=== PATIENT | female | born 1935 | race Caucasian/White ===

== ENCOUNTER → 2017-08-18 10:49 | Outpatient (CLI) | payer MEDICARE, SELFPAY ==
[2017-08-18 14:17] LABS: AST(SGOT) 12 U/L (15-37); Alanine Aminotransfer ALT/SGPT 11 U/L (13-56); Alkaline Phosphatase 64 U/L (45-117); Bilirubin, Direct 0.12 mg/dL (0.00-0.30); Cholesterol 181 mg/dL (200); High Density Lipoprotein 62 mg/dL; Triglycerides 106 mg/dL; Very Low Density Lipoprotein 21 mg/dL (5-40)
== END ==
PROVIDERS: Family Provider Family Medicine; PCP Family Medicine; Visit Provider Internal Medicine Cardiovascular Disease
DX: E78.5 Hyperlipidemia, unspecified (principal); Z79.899 Other long term (current) drug therapy
CPT/HCPCS: 36415; 80061; 80076

== ENCOUNTER → 2017-08-20 12:15 | Outpatient (CLI) | payer MEDICARE, SELFPAY ==
[2017-08-20 11:40] VITALS: BP 80/60; BMI 18.8
[2017-08-20 13:36] LABS: Absolute Lymphocyte Count 1.33 X10^3/ul (0.83-4.51); Absolute Neutrophil Count 3.3 X10^3/uL (2.0-7.7); Basophil# 0.07 X10^3/uL; Basophil% 1.2 % (0-1); Eosinophil# 0.68 X10^3/uL; Eosinophils% 11.4 % (0-5); Hematocrit 39.4 % (37-47); Hemoglobin 12.5 g/dl (12.0-15.0); Lymphocyte # 1.33 X10^3/ul (4.0); Lymphocyte % 22.4 % (19-41); Mean Corp Hgb Conc 31.7 g/gl (32-36); Mean Corpuscular Hgb 32.6 pg (27.0-32.0); Mean Corpuscular Volume 102.6 fL (81-99); Mean Platelet Vol. 10.4 fl (6.2-12.0); Monocyte# 0.54 X10^3/uL; Monocyte% 9.1 % (0-10); Neutrophil # 3.31 X10^3/uL (2.7-7.7); Neutrophil % 55.7 % (47-70); POSITIVE COUNT NO; POSITIVE DIFFERENTIAL NO; POSITIVE MORPHOLOGY NO; Platelet Count 199 K/mm3 (150-450); RBC Distribution Width CV 13.1 % (11.6-14.6); RBC Distribution Width SD 48.8 fl (35.1-43.9); Red Blood Count 3.84 M/mm3 (4.2-5.4); White Blood Count 5.9 K/mm3 (4.4-11.0)
[2017-08-20 14:13] LABS: Anion Gap 6 (5-15); BUN 25 mg/dL (7-18); BUN/Creat Ratio 16.7 RATIO (10-20); Calcium,Total 8.9 mg/dL (8.5-10.1); Chloride 104 mmol/L (98-107); EST Glomerular Filtration Rate 35 mL/min (>60); Est Glom Filt Rate - Afr Amer 43 mL/min (>60); Glucose 100 mg/dL (70-110); Magnesium 2.1 mg/dL (1.6-2.6); Potassium 4.5 mmol/L (3.5-5.1); Sodium Level 143 mmol/L (136-145); T4 Total, Thyroxin 9.9 ug/dL (4.8-13.9); Thyroid Stim Hormone (TSH) 0.05 uIU/mL (0.358-3.74)
== END ==
PROVIDERS: Family Provider Family Medicine; PCP Family Medicine; Visit Provider Physician Assistant Medical
DX: I25.10 Atherosclerotic heart disease of native coronary artery without angina pectoris (principal); I10 Essential (primary) hypertension; R00.2 Palpitations
CPT/HCPCS: 36415; 80048; 83735; 84436; 84443; 85025

== ENCOUNTER → 2018-01-08 14:18 | Outpatient (CLI) | payer MEDICARE, SELFPAY ==
--- NOTE | 2018-01-08 14:22 | RAD_ITS ---
STUDY: X-RAY - ABDOMEN/PELVIS REASON FOR EXAM: Female, 82 years old. 2 day history of lower abdominal pain. Constipation. TECHNIQUE: AP supine and upright views of the abdomen and pelvis. COMPARISON: None. FINDINGS: Normal visualized lung bases. There is an abundance of fecal material throughout the colon. There is no demonstrated free abdominal air. There is a 2.4 cm rounded calcification in the right upper quadrant. This may represent either gallstone or calcified granuloma in the right lower lobe. Normal soft tissue structures. There are diffuse degenerative changes of the visualized lumbar spine. Mild extradural scoliosis. 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 RAD/Abd Inc Decub and/or Erect IMPRESSION: Large amount of fecal material is seen in the colon. Electronically Signed: Clinton Alejandro MD at 15:16 EDT Tel [phone], Service support ,
== END ==
PROVIDERS: Family Provider Family Medicine; PCP Family Medicine; Visit Provider Family Medicine
DX: R10.30 Lower abdominal pain, unspecified (principal)
CPT/HCPCS: 74019

== ENCOUNTER → 2018-01-13 16:52 | Outpatient (CLI) | payer MEDICARE, SELFPAY ==
[2018-01-13 18:16] LABS: Thyroid Stim Hormone (TSH) 1.35 uIU/mL (0.358-3.74)
[2018-01-13 18:32] LABS: T4 Total, Thyroxin 9.8 ug/dL (4.8-13.9)
== END ==
PROVIDERS: Physician Assistant Medical; Family Provider Family Medicine; PCP Family Medicine; Visit Provider Family Medicine
DX: E03.9 Hypothyroidism, unspecified (principal); I25.10 Atherosclerotic heart disease of native coronary artery without angina pectoris; I10 Essential (primary) hypertension; R00.2 Palpitations
CPT/HCPCS: 36415; 84436; 84443

== ENCOUNTER → 2018-04-12 12:48 | Outpatient (CLI) | payer MEDICARE, SELFPAY ==
--- NOTE | 2018-04-12 12:52 | ECHOD_ITS ---
Reason For Study: Afib/Flutter Procedure This was a 2D Doppler, Color Flow transthoracic echocardiogram. Exam performed in department. Left Ventricle Normal LV size. Left ventricular systolic function is normal. The estimated ejection fraction is 55 %. No regional wall motion abnormalities noted. Right Ventricle Normal RV size. ICD or pacer leads identified within the right ventricle. Normal systolic function. Atria Normal left atrium. Normal right atrium. ICD or pacer leads identified within the right atrium. Mitral Valve Normal mitral valve. Mild (1+) eccentric mitral valve insufficiency. Tricuspid Valve Normal tricuspid valve. Mild (1+) tricuspid valve insufficiency. Pulmonary artery systolic pressure is 43 mmHg. Mild pulmonary hypertension. Aortic Valve Normal aortic valve. Trisinus/trileaflet aortic valve. Pulmonic Valve Normal pulmonic valve. Great Vessels Normal aortic root. The pulmonary artery is normal size. Normal inferior vena cava. Pericardium/Pleural No pericardial effusion. MMode/2D Measurements & Calculations LVIDd: 3.8 cm IVSd: 0.79 cm LVOT diam: 2.0 cm LVIDs: 1.8 cm LVPWd: 0.76 cm LVOT area: 3.2 cm2 FS: 51.1 % Ao root diam: 2.9 cm LAV(MOD-bp): 38.1 ml LA A4 area: 17.1 cm2 LAV(MOD-bp) Indexed: 27.8 ml/m2 LAV(MOD-sp2): 30.4 ml LAV(MOD-sp4): 46.9 ml RA A4 area: 11.6 cm2 Time Measurements MV dec time: 0.20 sec Doppler Measurements & Calculations MV E max grant: 81.4 cm/sec Med Peak E' Grant: 6.5 cm/sec MV V2 max: 88.4 cm/sec MV A max grant: 44.2 cm/sec E/E' med: 12.5 MV max P.1 mmHg MV E/A: 1.8 MV V2 mean: 43.5 cm/sec MV mean P.92 mmHg MV V2 VTI: 24.1 cm MVA(VTI): 3.2 cm2 MV P1/2t max grant: 87.6 cm/sec Ao V2 max: 110.4 cm/sec AI max grant: 366.6 cm/sec MV P1/2t: 93.6 msec Ao max P.9 mmHg AI max P.7 mmHg MV dec slope: 274.3 cm/sec2 Ao V2 mean: 68.5 cm/sec AI dec slope: 232.2 cm/sec2 MVA(P1/2t): 2.4 cm2 Ao mean P.2 mmHg AI P1/2t: 462.4 msec Ao V2 VTI: 21.6 cm ROYAL(I,D): 3.5 cm2 ROYAL(V,D): 3.0 cm2 LV V1 max: 103.0 cm/sec SV(LVOT): 76.3 ml PA V2 max: 68.7 cm/sec LV V1 max P.2 mmHg LV V1 mean P.0 mmHg LV V1 mean: 64.6 cm/sec LV V1 VTI: 24.0 cm TR max grant: 313.6 cm/sec TR max P.3 mmHg Interpretation Summary Normal LV size. Left ventricular systolic function is normal. The estimated ejection fraction is 55 %. Mild (1+) eccentric mitral valve insufficiency. Mild (1+) tricuspid valve insufficiency. Pulmonary artery systolic pressure is 43 mmHg. Mild pulmonary hypertension. Ordering Physician: Dung Cerda Referring Physician: Suresh Juarez Performed By: Jesus Sánchez RCS
== END ==
PROVIDERS: Family Provider Family Medicine; PCP Family Medicine; Visit Provider Internal Medicine Cardiovascular Disease
DX: I27.29 Other secondary pulmonary hypertension (principal)
CPT/HCPCS: 93306

== ENCOUNTER 2018-05-14 11:22 | Emergency (ER) | payer MEDICARE, SELFPAY ==
[2018-05-14 11:24] VITALS: BP 106/57; PULSE 60; RESP 18; TEMP 36.6; O2SAT 100; BMI 18.1
--- NOTE | 2018-05-14 11:56 | RAD_ITS ---
STUDY: X-RAY - LUMBAR SPINE REASON FOR EXAM: Female, 82 years old. Fall. Pain TECHNIQUE: 3 view(s) of the lumbar spine were obtained. COMPARISON: None FINDINGS: Normal lumbar lordosis. There is a dextroscoliosis of the lumbar spine. There is diffuse demineralization with multi-level endplate spondylosis. There is multi-level degenerative disc disease with multi-level disc space narrowing. There is no demonstrated fracture. There are vascular calcifications. RAD/Lumbar Spine 2 or 3 Views IMPRESSION: Degenerative changes scoliosis. No fracture seen. Electronically Signed: Saul Funes MD at 13:33 EDT , Service support ,
--- NOTE | 2018-05-14 11:56 | RAD_ITS ---
STUDY: X-RAY - PELVIS AND LEFT HIP REASON FOR EXAM: Female, 82 years old. Fall. Pain. TECHNIQUE: Radiological exam, hip, unilateral, with pelvis when performed; 2 or 3 views. COMPARISON: None. FINDINGS: There is a normal bowel gas pattern. There is postoperative change in the pelvis. There are vascular calcifications. There is diffuse demineralization of the osseous structures. Normal bilateral iliac wings, sacroiliac joints and visualized sacrum. Normal bilateral superior and inferior pubic rami. Normal pubic symphysis. Normal bilateral ischial tuberosities. There are osteoarthritic changes of the femoral head with marginal osteophyte formation. There is osteoarthritic spur formation of the acetabular rim. There is moderate articular joint space narrowing of the hip. No fracture seen. RAD/HIP, UNI W/ Pelvis 2-3 Views IMPRESSION: Degenerative change. No fracture. Electronically Signed: Saul Funes MD at 13:31 EDT , Service support ,
--- NOTE | 2018-05-14 11:56 | CT_ITS ---
STUDY: CT BRAIN WITHOUT CONTRAST REASON FOR EXAM: Female, 82 years old. Recent fall. Head injury. RADIATION DOSAGE (If Supplied By Facility): CTDIvol = ( 44.99 ) mGy, DLP = ( 711.75 ) mGycm TECHNIQUE: Transaxial CT imaging of the brain was performed without administration of intravenous contrast material. Individualized dose optimization techniques were used for this CT. COMPARISON: March 29, 2015. FINDINGS: Normal soft tissue structures. Normal calvarium. There is arthritic change of the temporomandibular joints. There is mild cerebral atrophy with widening of the extra-axial spaces and ventricular dilatation. There are areas of decreased attenuation within the white matter tracts of the supratentorial brain, consistent with microvascular disease changes. 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 Normal brainstem. There is mild cerebellar atrophy. There is no intracranial hemorrhage. There are no findings of an acute ischemic infarction. There are atherosclerotic calcifications. Normal visualized paranasal sinuses. CT/Brain/Head without Contrast IMPRESSION: Chronic involutional changes of the brain. No hemorrhage. Electronically Signed: Saul Funes MD at 12:49 EDT , Service support ,
[2018-05-14 13:26] VITALS: BP 104/62; PULSE 80; RESP 16; O2SAT 97
--- NOTE | 2018-05-14 14:42 | ED.DCSUM_ITS ---
- ER Visit Summary Date of Service: 05/14/18 Chief Complaint: Fall History of Present Illness: The patient is a 82 F who presents with a fall that occurred yesterday. Patient states she slipped and fell backwards. Patient denies any loss of consciousness. Patient did hit her head. Patient complains of pain in her neck and low back as well as her left hip. Patient also hit her left elbow but denies any pain there. Patient denies any paresthesias or weakness. Patient has been able to ambulate since the fall. Patient denies any other injuries. Physical Examination: Vital signs are stable. Patient is afebrile. Patient is in no acute distress. Oral mucosa is pink and moist. Neck is supple. Trachea is midline. There is some mild left cervical paraspinal muscles. There is no midline tenderness. Heart was regular rate and rhythm. Lungs are clear and equal bilateral. There is good respiratory effort noted. Abdomen is soft and nontender. Musculoskeletal exam reveals some mild tenderness over the left hip. There is also some mild decreased range of motion of the left hip. There is no deformity noted. There is also tenderness over the lumbar spine. There is no edema or ecchymosis. Range of motion was slightly limited secondary to pain. The remaining physical exam is within normal limits. Test Results: CT scan of the brain was obtained. There is no acute intracranial abnormality noted. X-rays of the left hip and lumbar spine were obtained. There are degenerative changes. There is no acute fracture noted. Emergency Department Course and Treatment: Patient was advised of the x-ray findings. Patient felt better on reevaluation. Patient was instructed to follow-up with her primary care physician in 5-7 days. Patient understood and was agreeable with the plan. All questions were answered. Disposition: Discharge home Impression: 1. Lumbar contusion 2. Left hip contusion 3. Closed head injury This note was generated with [employer] dictation software. It may contain incorrect words, spelling, and punctuation that were not noted in review of the chart prior to signing ED Disposition - Plan for ED Patient: Disposition: Home or Assisted Living Chief Complaint: Fall Diagnosis: Head contusion, Lumbar strain, Contusion of left hip region Instructions: ED Head Injury Closed, ED Prevention Fall Referrals: Suresh Juarez MD [Primary Care Provider] -
[2018-05-14 14:56] VITALS: BP 105/67; PULSE 79; RESP 16; O2SAT 97
[2018-05-14] MEDS: Acetaminophen 500 MG Tablet 1000 MG PO (14:56)
== END 2018-05-14 14:57 | disposition home or self-care (01) ==
PROVIDERS: Emergency Provider Emergency Medicine; Family Provider Family Medicine; PCP Family Medicine
DX: S30.0XXA Contusion of lower back and pelvis, initial encounter (principal); S70.02XA Contusion of left hip, initial encounter; S09.90XA Unspecified injury of head, initial encounter; I10 Essential (primary) hypertension; Z79.82 Long term (current) use of aspirin; Z79.899 Other long term (current) drug therapy; W01.10XA Fall on same level from slipping, tripping and stumbling with subsequent striking against unspecified object, initial encounter; Y93.89 Activity, other specified; Y92.89 Other specified places as the place of occurrence of the external cause; Y99.8 Other external cause status
CPT/HCPCS: 70450; 72100; 73502; 99283

== ENCOUNTER → 2018-06-25 12:07 | Outpatient (CLI) | payer MEDICARE, SELFPAY ==
--- NOTE | 2018-06-25 12:11 | BI_ITS ---
MAMMOGRAPHY - BILATERAL SCREENING REASON FOR EXAM: Female, 83 years old. Routine annual screening examination. PERTINENT HISTORY: Non-contributory. TECHNIQUE: Digital bilateral breast tyler (3D mammographic acquisition) in the CC and MLO projections. 2-D mediolateral oblique (MLO) and craniocaudad (CC) views of both breasts were obtained. CAD: Full Field Digital Mammography with Computer Added Detection was performed. COMPARISON: Comparison is made with prior study dated May 21, 2017 and November 06, 2015 FINDINGS: Breast Composition: The breasts are heterogeneously dense, which may obscure small masses. There are no dominant masses or suspicious calcifications. A battery pack from a pacemaker is seen in the right axillary region. Stable vascular calcifications. No other significant abnormalities are identified. There has been no significant change since the prior study. BI/SCREENING MAMM (CAD), BILAT IMPRESSION: Stable bilateral screening mammogram. Yearly follow-up mammogram recommended. (A) ASSESSMENT CATEGORY: BIRADS Category 2: Benign. A letter regarding these results will be sent to the patient by the facility within 30 days. Approximately 10% of breast cancers are not detected by mammography. A normal mammogram should not delay biopsy of a clinically suspicious abnormality. [id number] Electronically Signed: Clinton Alejandro MD at 13:13 EST Tel [phone], Service support ,
== END ==
PROVIDERS: Family Provider Family Medicine; PCP Family Medicine; Referring Provider Family Medicine; Visit Provider Family Medicine
DX: Z12.31 Encounter for screening mammogram for malignant neoplasm of breast (principal)
CPT/HCPCS: 77063; 77067

== ENCOUNTER → 2018-09-16 09:21 | Outpatient (CLI) | payer MEDICARE, SELFPAY ==
[2018-07-05 13:09] VITALS: BMI 18.8
[2018-09-16 12:55] LABS: Hematocrit 36.9 % (37-47); Hemoglobin 12.1 g/dl (12.0-15.0); Mean Corp Hgb Conc 32.8 g/gl (32-36); Mean Corpuscular Hgb 32.3 pg (27.0-32.0); Mean Corpuscular Volume 98.4 fL (81-99); Mean Platelet Vol. 10.4 fl (6.2-12.0); Platelet Count 166 K/mm3 (150-450); RBC Distribution Width CV 12.5 % (11.6-14.6); RBC Distribution Width SD 45.1 fl (35.1-43.9); Red Blood Count 3.75 M/mm3 (4.2-5.4); White Blood Count 4.3 K/mm3 (4.4-11.0)
[2018-09-16 12:58] LABS: Scan Indicated on CBC? Y/N NO
[2018-09-16 13:24] LABS: AST(SGOT) 16 U/L (15-37); Alanine Aminotransfer ALT/SGPT 11 U/L (13-56); Albumin, Serum 3.9 g/dL (3.2-5.0); Alkaline Phosphatase 49 U/L (45-117); Cholesterol 183 mg/dL (200); Globulin 2.6 g/dL (2.2-4.2); High Density Lipoprotein 43 mg/dL; Protein, Total 6.5 g/dL (6.4-8.2); Triglycerides 153 mg/dL; Very Low Density Lipoprotein 31 mg/dL (5-40)
[2018-09-16 13:32] LABS: ALB/GLOB Ratio 1.6 RATIO (0.9-2.4); AST(SGOT) 17 U/L (15-37); Alanine Aminotransfer ALT/SGPT 10 U/L (13-56); Alkaline Phosphatase 49 U/L (45-117); Anion Gap 11 (5-15); BUN 21 mg/dL (7-18); BUN/Creat Ratio 12.4 RATIO (10-20); Calcium,Total 8.3 mg/dL (8.5-10.1); Chloride 100 mmol/L (98-107); Creatinine, Serum 1.69 mg/dL (0.55-1.02); EST Glomerular Filtration Rate 31 mL/min (>60); Est Glom Filt Rate - Afr Amer 37 mL/min (>60); Globulin 2.5 g/dL (2.2-4.2); Glucose 107 mg/dL (74-106); Potassium 2.6 mmol/L (3.5-5.1); Protein, Total 6.5 g/dL (6.4-8.2); Sodium Level 138 mmol/L (136-145); Thyroid Stim Hormone (TSH) 0.11 uIU/mL (0.358-3.74)
== END ==
PROVIDERS: Internal Medicine Cardiovascular Disease; Family Provider Family Medicine; PCP Family Medicine; Referring Provider Family Medicine; Visit Provider Family Medicine
DX: R53.1 Weakness (principal); E78.5 Hyperlipidemia, unspecified; Z79.899 Other long term (current) drug therapy
CPT/HCPCS: 36415; 80053; 80061; 80076; 84443; 85027

== ENCOUNTER → 2018-09-20 16:57 | Outpatient (CLI) | payer MEDICARE, SELFPAY ==
[2018-07-05 13:09] VITALS: BMI 18.8
[2018-09-20 18:08] LABS: Anion Gap 8 (5-15); BUN 20 mg/dL (7-18); BUN/Creat Ratio 16.7 RATIO (10-20); Chloride 103 mmol/L (98-107); EST Glomerular Filtration Rate 46 mL/min (>60); Est Glom Filt Rate - Afr Amer 55 mL/min (>60); Glucose 101 mg/dL (74-106); Potassium 4.1 mmol/L (3.5-5.1); Sodium Level 138 mmol/L (136-145)
== END ==
PROVIDERS: Family Provider Family Medicine; PCP Family Medicine; Referring Provider Family Medicine; Visit Provider Family Medicine
DX: E87.6 Hypokalemia (principal)
CPT/HCPCS: 36415; 80048

== ENCOUNTER → 2018-10-13 14:26 | Outpatient (CLI) | payer MEDICARE, SELFPAY ==
[2018-09-29 13:10] VITALS: BMI 16.9
[2018-10-13 15:54] LABS: Absolute Lymphocyte Count 1.14 X10^3/ul (0.83-4.51); Absolute Neutrophil Count 2.8 X10^3/uL (2.0-7.7); Basophil# 0.06 X10^3/uL; Basophil% 1.3 % (0-1); Eosinophil# 0.47 X10^3/uL; Eosinophils% 9.8 % (0-5); Hemoglobin 11.9 g/dl (12.0-15.0); Lymphocyte # 1.14 X10^3/ul (4.0); Lymphocyte % 23.8 % (19-41); Mean Corp Hgb Conc 32.2 g/gl (32-36); Mean Corpuscular Volume 102.5 fL (81-99); Mean Platelet Vol. 10.4 fl (6.2-12.0); Monocyte# 0.31 X10^3/uL; Monocyte% 6.5 % (0-10); Neutrophil # 2.78 X10^3/uL (2.7-7.7); Neutrophil % 58.2 % (47-70); Platelet Count 184 K/mm3 (150-450); RBC Distribution Width SD 47.7 fl (35.1-43.9); Red Blood Count 3.61 M/mm3 (4.2-5.4); White Blood Count 4.8 K/mm3 (4.4-11.0)
[2018-10-13 15:55] LABS: POSITIVE COUNT NO; POSITIVE DIFFERENTIAL NO; POSITIVE MORPHOLOGY NO
[2018-10-13 16:42] LABS: Anion Gap 6 (5-15); BUN 21 mg/dL (7-18); BUN/Creat Ratio 14.2 RATIO (10-20); Calcium,Total 8.8 mg/dL (8.5-10.1); Chloride 104 mmol/L (98-107); Creatinine, Serum 1.48 mg/dL (0.55-1.02); EST Glomerular Filtration Rate 36 mL/min (>60); Est Glom Filt Rate - Afr Amer 43 mL/min (>60); Glucose 89 mg/dL (74-106); Magnesium 1.8 mg/dL (1.6-2.6); Potassium 4.3 mmol/L (3.5-5.1); Sodium Level 140 mmol/L (136-145)
== END ==
PROVIDERS: Family Provider Family Medicine; PCP Family Medicine; Referring Provider Family Medicine; Visit Provider Family Medicine
DX: R53.83 Other fatigue (principal)
CPT/HCPCS: 36415; 80048; 83735; 84443; 85025

== ENCOUNTER → 2018-11-10 | Outpatient (CLI) | payer MEDICARE, SELFPAY ==
[2018-09-29 13:10] VITALS: BMI 16.9
[2018-11-10 14:23] LABS: Absolute Lymphocyte Count 1.24 X10^3/ul (0.83-4.51); Absolute Neutrophil Count 3.5 X10^3/uL (2.0-7.7); Basophil# 0.11 X10^3/uL; Basophil% 1.9 % (0-1); Eosinophils% 10.3 % (0-5); Hematocrit 36.5 % (37-47); Hemoglobin 11.9 g/dl (12.0-15.0); Lymphocyte # 1.24 X10^3/ul (4.0); Lymphocyte % 21.3 % (19-41); Mean Corp Hgb Conc 32.6 g/gl (32-36); Mean Corpuscular Hgb 32.6 pg (27.0-32.0); Mean Platelet Vol. 9.7 fl (6.2-12.0); Monocyte# 0.37 X10^3/uL; Monocyte% 6.4 % (0-10); Neutrophil # 3.47 X10^3/uL (2.7-7.7); Neutrophil % 59.8 % (47-70); POSITIVE COUNT NO; POSITIVE DIFFERENTIAL NO; POSITIVE MORPHOLOGY NO; Platelet Count 192 K/mm3 (150-450); RBC Distribution Width CV 13.6 % (11.6-14.6); RBC Distribution Width SD 49.5 fl (35.1-43.9); Red Blood Count 3.65 M/mm3 (4.2-5.4); White Blood Count 5.8 K/mm3 (4.4-11.0)
[2018-11-10 14:36] LABS: Anion Gap 6 (5-15); BUN 22 mg/dL (7-18); BUN/Creat Ratio 16.4 RATIO (10-20); Calcium,Total 8.9 mg/dL (8.5-10.1); Chloride 102 mmol/L (98-107); Cholesterol 191 mg/dL (200); Creatinine, Serum 1.34 mg/dL (0.55-1.02); EST Glomerular Filtration Rate 40 mL/min (>60); Est Glom Filt Rate - Afr Amer 48 mL/min (>60); Glucose 104 mg/dL (74-106); High Density Lipoprotein 66 mg/dL; Potassium 4.3 mmol/L (3.5-5.1); Sodium Level 138 mmol/L (136-145); Thyroid Stim Hormone (TSH) 5.32 uIU/mL (0.358-3.74); Triglycerides 102 mg/dL; Very Low Density Lipoprotein 20 mg/dL (5-40)
== END | disposition home or self-care (01) ==
PROVIDERS: Family Provider Family Medicine; PCP Family Medicine; Referring Provider Family Medicine; Visit Provider Family Medicine
DX: E78.00 Pure hypercholesterolemia, unspecified (principal); E03.9 Hypothyroidism, unspecified; M19.90 Unspecified osteoarthritis, unspecified site; I10 Essential (primary) hypertension
CPT/HCPCS: 36415; 80048; 80061; 84443; 85025

== ENCOUNTER → 2019-02-28 17:45 | Outpatient (CLI) | payer MEDICARE, SELFPAY ==
[2018-09-29 13:10] VITALS: BMI 16.9
== END ==
PROVIDERS: Family Provider Family Medicine; PCP Family Medicine; Referring Provider Nurse Practitioner Family; Visit Provider Nurse Practitioner Family
DX: R35.0 Frequency of micturition (principal)
CPT/HCPCS: 87077; 87086; 87088; 87186

== ENCOUNTER → 2019-05-25 | Outpatient (CLI) | payer MEDICARE, SELFPAY ==
[2018-09-29 13:10] VITALS: BMI 16.9
[2019-05-25 12:26] LABS: Absolute Lymphocyte Count 1.22 X10^3/uL (0.83-4.51); Absolute Neutrophil Count 2.7 X10^3/uL (2.0-7.7); Basophil# 0.09 X10^3/uL; Basophil% 1.8 % (0-1); Eosinophil# 0.59 X10^3/uL; Eosinophils% 11.7 % (0-5); Hematocrit 35.8 % (37-47); Hemoglobin 11.6 g/dL (12.0-15.0); Lymphocyte # 1.22 X10^3/ul (4.0); Lymphocyte % 24.1 % (19-41); Mean Corp Hgb Conc 32.4 g/dL (32-36); Mean Corpuscular Hgb 33.6 pg (27.0-32.0); Mean Corpuscular Volume 103.8 fL (81-99); Mean Platelet Vol. 10.4 fl (6.2-12.0); Monocyte# 0.42 X10^3/uL; Monocyte% 8.3 % (0-10); NRBC Flagged by Analyzer 0 % (0-5); Neutrophil # 2.72 X10^3/uL (2.7-7.7); Neutrophil % 53.7 % (47-70); Platelet Count 170 K/mm3 (150-450); RBC Distribution Width CV 12.9 % (11.6-14.6); RBC Distribution Width SD 49.1 fl (35.1-43.9); Red Blood Count 3.45 M/mm3 (4.2-5.4); White Blood Count 5.1 K/mm3 (4.4-11.0)
[2019-05-25 13:00] LABS: Anion Gap 5 (5-15); BUN 23 mg/dL (7-18); BUN/Creat Ratio 16.2 RATIO (10-20); Calcium,Total 8.9 mg/dL (8.5-10.1); Chloride 104 mmol/L (98-107); Creatinine, Serum 1.42 mg/dL (0.55-1.02); EST Glomerular Filtration Rate 37 mL/min (>60); Est Glom Filt Rate - Afr Amer 45 mL/min (>60); Glucose 98 mg/dL (74-106); Sodium Level 139 mmol/L (136-145); Thyroid Stim Hormone (TSH) 1.22 uIU/mL (0.358-3.74)
== END | disposition home or self-care (01) ==
LOC: MTLAB 10:10
PROVIDERS: Family Provider Family Medicine; PCP Family Medicine; Referring Provider Family Medicine; Visit Provider Family Medicine
DX: K58.9 Irritable bowel syndrome, unspecified (principal); E03.9 Hypothyroidism, unspecified; I10 Essential (primary) hypertension
CPT/HCPCS: 36415; 80048; 84443; 85025

== ENCOUNTER → 2019-05-26 | Outpatient (CLI) | payer MEDICARE, SELFPAY ==
[2018-09-29 13:10] VITALS: BMI 16.9
[2019-05-26 15:11] LABS: Bacteria 0 SEEN /hpf (None Seen); Mucous, Urine 0 SEEN /hpf (<or=2+); Red Blood Cells-Urine 0 SEEN /hpf (0-5)
[2019-05-26 18:18] LABS: Vitamin B12 231 pg/mL (211-911); Vitamin D,25 Hydroxy 15.9 ng/mL (29.95-100.01)
[2019-05-26 18:20] LABS: AST(SGOT) 13 U/L (15-37); Alanine Aminotransfer ALT/SGPT 10 U/L (13-56); Albumin, Serum 3.9 g/dL (3.2-5.0); Alkaline Phosphatase 64 U/L (45-117); Bilirubin, Direct 0.13 mg/dL (0.00-0.30); Cholesterol 193 mg/dL (200); Ferritin 34 ng/mL (8-252); High Density Lipoprotein 58 mg/dL; Iron 120 ug/dL (50-170); Iron Binding Capacity,Total 386 ug/dL (250-450); Protein, Total 6.9 g/dL (6.4-8.2); Triglycerides 194 mg/dL; Very Low Density Lipoprotein 39 mg/dL (5-40)
[2019-05-26 18:26] LABS: Color, Urine Yellow (Yellow); Glucose, Dipstick Normal (Normal); Ketone-Dipstick Negative (Negative); Leukocyte Esterase-Dipstick 100 /ul (Negative); Nitrite-Dipstick Negative (Negative); Occult Blood-Urine Negative /ul (Negative); Protein-Dipstick Negative (Negative); Urine Bilirubin Dipstick Negative (Negative); Urine Clarity Clear (Clear); Urine Urobilinogen Normal (Normal)
[2019-05-26 18:34] LABS: Hemoglobin A1c 5.7 % (4.2-6.3)
[2019-05-26 18:46] LABS: Protein, Urine (Random) 18.3 mg/dL (<11.9); Protein:Creat Ratio 261 mg/g CRE (0-200)
[2019-05-26 18:49] LABS: Squamous Epithelial Cells - UA 0-5 SEEN /hpf (5-10); White Blood Cells 0-5 SEEN /hpf (0-5)
[2019-05-26 18:51] LABS: PTHIN 75.3 pg/mL (18.4-80.1)
== END | disposition home or self-care (01) ==
LOC: MFPLAB 15:07
PROVIDERS: Family Provider Family Medicine; PCP Family Medicine; Referring Provider Family Medicine; Visit Provider Family Medicine
DX: N18.3 Chronic kidney disease, stage 3 (moderate) (principal); E78.00 Pure hypercholesterolemia, unspecified; D64.9 Anemia, unspecified; R73.09 Other abnormal glucose
CPT/HCPCS: 36415; 80061; 80076; 81001; 82306; 82570; 82607; 82728; 82746; 83036; 83540; 83550; 83970; 84156

== ENCOUNTER → 2019-05-31 | Outpatient (CLI) | payer MEDICARE, SELFPAY ==
[2018-09-29 13:10] VITALS: BMI 16.9
--- NOTE | 2019-05-31 12:21 | US_ITS ---
STUDY: THYROID ULTRASOUND REASON FOR EXAM: Female, 84 years old. Nodule TECHNIQUE: Ultrasound evaluation of the thyroid was performed with real-time and static matthew-scale imaging. COMPARISON: None. FINDINGS: RIGHT LOBE: The right lobe of the thyroid gland measures 3.1 x 1.3 x 1.1 cm. There is a heterogeneous echotexture. There are no demonstrated solid, cystic or complex lesions. LEFT LOBE: The left lobe of the thyroid gland measures 4.4 x 0.8 x 0.8 cm. There is a heterogeneous echotexture. There is a 0.4 x 0.4 x 0.5 cm hypoechoic solid nodule. ISTHMUS: The isthmus measures 2 mm. The regional lymph nodes are normal. US/Thyroid IMPRESSION: Normal size heterogeneous thyroid gland with a solid 5 mm nodule in the right lobe. Sonography cannot distinguish between benign and aggressive nodules. If there is strong clinical suspicion of an aggressive process, further evaluation with thyroid uptake study could be performed. If suspicion is low, six-month follow-up could be performed to ensure stability Electronically Signed: Tim Causey MD at 17:29 EST , Service support ,
== END | disposition home or self-care (01) ==
LOC: US 12:20
PROVIDERS: Family Provider Family Medicine; PCP Family Medicine; Referring Provider Family Medicine; Visit Provider Family Medicine
DX: E04.1 Nontoxic single thyroid nodule (principal)
CPT/HCPCS: 76536

== ENCOUNTER → 2019-07-04 11:15 | Outpatient (CLI) | payer MEDICARE, SELFPAY ==
[2018-09-29 13:10] VITALS: BMI 16.9
--- NOTE | 2019-07-04 11:27 | BI_ITS ---
MAMMOGRAPHY - BILATERAL SCREENING REASON FOR EXAM: Female, 84 years old. Routine annual screening examination. PERTINENT HISTORY: Daughter with breast cancer. TECHNIQUE: Digital bilateral breast erasmo (3D mammographic acquisition) in the CC and MLO projections. 2-D mediolateral oblique (MLO) and craniocaudad (CC) views of both breasts were obtained. CAD: Full Field Digital Mammography with Computer Added Detection was performed. COMPARISON: Comparison is made with prior study dated June 25, 2018 and May 21, 2017. FINDINGS: Breast Composition: The breasts are heterogeneously dense, which may obscure small masses. There are no dominant masses or suspicious calcifications. A pacemaker battery pack is seen in the right axillary region. No other significant abnormalities are identified. There has been no significant change since the prior study. BI/SCREEN MAMM (CAD) W/ERASMO BILAT IMPRESSION: Stable bilateral screening mammogram. Yearly follow-up mammogram recommended. (A) ASSESSMENT CATEGORY: BIRADS Category 2: Benign. A letter regarding these results will be sent to the patient by the facility within 30 days. Approximately 10% of breast cancers are not detected by mammography. A normal mammogram should not delay biopsy of a clinically suspicious abnormality. [id number] Electronically Signed: Clinton Alejandro, at 12:45 EST , Service support ,
== END ==
PROVIDERS: Family Provider Family Medicine; PCP Family Medicine; Referring Provider Family Medicine; Visit Provider Family Medicine
DX: Z12.31 Encounter for screening mammogram for malignant neoplasm of breast (principal)
CPT/HCPCS: 77063; 77067

== ENCOUNTER → 2019-07-22 14:19 | Outpatient (CLI) | payer MEDICARE, SELFPAY ==
[2019-07-05 14:15] VITALS: BMI 19.0
[2019-07-22 15:54] LABS: Erythrocyte Sedimentation Rate 4 mm/hr (0-30)
== END ==
PROVIDERS: Family Provider Family Medicine; PCP Family Medicine; Referring Provider Family Medicine; Visit Provider Family Medicine
DX: M79.7 Fibromyalgia (principal)
CPT/HCPCS: 36415; 85652

== ENCOUNTER → 2019-09-01 | Outpatient (CLI) | payer MEDICARE, SELFPAY ==
[2019-07-05 14:15] VITALS: BMI 19.0
== END | disposition home or self-care (01) ==
LOC: LABSPEC 14:28
PROVIDERS: PCP Family Medicine; Referring Provider Family Medicine; Visit Provider Family Medicine
DX: N39.0 Urinary tract infection, site not specified (principal)
CPT/HCPCS: 87086; 87088

== ENCOUNTER → 2019-09-22 | Outpatient (CLI) | payer MEDICARE, SELFPAY ==
[2019-07-05 14:15] VITALS: BMI 19.0
== END | disposition home or self-care (01) ==
PROVIDERS: PCP Family Medicine; Referring Provider Nurse Practitioner Family; Visit Provider Nurse Practitioner Family
DX: N39.0 Urinary tract infection, site not specified (principal)
CPT/HCPCS: 87077; 87086; 87088; 87186

== ENCOUNTER → 2019-12-14 15:22 | Outpatient (CLI) | payer MEDICARE, SELFPAY ==
[2019-07-05 14:15] VITALS: BMI 19.0
[2019-12-14 17:42] LABS: Absolute Lymphocyte Count 1.53 X10^3/uL (0.83-4.51); Absolute Neutrophil Count 3.2 X10^3/uL (2.0-7.7); Basophil# 0.09 X10^3/uL; Basophil% 1.5 % (0-1); Eosinophil# 0.59 X10^3/uL; Eosinophils% 10.1 % (0-5); Hematocrit 35.3 % (37-47); Hemoglobin 11.2 g/dL (12.0-15.0); Lymphocyte # 1.53 X10^3/ul (4.0); Lymphocyte % 26.1 % (19-41); Mean Corp Hgb Conc 31.7 g/dL (32-36); Mean Corpuscular Hgb 33.2 pg (27.0-32.0); Mean Corpuscular Volume 104.7 fL (81-99); Mean Platelet Vol. 10.5 fl (6.2-12.0); Monocyte# 0.45 X10^3/uL; Monocyte% 7.7 % (0-10); NRBC Flagged by Analyzer 0 % (0-5); Neutrophil # 3.18 X10^3/uL (2.7-7.7); Neutrophil % 54.3 % (47-70); Platelet Count 163 K/mm3 (150-450); RBC Distribution Width CV 12.9 % (11.6-14.6); RBC Distribution Width SD 50.1 fl (35.1-43.9); Red Blood Count 3.37 M/mm3 (4.2-5.4); White Blood Count 5.9 K/mm3 (4.4-11.0)
[2019-12-14 17:58] LABS: Vitamin D,25 Hydroxy 68.3 ng/mL
[2019-12-14 18:00] LABS: Protein, Urine (Random) 23.8 mg/dL (<11.9); Protein:Creat Ratio 186 mg/g CRE (0-200)
[2019-12-14 18:01] LABS: Hemoglobin A1c 5.9 % (3.8-5.6)
[2019-12-14 18:10] LABS: ALB/GLOB Ratio 1.5 RATIO (0.9-2.4); AST(SGOT) 17 U/L (15-37); Alanine Aminotransfer ALT/SGPT 9 U/L (13-56); Albumin, Serum 3.8 g/dL (3.2-5.0); Alkaline Phosphatase 43 U/L (45-117); Anion Gap 4 (5-15); BUN 25 mg/dL (7-18); BUN/Creat Ratio 19.5 RATIO (10-20); Calcium,Total 8.9 mg/dL (8.5-10.1); Chloride 104 mmol/L (98-107); Cholesterol 118 mg/dL (200); Creatinine, Serum 1.28 mg/dL (0.55-1.02); EST Glomerular Filtration Rate 42 mL/min (>60); Est Glom Filt Rate - Afr Amer 51 mL/min (>60); Globulin 2.6 g/dL (2.2-4.2); Glucose 85 mg/dL (74-106); High Density Lipoprotein 58 mg/dL; Magnesium 2.2 mg/dL (1.6-2.6); Potassium 4.3 mmol/L (3.5-5.1); Protein, Total 6.4 g/dL (6.4-8.2); Sodium Level 139 mmol/L (136-145); Thyroid Stim Hormone (TSH) 1.25 uIU/mL (0.358-3.74); Triglycerides 108 mg/dL; Very Low Density Lipoprotein 22 mg/dL (5-40)
== END ==
PROVIDERS: PCP Family Medicine; Referring Provider Family Medicine; Visit Provider Family Medicine
DX: E03.9 Hypothyroidism, unspecified (principal); D63.8 Anemia in other chronic diseases classified elsewhere; I48.0 Paroxysmal atrial fibrillation; R73.02 Impaired glucose tolerance (oral); Z86.73 Personal history of transient ischemic attack (TIA), and cerebral infarction without residual deficits; E55.9 Vitamin D deficiency, unspecified
CPT/HCPCS: 36415; 80053; 80061; 82306; 82570; 83036; 83735; 84156; 84443; 85025

== ENCOUNTER → 2019-12-30 12:23 | Outpatient (CLI) | payer MEDICARE, SELFPAY ==
[2019-07-05 14:15] VITALS: BMI 19.0
[2019-12-30 13:29] LABS: Absolute Lymphocyte Count 1.33 X10^3/uL (0.83-4.51); Absolute Neutrophil Count 3.7 X10^3/uL (2.0-7.7); Basophil% 1.6 % (0-1); Eosinophils% 11.1 % (0-5); Hematocrit 33.8 % (37-47); Hemoglobin 10.6 g/dL (12.0-15.0); Lymphocyte # 1.33 X10^3/ul (4.0); Lymphocyte % 21.2 % (19-41); Mean Corp Hgb Conc 31.4 g/dL (32-36); Mean Corpuscular Volume 105.3 fL (81-99); Mean Platelet Vol. 10.1 fl (6.2-12.0); Monocyte# 0.45 X10^3/uL; Monocyte% 7.2 % (0-10); NRBC Flagged by Analyzer 0 % (0-5); Neutrophil # 3.69 X10^3/uL (2.7-7.7); Neutrophil % 58.7 % (47-70); Platelet Count 166 K/mm3 (150-450); RBC Distribution Width CV 12.5 % (11.6-14.6); RBC Distribution Width SD 48.4 fl (35.1-43.9); Red Blood Count 3.21 M/mm3 (4.2-5.4); White Blood Count 6.3 K/mm3 (4.4-11.0)
--- NOTE | 2019-12-30 13:39 | CT_ITS ---
STUDY: CT ABDOMEN AND PELVIS WITH CONTRAST REASON FOR EXAM: Female, 84 years old. Ischemic colitis, diffuse abdomen pain RADIATION DOSAGE (If Supplied By Facility): CTDIvol = ( ) mGy, DLP = ( ) mGycm TECHNIQUE: Transaxial images were obtained from the dome of the diaphragm to the symphysis pubis without oral contrast. Oral and amp; IV Gastrografin and amp; 75mL Isovue-300 was administered. Sagittal and coronal images were reconstructed. Individualized dose optimization techniques were used for this CT. COMPARISON: 2011 FINDINGS: There are chronic interstitial fibrotic changes of the lung bases. Pacer leads seen along the base of the heart Liver is unremarkable. There is a low-density area within the lateral right lobe which I suspect is a diaphragmatic fold. It is unchanged from the previous study Normal gallbladder and extrahepatic biliary system. Normal spleen. Normal pancreas. Normal bilateral adrenal glands. No obstructive uropathy, stable simple cysts. Normal visualized stomach. Normal small intestine. Retained stool noted throughout the colon, including sigmoid and rectum which may be impacted. There is non-visualization of the appendix. There is diffuse atherosclerotic calcification of the abdominal aorta, without a demonstrated aneurysm. Normal inferior vena cava. Normal retroperitoneum. Normal urinary bladder. There is absence of the uterus consistent with a prior hysterectomy. Normal abdominal wall. There are diffuse degenerative changes of the visualized lumbar spine, and pelvis. CT/Abdomen/Pelvis WITH Contrast IMPRESSION: No suspicious solid organ abnormality, stable simple renal cysts need no specific follow-up imaging. Retained stool throughout the colon which may be impacted Diffuse atherosclerosis Degenerative bony changes Electronically Signed: Tim Causey MD at 16:57 EDT , Service support ,
[2019-12-30 13:50] LABS: Lactic Acid 1.4 mmol/L (0.4-1.9)
[2019-12-30 13:53] LABS: ALB/GLOB Ratio 1.3 RATIO (0.9-2.4); AST(SGOT) 16 U/L (15-37); Alanine Aminotransfer ALT/SGPT 7 U/L (13-56); Albumin, Serum 3.9 g/dL (3.2-5.0); Alkaline Phosphatase 50 U/L (45-117); Anion Gap 6 (5-15); BUN 23 mg/dL (7-18); BUN/Creat Ratio 15.1 RATIO (10-20); Calcium,Total 9.1 mg/dL (8.5-10.1); Chloride 105 mmol/L (98-107); Creatinine, Serum 1.52 mg/dL (0.55-1.02); EST Glomerular Filtration Rate 35 mL/min (>60); Est Glom Filt Rate - Afr Amer 42 mL/min (>60); Globulin 2.9 g/dL (2.2-4.2); Glucose 79 mg/dL (74-106); Potassium 4.1 mmol/L (3.5-5.1); Protein, Total 6.8 g/dL (6.4-8.2); Sodium Level 140 mmol/L (136-145)
== END ==
LOC: MTLAB 12:59 → LAB 13:04 → CT 13:06
PROVIDERS: PCP Family Medicine; Referring Provider Family Medicine; Visit Provider Family Medicine
DX: K55.9 Vascular disorder of intestine, unspecified (principal)
CPT/HCPCS: 36415; 74177; 80053; 83605; 85025; Q9967

== ENCOUNTER → 2020-03-05 | Outpatient (CLI) | payer MEDICARE, SELFPAY ==
[2020-01-16 13:29] VITALS: BMI 18.3
--- NOTE | 2020-03-05 17:25 | RAD_ITS ---
STUDY: X-RAY - LEFT KNEE REASON FOR EXAM: Female, 84 years old. Left knee pain. Fall a few hours ago. TECHNIQUE: 4 view(s) of the knee. COMPARISON: None. FINDINGS: There is demineralization of the visualized distal femur. There is demineralization of the tibia and fibula. There is arthrosis of the proximal tibiofibular articulation. There is no acute fracture, dislocation or destructive osseous pathology. There is mild degenerative arthrosis of the medial femorotibial compartment. There is mild degenerative arthrosis of the lateral femorotibial compartment. There is moderate degenerative arthrosis of the patellofemoral articulation. There is no demonstrated joint effusion. The soft tissue structures are unremarkable. RAD/Knee 4 or More Views IMPRESSION: Osteopenia and degenerative changes of left knee. There is no visualized fracture or dislocation. Electronically Signed: Niraj Major DO at 23:50 EDT Tel [phone], Service support ,
== END | disposition home or self-care (01) ==
LOC: MTRAD 17:24
PROVIDERS: PCP Family Medicine; Referring Provider Family Medicine; Visit Provider Family Medicine
DX: S89.92XA Unspecified injury of left lower leg, initial encounter (principal)
CPT/HCPCS: 73564

== ENCOUNTER → 2020-03-09 | Outpatient (CLI) | payer MEDICARE, SELFPAY ==
[2020-01-16 13:29] VITALS: BMI 18.3
--- NOTE | 2020-03-09 14:53 | RAD_ITS ---
STUDY: X-RAY - PELVIS AND LEFT HIP REASON FOR EXAM: Female, 84 years old. left hip pain, fall TECHNIQUE: 3 views of the pelvis and hip. COMPARISON: 05/14/2018 FINDINGS: There is a non-specific bowel gas pattern. Normal visualized soft tissue structures. Normal bilateral iliac wings, sacroiliac joints and visualized sacrum. Normal bilateral superior and inferior pubic rami. Normal pubic symphysis. Normal bilateral ischial tuberosities. There are osteoarthritic changes of the femoral head with marginal osteophyte formation. There is cortical sclerosis with sub-cortical cyst formation of the acetabulum. is severe articular joint space narrowing of the hip. RAD/HIP, UNI W/ Pelvis 2-3 Views IMPRESSION: 1. No acute fracture or dislocation. 2. Severe arthrosis. Electronically Signed: Joe Palma MD at 15:12 EDT Tel , Service support ,
== END | disposition home or self-care (01) ==
LOC: MTRAD 14:51
PROVIDERS: PCP Family Medicine; Referring Provider Family Medicine; Visit Provider Family Medicine
DX: M25.552 Pain in left hip (principal)
CPT/HCPCS: 73502

== ENCOUNTER → 2020-03-16 | Outpatient (CLI) | payer MEDICARE, SELFPAY ==
[2020-01-16 13:29] VITALS: BMI 18.3
--- NOTE | 2020-03-16 12:40 | CT_ITS ---
STUDY: CT BRAIN WITHOUT CONTRAST REASON FOR EXAM: Female, 84 years old. FALLS RADIATION DOSAGE (If Supplied By Facility): CTDIvol = ( 60.81 ) mGy, DLP = ( 998.67 ) mGycm TECHNIQUE: Transaxial CT imaging of the brain was performed without administration of intravenous contrast material. Individualized dose optimization techniques were used for this CT. COMPARISON: Comparison is made with prior study dated 05/14/2018. FINDINGS: Normal soft tissue structures. Normal calvarium. There is mild cerebral atrophy with widening of the extra-axial spaces and ventricular dilatation. There are areas of decreased attenuation within the white matter tracts of the supratentorial brain, consistent with microvascular disease changes. There is evidence of old lacunar infarcts in both basal ganglia. Normal brainstem. There is mild cerebellar atrophy. There is no intracranial hemorrhage. There are no findings of an acute ischemic infarction. Atherosclerotic calcification of the vertebral arteries and cavernous portions of the internal carotid arteries bilaterally. Normal visualized paranasal sinuses. CT/Brain/Head without Contrast IMPRESSION: Chronic involutional changes of the brain. Electronically Signed: Clinton Alejandro, at 13:54 EDT , Service support ,
== END | disposition home or self-care (01) ==
PROVIDERS: PCP Family Medicine; Referring Provider Family Medicine; Visit Provider Family Medicine
DX: H53.9 Unspecified visual disturbance (principal)
CPT/HCPCS: 70450

== ENCOUNTER → 2020-04-12 | Outpatient (CLI) | payer MEDICARE, SELFPAY ==
[2020-01-16 13:29] VITALS: BMI 18.3
--- NOTE | 2020-04-12 10:16 | BD_ITS ---
STUDY: DUAL ENERGY X-RAY ABSORPTIOMETRY / DXA REASON FOR EXAM: Female, 84 years old. 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 COMPARISON: Comparison is made with prior study dated 11/06/2015. FINDINGS: Lumbar Spine (L1-L4): g/cm2 (1.184) / T-score (0.2) / Z-score (2.1) Findings are suggestive of normal bone density with a low fracture risk. Left Femur Total: g/cm2 (0.606) / T-score (-3.2) / Z-score (-0.9) Left Femoral Neck: g/cm2 (0.865) / T-score (-1.2) / Z-score (1.2) Right Femur Total: g/cm2 (0.641) / T-score (-2.9) / Z-score (-0.6) Right Femoral Neck: g/cm2 (0.74) / T-score (-2.1) / Z-score (0.3) The T-Scores on the most recent prior examination were: Lumbar Spine (L1-L4): There has been improvement of bone density since the previous examination. Left Femur Total: which represents a worsening of 12.6%. Right Femur Total: which represents a worsening of 7.5%. BD/Dexa Bone Density Study IMPRESSION: The patient is considered osteoporotic as outlined below according to World J[employer] Organization (WHO) criteria with a high fracture risk. There has been worsening of bone density since the previous examination. Reference Information: The T-score is the number of standard deviations above or below the standard which is normal for young adults at their peak bone mineral density. The World Health Organization (WHO) interprets the T-scores as follows: Above -1 Normal bone density Between -1 and -2.5 Osteopenia Equal to / or below -2.5 Osteoporosis As a practical clinical guideline, osteopenia may be graded as follows: Mild -1 through -1.5 Moderate -1.6 through -2.0 Severe -2.1 through -2.4 The Z-score is the number of standard deviations above or below age-matched controls. A Z-score of less than -1.5 would be considered abnormal. References: 1. NIH Osteoporosis and Related Bone Diseases http://www.osteo.org 2. International Society for Clinical Densitometry http://www.iscd.org 3. National Osteoporosis Foundation http://www.nof.org Electronically Signed: Clinton Alejandro, at 10:51 EDT , Service support ,
== END | disposition home or self-care (01) ==
LOC: OPBD 09:51
PROVIDERS: PCP Family Medicine; Referring Provider Family Medicine; Visit Provider Family Medicine
DX: Z78.0 Asymptomatic menopausal state (principal); Z13.820 Encounter for screening for osteoporosis
CPT/HCPCS: 77080

== ENCOUNTER → 2020-04-25 08:35 | Outpatient (CLI) | payer MEDICARE, SELFPAY ==
[2020-01-16 13:29] VITALS: BMI 18.3
[2020-04-25 10:00] LABS: Absolute Lymphocyte Count 1.43 X10^3/uL (0.83-4.51); Basophil# 0.09 X10^3/uL; Basophil% 1.7 % (0-1); Eosinophil# 0.46 X10^3/uL; Eosinophils% 8.6 % (0-5); Hematocrit 36.2 % (37-47); Hemoglobin 11.7 g/dL (12.0-15.0); Lymphocyte # 1.43 X10^3/ul (4.0); Lymphocyte % 26.6 % (19-41); Mean Corp Hgb Conc 32.3 g/dL (32-36); Mean Corpuscular Hgb 33.1 pg (27.0-32.0); Mean Corpuscular Volume 102.5 fL (81-99); Mean Platelet Vol. 10.3 fl (6.2-12.0); Monocyte# 0.41 X10^3/uL; Monocyte% 7.6 % (0-10); NRBC Flagged by Analyzer 0 % (0-5); Neutrophil # 2.97 X10^3/uL (2.7-7.7); Neutrophil % 55.3 % (47-70); Platelet Count 170 K/mm3 (150-450); RBC Distribution Width CV 12.8 % (11.6-14.6); RBC Distribution Width SD 47.9 fl (35.1-43.9); Red Blood Count 3.53 M/mm3 (4.2-5.4); White Blood Count 5.4 K/mm3 (4.4-11.0)
[2020-04-25 10:13] LABS: ALB/GLOB Ratio 1.4 RATIO (0.9-2.4); AST(SGOT) 13 U/L (15-37); Alanine Aminotransfer ALT/SGPT 10 U/L (13-56); Albumin, Serum 3.7 g/dL (3.2-5.0); Alkaline Phosphatase 52 U/L (45-117); Anion Gap 4 (5-15); BUN 16 mg/dL (7-18); Calcium,Total 8.9 mg/dL (8.5-10.1); Chloride 105 mmol/L (98-107); Creatinine, Serum 1.23 mg/dL (0.55-1.02); EST Glomerular Filtration Rate 44 mL/min (>60); Est Glom Filt Rate - Afr Amer 53 mL/min (>60); Globulin 2.7 g/dL (2.2-4.2); Glucose 91 mg/dL (74-106); Phosphorus 3.8 mg/dL (2.5-4.9); Potassium 3.7 mmol/L (3.5-5.1); Protein, Total 6.4 g/dL (6.4-8.2); Sodium Level 142 mmol/L (136-145)
[2020-04-25 10:13] LABS: Prothrombin Time (Protime)PT. 13.1 SECONDS (11.7-14.9)
[2020-04-25 10:14] LABS: Partial Thromboplast Time 30.3 Seconds (24.1-36.2)
[2020-04-25 10:15] LABS: Vitamin D,25 Hydroxy 79.2 ng/mL
[2020-04-25 10:19] LABS: Anion Gap 4 (5-15); BUN 17 mg/dL (7-18); BUN/Creat Ratio 14.2 RATIO (10-20); Calcium,Total 8.8 mg/dL (8.5-10.1); Chloride 103 mmol/L (98-107); EST Glomerular Filtration Rate 45 mL/min (>60); Est Glom Filt Rate - Afr Amer 55 mL/min (>60); Glucose 90 mg/dL (74-106); Potassium 3.7 mmol/L (3.5-5.1); Sodium Level 140 mmol/L (136-145)
[2020-04-25 11:00] LABS: AST(SGOT) 15 U/L (15-37); Alanine Aminotransfer ALT/SGPT 8 U/L (13-56); Albumin, Serum 3.8 g/dL (3.2-5.0); Alkaline Phosphatase 52 U/L (45-117); Bilirubin, Direct 0.23 mg/dL (0.00-0.30); Globulin 2.6 g/dL (2.2-4.2); Magnesium 2.1 mg/dL (1.6-2.6); Protein, Total 6.4 g/dL (6.4-8.2)
[2020-04-26 14:11] LABS: Albumin, Serum 3.7 g/dL (3.2-5.0)
== END ==
PROVIDERS: Anesthesiology; Specialist; PCP Family Medicine; Referring Provider Family Medicine; Visit Provider Family Medicine
DX: Z01.812 Encounter for preprocedural laboratory examination (principal)
CPT/HCPCS: 36415; 80048; 80053; 80076; 82040; 82306; 83735; 84100; 84443; 85025; 85610; 85730; 87081

== ENCOUNTER 2020-05-02 07:39 | Inpatient (IN) | payer MEDICARE, SELFPAY ==
[2020-01-16 13:29] VITALS: BMI 18.3
--- NOTE | 2020-04-17 15:54 | PCM.HP.BLA ---
History and Physical History and Physical Patient Name: Jeanne Gautam : 1935 From: MANDIE العراقي NP DATE OF SURGERY: 05/02/2020 SCHEDULED PROCEDURE: Left total hip arthroplasty HISTORY OF PRESENT ILLNESS: Preoperative history and physical exam was performed on April 17, 2020. This is an 84-year-old female who has been experiencing left hip pain for the last 4-5 years. She describes the pain as constant and sharp. The pain is made worse with stairs, driving, sitting for prolonged periods of time and walking. The patient reports inability to perform activities of daily living including bathing, dressing and housework. The patient has tripped and stumbled secondary to the pain in the left hip. The patient does ambulate with the use of a cane. She states at times she uses a walker. Previous conservative measures attempted consist of rest and elevation with no relief. She has attempted physical therapy and home exercises with no relief. Oral medications for pain relief include tramadol and acetaminophen. We will obtain surgical clearance from her primary care provider Dr. Coles and disciplinary hearing officer Dr. Cerda. The patient has an implanted pacemaker. The patient has a medical history pertinent for hypertension, gastroesophageal reflux disease, hypercholesterolemia, migraines, mitral valve prolapse, thyroid disease, M?ni?re's disease, restless leg syndrome and fibromyalgia. The patient has a history of phlebitis and ischemic colitis. After failing conservative measures and discussing treatment with the patient does wish to proceed with a left total hip left knee. REVIEW OF SYSTEMS: ROS: Const: Denies change in appetite, fever, hard of hearing, vision problems and weight change CV: Reports heart murmur, but denies chest pain, irregular heartbeat and peripheral vascular disease. Resp: Reports pneumonia, but denies asthma, cough, sleep apnea, SOB, tuberculosis and wheezing. GI: Reports constipation, diarrhea, difficulty swallowing, nausea, bloody stools and vomiting, but denies heartburn. : Urinary: denies incontinence. Musculo: Reports limp, trouble walking and weakness. Skin: Denies Raynaud's, history of shingles and tattoo. Neuro: Reports difficulty with balance and dizziness but denies ambulatory dysfunction, numbness/tingling and tremor. Psych: Reports stress, but denies anxiety, depression, insomnia and mental illness. Noel/Lymph: Reports bleeding/bruising tendency, but denies anemia and past transfusion. Reviewed, no changes. PAST MEDICAL HISTORY: Advance Care Plan: Other Directive, LIVING WILL Effective Date: 12/20/2018 Other Directive, POA Effective Date: 12/20/2018 PMH: Medical Problems: Arthritis, Fibromyalgia, History Of Phlebitis, Pacemaker, Thyroid Disease, MVP, Migranies, Restless Leg Syndrome, Heart Murmur, Hypertension, Hiatal Hernia, Ischemic Colitis, Meniere's Disease, Gastroesophageal reflux disease, Hypercholesterolemia Accidents: RT Foot FX - (11/2012) MISSED STEP Surgical Hx: Appendectomy - (1936) [facility] Colon Resection - (2003) [facility] Hysterectomy - (1970) [facility] Tonsillectomy - (1939) [facility] Tubal Ligation - (1070) [facility] Vein Stripping, Carmelo Cataracts, Carmelo Upper Eye Lid Pacemaker - (1993) Sympathectomy - (1974) Pacemaker Replacement - (1997) Pacemaker Replacement - (2003) Bowl Resection - (2002) Upper Eyelid Bilat - (2003) Anesthesia Complications: None Assistive Devices: Dentures, Glasses, Cane Reviewed and updated. SOCIAL HISTORY: SH: Marital: .Occupation: Disabled - (1985).Work Status: Disabled.Hand Dominance: Right-handed. Personal Habits: Cigarette Use: Never Smoked Cigarettes.Alcohol: Denies use.Drug Use: Denies Use.Enjoy Exercising: Never Exercises. Reviewed and updated. VITALS: Ht: 63.5 Wt: 97lb 2oz Wt k.056 BMI: 16.9 BP: 116/73 Pulse: 60 Resp: 22 T: 97.3 T: 36.3C ALLERGIES: Penicillin Morphine Cipro Sulfa Promethazine Prochlorperazine Quinidine - ineffective Simvastatin - myalgias Sotalol - GI upset Valsartan - nausea Flecainide - ineffective Nitrofurantoin, Macrocrystals - rash MEDICATIONS: Gabapentin 300 mg 1 by mouth three times a day, Propafenone HCL 300 mg 1 qday, Metoprolol Succinate ER 50 mg 1 by mouth every day for 90 days, Omeprazole 40 mg 1 by mouth every day, Aspirin 81 81 mg 1 tab by mouth daily, Ibuprofen 200 200 mg prn pain, Amlodipine Besylate/Benazepril Hydrochloride 5-20 mg 1 po qd, Levothyroxine Sodium 112 mcg 1 po qd, Crestor 10 mg half at bedtime, Vitamin D (Ergocalciferol) 1.25 MG (11472 Ut) 1 q day, Sinemet 25-100 mg AT night, Tylenol 8 Hour 650 mg as needed, Knzpzpcaus-Nffffix-Didhaddv 50-325-40 mg as needed, Hyoscyamine Sulfate 0.125 mg/5ml as needed, Meclizine HCL 25 mg as needed, Tramadol HCL 50 mg 1 three times daily as needed, Zofran 4 mg one by mouth every 8 as needed nausea PRE-OP EXAM: General appearance:NORMAL Other: Eyes: Conjunctivae and lids: NORMAL Pupils: ERR Ears, Nose, Mouth, and Throat: NORMAL Other: Inspection of lips, teeth and gums: NORMAL Other: Respiratory: Assessment of respiratory effort: NORMAL Other: Auscultation of lungs: clear to auscultation no wheezes, rhonchi or rales. Cardiovascular: Auscultation of heart: regular rate and rhythm, no murmurs, gallops or rubs. Gastrointestinal: Exam of abdomen: soft, nontender, nondistended bowel sounds present. Neurological: see below Psychiatric: Orientation to time, place and person: NORMAL Other: Mood and affect: NORMAL Other: PHYSICAL EXAMINATION: The patient ambulates with an antalgic gait. Skin is warm, dry and intact. Leg length: 5 mm shorter on the left. Left hip flexion to 80. Internal rotation of 5. External rotation to 20. Crepitus with motion. Hip flexion weakness on the left secondary to pain. Sensation intact to light touch to saphenous, sural, deep and superficial peroneal and tibial nerve distributions. IMAGING STUDIES: 3 views of left hip including weightbearing AP pelvis and AP hip and crossfire lateral obtained on December 19, 2019 reviewed reveals joint space narrowing, subchondral sclerosis and osteophyte formation consistent with severe stage IV osteoarthritis IMPRESSION: 1. Osteoarthritis, left hip 2. Hypertension 3. Hypercholesterolemia 4. Gastroesophageal reflux disease 5. Migraines 6. Restless leg syndrome 7. Thyroid disease 8. Hiatal hernia 9. M?ni?re's disease 10. Mitral valve prolapse with a heart murmur 11. History of ischemic colitis 12. Fibromyalgia 13. History of phlebitis PLAN: Dr. Rolan Cornejo did discuss and review with the patient all treatment options including surgical versus nonsurgical. The patient does wish to proceed with the above-stated procedure. Potential risk, benefits and complications of the procedure were discussed in detail including but not limited to , infection, nerve and blood vessel damage, persistent pain, numbness, tingling, paresthesia, blood clot, pulmonary embolism and requirement for possible further surgery. The patient expressed full understanding and has no further questions for the doctor. The patient does agree to proceed with the above-stated procedure and has signed the surgery consent form. Discussed with the patient the risks associated with the COVID-19 virus including the risk of exposure while at the hospital. The patient was reassured local hospitals have low infection rates and taken all necessary precautions to limit patient exposure to COVID-19. Limiting the patient's time in the hospital may decrease their exposure to COVID-19. The patient was notified that we will need to comply with any screening or testing the hospital wishes to perform and that surgery may be delayed for any positive test results. This dictation was created using voice recognition software. Phonetic and/or grammatical errors may exist. ___ I have re-examined the patient. There are no clinical changes since date of exam. ___ See progress notes for changes. ___ Dictated on admission Date: Time: Signature:
[2020-05-02] VITALS (10 sets, daily range): BP systolic 85–135; BP diastolic 39–61; PULSE 59–60; RESP 16; TEMP 35.9–37.2; O2SAT 96–100; BMI 16.9
[2020-05-02] MEDS: Lactated Ringers 1,000 ML 100 ML IV (07:30)
[2020-05-02 08:16] LABS: Bedside Glucose 157 mg/dL (70-110)
[2020-05-02] MEDS: Acetaminophen 500 MG Tablet 1000 MG PO ×3 (08:28→21:52)
[2020-05-02] MEDS: Gabapentin 600 MG Tablet PO (08:29)
--- NOTE | 2020-05-02 09:00 | RAD_ITS ---
STUDY: X-RAY - PELVIS AND LEFT HIP REASON FOR EXAM: Female, 84 years old. TOTAL ANTERIOR HIP TECHNIQUE: 1 views of the pelvis and hip. COMPARISON: None. FINDINGS: Intraoperative imaging provided for left total hip replacement. RAD/Hip 1 view with Pelvis IMPRESSION: Intraoperative imaging provided for left total hip replacement. Electronically Signed: Clinton Alejandro, at 15:33 EDT , Service support ,
[2020-05-02] MEDS: Lactated Ringers 1,000 ML 125 ML IV ×2 (09:57→18:51)
--- NOTE | 2020-05-02 10:29 | OP.PCM_ITS ---
Report of Operation Date of Procedure: 05/02/20 Pre-Operative Diagnosis: Left hip primary osteoarthritis Post-Operative Diagnosis: Left hip primary osteoarthritis Surgery/Procedure Performed:: Left hip direct anterior cemented total hip replacement Description of Surgical Findings:: Stable hip with equal leg lengths auto damage estimator: Rishi Underwood Type of Anesthesia:: Spinal Anesthesiologist: Jc Arshad Special Medications: Vancomycin and clindamycin, 2 g TXA and wound prior to closure, 10 mg Decadron, joint cocktail (5 mg Duramorph, 30 mL of 0.5% Ropivicaine, 1000 units of epinephrine, 30 mg of Toradol) Specimen's removed: Bony cuts Estimated Blood Loss (mL): 100 Fluids Replaced: 900 mL crystalloid Description of Procedure: Components used: 1. Mcdavid Chuy femoral stem size 35.5 mm 2. [place] trident 2 acetabular shell size 50 mm 3. [place] X3 polyethylene d 4. Chuy Biolox delta 36mm, -5mm femoral head Brief history operative indications: 84 yo F who failed conservative measures for their hip osteoarthritis. X-rays w ere consistent with osteoarthritis including joint space narrowing, osteophyte formation and subchondral cysts. Total hip replacement was discussed with the patient with risks and benefits including but not limited to blood loss, DVTs, PEs, neurovascular damage, dislocation, general risks of anesthesia including loss of life. Patient demonstrated an understanding medical clearance is obtained the patient was consented for surgery. Procedure: On the date of procedure the patient's L hip was marked in the preoperative area. Patient was then taken back to the operating room where anesthesia a ssumed control of the C-spine and airway and administered anesthetic. Patient was transferred to the operating table and placed in the supine position. The hips were placed at the break of the bed and a sacral bump was placed. The L lower extremity was then prepped out in a sterile fashion using chlorhexidine while the surgeon scrubbed. The PA was vital in the positioning of the patient. Upon reentering the room the L lower extremity was draped in the standard orthopedic fashion and the incision was marked. A timeout was called and everyone agreed upon the side, the site, the procedure be performed, antibody given, and patient's identity. At this time incision was made through skin, subcutaneous tissue, and fat down to fascia. The fascia was then incised and the TFL was retracted laterally. A retractor was placed on the lateral border of the femoral neck. Attention was directed to the inferior portion of the approach and all crossing vessels were identified and appropriately coagulated. A retractor was then placed on the medial portion of the femoral neck. The anterior capsule was then cleared of all soft tissue and then H shaped capsulotomy was made. The retractors were then placed inside the capsule. The femoral neck was identified and a cleanup cut was made. At this time a power corkscrew was used to remove the femoral head. Attention was then turned toward the acetabulum where the soft tissues were appropriately retracted and the acetabulum was sequentially reamed to 50 mm. A 50 mm cup was then selected and impacted into place. An MDM acetabular liner was impacted into place and locking mechanism was verified. The position of the acetabular cup was then verified under live fluoroscopy. Attention was then turned to the femur. Soft tissue releases on the medial and lateral femoral neck were appropriately done, the leg was externally rotated and lateralized. A Verma retractor was placed medially and proximally to the greater trochanter this allowed appropriate visualization and exposure of the femoral canal. Rongeour was then used to remove excess lateral bone. A canal finder and entry broach were used to open the proximal canal. Once we verified we were down the femoral canal we subsequently broached up to a size 35.5 mm Mcdavid cemented femur. The appropriate neck was placed in the previously selected head was trialed with a 0 mm neck. Traction was pulled and the hip was reduced with internal rotation. Once it was appropriately reduced and stability was checked. There was minimal shuck, equal leg lengths and appropriate stability with hyperextension and external rotation as well as with 90? flexion and internal rotation. Fluoroscopy was then also used to verify the position of the components and leg lengths using the contralateral side for comparison. At this point based on the femoral neck the leg was shortened. We elected to cement the stem proud as we were not able to broach up any further. Hip was dislocated. Cement was mixed. Canal was pressurized. Canal had previously been adequately prepped and cleaned for cement. Stem was cemented proud. After this we again reduced the hip. Based on how we had submitted the hip probably did need to go to a minus femoral head. We elected to switch out liners to a standard 36 mm liner. -5 head was trialed. This gave us an appropriate leg length and good stability of the hip. The trial components were then dislocated the proximal femur was again exposed and the components were removed from the wound. The final components were verified and opened. The wound was copiously irrigated out with normal saline. The acetabulum was checked for any residual debris. The final components were placed and impacted. Traction and internal rotation were again used to reduce the hip. After adequate reduction the hip remained stable with appropriate leg lengths. The final components were once again checked with live fluoroscopy and were found to be satisfactory. The wound was then copiously irrigated with normal saline once more, and hemostasis was obtained. Closure was then done using #1 Vicryl runner to close the fascia. A 2-0 vicryl interuppted sutures were used to close the subcutaneous skin. A 3-0 Monocryl and Steri-Strips were used for final skin closure. A Silverlon dressing was placed. Patient was awakened by anesthesia and transferred to the [facility]. Patient was then transferred to the PACU for recovery. Postoperative plan: Patient will get 24 hours postop antibiotics. Patient will get in-house physical therapy and will be weight-bear as tolerated. Patient will follow up in office in 2 weeks for a wound check and x-rays. Aspirin 81 mg twice daily. - Complications No intraoperative complications - Admit VTE Documentation VTE Present on Admission: No VTE Mechan Device Prophylaxis: SCD's, Thigh High EDDIE Hose VTE Pharm Prophylaxis ordered?: Yes
--- NOTE | 2020-05-02 11:25 | RAD_ITS ---
STUDY: X-RAY - PELVIS AND LEFT HIP REASON FOR EXAM: Female, 84 years old. POST OP PORTABLE LEFT HIP. TECHNIQUE: 2 views of the pelvis and hip. COMPARISON: None. FINDINGS: The patient is status post left hip replacement. There is good alignment. Postoperative soft tissue changes. RAD/Hip Min 2 Views (Portable) IMPRESSION: Status post left total hip replacement. There is good alignment. Postoperative soft tissue changes. Electronically Signed: Clinton Alejandro, at 12:41 EDT , Service support ,
--- NOTE | 2020-05-02 14:50 | PN_ITS ---
Subjective: Ms Gautam is an 84 yo female who presented today for a L MARSHA after 5-6 yrs of ongoing pain in her L hip. She has a PMH of CAD, HTN, HPL. GERD, Hypothyroidism, ischemic colitis, MVP, PAF with SSS s/p pacer placement, TIA, and Parkinson's. She is immediate post op of a L direct anterior cemented MARSHA and is feeling well other than post operative pain. She has not been OOB as of yet 2/2 some low BP after arriving from PACU, but her pressures are improving with time. Her biggest concern is being able to go home and have therapy there as she helps take care of her at home. We have been consulted for medical mgt. Vitals/I&O's: Vital Signs Temp Pulse Resp BP Pulse Ox 98.6 F 59 L 16 90/51 L 97 05/02/20 14:34 05/02/20 14:34 05/02/20 14:34 05/02/20 14:34 05/02/20 14:34 Oxygen Flow Rate (L/min) 6 Oxygen Delivery Method Room Air Weight: 44.055 kg Body Mass Index (BMI) 16.9 Finger Stick Blood Glucose 145 Intake and Output for Last 24 Hours 04/30/20 05/01/20 05/02/20 23:59 23:59 23:59 Intake Total 593.5 / 593.5 Balance 593.5 / 593.5 General: Alert, Oriented x3, Cooperative, No apparent distress, Well developed, Well nourished, - - elderly WF sitting up in bed who appears younger than stated age, daughter at bedside HEENT: Atraumatic, PERRLA, EOMI, Normocephalic, EAC Clear, - - R eye with red sclera Oral: Moist Mucosa, No Gingival or Mucosal Lesions/ Ulcerations Neck: Supple, No JVD, Negative Carotid Bruits, Negative Hepatojugular Reflux, No Nodes, No Nuchal Rigidity, Trachea Midline, Thyroid Normal Size and Texture Lungs: Clear to auscultation, Normal air movement, No rhonchi, No wheeze, No rales Cardiovascular: Regular rate, Regular Rhythm, Normal S1, Normal S2, No murmurs, No Ectopic Activity, No rub noted, No Gallop Abdomen: Bowel Sounds Present, Soft, Non Tender, Non-Distended, No Hepato- splenomegaly, No hernias noted Extremities: No clubbing, No cyanosis, No edema, Capillary Refill Less than 3 Seconds, No Calf Tenderness, Peripheral Pulses Normal Skin: No rashes, No breakdown, - - pale Musculoskeletal: No Tenderness to Palpation of Joints or Extremities, No Muscle Wasting Lymphatic: No Cervical, Supraclavicular, or Inguinal Adenopathy Neurological: Cranial nerves II-XII grossly intact, Neuro grossly intact, Muscle tone normal, Coordination normal Psych/Mental Status: Normal Affect, Appropriate Laboratory Results 05/02/20 08:07: POC Glucose 157 H Current Medications Acetaminophen (Acetaminophen 500 Mg Tablet) 1,000 mg PO Q8 [facility] Last Admin: 05/02/20 13:56 Dose: 1,000 mg Documented by: Amlodipine Besylate (Amlodipine 5 Mg Tablet) 5 mg PO 1300 [facility] Last Admin: 05/02/20 13:30 Dose: Not Given Documented by: Aspirin (Aspirin 81 Mg Tab.Chew) 81 mg PO BIDCM [facility] Carbidopa/Levodopa (Carbidopa/Levodopa 25/100 Tablet) 1 tablet PO ACHS [facility] Enteral Nutritional Formula (Ensure Surgery 237 Ml Liquid) 237 ml PO TIDCM [facility] Last Admin: 05/02/20 13:30 Dose: Not Given Documented by: Ergocalciferol (Ergocalciferol 50,000 Unit Capsule) 50,000 unit PO SA OLU Famotidine (Famotidine 20 Mg Tablet) 20 mg PO DAILY [facility] Gabapentin (Gabapentin 300 Mg Capsule) 300 mg PO QHS [facility] Lactated Ringer's () 1,000 mls @ 125 mls/hr IV .Q8H [facility] Last Admin: 05/02/20 09:57 Dose: 125 mls/hr Documented by: Clindamycin Phosphate 600 mg/ (Dextrose) 54 mls @ 100 mls/hr IV Q6H OLU Stop: 05/03/20 03:33 Vancomycin HCl 750 mg/ Sodium (Chloride) 265 mls @ 250 mls/hr IV X1 ONE Stop: 05/02/20 21:18 Insulin Human Lispro (Insulin Lispro 100 Unit/Ml Insuln.Pen) 1 - 6 unit SC Q4H PRN PRN; Protocol PRN Reason: BG>/= 180, SEE PROTOCOL Ketorolac Tromethamine (Ketorolac 15 Mg/Ml Vial) 15 mg IV Q6H PRN PRN PRN Reason: Pain Score 1-5 Stop: 05/04/20 07:40 Levothyroxine Sodium (Levothyroxine 175 Mcg Tablet) 175 mcg PO DAILY@0600 [facility] Lisinopril (Lisinopril 20 Mg Tablet) 20 mg PO 1300 [facility] Last Admin: 05/02/20 13:30 Dose: Not Given Documented by: Metoprolol Succinate (Metoprolol(Xl)Succ 50 Mg Tablet) 50 mg PO BID [facility] Morphine Sulfate (Morphine 2 Mg/Ml Syringe) 2 - 4 mg IV Q2H PRN PRN PRN Reason: Pain Score 4-10 Ondansetron HCl (Ondansetron 4 Mg/2 Ml Vial) 4 mg IV Q8H PRN PRN PRN Reason: NAUSEA Pantoprazole Sodium (Pantoprazole Sodium 40 Mg Tablet) 40 mg PO DAILY [facility] Promethazine HCl (Promethazine 25 Mg/Ml Syringe) 12.5 mg IM Q6H PRN PRN; Protocol PRN Reason: NAUSEA/VOMITING Propafenone HCl (Propafenone 150 Mg Tablet) 300 mg PO BID [facility] Rosuvastatin Calcium (Rosuvastatin Calcium 10 Mg Tablet) 10 mg PO QHS [facility] Senna/Docusate Sodium (Senna/Docusate Sodium 1 Tablet) 2 tablet PO BID [facility] Last Admin: 05/02/20 13:30 Dose: Not Given Documented by: Sodium Chloride (0.9% Saline Lock 10 Ml Syringe) 10 - 40 ml IV UD PRN PRN Reason: SALINE FLUSH Tramadol HCl (Tramadol 50 Mg Tablet) 50 - 100 mg PO Q6H PRN PRN PRN Reason: Pain Score 4-10 STROKE Vital Signs/Narrative: Vital Signs Temp Pulse Resp BP Pulse Ox 05/02/20 14:34 98.6 F 59 L 16 90/51 L 97 05/02/20 12:34 98.9 F 60 16 85/50 L 98 05/02/20 11:46 96.9 F L 60 16 110/61 100 05/02/20 11:34 60 16 107/50 L 100 05/02/20 11:15 60 16 120/58 L 99 05/02/20 11:09 60 16 119/61 100 05/02/20 11:01 96.7 F L 60 16 119/61 100 Medical Necessity - Tobacco Use Smoking Status: Never smoker Tobacco Use: Non-smoker Assessment/Plan All Active Problems (Last Reviewed 01/16/20 @ 13:54 by Eileen Jaquez PA, PA) Palpitations (Acute) Ischemic colitis (Resolved) Old myocardial infarction (Resolved) Status post partial colectomy (Resolved) TIA (transient ischemic attack) (Resolved) Transient cerebral ischemic attack, unspecified (Resolved) Nonrheumatic mitral (valve) prolapse (Ruled-out) L MARSHA POD 0 with Ant Approach -pain meds per ortho -bowel regimen -PT/OT Post-operative Hypotension -improving with time--> last BP was 90/51 -hold BP meds for now and delay dose until BP back to baseline CAD/HTN/HPL -cont Amlodipine/Zesteril/Metoprolol -continue ASA -continue Statin PAF/SSS -has pacer -takes propafenone--> continue -not on OAC Hypothyroidism -continue Synthroid GERD -continue PPI RLS -continue Sinement Migraines -monitor DVT Prophylaxis -per Ortho
[2020-05-02] MEDS: Ketorolac 15 MG/ML Vial IV (16:47)
[2020-05-02] MEDS: Aspirin 81 MG TAB.CHEW PO (16:48)
[2020-05-02] MEDS: Carbidopa/Levodopa 25/100 Tablet PO ×2 (16:48→21:51)
[2020-05-02] MEDS: Ensure Surgery 237 ML LIQUID PO (16:51)
[2020-05-02] MEDS: traMADol 50 MG Tablet PO ×2 (20:24→21:55)
[2020-05-02] MEDS: Senna/Docusate Sodium 1 Tablet 2 TABLET PO (21:51)
[2020-05-02] MEDS: Propafenone 150 MG Tablet 300 MG PO (21:51)
[2020-05-02] MEDS: Gabapentin 300 MG Capsule PO (21:51)
[2020-05-03] VITALS (12 sets, daily range): BP systolic 90–131; BP diastolic 38–66; PULSE 63–74; RESP 16–18; TEMP 36.2–37; O2SAT 89–100; BMI 16.9
[2020-05-03] MEDS: 0.9% Saline Lock 10 ML Syringe IV ×3 (01:22→12:13)
[2020-05-03] MEDS: Ketorolac 15 MG/ML Vial IV ×2 (01:22→12:11)
[2020-05-03] MEDS: traMADol 50 MG Tablet PO ×2 (04:40→16:36)
[2020-05-03] MEDS: Lactated Ringers 1,000 ML 125 ML IV (04:45)
[2020-05-03] MEDS: Acetaminophen 500 MG Tablet 1000 MG PO ×3 (06:13→21:28)
[2020-05-03] MEDS: Levothyroxine 175 MCG Tablet PO (06:14)
[2020-05-03] MEDS: Carbidopa/Levodopa 25/100 Tablet PO ×4 (06:14→21:28)
[2020-05-03 06:40] LABS: Mean Corp Hgb Conc 31.1 g/dL (32-36); Mean Corpuscular Hgb 32.6 pg (27.0-32.0); Mean Corpuscular Volume 104.7 fL (81-99); Mean Platelet Vol. 10.8 fl (6.2-12.0); POSITIVE COUNT YES; Platelet Count 102 K/mm3 (150-450); RBC Distribution Width CV 13.3 % (11.6-14.6); RBC Distribution Width SD 50.4 fl (35.1-43.9); Red Blood Count 1.72 M/mm3 (4.2-5.4); White Blood Count 10.3 K/mm3 (4.4-11.0)
[2020-05-03 06:59] LABS: Anion Gap 7 (5-15); BUN 28 mg/dL (7-18); BUN/Creat Ratio 23.9 RATIO (10-20); Calcium,Total 8.2 mg/dL (8.5-10.1); Chloride 105 mmol/L (98-107); Creatinine, Serum 1.17 mg/dL (0.55-1.02); EST Glomerular Filtration Rate 47 mL/min (>60); Est Glom Filt Rate - Afr Amer 56 mL/min (>60); Estimated Creatinine Clearance 24.45 ml/min; Glucose 129 mg/dL (74-106); Potassium 4.5 mmol/L (3.5-5.1); Sodium Level 140 mmol/L (136-145)
[2020-05-03 07:10] LABS: Hemoglobin 5.6 g/dL (12.0-15.0); Scan Indicated on CBC? Y/N YES- FLAGS NOTED
[2020-05-03 07:11] LABS: Differential Comment SCANNED
--- NOTE | 2020-05-03 07:19 | NURSING ---
HGB is 5.6, sent page to hospitalist. Report handed off to YULIET Watson.
[2020-05-03 08:36] LABS: Absolute Lymphocyte Count 0.62 X10^3/uL (0.83-4.51); Absolute Neutrophil Count 7.6 X10^3/uL (2.0-7.7); Basophil# 0.04 X10^3/uL; Basophil% 0.5 % (0-1); Hematocrit 16.9 % (37-47); Lymphocyte # 0.62 X10^3/ul (4.0); Lymphocyte % 7.2 % (19-41); Mean Corpuscular Hgb 32.7 pg (27.0-32.0); Mean Corpuscular Volume 102.4 fL (81-99); Mean Platelet Vol. 10.5 fl (6.2-12.0); Monocyte# 0.39 X10^3/uL; Monocyte% 4.5 % (0-10); NRBC Flagged by Analyzer 0 % (0-5); Neutrophil # 7.55 X10^3/uL (2.7-7.7); Neutrophil % 87.5 % (47-70); POSITIVE COUNT YES; Platelet Count 94 K/mm3 (150-450); RBC Distribution Width CV 13.4 % (11.6-14.6); RBC Distribution Width SD 50.1 fl (35.1-43.9); Red Blood Count 1.65 M/mm3 (4.2-5.4); White Blood Count 8.6 K/mm3 (4.4-11.0)
[2020-05-03 08:38] LABS: Differential Indicated SCAN CRITERIA MET; Hemoglobin 5.4 g/dL (12.0-15.0)
[2020-05-03 08:59] LABS: Hypochromasia 2+; Platelet Estimate SLT DEC (ADEQ)
--- NOTE | 2020-05-03 09:25 | CT_ITS ---
STUDY: CT ABDOMEN AND PELVIS WITHOUT CONTRAST REASON FOR EXAM: Female, 84 years old. ACUTE BLOOD LOSS ANEMIA, TROUBLE SWALLOWING, HIATAL HERNIA, ABDOMINAL PAIN, RECENT LEFT HIP/KNEE REPLACEMENT RADIATION DOSAGE (If Supplied By Facility): CTDIvol = ( 6.92 ) mGy, DLP = ( 404.39 ) mGycm TECHNIQUE: Transaxial images were obtained from the dome of the diaphragm to the symphysis pubis without oral contrast, and without intravenous contrast. Sagittal and coronal images were reconstructed. Individualized dose optimization techniques were used for this CT. COMPARISON: 12/30/2019 FINDINGS: Tiny right pleural effusion. The visualized portions of the heart are within normal limits. Normal liver. Normal gallbladder and extrahepatic biliary system. Normal spleen. Normal pancreas. Normal bilateral adrenal glands. Normal right kidney. Normal left kidney. Normal visualized stomach. Normal small intestine. Normal colon. There is non-visualization of the appendix. There is diffuse atherosclerotic calcification of the abdominal aorta, without a demonstrated aneurysm. Normal inferior vena cava. Normal retroperitoneum. Normal urinary bladder. Subcutaneous emphysema about the left hip consistent with recent arthroplasty. S-shaped scoliosis of the lumbar spine with degenerative disc disease. CT/Abdomen/Pelvis without Cont IMPRESSION: No acute abnormality. Subcutaneous emphysema consistent with recent left hip arthroplasty. Electronically Signed: Joe Palma MD at 10:33 EDT Tel , Service support ,
--- NOTE | 2020-05-03 09:27 | PCM.PN.ORT ---
Subjective: The patient was sitting in bedside chair upon examination. Patient denies any chest pain, shortness of breath, dizziness, nausea or vomiting, or calf pain. Patient is complaining of some abdominal discomfort and difficulty with keeping down fluids. Patient also reports having dizziness when she is initially standing. She does have history of hiatal hernia. She is followed by Dr. Arias. Patient did have a significant drop in her hemoglobin postoperatively. Preop hemoglobin was 11.7 on April 25, 2020. Patient had hemoglobin of 5.6 postoperatively with a repeat hemoglobin of 5.4. Hospitalist Dr. Newman ordered 2 units of packed red blood cells. Case was discussed with Dr. Newman and she would like to order a CT scan of the abdomen/pelvis. Order was placed. Pain is controlled on medications. Patient has some normal postoperative swelling in the left hip. This does not correlate with the amount of blood loss that has occurred. There was not significant intraoperative blood loss when case was discussed with Dr. David Cornejo. Objective: Patient has had low blood pressure with her last 2 readings 90 systolic and 38 diastolic. She has been afebrile. Heart rate within normal limits and respiratory rate within normal limits. Patient is able to plantarflex and dorsiflex actively. Sensation is intact to light touch to saphenous, sural, superficial and deep peroneal, and tibial distribution. Dressing is clean dry and intact. There is postoperative swelling in the left thigh with ecchymosis. Thigh is soft and supple. Negative Homans bilaterally, negative signs and symptoms of DVT. - Physical Exam Vitals/I&O's: Vital Signs Temp Pulse Resp BP Pulse Ox 97.8 F 66 16 90/38 L 92 05/03/20 08:30 05/03/20 08:30 05/03/20 08:30 05/03/20 08:30 05/03/20 08:30 Oxygen Flow Rate (L/min) 6 Oxygen Delivery Method Room Air Weight: 44.055 kg Body Mass Index (BMI) 16.9 Finger Stick Blood Glucose 145 Intake and Output for Last 24 Hours 05/01/20 05/02/20 05/03/20 23:59 23:59 23:59 Intake Total 3566.5 / 3566.5 1470.67 / 1470.67 Output Total 800 / 800 Balance 3566.5 / 3216.5 670.67 / 670.67 General: Alert, Oriented x3, Cooperative, No apparent distress Laboratory Results 05/03/20 06:15: WBC 10.3, RBC 1.72 L, Hgb 5.6 L*, Hct 18.0 L, MCV 104.7 H, MCH 32.6 H, MCHC 31.1 L, RDW Std Deviation 50.4 H, RDW Coeff of Raul 13.3, Plt Count 102 L, MPV 10.8, Differential Comment SCANNED, Diff Path Review [facility] 05/03/20 06:15: Sodium 140, Potassium 4.5, Chloride 105, Carbon Dioxide 28.0, Anion Gap 7, BUN 28 H, Creatinine 1.17 H, Estim Creat Clear Calc 24.45, Est GFR (MDRD) Af Amer 56 L, Est GFR (MDRD) Non-Af 47 L, BUN/Creatinine Ratio 23.9 H, Glucose 129 H, Calcium 8.2 L 05/03/20 08:12: Blood Type Pending, Antibody Screen Pending, Crossmatch See Detail 05/03/20 08:12: WBC 8.6, RBC 1.65 L, Hgb 5.4 L*, Hct 16.9 L, MCV 102.4 H, MCH 32.7 H, MCHC 32.0, RDW Std Deviation 50.1 H, RDW Coeff of Raul 13.4, Plt Count 94 L, MPV 10.5, Immature Gran % (Auto) 0.300, Neut % (Auto) 87.5 H, Lymph % (Auto) 7.2 L, [place] % (Auto) 4.5, Eos % (Auto) 0.0, Baso % (Auto) 0.5, Absolute Neuts (auto) 7.6, Absolute Lymphs (auto) 0.62 L, Nucleated RBC % 0, Diff Path Review [facility], Platelet Estimate SLT DEC, Hypochromasia 2+ Current Medications Acetaminophen (Acetaminophen 500 Mg Tablet) 1,000 mg PO Q8 [facility] Last Admin: 05/03/20 06:13 Dose: 1,000 mg Documented by: Amlodipine Besylate (Amlodipine 5 Mg Tablet) 5 mg PO 1300 [facility] Last Admin: 05/02/20 13:30 Dose: Not Given Documented by: Aspirin (Aspirin 81 Mg Tab.Chew) 81 mg PO BIDCM [facility] Last Admin: 05/02/20 16:48 Dose: 81 mg Documented by: Carbidopa/Levodopa (Carbidopa/Levodopa 25/100 Tablet) 1 tablet PO ACHS [facility] Last Admin: 05/03/20 06:14 Dose: 1 tablet Documented by: Enteral Nutritional Formula (Ensure Surgery 237 Ml Liquid) 237 ml PO TIDCM [facility] Last Admin: 05/02/20 16:51 Dose: 237 ml Documented by: Ergocalciferol (Ergocalciferol 50,000 Unit Capsule) 50,000 unit PO SA [facility] Famotidine (Famotidine 20 Mg Tablet) 20 mg PO DAILY [facility] Gabapentin (Gabapentin 300 Mg Capsule) 300 mg PO QHS [facility] Last Admin: 05/02/20 21:51 Dose: 300 mg Documented by: Lactated Ringer's () 1,000 mls @ 125 mls/hr IV .Q8H [facility] Last Admin: 05/03/20 04:45 Dose: 125 mls/hr Documented by: Insulin Human Lispro (Insulin Lispro 100 Unit/Ml Insuln.Pen) 1 - 6 unit SC Q4H PRN PRN; Protocol PRN Reason: BG>/= 180, SEE PROTOCOL Ketorolac Tromethamine (Ketorolac 15 Mg/Ml Vial) 15 mg IV Q6H PRN PRN PRN Reason: Pain Score 1-5 Stop: 05/04/20 07:40 Last Admin: 05/03/20 01:22 Dose: 15 mg Documented by: Levothyroxine Sodium (Levothyroxine 175 Mcg Tablet) 175 mcg PO DAILY@0600 [facility] Last Admin: 05/03/20 06:14 Dose: 175 mcg Documented by: Lisinopril (Lisinopril 20 Mg Tablet) 20 mg PO 1300 [facility] Last Admin: 05/02/20 13:30 Dose: Not Given Documented by: Metoprolol Succinate (Metoprolol(Xl)Succ 50 Mg Tablet) 50 mg PO BID [facility] Last Admin: 05/02/20 21:52 Dose: Not Given Documented by: Morphine Sulfate (Morphine 2 Mg/Ml Syringe) 2 - 4 mg IV Q2H PRN PRN PRN Reason: Pain Score 4-10 Ondansetron HCl (Ondansetron 4 Mg/2 Ml Vial) 4 mg IV Q8H PRN PRN PRN Reason: NAUSEA Pantoprazole Sodium (Pantoprazole Sodium 40 Mg Tablet) 40 mg PO DAILY [facility] Promethazine HCl (Promethazine 25 Mg/Ml Syringe) 12.5 mg IM Q6H PRN PRN; Protocol PRN Reason: NAUSEA/VOMITING Propafenone HCl (Propafenone 150 Mg Tablet) 300 mg PO BID [facility] Last Admin: 05/02/20 21:51 Dose: 300 mg Documented by: Rosuvastatin Calcium (Rosuvastatin Calcium 10 Mg Tablet) 10 mg PO QHS [facility] Last Admin: 05/02/20 21:52 Dose: 10 mg Documented by: Senna/Docusate Sodium (Senna/Docusate Sodium 1 Tablet) 2 tablet PO BID [facility] Last Admin: 05/02/20 21:51 Dose: 2 tablet Documented by: Sodium Chloride (0.9% Saline Lock 10 Ml Syringe) 10 - 40 ml IV UD PRN PRN Reason: SALINE FLUSH Last Admin: 05/03/20 01:22 Dose: 10 ml Documented by: Tramadol HCl (Tramadol 50 Mg Tablet) 50 - 100 mg PO Q6H PRN PRN PRN Reason: Pain Score 4-10 Last Admin: 05/03/20 04:40 Dose: 100 mg Documented by: Medical Necessity - Tobacco Use Smoking Status: Never smoker Tobacco Use: Non-smoker Assessment/Plan All Active Problems (Last Reviewed 01/16/20 @ 13:54 by Eileen NETTLES, PA) Palpitations (Acute) Ischemic colitis (Resolved) Old myocardial infarction (Resolved) Status post partial colectomy (Resolved) TIA (transient ischemic attack) (Resolved) Transient cerebral ischemic attack, unspecified (Resolved) Nonrheumatic mitral (valve) prolapse (Ruled-out) 1. S/P left direct anterior total hip arthroplasty POD #1 2. Continue Pain Medications: Tylenol and tramadol 3. DVT Prophylaxis: Take 81 mg aspirin twice daily for 4 weeks postoperatively for DVT prophylaxis 4. PT/OT: At this time I do not want physical therapy as patient has some dizziness when she is up and standing. She has low blood pressure and significant drop in hemoglobin. 5. Acute blood loss secondary to surgery and possible dilution: H & H: 5.4/16.9, patient has low blood pressure and signs of dizziness. Patient's preoperative hemoglobin was 11.7 on April 25, 2020. Repeat hemoglobin verified the drop postoperatively. 6. Encouraged Incentive Spirometry 7. Continue postoperative medical management per medicine: I did discuss case with Dr. Newman and at this time she would like to order a CT scan of the abdomen/pelvis without contrast. Patient does have history of hiatal hernia and she is currently having difficulty with swallowing fluids. She has some abdominal discomfort. We discussed her significant drop in hemoglobin and she is currently been ordered 2 units of packed red blood cells. 8. Disposition: Due to patient's current medical history and symptoms, patient will require additional stay in the hospital as she has had a drop in her hemoglobin and we are currently working her up with a CT scan of the abdomen/pelvis.
--- NOTE | 2020-05-03 10:40 | CASEMGMT ---
YULIET MCPHERSON Face to Face with patient for initial transition planning/care coordination assessment. RN VIDA introduced self and role at [facility]. Patient sitting in chair, alert and oriented. Patient willing to participate in assessment and is able to answer all questions appropriately. Care providers, pharmacy, and demographics verified. Patient wishes to discharge home and is setup with [facility] for outpatient therapy. Patient states she has no further needs or concerns at this time. CM to follow for discharge planning needs that may arise. PCP: Sanket Specialists: brijesh Cornejo; Prashant drafter tool design Preferred Pharmacy: [facility] Insurance: [employer] [facility] Prescription Benefit: yes Living Will/HPOA: yes, Joe Gautam HPOA LNOK: Living Arrangements: Patient lives with in a single story home with 2 steps and ramp to enter the home. Patient states she was independent prior to surgery. Transportation: son or daughter DME/HHC: Patient states she has walker cane, shower chair, raise toilet, grab bars, and stair lift. Patient is scheduled for outpatient therapy starting Thursday at [facility]. Disposition Plan: Patient to discharge home with outpatient therapy, family support, and follow-up plans in place. Sonia FENG, RN, CM
[2020-05-03] MEDS: Pantoprazole Sodium 40 MG Tablet PO ×2 (13:23)
[2020-05-03 13:57] LABS: Pathologist Review Reviewed
[2020-05-03 14:01] LABS: Pathologist Review Reviewed
--- NOTE | 2020-05-03 16:33 | PCM.PN.HOSP ---
Subjective: Pt states that she is feeling much better with all of the blood she has gotten. Denies sig pain. The nausea she had this am has resolved and she was able to eat potato soup for lunch. Vitals/I&O's: Vital Signs Temp Pulse Resp BP Pulse Ox 97.9 F 71 18 131/66 H 99 05/03/20 14:22 05/03/20 14:22 05/03/20 14:22 05/03/20 14:22 05/03/20 14:22 Oxygen Flow Rate (L/min) 2 Oxygen Delivery Method Nasal Cannula Weight: 44.055 kg Body Mass Index (BMI) 16.9 Finger Stick Blood Glucose 145 Intake and Output for Last 24 Hours 05/01/20 05/02/20 05/03/20 23:59 23:59 23:59 Intake Total 3566.5 / 3566.5 2589.42 / 2589.42 Output Total 1000 / 1000 Balance 3566.5 / 3216.5 1589.42 / 1589.42 General: Alert, Oriented x3, Cooperative, No apparent distress, Well developed, Well nourished, - - older WF who appears younger than stated age HEENT: Atraumatic, Normocephalic Oral: Moist Mucosa Neck: Supple, Trachea Midline Lungs: Clear to auscultation, Normal air movement, No rhonchi, No wheeze, No rales Cardiovascular: Regular rate, Regular Rhythm, Normal S1, Normal S2, No murmurs, No Ectopic Activity, No rub noted, No Gallop Abdomen: Bowel Sounds Present, Soft, Non Tender, Non-Distended, No hernias noted Extremities: No clubbing, No cyanosis, No edema, Edema Neurological: Cranial nerves II-XII grossly intact, Neuro grossly intact Psych/Mental Status: Normal Affect, Appropriate, Alert and oriented to time, place, person, mood and affect Laboratory Results 05/03/20 06:15: WBC 10.3, RBC 1.72 L, Hgb 5.6 L*, Hct 18.0 L, MCV 104.7 H, MCH 32.6 H, MCHC 31.1 L, RDW Std Deviation 50.4 H, RDW Coeff of Raul 13.3, Plt Count 102 L, MPV 10.8, Differential Comment SCANNED, Diff Path Review Reviewed 05/03/20 06:15: Sodium 140, Potassium 4.5, Chloride 105, Carbon Dioxide 28.0, Anion Gap 7, BUN 28 H, Creatinine 1.17 H, Estim Creat Clear Calc 24.45, Est GFR (MDRD) Af Amer 56 L, Est GFR (MDRD) Non-Af 47 L, BUN/Creatinine Ratio 23.9 H, Glucose 129 H, Calcium 8.2 L 05/03/20 08:12: Blood Type O POSITIVE, Antibody Screen NEGATIVE, Crossmatch See Detail 05/03/20 08:12: WBC 8.6, RBC 1.65 L, Hgb 5.4 L*, Hct 16.9 L, MCV 102.4 H, MCH 32.7 H, MCHC 32.0, RDW Std Deviation 50.1 H, RDW Coeff of Raul 13.4, Plt Count 94 L, MPV 10.5, Immature Gran % (Auto) 0.300, Neut % (Auto) 87.5 H, Lymph % (Auto) 7.2 L, [place] % (Auto) 4.5, Eos % (Auto) 0.0, Baso % (Auto) 0.5, Absolute Neuts (auto) 7.6, Absolute Lymphs (auto) 0.62 L, Nucleated RBC % 0, Diff Path Review Reviewed, Platelet Estimate SLT DEC, Hypochromasia 2+ Current Medications Acetaminophen (Acetaminophen 500 Mg Tablet) 1,000 mg PO Q8 [facility] Last Admin: 05/03/20 14:14 Dose: 1,000 mg Documented by: Amlodipine Besylate (Amlodipine 5 Mg Tablet) 5 mg PO 1300 [facility] Last Admin: 05/03/20 14:13 Dose: Not Given Documented by: Aspirin (Aspirin 81 Mg Tab.Chew) 81 mg PO BIDCM [facility] Last Admin: 05/03/20 10:19 Dose: Not Given Documented by: Carbidopa/Levodopa (Carbidopa/Levodopa 25/100 Tablet) 1 tablet PO ACHS [facility] Last Admin: 05/03/20 13:24 Dose: 1 tablet Documented by: Enteral Nutritional Formula (Ensure Surgery 237 Ml Liquid) 237 ml PO TIDCM [facility] Last Admin: 05/03/20 12:15 Dose: Not Given Documented by: Ergocalciferol (Ergocalciferol 50,000 Unit Capsule) 50,000 unit PO SA [facility] Famotidine (Famotidine 20 Mg Tablet) 20 mg PO DAILY [facility] Last Admin: 05/03/20 10:19 Dose: Not Given Documented by: Gabapentin (Gabapentin 300 Mg Capsule) 300 mg PO QHS [facility] Last Admin: 05/02/20 21:51 Dose: 300 mg Documented by: Lactated Ringer's () 1,000 mls @ 125 mls/hr IV .Q8H [facility] Last Infusion: 05/03/20 10:30 Dose: 0 mls/hr Documented by: Insulin Human Lispro (Insulin Lispro 100 Unit/Ml Insuln.Pen) 1 - 6 unit SC Q4H PRN PRN; Protocol PRN Reason: BG>/= 180, SEE PROTOCOL Levothyroxine Sodium (Levothyroxine 175 Mcg Tablet) 175 mcg PO DAILY@0600 [facility] Last Admin: 05/03/20 06:14 Dose: 175 mcg Documented by: Lisinopril (Lisinopril 20 Mg Tablet) 20 mg PO 1300 [facility] Last Admin: 05/03/20 14:13 Dose: Not Given Documented by: Metoprolol Succinate (Metoprolol(Xl)Succ 50 Mg Tablet) 50 mg PO BID [facility] Last Admin: 05/03/20 10:19 Dose: Not Given Documented by: Morphine Sulfate (Morphine 2 Mg/Ml Syringe) 2 - 4 mg IV Q2H PRN PRN PRN Reason: Pain Score 4-10 Ondansetron HCl (Ondansetron 4 Mg/2 Ml Vial) 4 mg IV Q8H PRN PRN PRN Reason: NAUSEA Pantoprazole Sodium (Pantoprazole Sodium 40 Mg Tablet) 40 mg PO DAILY [facility] Last Admin: 05/03/20 13:23 Dose: 40 mg Documented by: Promethazine HCl (Promethazine 25 Mg/Ml Syringe) 12.5 mg IM Q6H PRN PRN; Protocol PRN Reason: NAUSEA/VOMITING Propafenone HCl (Propafenone 150 Mg Tablet) 300 mg PO BID [facility] Last Admin: 05/03/20 10:19 Dose: Not Given Documented by: Rosuvastatin Calcium (Rosuvastatin Calcium 10 Mg Tablet) 10 mg PO QHS [facility] Last Admin: 05/02/20 21:52 Dose: 10 mg Documented by: Senna/Docusate Sodium (Senna/Docusate Sodium 1 Tablet) 2 tablet PO BID [facility] Last Admin: 05/03/20 10:19 Dose: Not Given Documented by: Sodium Chloride (0.9% Saline Lock 10 Ml Syringe) 10 - 40 ml IV UD PRN PRN Reason: SALINE FLUSH Last Admin: 05/03/20 12:13 Dose: 10 ml Documented by: Tramadol HCl (Tramadol 50 Mg Tablet) 50 - 100 mg PO Q6H PRN PRN PRN Reason: Pain Score 4-10 Last Admin: 05/03/20 04:40 Dose: 100 mg Documented by: STROKE Vital Signs/Narrative: Vital Signs Temp Pulse Resp BP Pulse Ox 05/03/20 14:22 97.9 F 71 18 131/66 H 99 05/03/20 14:07 98.6 F 71 18 117/58 L 99 05/03/20 13:45 97.5 F L 71 18 106/57 L 96 Medical Necessity - Tobacco Use Smoking Status: Never smoker Tobacco Use: Non-smoker Assessment/Plan All Active Problems (Last Reviewed 01/16/20 @ 13:54 by Eileen Jaquez PA, PA) Palpitations (Acute) Ischemic colitis (Resolved) Old myocardial infarction (Resolved) Status post partial colectomy (Resolved) TIA (transient ischemic attack) (Resolved) Transient cerebral ischemic attack, unspecified (Resolved) Nonrheumatic mitral (valve) prolapse (Ruled-out) L MARSHA POD 0 with Ant Approach -pain meds per ortho -bowel regimen -PT/OT Acute Anemia -hgb 5.6 this am and 5.4 on repeat -no major blood loss with surgery -CT done to r/u spontaneous RPH and this was neg -no other s/o acute blood loss -transfuse 2 u and repeat hgb following -pt has been relatively asymptomatic -CBC in am CAD/HTN/HPL -cont Amlodipine/Zesteril/Metoprolol -continue ASA -continue Statin PAF/SSS -has pacer -takes propafenone--> continue -not on OAC Hypothyroidism -continue Synthroid GERD/Hiatal Hernia -continue PPI -has seen Dr. Rivers for this and he is actively treating her -has intermittent nausea and inability to take pills -had episode this am but now resolved and pt ate soup for lunch Vit D Deficiency -dose tomorrow RLS -continue Sinement Migraines -monitor DVT Prophylaxis -per Ortho Dispo -once hgb stabilized will be clear for d/c from a medical standpoint Inpatient E&M: 26206 Subs Hosp L2
[2020-05-03] MEDS: Aspirin 81 MG TAB.CHEW PO (16:37)
[2020-05-03] MEDS: Ensure Surgery 237 ML LIQUID PO (16:37)
[2020-05-03 18:45] LABS: Absolute Lymphocyte Count 0.96 X10^3/uL (0.83-4.51); Absolute Neutrophil Count 8.9 X10^3/uL (2.0-7.7); Basophil# 0.06 X10^3/uL; Basophil% 0.6 % (0-1); Eosinophil# 0.08 X10^3/uL; Eosinophils% 0.8 % (0-5); Hematocrit 28.3 % (37-47); Hemoglobin 9.2 g/dL (12.0-15.0); Lymphocyte # 0.96 X10^3/ul (4.0); Lymphocyte % 9.2 % (19-41); Mean Corp Hgb Conc 32.5 g/dL (32-36); Mean Corpuscular Volume 95.3 fL (81-99); Mean Platelet Vol. 10.5 fl (6.2-12.0); Monocyte# 0.35 X10^3/uL; Monocyte% 3.4 % (0-10); NRBC Flagged by Analyzer 0 % (0-5); Neutrophil # 8.92 X10^3/uL (2.7-7.7); Neutrophil % 85.4 % (47-70); POSITIVE COUNT YES; Platelet Count 90 K/mm3 (150-450); RBC Distribution Width CV 16.7 % (11.6-14.6); RBC Distribution Width SD 57.4 fl (35.1-43.9); Red Blood Count 2.97 M/mm3 (4.2-5.4); White Blood Count 10.4 K/mm3 (4.4-11.0)
[2020-05-03 18:56] LABS: Differential Indicated SCAN CRITERIA MET
[2020-05-03 20:01] LABS: Differential Comment SCANNED
[2020-05-03] MEDS: Propafenone 150 MG Tablet 300 MG PO (21:27)
[2020-05-03] MEDS: Metoprolol(XL)Succ 50 MG Tablet PO (21:28)
[2020-05-03] MEDS: Gabapentin 300 MG Capsule PO (21:28)
[2020-05-03] MEDS: Senna/Docusate Sodium 1 Tablet 2 TABLET PO (21:29)
[2020-05-04 03:58] VITALS: BP 108/50; PULSE 64; RESP 18; TEMP 36.8; O2SAT 100
[2020-05-04] MEDS: traMADol 50 MG Tablet PO ×2 (04:03→10:47)
[2020-05-04] MEDS: Levothyroxine 175 MCG Tablet PO (06:01)
[2020-05-04] MEDS: Acetaminophen 500 MG Tablet 1000 MG PO ×2 (06:01→15:01)
[2020-05-04] MEDS: Carbidopa/Levodopa 25/100 Tablet PO ×2 (06:01→10:47)
[2020-05-04 06:19] LABS: Hematocrit 27.8 % (37-47); Hemoglobin 8.9 g/dL (12.0-15.0); Mean Corpuscular Hgb 30.7 pg (27.0-32.0); Mean Corpuscular Volume 95.9 fL (81-99); Mean Platelet Vol. 10.7 fl (6.2-12.0); POSITIVE COUNT YES; Platelet Count 79 K/mm3 (150-450); RBC Distribution Width CV 17.2 % (11.6-14.6); RBC Distribution Width SD 60.7 fl (35.1-43.9); White Blood Count 10.9 K/mm3 (4.4-11.0)
[2020-05-04 06:23] LABS: Scan Indicated on CBC? Y/N NO
--- NOTE | 2020-05-04 06:55 | PCM.PN.ORT ---
Subjective: The patient was sitting in bedside chair upon examination. Patient denies any chest pain, shortness of breath, dizziness, lightheadedness, nausea or vomiting, or calf pain. Pain is controlled on medications. No adverse overnight events. Due to patient's significant drop in hemoglobin yesterday patient did not work with physical therapy. She states she was up to the bathroom and states she has had no dizziness or lightheadedness. No episodes where she felt like she was going to pass out. She did get 2 units of packed red blood cells and her hemoglobin did increase to 9.2 and today hemoglobin is currently at 8.9. She is asymptomatic. Her vitals have been stabilized with blood pressure. She has not been tachypneic or tachycardic. Patient does wish to go home upon discharge and does have outpatient therapy scheduled and assistance at home. Objective: Vital signs stable and afebrile. Patient is able to plantarflex and dorsiflex actively. Sensation is intact to light touch to saphenous, sural, superficial and deep peroneal, and tibial distribution. Dressing is with minimal drainage over the middle one third but otherwise clean dry and intact. There is surrounding ecchymosis. The thigh is soft and supple with mild swelling. Negative Homans bilaterally, negative signs and symptoms of DVT. - Physical Exam Vitals/I&O's: Vital Signs Temp Pulse Resp BP Pulse Ox 98.3 F 64 18 108/50 L 100 05/04/20 03:58 05/04/20 03:58 05/04/20 03:58 05/04/20 03:58 05/04/20 03:58 Oxygen Flow Rate (L/min) 2 Oxygen Delivery Method Room Air Weight: 44.055 kg Body Mass Index (BMI) 16.9 Finger Stick Blood Glucose 145 Intake and Output for Last 24 Hours 05/02/20 05/03/20 05/04/20 23:59 23:59 23:59 Intake Total 3566.5 / 3566.5 3409.42 / 3509.42 250 / 250 Output Total 1600 / 1600 500 / 500 Balance 3566.5 / 3216.5 1809.42 / 1909.42 -250 / -250 General: Alert, Oriented x3, Cooperative, No apparent distress Laboratory Results 05/03/20 06:15: WBC 10.3, RBC 1.72 L, Hgb 5.6 L*, Hct 18.0 L, MCV 104.7 H, MCH 32.6 H, MCHC 31.1 L, RDW Std Deviation 50.4 H, RDW Coeff of Raul 13.3, Plt Count 102 L, MPV 10.8, Differential Comment SCANNED, Diff Path Review Reviewed 05/03/20 06:15: Sodium 140, Potassium 4.5, Chloride 105, Carbon Dioxide 28.0, Anion Gap 7, BUN 28 H, Creatinine 1.17 H, Estim Creat Clear Calc 24.45, Est GFR (MDRD) Af Amer 56 L, Est GFR (MDRD) Non-Af 47 L, BUN/Creatinine Ratio 23.9 H, Glucose 129 H, Calcium 8.2 L 05/03/20 08:12: Blood Type O POSITIVE, Antibody Screen NEGATIVE, Crossmatch See Detail 05/03/20 08:12: WBC 8.6, RBC 1.65 L, Hgb 5.4 L*, Hct 16.9 L, MCV 102.4 H, MCH 32.7 H, MCHC 32.0, RDW Std Deviation 50.1 H, RDW Coeff of Raul 13.4, Plt Count 94 L, MPV 10.5, Immature Gran % (Auto) 0.300, Neut % (Auto) 87.5 H, Lymph % (Auto) 7.2 L, Kern % (Auto) 4.5, Eos % (Auto) 0.0, Baso % (Auto) 0.5, Absolute Neuts (auto) 7.6, Absolute Lymphs (auto) 0.62 L, Nucleated RBC % 0, Diff Path Review Reviewed, Platelet Estimate SLT DEC, Hypochromasia 2+ 05/03/20 18:26: WBC 10.4, RBC 2.97 L, Hgb 9.2 L, Hct 28.3 L, MCV 95.3 D, MCH 31.0, MCHC 32.5, RDW Std Deviation 57.4 H, RDW Coeff of Raul 16.7 H, Plt Count 90 L, MPV 10.5, Immature Gran % (Auto) 0.600, Neut % (Auto) 85.4 H, Lymph % (Auto) 9.2 L, Kern % (Auto) 3.4, Eos % (Auto) 0.8, Baso % (Auto) 0.6, Absolute Neuts (auto) 8.9 H, Absolute Lymphs (auto) 0.96, Nucleated RBC % 0, Differential Comment SCANNED 05/04/20 06:05: WBC 10.9, RBC 2.90 L, Hgb 8.9 L, Hct 27.8 L, MCV 95.9, MCH 30.7, MCHC 32.0, RDW Std Deviation 60.7 H, RDW Coeff of Raul 17.2 H, Plt Count 79 L, MPV 10.7 Current Medications Acetaminophen (Acetaminophen 500 Mg Tablet) 1,000 mg PO Q8 [facility] Last Admin: 05/04/20 06:01 Dose: 1,000 mg Documented by: Amlodipine Besylate (Amlodipine 5 Mg Tablet) 5 mg PO 1300 [facility] Last Admin: 05/03/20 14:13 Dose: Not Given Documented by: Aspirin (Aspirin 81 Mg Tab.Chew) 81 mg PO BIDCM [facility] Last Admin: 05/03/20 16:37 Dose: 81 mg Documented by: Carbidopa/Levodopa (Carbidopa/Levodopa 25/100 Tablet) 1 tablet PO ACHS [facility] Last Admin: 05/04/20 06:01 Dose: 1 tablet Documented by: Enteral Nutritional Formula (Ensure Surgery 237 Ml Liquid) 237 ml PO TIDCM [facility] Last Admin: 05/03/20 16:37 Dose: 237 ml Documented by: Ergocalciferol (Ergocalciferol 50,000 Unit Capsule) 50,000 unit PO SA [facility] Famotidine (Famotidine 20 Mg Tablet) 20 mg PO DAILY [facility] Last Admin: 05/03/20 10:19 Dose: Not Given Documented by: Ferrous Sulfate (Ferrous Sulfate 325 Mg Tablet) 325 mg PO 1200,1700 [facility] Folic Acid (Folic Acid 1 Mg Tablet) 1 mg PO DAILY@0800 [facility] Gabapentin (Gabapentin 300 Mg Capsule) 300 mg PO QHS [facility] Last Admin: 05/03/20 21:28 Dose: 300 mg Documented by: Insulin Human Lispro (Insulin Lispro 100 Unit/Ml Insuln.Pen) 1 - 6 unit SC Q4H PRN PRN; Protocol PRN Reason: BG>/= 180, SEE PROTOCOL Levothyroxine Sodium (Levothyroxine 175 Mcg Tablet) 175 mcg PO DAILY@0600 [facility] Last Admin: 05/04/20 06:01 Dose: 175 mcg Documented by: Lisinopril (Lisinopril 20 Mg Tablet) 20 mg PO 1300 [facility] Last Admin: 05/03/20 14:13 Dose: Not Given Documented by: Metoprolol Succinate (Metoprolol(Xl)Succ 50 Mg Tablet) 50 mg PO BID [facility] Last Admin: 05/03/20 21:28 Dose: 50 mg Documented by: Morphine Sulfate (Morphine 2 Mg/Ml Syringe) 2 - 4 mg IV Q2H PRN PRN PRN Reason: Pain Score 4-10 Ondansetron HCl (Ondansetron 4 Mg/2 Ml Vial) 4 mg IV Q8H PRN PRN PRN Reason: NAUSEA Pantoprazole Sodium (Pantoprazole Sodium 40 Mg Tablet) 40 mg PO DAILY [facility] Last Admin: 05/03/20 13:23 Dose: 40 mg Documented by: Promethazine HCl (Promethazine 25 Mg/Ml Syringe) 12.5 mg IM Q6H PRN PRN; Protocol PRN Reason: NAUSEA/VOMITING Propafenone HCl (Propafenone 150 Mg Tablet) 300 mg PO BID [facility] Last Admin: 05/03/20 21:27 Dose: 300 mg Documented by: Rosuvastatin Calcium (Rosuvastatin Calcium 10 Mg Tablet) 10 mg PO QHS [facility] Last Admin: 05/03/20 21:27 Dose: 10 mg Documented by: Senna/Docusate Sodium (Senna/Docusate Sodium 1 Tablet) 2 tablet PO BID [facility] Last Admin: 05/03/20 21:29 Dose: 2 tablet Documented by: Sodium Chloride (0.9% Saline Lock 10 Ml Syringe) 10 - 40 ml IV UD PRN PRN Reason: SALINE FLUSH Last Admin: 05/03/20 12:13 Dose: 10 ml Documented by: Tramadol HCl (Tramadol 50 Mg Tablet) 50 - 100 mg PO Q6H PRN PRN PRN Reason: Pain Score 4-10 Last Admin: 05/04/20 04:03 Dose: 100 mg Documented by: Medical Necessity - Tobacco Use Smoking Status: Never smoker Tobacco Use: Non-smoker Assessment/Plan All Active Problems (Last Reviewed 01/16/20 @ 13:54 by Eileen Jaquez PA, PA) Palpitations (Acute) Ischemic colitis (Resolved) Old myocardial infarction (Resolved) Status post partial colectomy (Resolved) TIA (transient ischemic attack) (Resolved) Transient cerebral ischemic attack, unspecified (Resolved) Nonrheumatic mitral (valve) prolapse (Ruled-out) 1. S/P left direct anterior total hip arthroplasty POD #2 2. Continue Pain Medications: Tylenol and tramadol 3. DVT Prophylaxis: Take 81 mg aspirin twice daily for 4 weeks postoperatively for DVT prophylaxis 4. PT/OT: At this time I do not want physical therapy as patient has some dizziness when she is up and standing. She has low blood pressure and significant drop in hemoglobin. 5. Anemia secondary acute blood loss from surgery and possible dilution: H & H: 8.9/27.8, patient's vitals are stabilized and patient currently is asymptomatic. Patient's preoperative hemoglobin was 11.7 on April 25, 2020. She has been up walking without any symptoms. Patient did receive 2 units of packed red blood cells on May 03, 2020. CT scan of the abdomen pelvis did not show any bleed. 6. Encouraged Incentive Spirometry 7. Continue postoperative medical management per medicine: 8. Disposition: Patient has significantly improved from yesterday. At this time we will plan for possible discharge home today depending upon how patient tolerates physical therapy and if pain is controlled. I would also like to get clearance from the hospitalist for discharge as long as patient is medically stable. Patient will follow-up per postop instructions. I do want patient to follow-up with the primary care physician early next week with repeat lab work due to the anemia. Prescriptions will [facility] E [facility]. I have reviewed the [place] Automated Rx Reporting System (OARRS) report for this patient for refill pattern and other prescriber involvement as part of the appropriate surveillance for the provision of acute and chronic controlled medications. The report was requested and reviewed on the date of this entry and was considered in the prescribing process.
--- NOTE | 2020-05-04 07:08 | PCM.DC.THR ---
Discharge Diet: No Restrictions Discharge Activity: May Not Drive - while taking narcotic pain medications. May shower in (days): 0 - Okay to shower as long as dressing is intact to skin. Turn dressing away from water Ice area for (Minutes): 20 - Every 1-2 hours while awake Weight Bearing Status: Weight bearing as tolerated Elevate: Operative Extremity Additional Activity Instructions:: Wear elastic stockings for 2 weeks. DO NOT use alcohol with narcotic pain medication. DO NOT make important decisions while taking narcotic medication. If you have problems with taking your medication (rash, itching, nausea, etc.) call the office at once. Call your doctor if your incision/area has: Increased Pain/ Swelling, Increased Redness, Foul Smelling Discharge Call your doctor if you observe: Fever of 101 or Higher Remove Dressing in (days):: 3 - Okay to remove dressing on May 07, 2020 Additional Instructions: Follow orthopedic postop instructions Allergies/Adverse Reactions: Allergies amiodarone Allergy (Verified 05/02/20 07:37) Rash clarithromycin Allergy (Verified 05/02/20 07:37) sore throat dicyclomine [From Bentyl] Allergy (Verified 05/02/20 07:37) Unknown doxycycline Allergy (Verified 05/02/20 07:37) Unknown erythromycin base Allergy (Verified 05/02/20 07:37) Unknown nitrofurantoin Allergy (Verified 05/02/20 07:37) Rash Penicillins Allergy (Verified 05/02/20 07:37) Unknown prochlorperazine [From Compazine] Allergy (Verified 05/02/20 07:37) Unknown promethazine HCl [From Phenergan] Allergy (Verified 05/02/20 07:37) Unknown quinidine Allergy (Verified 05/02/20 07:37) ineffective simvastatin Allergy (Verified 05/02/20 07:37) myalgias sotalol Allergy (Verified 05/02/20 07:37) GI upset Sulfa (Sulfonamide Antibiotics) Allergy (Verified 05/02/20 07:37) Unknown valsartan [From Diovan] Allergy (Verified 05/02/20 07:37) Nausea ciprofloxacin HCl [From Cipro] Adverse Reaction (Verified 05/02/20 07:37) Nausea/Vom/Diarrhea flecainide Adverse Reaction (Verified 05/02/20 07:37) ineffective morphine Adverse Reaction (Verified 05/02/20 07:37) Nausea/Vom/Diarrhea macrocrystals Allergy (Uncoded 05/02/20 07:37) Rash Medications to take at Discharge Carbidopa/Levodopa 25/100 [Sinemet 25/100] 1 tab PO 4X/DAY 06/07/13 Gabapentin [Neurontin] 300 mg PO QHS 03/21/15 Levothyroxine Sodium [Synthroid] 175 mcg PO DAILY 05/14/18 cholecalciferol (vitamin D3) 1,250 mcg (50,000 unit) capsule 50,000 unit PO SA 07/05/19 omeprazole 40 mg capsule,delayed release 40 mg PO DAILY cap 07/05/19 rosuvastatin 10 mg tablet 10 mg PO DAILY tab 07/05/19 metoprolol succinate 50 mg tablet,extended release 24 hr 50 mg PO BID #180 tab 12/16/19 Amlodipine Besylate/Benazepril [Amlodipine-Benazepril 5-20 mg] 1 cap PO 1300 04/18/20 Propafenone HCl 300 mg PO BID 04/18/20 Acetaminophen [Tylenol] 1,000 mg PO Q8 #100 tab 05/04/20 Amlodipine [Norvasc] 5 mg PO 1300 tab 05/04/20 Aspirin [Aspirin, Baby] 81 mg PO BIDCM #0 tab 05/04/20 Ferrous Sulfate 325 mg PO 1200,1700 #28 tab 05/04/20 Folic Acid 1 mg PO DAILY@0800 #14 tab 05/04/20 Senna/Docusate Sodium [Senokot-S] 2 tab PO BID #20 tab 05/04/20 traMADol [Ultram] 50 - 100 mg PO Q6H PRN PRN 5 Days #40 tab 05/04/20 The following prescriptions were given: Ferrous Sulfate 325 mg PO 1200,1700 #28 tab Transmission Status: [id number] Folic Acid 1 mg PO DAILY@0800 #14 tab Transmission Status: Re[id number] Senna/Docusate Sodium [Senokot-S] 2 tab PO BID #20 tab Transmission Status: Received by [id number] Acetaminophen [Tylenol] 1,000 mg PO Q8 #100 tab Transmission Status: Re[id number] traMADol [Ultram] 50 - 100 mg PO Q6H PRN PRN 5 Days #40 tab PRN Reason: Pain Score 4-10 Transmission Status: [id number] Primary Care Physician: Suresh Coles MD [Primary Care Provider] - Please follow up with your Primary Care Physician in: within 1 week for repeat labwork due to anemia Test Results: Test results from this visit will be discussed in further detail at your follow-up appointment, if applicable. Please Follow Up With: Physical Therapy Behzad Crain When: will call to reschedule Please Follow Up With: María Samuel NP, [employer] When: 05/16/20 @ 1:45 pm
[2020-05-04 08:19] VITALS: BP 105/44; PULSE 63; RESP 18; TEMP 37.2; O2SAT 92
--- NOTE | 2020-05-04 08:23 | PN_ITS ---
Subjective: Pt states that she is feeling well today. Minimal pain and BP are better. Anxious to get moving and go home. Vitals/I&O's: Vital Signs Temp Pulse Resp BP Pulse Ox 99.0 F 63 18 105/44 L 92 05/04/20 08:19 05/04/20 08:19 05/04/20 08:19 05/04/20 08:19 05/04/20 08:19 Oxygen Flow Rate (L/min) 2 Oxygen Delivery Method Room Air Weight: 44.055 kg Body Mass Index (BMI) 16.9 Finger Stick Blood Glucose 145 Intake and Output for Last 24 Hours 05/02/20 05/03/20 05/04/20 23:59 23:59 23:59 Intake Total 3566.5 / 3566.5 3409.42 / 3509.42 250 / 250 Output Total 1600 / 1600 500 / 500 Balance 3566.5 / 3216.5 1809.42 / 1909.42 -250 / -250 General: Alert, Oriented x3, Cooperative, No apparent distress, Well developed, Well nourished, - - older WF sitting up in a chair-reclined, appears well, appears younger than stated age Oral: Moist Mucosa Neck: Supple, Trachea Midline Lungs: Clear to auscultation, Normal air movement, No rhonchi, No wheeze, No rales Cardiovascular: Regular rate, Regular Rhythm, Normal S1, Normal S2, No murmurs, No Ectopic Activity, No rub noted, No Gallop Abdomen: Bowel Sounds Present, Soft, Non Tender, Non-Distended, No Hepato- splenomegaly, No hernias noted Extremities: No clubbing, No cyanosis, No edema, Capillary Refill Less than 3 Seconds, Peripheral Pulses Normal Skin: No rashes, No breakdown, - - thin skin Neurological: Cranial nerves II-XII grossly intact, Neuro grossly intact Psych/Mental Status: Normal Affect, Appropriate, Alert and oriented to time, place, person, mood and affect Laboratory Results 05/03/20 06:15: Diff Path Review Reviewed 05/03/20 08:12: Blood Type O POSITIVE, Antibody Screen NEGATIVE, Crossmatch See Detail 05/03/20 08:12: WBC 8.6, RBC 1.65 L, Hgb 5.4 L*, Hct 16.9 L, MCV 102.4 H, MCH 32.7 H, MCHC 32.0, RDW Std Deviation 50.1 H, RDW Coeff of Raul 13.4, Plt Count 94 L, MPV 10.5, Immature Gran % (Auto) 0.300, Neut % (Auto) 87.5 H, Lymph % (Auto) 7.2 L, Peach % (Auto) 4.5, Eos % (Auto) 0.0, Baso % (Auto) 0.5, Absolute Neuts (auto) 7.6, Absolute Lymphs (auto) 0.62 L, Nucleated RBC % 0, Diff Path Review Reviewed, Platelet Estimate SLT DEC, Hypochromasia 2+ 05/03/20 18:26: WBC 10.4, RBC 2.97 L, Hgb 9.2 L, Hct 28.3 L, MCV 95.3 D, MCH 31.0, MCHC 32.5, RDW Std Deviation 57.4 H, RDW Coeff of Raul 16.7 H, Plt Count 90 L, MPV 10.5, Immature Gran % (Auto) 0.600, Neut % (Auto) 85.4 H, Lymph % (Auto) 9.2 L, Peach % (Auto) 3.4, Eos % (Auto) 0.8, Baso % (Auto) 0.6, Absolute Neuts (auto) 8.9 H, Absolute Lymphs (auto) 0.96, Nucleated RBC % 0, Differential Comment SCANNED 05/04/20 06:05: WBC 10.9, RBC 2.90 L, Hgb 8.9 L, Hct 27.8 L, MCV 95.9, MCH 30.7, MCHC 32.0, RDW Std Deviation 60.7 H, RDW Coeff of Raul 17.2 H, Plt Count 79 L, MPV 10.7 Current Medications Acetaminophen (Acetaminophen 500 Mg Tablet) 1,000 mg PO Q8 [facility] Last Admin: 05/04/20 06:01 Dose: 1,000 mg Documented by: Amlodipine Besylate (Amlodipine 5 Mg Tablet) 5 mg PO 1300 [facility] Last Admin: 05/03/20 14:13 Dose: Not Given Documented by: Aspirin (Aspirin 81 Mg Tab.Chew) 81 mg PO BIDCM [facility] Last Admin: 05/03/20 16:37 Dose: 81 mg Documented by: Carbidopa/Levodopa (Carbidopa/Levodopa 25/100 Tablet) 1 tablet PO ACHS [facility] Last Admin: 05/04/20 06:01 Dose: 1 tablet Documented by: Enteral Nutritional Formula (Ensure Surgery 237 Ml Liquid) 237 ml PO TIDCM [facility] Last Admin: 05/03/20 16:37 Dose: 237 ml Documented by: Ergocalciferol (Ergocalciferol 50,000 Unit Capsule) 50,000 unit PO SA [facility] Famotidine (Famotidine 20 Mg Tablet) 20 mg PO DAILY [facility] Last Admin: 05/03/20 10:19 Dose: Not Given Documented by: Ferrous Sulfate (Ferrous Sulfate 325 Mg Tablet) 325 mg PO 1200,1700 [facility] Folic Acid (Folic Acid 1 Mg Tablet) 1 mg PO DAILY@0800 [facility] Gabapentin (Gabapentin 300 Mg Capsule) 300 mg PO QHS [facility] Last Admin: 05/03/20 21:28 Dose: 300 mg Documented by: Insulin Human Lispro (Insulin Lispro 100 Unit/Ml Insuln.Pen) 1 - 6 unit SC Q4H PRN PRN; Protocol PRN Reason: BG>/= 180, SEE PROTOCOL Levothyroxine Sodium (Levothyroxine 175 Mcg Tablet) 175 mcg PO DAILY@0600 [facility] Last Admin: 05/04/20 06:01 Dose: 175 mcg Documented by: Lisinopril (Lisinopril 20 Mg Tablet) 20 mg PO 1300 [facility] Last Admin: 05/03/20 14:13 Dose: Not Given Documented by: Metoprolol Succinate (Metoprolol(Xl)Succ 50 Mg Tablet) 50 mg PO BID [facility] Last Admin: 05/03/20 21:28 Dose: 50 mg Documented by: Morphine Sulfate (Morphine 2 Mg/Ml Syringe) 2 - 4 mg IV Q2H PRN PRN PRN Reason: Pain Score 4-10 Ondansetron HCl (Ondansetron 4 Mg/2 Ml Vial) 4 mg IV Q8H PRN PRN PRN Reason: NAUSEA Pantoprazole Sodium (Pantoprazole Sodium 40 Mg Tablet) 40 mg PO DAILY [facility] Last Admin: 05/03/20 13:23 Dose: 40 mg Documented by: Promethazine HCl (Promethazine 25 Mg/Ml Syringe) 12.5 mg IM Q6H PRN PRN; Protocol PRN Reason: NAUSEA/VOMITING Propafenone HCl (Propafenone 150 Mg Tablet) 300 mg PO BID [facility] Last Admin: 05/03/20 21:27 Dose: 300 mg Documented by: Rosuvastatin Calcium (Rosuvastatin Calcium 10 Mg Tablet) 10 mg PO QHS [facility] Last Admin: 05/03/20 21:27 Dose: 10 mg Documented by: Senna/Docusate Sodium (Senna/Docusate Sodium 1 Tablet) 2 tablet PO BID [facility] Last Admin: 05/03/20 21:29 Dose: 2 tablet Documented by: Sodium Chloride (0.9% Saline Lock 10 Ml Syringe) 10 - 40 ml IV UD PRN PRN Reason: SALINE FLUSH Last Admin: 05/03/20 12:13 Dose: 10 ml Documented by: Tramadol HCl (Tramadol 50 Mg Tablet) 50 - 100 mg PO Q6H PRN PRN PRN Reason: Pain Score 4-10 Last Admin: 05/04/20 04:03 Dose: 100 mg Documented by: STROKE Vital Signs/Narrative: Vital Signs Temp Pulse Resp BP Pulse Ox 05/04/20 08:19 99.0 F 63 18 105/44 L 92 Medical Necessity - Tobacco Use Smoking Status: Never smoker Tobacco Use: Non-smoker Assessment/Plan All Active Problems (Last Reviewed 01/16/20 @ 13:54 by Eileen Jaquez PA, PA) Palpitations (Acute) Ischemic colitis (Resolved) Old myocardial infarction (Resolved) Status post partial colectomy (Resolved) TIA (transient ischemic attack) (Resolved) Transient cerebral ischemic attack, unspecified (Resolved) Nonrheumatic mitral (valve) prolapse (Ruled-out) L MARSHA POD 2 with Ant Approach -pain meds per ortho -bowel regimen -PT/OT Acute Anemia -s/p transfusion for hgb of 5.4 -today hgb was 8.9 and 9.2 yesterday after transfusion -hgb now stable -would recommend f/u hgb in 1 week Thrombocytopenia -suspect consumption but will need CAD/HTN/HPL -cont Amlodipine/Zesteril/Metoprolol -continue ASA -continue Statin PAF/SSS -has pacer -takes propafenone--> continue -not on OAC Hypothyroidism -continue Synthroid GERD/Hiatal Hernia -continue PPI -has seen Dr. Rivers for this and he is actively treating her -has intermittent nausea and inability to take pills -had episode this am but now resolved and pt ate soup for lunch Vit D Deficiency -dose tomorrow RLS -continue Sinement Migraines -monitor DVT Prophylaxis -per Ortho Dispo -ok for d/c -would get CBC in 1 week Inpatient E&M: 08604 Subs Hosp L2
[2020-05-04] MEDS: Aspirin 81 MG TAB.CHEW PO (10:46)
[2020-05-04] MEDS: Famotidine 20 MG Tablet PO (10:46)
[2020-05-04] MEDS: Propafenone 150 MG Tablet 300 MG PO (10:46)
[2020-05-04] MEDS: Senna/Docusate Sodium 1 Tablet 2 TABLET PO (10:46)
[2020-05-04 11:22] VITALS: BP 105/44; PULSE 63
[2020-05-04 14:58] VITALS: BP 130/50; PULSE 60; RESP 18; TEMP 36.8; O2SAT 97
[2020-05-04] MEDS: amLODIPine 5 MG Tablet PO (15:01)
[2020-05-04] MEDS: Lisinopril 20 MG Tablet PO (15:01)
[2020-05-04] MEDS: Ferrous Sulfate 325 MG Tablet PO (15:16)
[2020-05-04 16:50] VITALS: BP 130/50; PULSE 60; RESP 18; TEMP 36.8; O2SAT 97
== END 2020-05-04 16:53 | disposition home or self-care (01) | DRG 470 ==
LOC: MS3 23:42
PROVIDERS: Anesthesiology; Internal Medicine; Physician Assistant Surgical; Admitting Provider Specialist; PCP Family Medicine; Referring Provider Specialist; Visit Provider Specialist
PROC: (CPT 27284; principal; 2020-05-02 08:35)
DX: M16.12 Unilateral primary osteoarthritis, left hip (principal); D62 Acute posthemorrhagic anemia; M79.7 Fibromyalgia; K21.9 Gastro-esophageal reflux disease without esophagitis; I34.1 Nonrheumatic mitral (valve) prolapse; I10 Essential (primary) hypertension; G43.909 Migraine, unspecified, not intractable, without status migrainosus; G25.81 Restless legs syndrome; E78.00 Pure hypercholesterolemia, unspecified; E03.9 Hypothyroidism, unspecified; Z86.72 Personal history of thrombophlebitis; Z95.0 Presence of cardiac pacemaker; Z79.899 Other long term (current) drug therapy; Z86.73 Personal history of transient ischemic attack (TIA), and cerebral infarction without residual deficits; Z90.49 Acquired absence of other specified parts of digestive tract; G20 Parkinson's disease; I95.81 Postprocedural hypotension; I25.10 Atherosclerotic heart disease of native coronary artery without angina pectoris; I48.0 Paroxysmal atrial fibrillation; K44.9 Diaphragmatic hernia without obstruction or gangrene; E55.9 Vitamin D deficiency, unspecified; D69.6 Thrombocytopenia, unspecified
CPT/HCPCS: 36415; 73501; 73502; 74176; 76000; 80048; 82962; 85025; 85027; 86850; 86900; 86901; 86920; 86922; 87635; 92610; 97110; 97116; 97162; 97166; 97530; 99251; C1776; C9803; J7040; J7050; J7120; P9016; A4216; G0463; J2405; J3475; U0003

== ENCOUNTER → 2020-05-09 | Outpatient (CLI) | payer MEDICARE, SELFPAY ==
[2020-05-02 08:08] VITALS: BMI 16.9
== END | disposition home or self-care (01) ==
LOC: MFPLAB 16:08 → LABSPEC 16:09
PROVIDERS: PCP Family Medicine; Referring Provider Family Medicine; Visit Provider Family Medicine
DX: N39.0 Urinary tract infection, site not specified (principal)
CPT/HCPCS: 87077; 87086; 87088; 87186

== ENCOUNTER → 2020-05-18 12:02 | Outpatient (CLI) | payer MEDICARE, SELFPAY ==
[2020-05-02 08:08] VITALS: BMI 16.9
[2020-05-18 15:31] LABS: Absolute Lymphocyte Count 1.22 X10^3/uL (0.83-4.51); Absolute Neutrophil Count 4.2 X10^3/uL (2.0-7.7); Basophil# 0.13 X10^3/uL; Basophil% 1.9 % (0-1); Eosinophil# 0.91 X10^3/uL; Eosinophils% 13.1 % (0-5); Hematocrit 35.8 % (37-47); Hemoglobin 11.1 g/dL (12.0-15.0); Lymphocyte # 1.22 X10^3/ul (4.0); Lymphocyte % 17.6 % (19-41); Mean Corpuscular Hgb 32.2 pg (27.0-32.0); Mean Corpuscular Volume 103.8 fL (81-99); Mean Platelet Vol. 10.8 fl (6.2-12.0); Monocyte# 0.46 X10^3/uL; Monocyte% 6.6 % (0-10); NRBC Flagged by Analyzer 0 % (0-5); Neutrophil # 4.19 X10^3/uL (2.7-7.7); Neutrophil % 60.4 % (47-70); POSITIVE MORPHOLOGY YES; Platelet Count 198 K/mm3 (150-450); RBC Distribution Width CV 18.6 % (11.6-14.6); RBC Distribution Width SD 70.4 fl (35.1-43.9); Red Blood Count 3.45 M/mm3 (4.2-5.4); White Blood Count 6.9 K/mm3 (4.4-11.0)
[2020-05-18 15:36] LABS: Differential Indicated SCAN CRITERIA MET
[2020-05-18 16:00] LABS: Differential Comment SCANNED
[2020-05-18 16:24] LABS: Ferritin 296 ng/mL (8-252); Iron 92 ug/dL (50-170); Iron Binding Capacity,Total 346 ug/dL (250-450)
== END ==
PROVIDERS: PCP Family Medicine; Referring Provider Family Medicine; Visit Provider Family Medicine
DX: D64.9 Anemia, unspecified (principal)
CPT/HCPCS: 36415; 82728; 83540; 83550; 85025

== ENCOUNTER → 2020-07-06 14:02 | Outpatient (CLI) | payer MEDICARE, SELFPAY ==
[2020-05-02 08:08] VITALS: BMI 16.9
[2020-07-06 16:16] LABS: Absolute Lymphocyte Count 1.55 X10^3/uL (0.83-4.51); Absolute Neutrophil Count 2.6 X10^3/uL (2.0-7.7); Basophil# 0.12 X10^3/uL; Basophil% 2.4 % (0-1); Eosinophil# 0.44 X10^3/uL; Eosinophils% 8.9 % (0-5); Hematocrit 36.4 % (37-47); Hemoglobin 12.1 g/dL (12.0-15.0); Lymphocyte # 1.55 X10^3/ul (4.0); Lymphocyte % 31.3 % (19-41); Mean Corp Hgb Conc 33.2 g/dL (32-36); Mean Corpuscular Hgb 33.7 pg (27.0-32.0); Mean Corpuscular Volume 101.4 fL (81-99); Mean Platelet Vol. 10.7 fl (6.2-12.0); Monocyte# 0.26 X10^3/uL; Monocyte% 5.3 % (0-10); NRBC Flagged by Analyzer 0 % (0-5); Neutrophil # 2.56 X10^3/uL (2.7-7.7); Neutrophil % 51.7 % (47-70); Platelet Count 177 K/mm3 (150-450); RBC Distribution Width CV 14.4 % (11.6-14.6); RBC Distribution Width SD 54.2 fl (35.1-43.9); Red Blood Count 3.59 M/mm3 (4.2-5.4)
[2020-07-06 16:40] LABS: Vitamin B12 354 pg/mL (211-911); Vitamin D,25 Hydroxy 94.8 ng/mL
[2020-07-06 16:41] LABS: Protein, Urine (Random) 39.9 mg/dL (<11.9); Protein:Creat Ratio 387 mg/g CRE (0-200)
[2020-07-06 19:19] LABS: ALB/GLOB Ratio 1.4 RATIO (0.9-2.4); AST(SGOT) 43 U/L (15-37); Alanine Aminotransfer ALT/SGPT 23 U/L (13-56); Alkaline Phosphatase 57 U/L (45-117); Anion Gap 7 (5-15); BUN 16 mg/dL (7-18); BUN/Creat Ratio 16.1 RATIO (10-20); Calcium,Total 8.7 mg/dL (8.5-10.1); Chloride 105 mmol/L (98-107); Cholesterol 128 mg/dL (200); Creatinine, Serum 0.99 mg/dL (0.55-1.02); EST Glomerular Filtration Rate 56 mL/min (>60); Est Glom Filt Rate - Afr Amer 68 mL/min (>60); Ferritin 113 ng/mL (8-252); Globulin 2.8 g/dL (2.2-4.2); Glucose 98 mg/dL (74-106); High Density Lipoprotein 71 mg/dL; Iron 97 ug/dL (50-170); Iron Binding Capacity,Total 407 ug/dL (250-450); Phosphorus 3.2 mg/dL (2.5-4.9); Potassium 3.3 mmol/L (3.5-5.1); Protein, Total 6.8 g/dL (6.4-8.2); Sodium Level 141 mmol/L (136-145); T4 Free Direct 1.11 ng/dL (0.76-1.46); Thyroid Stim Hormone (TSH) 8.08 uIU/mL (0.358-3.74); Triglycerides 88 mg/dL; Very Low Density Lipoprotein 18 mg/dL (5-40)
[2020-07-07 10:57] LABS: PTHIN 52.2 pg/mL (18.4-80.1)
== END ==
PROVIDERS: PCP Family Medicine; Referring Provider Family Medicine; Visit Provider Family Medicine
DX: E78.00 Pure hypercholesterolemia, unspecified (principal); I48.0 Paroxysmal atrial fibrillation; E55.9 Vitamin D deficiency, unspecified; E03.9 Hypothyroidism, unspecified; N18.30 Chronic kidney disease, stage 3 unspecified; D63.1 Anemia in chronic kidney disease
CPT/HCPCS: 36415; 80053; 80061; 82306; 82570; 82607; 82728; 82746; 83540; 83550; 83735; 83970; 84100; 84156; 84439; 84443; 85025

== ENCOUNTER → 2020-11-01 13:46 | Outpatient (CLI) | payer MEDICARE, SELFPAY ==
[2020-09-25 09:21] VITALS: BMI 17.4
[2020-11-01 13:56] LABS: Mucous, Urine 0 SEEN /hpf (<or=2+); Red Blood Cells-Urine 0 SEEN /hpf (0-5); Squamous Epithelial Cells - UA 0 SEEN /hpf (5-10)
[2020-11-01 15:25] LABS: Absolute Lymphocyte Count 1.29 X10^3/uL (0.83-4.51); Absolute Neutrophil Count 3.5 X10^3/uL (2.0-7.7); Basophil# 0.09 X10^3/uL; Basophil% 1.6 % (0-1); Eosinophil# 0.29 X10^3/uL; Eosinophils% 5.2 % (0-5); Hematocrit 38.7 % (37-47); Hemoglobin 12.6 g/dL (12.0-15.0); Lymphocyte # 1.29 X10^3/ul (0.83-4.51); Lymphocyte % 23.3 % (19-41); Mean Corp Hgb Conc 32.6 g/dL (32-36); Mean Corpuscular Hgb 33.5 pg (27.0-32.0); Mean Corpuscular Volume 102.9 fL (81-99); Mean Platelet Vol. 10.5 fl (6.2-12.0); Monocyte# 0.33 X10^3/uL; NRBC Flagged by Analyzer 0 % (0-5); Neutrophil # 3.51 X10^3/uL (2.7-7.7); Neutrophil % 63.5 % (47-70); Platelet Count 147 K/mm3 (150-450); RBC Distribution Width CV 12.4 % (11.6-14.6); RBC Distribution Width SD 46.6 fl (35.1-43.9); Red Blood Count 3.76 M/mm3 (4.2-5.4); White Blood Count 5.5 K/mm3 (4.4-11.0)
[2020-11-01 15:37] LABS: Color, Urine Yellow (Yellow); Glucose, Dipstick Normal (Normal); Ketone-Dipstick 15 mg/dl (Negative); Leukocyte Esterase-Dipstick 500 /ul (Negative); Nitrite-Dipstick Negative (Negative); Occult Blood-Urine 10 /ul (Negative); Protein-Dipstick 30 mg/dl (Negative); Urine Clarity Clear (Clear); Urine Urobilinogen 1 mg/dl (Normal)
[2020-11-01 15:44] LABS: PTHIN 47.7 pg/mL (18.4-80.1)
[2020-11-01 15:48] LABS: Protein, Urine (Random) 46.2 mg/dL (<11.9); Protein:Creat Ratio 172 mg/g CRE (0-200)
[2020-11-01 15:48] LABS: Vitamin D,25 Hydroxy 57.8 ng/mL
[2020-11-01 15:52] LABS: ALB/GLOB Ratio 1.5 RATIO (0.9-2.4); AST(SGOT) 15 U/L (15-37); Alanine Aminotransfer ALT/SGPT 9 U/L (13-56); Albumin, Serum 4.2 g/dL (3.2-5.0); Alkaline Phosphatase 63 U/L (45-117); Anion Gap 6 (5-15); BUN 27 mg/dL (7-18); BUN/Creat Ratio 19.3 RATIO (10-20); Calcium,Total 9.2 mg/dL (8.5-10.1); Chloride 102 mmol/L (98-107); Cholesterol 173 mg/dL (200); EST Glomerular Filtration Rate 38 mL/min (>60); Est Glom Filt Rate - Afr Amer 46 mL/min (>60); Globulin 2.8 g/dL (2.2-4.2); Glucose 105 mg/dL (74-106); High Density Lipoprotein 72 mg/dL; Magnesium 2.1 mg/dL (1.6-2.6); Potassium 3.7 mmol/L (3.5-5.1); Sodium Level 138 mmol/L (136-145); T4 Free Direct 1.16 ng/dL (0.76-1.46); Thyroid Stim Hormone (TSH) 6.21 uIU/mL (0.358-3.74); Triglycerides 118 mg/dL; Very Low Density Lipoprotein 24 mg/dL (5-40)
[2020-11-01 16:06] LABS: Urine Bilirubin Dipstick 3 mg/dL (Negative)
[2020-11-01 16:12] LABS: Bacteria 2+ /hpf (None Seen); Hyaline Cast 10-25 SEEN /lpf (0-5); Renal Epithelial Cells 0-5 SEEN /hpf (0-5); White Blood Cells 5-10 SEEN /hpf (0-5)
[2020-11-01 16:13] LABS: Calcium Oxalate Crystals Ur 1+ /hpf (<or=2+)
== END ==
PROVIDERS: PCP Family Medicine; Referring Provider Family Medicine; Visit Provider Family Medicine
DX: E78.00 Pure hypercholesterolemia, unspecified (principal); E55.9 Vitamin D deficiency, unspecified; N18.30 Chronic kidney disease, stage 3 unspecified; E03.9 Hypothyroidism, unspecified; I48.0 Paroxysmal atrial fibrillation; D63.8 Anemia in other chronic diseases classified elsewhere
CPT/HCPCS: 80053; 80061; 81001; 82306; 82570; 83735; 83970; 84100; 84156; 84439; 84443; 85025

== ENCOUNTER → 2020-11-08 13:47 | Outpatient (CLI) | payer MEDICARE, SELFPAY ==
[2020-09-25 09:21] VITALS: BMI 17.4
[2020-11-08 15:40] LABS: Anion Gap 5 (5-15); BUN 23 mg/dL (7-18); BUN/Creat Ratio 20.9 RATIO (10-20); Calcium,Total 9.3 mg/dL (8.5-10.1); Chloride 106 mmol/L (98-107); EST Glomerular Filtration Rate 50 mL/min (>60); Est Glom Filt Rate - Afr Amer 61 mL/min (>60); Glucose 87 mg/dL (74-106); Potassium 4.1 mmol/L (3.5-5.1); Sodium Level 141 mmol/L (136-145)
== END ==
PROVIDERS: PCP Family Medicine; Visit Provider Family Medicine
DX: N18.30 Chronic kidney disease, stage 3 unspecified (principal)
CPT/HCPCS: 36415; 80048

== ENCOUNTER → 2021-03-11 10:32 | Outpatient (CLI) | payer MEDICARE, SELFPAY ==
[2021-03-11 12:58] LABS: Absolute Lymphocyte Count 1.18 X10^3/uL (0.83-4.51); Basophil% 1.8 % (0-1); Eosinophil# 0.78 X10^3/uL; Eosinophils% 14.3 % (0-5); Hematocrit 37.8 % (37-47); Hemoglobin 12.1 g/dL (12.0-15.0); Lymphocyte # 1.18 X10^3/ul (0.83-4.51); Lymphocyte % 21.6 % (19-41); Mean Corpuscular Hgb 32.7 pg (27.0-32.0); Mean Corpuscular Volume 102.2 fL (81-99); Monocyte% 7.3 % (0-10); NRBC Flagged by Analyzer 0 % (0-5); Neutrophil # 2.99 X10^3/uL (2.7-7.7); Neutrophil % 54.6 % (47-70); Platelet Count 154 K/mm3 (150-450); RBC Distribution Width CV 12.6 % (11.6-14.6); RBC Distribution Width SD 47.3 fl (35.1-43.9); White Blood Count 5.5 K/mm3 (4.4-11.0)
[2021-03-11 13:11] LABS: Vitamin D,25 Hydroxy 49.2 ng/mL
[2021-03-11 13:29] LABS: ALB/GLOB Ratio 1.3 RATIO (0.9-2.4); AST(SGOT) 40 U/L (15-37); Alanine Aminotransfer ALT/SGPT 19 U/L (13-56); Albumin, Serum 3.8 g/dL (3.2-5.0); Alkaline Phosphatase 63 U/L (45-117); Anion Gap 3 (5-15); BUN 16 mg/dL (7-18); BUN/Creat Ratio 15.5 RATIO (10-20); Calcium,Total 9.1 mg/dL (8.5-10.1); Chloride 103 mmol/L (98-107); Cholesterol 144 mg/dL (200); Creatinine, Serum 1.03 mg/dL (0.55-1.02); EST Glomerular Filtration Rate 54 mL/min (>60); Est Glom Filt Rate - Afr Amer 65 mL/min (>60); Glucose 98 mg/dL (74-106); High Density Lipoprotein 76 mg/dL; Magnesium 2.1 mg/dL (1.6-2.6); Potassium 3.7 mmol/L (3.5-5.1); Protein, Total 6.8 g/dL (6.4-8.2); Sodium Level 140 mmol/L (136-145); T4 Free Direct 1.04 ng/dL (0.76-1.46); Thyroid Stim Hormone (TSH) 2.02 uIU/mL (0.358-3.74); Triglycerides 88 mg/dL; Very Low Density Lipoprotein 18 mg/dL (5-40)
== END ==
PROVIDERS: PCP Family Medicine; Referring Provider Family Medicine; Visit Provider Family Medicine
DX: I10 Essential (primary) hypertension (principal); I48.0 Paroxysmal atrial fibrillation; E03.9 Hypothyroidism, unspecified; E78.00 Pure hypercholesterolemia, unspecified; E55.9 Vitamin D deficiency, unspecified
CPT/HCPCS: 36415; 80053; 80061; 82306; 83735; 84439; 84443; 85025

== ENCOUNTER 2021-06-27 10:00 | Outpatient (RCR) | payer MEDICARE, SELFPAY ==
--- NOTE | 2021-05-30 12:59 | HP.PTEVAL_ITS ---
Patient's Visit Information LAVINIA FRENCH is a 86 year old F referred to Physical Therapy by Dr. Shalom Easton MD with a diagnosis of LEFT TRAPEZIUS STRAIN. Date of Evaluation: 05/30/21 Physical Therapist: Joe Lindsay PT, Cert MDT, OCS - Visit Plan Frequency: 2x /Week Duration: 4 Weeks Plan: PRECAUTION: PACEMAKER. PT INTERVETION MANUAL THERAPY STM ,CERVICAL/POSTURAL EX'S,AND US/MHP,STRENGHENING UE - Subjective This 86 y/o female presents to physical therapy from a fall causing left trapezius stain. Patient fell May 05 at [facility] stepping up to curb fell backs and fell backwards. Patient had alot of BEAUCHAMP seen DR Cornejo x-rayed right hip - ,just bruised. Seen DR Jemma BEAUCHAMP with pain left occiput and left neck UT. Recommended therapy. Todays left UT ,cervical base of occiput. Aggravating factors left arm or picking something, turn neck .Alleviating factors heat/ice. Denies paresthesia/tingling. Pain affects sleeping. Patient condition affects QOL and function. Patient has h/o of left THR, colonectomy. PRECAUTION: pacemaker. SOCAIL: . VOCATION: retired - Pain Left Neck Pain Intensity (Out of 10): 5 Pain Intensity Range: 10 - Objective POSTURE: rounded shoulders head forward. NEURO: denies paresthesia/tingling ,reflexes C5-6-7 1/3. PALAPTION: UT/levator left ,occiput. AROM: left AROM shoulder flexion 110 degrees, abduction 100 degrees. MMT: left UE grossly 4-/5 ,shoulder 3+/5,right UE 4/5. CERVICAL ROM: flexion min ,extension mod loss ,lateral flexion/rotation mod/severe loss - Special Tests C/S Radiculapathy - Left Upper limb tension test: Negative C/S Radiculapathy - Right Upper limb tension test: Negative C/S Radiculapathy - Left Spurlings: Positive C/S Radiculapathy - Right Spurlings: Negative C/S Radiculapathy - Left Cervical distraction: Negative C/S Radiculapathy - Right Cervical distraction: Negative C/S Radiculapathy - Left Relief test: Negative C/S Radiculapathy - Right Relief test: Negative C/S Radiculapathy - Valsalva: Negative Sharp Patricia: Negative Vertebral Artery Test: Negative Alar Ligament Test: Negative - Balance/Special Test Scores Oswestry Neck Score: 22 - Goals Goal 1:: I with cervical and shoulder Goal Time Frame: 4-6 Weeks Goal 2:: Patient improve AROM left shoulder WFL to improve ADLs with lifting Goal Time Frame: 4-6 Weeks Goal 3:: Patient decrease BEAUCHAMP and left neck/UT pain by 50 % improvement to improve ADLS' Goal Time Frame: 4-6 Weeks Goal 4:: Patient to improve cervical ROM for function of recovery Goal Time Frame: 4-6 Weeks Goal 5:: Patient to improve neck owestry score by 5 points to improve ADLS' Goal Time Frame: 4-6 Weeks - Rehabilitation Potential Physical Therapy Diagnosis: This patient fell caused pain to left shoulder neck affecting pain lifting arm ,moving neck along with weakness left arm impairs ADL's and functional tasks benefit from skilled PT Rehabilitation Potential: Good - Anticipated Interventions Patient/Client Instruction: Educate patient on: Condition, Plan of Care For the Purpose of:: To decrease pain, To increase ROM, To improve muscle performance and motor function, To improve ability to perform ADL's, To increase tolerance to activity/condition/position, To improve performance and independence with ADL's, To improve ability of physical actions for home/community/work/leisure, To improve health of tissue, To decrease soft tissue restriction, To increase flexibility/ROM, To improve self management Therapeutic Exercise to Include: Strength training, Postural training, Flexibilty training, Passive ROM, Active ROM For the Purpose of:: To decrease pain, To improve muscle performance and motor function, To increase tolerance to activity/condition/position, To improve ability of physical actions for home/community/work/leisure, To improve health of tissue, To decrease soft tissue restriction, To reduce risk of recurrence Cryotherapy (ice pack, ice massage): Yes Thermo therapy (hot pack): Yes Ultrasound (thermal/non thermal): Yes For the Purpose of:: To decrease pain, To improve nutrient delivery to tissue, To increase oxygenation perfusion, To improve health of tissue, To decrease soft tissue restriction Thank you for the opportunity to evaluate your patient. For Medicare and Medicare HMO plans, please review the plan of care and approve it. It will need to be FAXED BACK to us at [phone] for Medicare purposes. For Medicare only, by signing this I certify the plan of care. Please let me know if there are questions or concerns regarding this plan of care. Physician Signature: Date:
--- NOTE | 2021-06-27 10:35 | HP.PTREVAL ---
Dr. Shalom Easton MD, It has been my pleasure to treat LAVINIA FRENCH over the last 8 visits for LEFT TRAPEZIUS STRAIN. Please see the progress note below for an update on the physical therapy plan of care! Subjective: Symptoms are getting some better. able to sleep better Objective/Function: POSTURE: mild forward posture. PALPATION: tender UT /levator. NEURO: denies paresthesia/tingling. AROM: BUE WFL improved left shoulder. CERVICAL ROM: flexion min loss, extension ,rotation/lateral flexion mod loss. MMT: BUE 4-/5 ,SHOULDERS 3+/5 Plan Plan: CONT POC 2XWEEK FOR 4 WEEKS. PRECAUTION: PACEMAKER. PT INTERVETION MANUAL THERAPY STM ,CERVICAL/POSTURAL EX'S,AND US/MHP,STRENGHENING UE Balance/Gait/Functional tests - Balance/Special Test Scores Oswestry Neck Score: 13 Goals Goal 1:: I with cervical and shoulder Goal Time Frame: 4-6 Weeks Goal Progress: Progressing Goal 2:: Patient improve AROM left shoulder WFL to improve ADLs with lifting Goal Time Frame: 4-6 Weeks Goal Progress: Progressing Goal 3:: Patient decrease BEAUCHAMP and left neck/UT pain by 60 % improvement to improve ADLS'(NEW GOAL) Goal Time Frame: 4-6 Weeks Goal 4:: Patient to improve cervical ROM for function of recovery Goal Time Frame: 4-6 Weeks Goal Progress: Progressing Goal 5:: Patient to improve neck owestry score by 5 points to improve ADLS'( NEW GOAL) Goal Time Frame: 4-6 Weeks Anticipated Interventions Patient/Client Instruction: Educate patient on: Condition, Plan of Care For the Purpose of:: To decrease pain, To increase ROM, To improve muscle performance and motor function, To improve ability to perform ADL's, To increase tolerance to activity/condition/position, To improve performance and independence with ADL's, To improve ability of physical actions for home/community/work/leisure, To improve health of tissue, To decrease soft tissue restriction, To increase flexibility/ROM, To improve self management Therapeutic Exercise to Include: Strength training, Postural training, Flexibilty training, Passive ROM, Active ROM For the Purpose of:: To decrease pain, To improve muscle performance and motor function, To increase tolerance to activity/condition/position, To improve ability of physical actions for home/community/work/leisure, To improve health of tissue, To decrease soft tissue restriction, To reduce risk of recurrence Cryotherapy (ice pack, ice massage): Yes Thermo therapy (hot pack): Yes Ultrasound (thermal/non thermal): Yes For the Purpose of:: To decrease pain, To improve nutrient delivery to tissue, To increase oxygenation perfusion, To improve health of tissue, To decrease soft tissue restriction Please do not hesitate to contact me at [phone] by phone or if you have questions or concerns regarding this new plan of care! Sincerely, Joe Lindsay, PT, Cert MDT, OCS
--- NOTE | 2021-08-07 09:09 | HP.PTDCSUM ---
It has been my pleasure to treat LAVINIA FRENCH referred by Dr. Shalom Easton MD, with the diagnosis of LEFT TRAPEZIUS STRAIN for a total of 8 visit(s). Discharge Date: Please see the following information for a summary of their discharge status. Subjective: Symptoms are getting some better. able to sleep better Left Neck Pain Intensity (Out of 10): 3 % Improvement: 50 Objective/Function: POSTURE: mild forward posture. PALPATION: tender UT /levator. NEURO: denies paresthesia/tingling. AROM: BUE WFL improved left shoulder. CERVICAL ROM: flexion min loss, extension ,rotation/lateral flexion mod loss. MMT: BUE 4-/5 ,SHOULDERS 3+/5 Goal 1:: I with cervical and shoulder Goal Progress: Goal Met Goal 2:: Patient improve AROM left shoulder WFL to improve ADLs with lifting Goal Progress: Goal Met Goal 3:: Patient decrease BEAUCHAMP and left neck/UT pain by 60 % improvement to improve ADLS'(NEW GOAL) Goal Progress: Goal Met Goal 4:: Patient to improve cervical ROM for function of recovery Goal Progress: Progressing Goal 5:: Patient to improve neck owestry score by 5 points to improve ADLS'( NEW GOAL) Plan: D/C If there are questions or concerns regarding this patient's physical therapy, please feel free to call me at [phone]. Thank you for the referral of this patient. Sincerely, Joe Lindsay, PT, Cert MDT, OCS Balance/Gait/Functional tests - Balance/Special Test Scores Oswestry Neck Score: 7
== END 2021-06-27 19:00 | disposition home or self-care (01) ==
LOC: PT 10:00
PROVIDERS: PCP Family Medicine; Referring Provider Family Medicine; Visit Provider Family Medicine
DX: S46.812D Strain of other muscles, fascia and tendons at shoulder and upper arm level, left arm, subsequent encounter (principal); W19.XXXD Unspecified fall, subsequent encounter
CPT/HCPCS: 97035; 97110; 97140; 97162

== ENCOUNTER 2021-10-04 10:32 | Outpatient (CLI) | payer MEDICARE, SELFPAY ==
[2021-10-04 12:24] LABS: Absolute Lymphocyte Count 1.19 X10^3/uL (0.83-4.51); Absolute Neutrophil Count 4.5 X10^3/uL (2.0-7.7); Basophil# 0.08 X10^3/uL; Basophil% 1.2 % (0-1); Eosinophil# 0.51 X10^3/uL; Eosinophils% 7.8 % (0-5); Hematocrit 37.4 % (37-47); Hemoglobin 12.5 g/dL (12.0-15.0); Lymphocyte # 1.19 X10^3/ul (0.83-4.51); Lymphocyte % 18.1 % (19-41); Mean Corp Hgb Conc 33.4 g/dL (32-36); Mean Corpuscular Volume 101.6 fL (81-99); Mean Platelet Vol. 10.5 fl (6.2-12.0); Monocyte# 0.29 X10^3/uL; Monocyte% 4.4 % (0-10); NRBC Flagged by Analyzer 0 % (0-5); Neutrophil # 4.47 X10^3/uL (2.7-7.7); Platelet Count 148 K/mm3 (150-450); RBC Distribution Width CV 12.9 % (11.6-14.6); RBC Distribution Width SD 48.4 fl (35.1-43.9); Red Blood Count 3.68 M/mm3 (4.2-5.4); White Blood Count 6.6 K/mm3 (4.4-11.0)
[2021-10-04 12:55] LABS: ALB/GLOB Ratio 1.3 RATIO (0.9-2.4); AST(SGOT) 33 U/L (15-37); Alanine Aminotransfer ALT/SGPT 38 U/L (13-56); Albumin, Serum 3.8 g/dL (3.2-5.0); Alkaline Phosphatase 57 U/L (45-117); Anion Gap 3 (5-15); BUN 22 mg/dL (7-18); BUN/Creat Ratio 17.7 RATIO (10-20); Calcium,Total 9.1 mg/dL (8.5-10.1); Chloride 104 mmol/L (98-107); Cholesterol 142 mg/dL (200); Creatinine, Serum 1.24 mg/dL (0.55-1.02); EST Glomerular Filtration Rate 44 mL/min (>60); Est Glom Filt Rate - Afr Amer 53 mL/min (>60); Globulin 2.9 g/dL (2.2-4.2); Glucose 108 mg/dL (74-106); High Density Lipoprotein 65 mg/dL; PTHIN 51.5 pg/mL (18.4-80.1); Phosphorus 3.5 mg/dL (2.5-4.9); Protein, Total 6.7 g/dL (6.4-8.2); Sodium Level 138 mmol/L (136-145); T4 Free Direct 1.36 ng/dL (0.76-1.46); Thyroid Stim Hormone (TSH) 1.76 uIU/mL (0.358-3.74); Triglycerides 121 mg/dL; Very Low Density Lipoprotein 24 mg/dL (5-40)
[2021-10-04 13:05] LABS: Vitamin D,25 Hydroxy 47.6 ng/mL
[2021-10-04 13:08] LABS: Hemoglobin A1c 6.1 % (3.8-5.6)
== END 2021-10-04 23:59 | disposition home or self-care (01) ==
LOC: MFPLAB 10:32
PROVIDERS: PCP Family Medicine; Referring Provider Family Medicine; Visit Provider Family Medicine
DX: I12.9 Hypertensive chronic kidney disease with stage 1 through stage 4 chronic kidney disease, or unspecified chronic kidney disease (principal); N18.30 Chronic kidney disease, stage 3 unspecified; E55.9 Vitamin D deficiency, unspecified; R73.02 Impaired glucose tolerance (oral); E78.00 Pure hypercholesterolemia, unspecified; E03.9 Hypothyroidism, unspecified
CPT/HCPCS: 36415; 80053; 80061; 82306; 83036; 83970; 84100; 84439; 84443; 85025

== ENCOUNTER → 2022-02-04 | Outpatient (CLI) | payer MEDICARE, SELFPAY ==
[2022-02-04 16:54] LABS: Mucous, Urine 0 SEEN /hpf (<or=2+)
[2022-02-04 17:51] LABS: Color, Urine Yellow (Yellow); Glucose, Dipstick Normal (Normal); Ketone-Dipstick Negative (Negative); Leukocyte Esterase-Dipstick 100 /ul (Negative); Nitrite-Dipstick Negative (Negative); Occult Blood-Urine 10 /ul (Negative); Protein-Dipstick 15 mg/dl (Negative); Urine Bilirubin Dipstick Negative (Negative); Urine Clarity Clear (Clear); Urine Urobilinogen Normal (Normal)
[2022-02-04 17:57] LABS: Absolute Lymphocyte Count 1.46 X10^3/uL (0.83-4.51); Absolute Neutrophil Count 3.7 X10^3/uL (2.0-7.7); Basophil% 1.5 % (0-1); Eosinophil# 0.82 X10^3/uL; Eosinophils% 12.6 % (0-5); Hematocrit 36.1 % (37-47); Hemoglobin 11.4 g/dL (12.0-15.0); Lymphocyte # 1.46 X10^3/ul (0.83-4.51); Lymphocyte % 22.4 % (19-41); Mean Corp Hgb Conc 31.6 g/dL (32-36); Mean Corpuscular Hgb 32.4 pg (27.0-32.0); Mean Corpuscular Volume 102.6 fL (81-99); Mean Platelet Vol. 10.1 fl (6.2-12.0); Monocyte# 0.42 X10^3/uL; Monocyte% 6.4 % (0-10); NRBC Flagged by Analyzer 0 % (0-5); Neutrophil % 56.6 % (47-70); Platelet Count 175 K/mm3 (150-450); RBC Distribution Width CV 13.2 % (11.6-14.6); RBC Distribution Width SD 50.4 fl (35.1-43.9); Red Blood Count 3.52 M/mm3 (4.2-5.4); White Blood Count 6.5 K/mm3 (4.4-11.0)
[2022-02-04 18:25] LABS: Hemoglobin A1c 5.8 % (3.8-5.6)
[2022-02-04 19:03] LABS: Vitamin D,25 Hydroxy 45.7 ng/mL
[2022-02-04 19:07] LABS: ALB/GLOB Ratio 1.3 RATIO (0.9-2.4); AST(SGOT) 24 U/L (15-37); Alanine Aminotransfer ALT/SGPT 26 U/L (13-56); Albumin, Serum 3.7 g/dL (3.2-5.0); Alkaline Phosphatase 64 U/L (45-117); Anion Gap 4 (5-15); BUN 26 mg/dL (7-18); BUN/Creat Ratio 17.9 RATIO (10-20); Calcium,Total 9.6 mg/dL (8.5-10.1); Chloride 104 mmol/L (98-107); Cholesterol 140 mg/dL (200); Creatinine, Serum 1.45 mg/dL (0.55-1.02); EST Glomerular Filtration Rate 36 mL/min (>60); Est Glom Filt Rate - Afr Amer 44 mL/min (>60); Globulin 2.9 g/dL (2.2-4.2); Glucose 84 mg/dL (74-106); High Density Lipoprotein 63 mg/dL; Potassium 3.8 mmol/L (3.5-5.1); Protein, Total 6.6 g/dL (6.4-8.2); Sodium Level 140 mmol/L (136-145); T4 Free Direct 1.28 ng/dL (0.76-1.46); Thyroid Stim Hormone (TSH) 1.53 uIU/mL (0.358-3.74); Triglycerides 110 mg/dL; Very Low Density Lipoprotein 22 mg/dL (5-40)
[2022-02-04 19:26] LABS: Protein, Urine (Random) 27.5 mg/dL (<11.9); Protein:Creat Ratio 294 mg/g CRE (0-200)
[2022-02-04 19:39] LABS: Bacteria 1+ /hpf (None Seen); Red Blood Cells-Urine 0-5 SEEN /hpf (0-5); Squamous Epithelial Cells - UA 0-5 SEEN /hpf (5-10); White Blood Cells 0-5 SEEN /hpf (0-5)
[2022-02-05 14:36] LABS: Ferritin 43 ng/mL (8-252); Iron 73 ug/dL (50-170); Iron Binding Capacity,Total 412 ug/dL (250-450); PERCENT IRON SATURATION 17.7 % (15.0-55.0)
[2022-02-05 14:39] LABS: Vitamin B12 315 pg/mL (211-911)
[2022-02-07 13:21] LABS: Transferrin 326 mg/dL (149-313)
== END | disposition home or self-care (01) ==
LOC: MFPLAB 16:51
PROVIDERS: PCP Family Medicine; Visit Provider Family Medicine
DX: D64.9 Anemia, unspecified (principal); I10 Essential (primary) hypertension; E78.00 Pure hypercholesterolemia, unspecified; R73.02 Impaired glucose tolerance (oral); E61.2 Magnesium deficiency; E03.9 Hypothyroidism, unspecified; M81.0 Age-related osteoporosis without current pathological fracture
CPT/HCPCS: 36415; 80053; 80061; 81001; 82306; 82570; 82607; 82728; 83036; 83540; 83550; 83735; 84156; 84439; 84443; 84466; 85025

== ENCOUNTER → 2022-04-22 | Outpatient (CLI) | payer MEDICARE, SELFPAY | END | disposition home or self-care (01) | PROVIDERS: PCP Family Medicine; Visit Provider Family Medicine | DX: N39.0 Urinary tract infection, site not specified (principal) | CPT/HCPCS: 87086 ==

== ENCOUNTER → 2022-04-28 | Outpatient (CLI) | payer MEDICARE, SELFPAY ==
--- NOTE | 2022-04-28 13:40 | STRESSREP_ITS ---
Stress Test Report Pharmacologic myocardial perfusion stress test. 86-year-old lady with a history of chest pain. Stress protocol: Resting EKG demonstrates atrial fibrillation with ventricular pacing at 66 bpm. Resting blood pressure is 112/70 mmHg. 0.4 mg of regadenoson was infused per usual protocol. Rapid intravenous saline flush was injected. The maximum heart rate was 72 bpm which was 54% of max impacted heart rate the maximum workload was 1 metabolic equivalent. At rest there were no ST or T wave changes noted to suggest abnormal flow reserve. At peak infusion nonspecific ST changes were noted which did not meet the criteria for ischemia. No clinical angina was noted the test was terminated due to completion of the protocol. The final bl ood pressure was 114/60 mmHg. Myocardial perfusion protocol. 11.7 mCi of technetium 99m sestamibi was injected at rest. 0.4 mg of regadenoson was infused per usual protocol. At peak infusion 35.4 mCi of technetium 99m sestamibi was injected stress images were obtained stress and rest images were reconstructed in comparing the short axis vertical long horizontal long axis. Gated images were also obtained Perfusion SPECT analysis Review of the stress images demonstrate normal uptake of tracer noted in all areas of the myocardium. The resting images similar demonstrate normal uptake of tracer noted in all areas of the myocardium. No areas of reversibility are noted suggest ischemia. No previous infarct is noted. Gated SPECT analysis: Gated ejection fraction is 79%. Conclusion: Normal pharmacologic myocardial perfusion stress test. Preserved ejection fraction.
== END | disposition home or self-care (01) ==
PROVIDERS: PCP Family Medicine; Visit Provider Internal Medicine Cardiovascular Disease
DX: I25.10 Atherosclerotic heart disease of native coronary artery without angina pectoris (principal); I48.91 Unspecified atrial fibrillation
CPT/HCPCS: 78452; 93017; A9500; A4216; J2785

== ENCOUNTER → 2022-06-10 | Outpatient (CLI) | payer MEDICARE, SELFPAY ==
[2022-06-10 17:52] LABS: Absolute Lymphocyte Count 1.31 X10^3/uL (0.83-4.51); Absolute Neutrophil Count 2.8 X10^3/uL (2.0-7.7); Eosinophil# 0.43 X10^3/uL; Eosinophils% 8.5 % (0-5); Hematocrit 37.3 % (37-47); Hemoglobin 12.4 g/dL (12.0-15.0); Lymphocyte # 1.31 X10^3/ul (0.83-4.51); Mean Corp Hgb Conc 33.2 g/dL (32-36); Mean Corpuscular Hgb 33.7 pg (27.0-32.0); Mean Corpuscular Volume 101.4 fL (81-99); Mean Platelet Vol. 10.2 fl (6.2-12.0); Monocyte# 0.38 X10^3/uL; Monocyte% 7.6 % (0-10); NRBC Flagged by Analyzer 0 % (0-5); Neutrophil % 55.7 % (47-70); Platelet Count 152 K/mm3 (150-450); RBC Distribution Width CV 13.8 % (11.6-14.6); RBC Distribution Width SD 51.5 fl (35.1-43.9); Red Blood Count 3.68 M/mm3 (4.2-5.4)
[2022-06-10 18:17] LABS: Vitamin D,25 Hydroxy 41.4 ng/mL
[2022-06-10 18:25] LABS: Hemoglobin A1c 5.2 % (3.8-5.6)
[2022-06-10 18:36] LABS: ALB/GLOB Ratio 1.5 RATIO (0.9-2.4); AST(SGOT) 20 U/L (15-37); Alanine Aminotransfer ALT/SGPT 22 U/L (13-56); Alkaline Phosphatase 64 U/L (45-117); Anion Gap 7 (5-15); BUN 18 mg/dL (7-18); BUN/Creat Ratio 14.6 RATIO (10-20); Calcium,Total 9.2 mg/dL (8.5-10.1); Chloride 105 mmol/L (98-107); Cholesterol 153 mg/dL (200); Creatinine, Serum 1.23 mg/dL (0.55-1.02); EST Glomerular Filtration Rate 44 mL/min (>60); Est Glom Filt Rate - Afr Amer 53 mL/min (>60); Globulin 2.6 g/dL (2.2-4.2); Glucose 111 mg/dL (74-106); High Density Lipoprotein 74 mg/dL; Magnesium 2.4 mg/dL (1.6-2.6); Potassium 4.1 mmol/L (3.5-5.1); Protein, Total 6.6 g/dL (6.4-8.2); Sodium Level 143 mmol/L (136-145); T4 Free Direct 1.18 ng/dL (0.76-1.46); Thyroid Stim Hormone (TSH) 2.64 uIU/mL (0.358-3.74); Triglycerides 109 mg/dL; Very Low Density Lipoprotein 22 mg/dL (5-40)
[2022-06-11 08:28] LABS: PTHIN 39.8 pg/mL (18.4-80.1)
== END | disposition home or self-care (01) ==
LOC: MFPLAB 15:49
PROVIDERS: PCP Family Medicine; Referring Provider Family Medicine; Visit Provider Family Medicine
DX: I12.9 Hypertensive chronic kidney disease with stage 1 through stage 4 chronic kidney disease, or unspecified chronic kidney disease (principal); I48.0 Paroxysmal atrial fibrillation; N18.30 Chronic kidney disease, stage 3 unspecified; R73.02 Impaired glucose tolerance (oral); E55.9 Vitamin D deficiency, unspecified; E03.9 Hypothyroidism, unspecified
CPT/HCPCS: 36415; 80053; 80061; 82306; 83036; 83735; 83970; 84100; 84439; 84443; 85025

== ENCOUNTER → 2022-07-30 | Outpatient (CLI) | payer MEDICARE, SELFPAY ==
[2022-07-30 15:59] LABS: ALB/GLOB Ratio 1.3 RATIO (0.9-2.4); AST(SGOT) 31 U/L (15-37); Alanine Aminotransfer ALT/SGPT 37 U/L (13-56); Albumin, Serum 3.6 g/dL (3.2-5.0); Alkaline Phosphatase 72 U/L (45-117); Anion Gap 5 (5-15); BUN 18 mg/dL (7-18); BUN/Creat Ratio 15.5 RATIO (10-20); Calcium,Total 8.8 mg/dL (8.5-10.1); Chloride 105 mmol/L (98-107); Creatinine, Serum 1.16 mg/dL (0.55-1.02); EST Glomerular Filtration Rate 47 mL/min (>60); Est Glom Filt Rate - Afr Amer 57 mL/min (>60); Globulin 2.8 g/dL (2.2-4.2); Glucose 124 mg/dL (74-106); Protein, Total 6.4 g/dL (6.4-8.2); Sodium Level 145 mmol/L (136-145)
== END | disposition home or self-care (01) ==
LOC: MTLAB 13:05
PROVIDERS: PCP Family Medicine; Referring Provider Family Medicine; Visit Provider Family Medicine
DX: R60.9 Edema, unspecified (principal)
CPT/HCPCS: 36415; 80053; 83735

== ENCOUNTER → 2022-08-08 | Outpatient (CLI) | payer MEDICARE, SELFPAY ==
[2022-08-08 16:16] LABS: Anion Gap 7 (5-15); BUN 19 mg/dL (7-18); BUN/Creat Ratio 15.6 RATIO (10-20); Calcium,Total 9.2 mg/dL (8.5-10.1); Chloride 104 mmol/L (98-107); Creatinine, Serum 1.22 mg/dL (0.55-1.02); EST Glomerular Filtration Rate 44 mL/min (>60); Est Glom Filt Rate - Afr Amer 54 mL/min (>60); Glucose 117 mg/dL (74-106); Potassium 3.8 mmol/L (3.5-5.1); Sodium Level 141 mmol/L (136-145)
== END | disposition home or self-care (01) ==
LOC: MTLAB 11:47
PROVIDERS: PCP Family Medicine; Referring Provider Family Medicine; Visit Provider Family Medicine
DX: N18.30 Chronic kidney disease, stage 3 unspecified (principal)
CPT/HCPCS: 36415; 80048

== ENCOUNTER → 2022-10-15 | Outpatient (CLI) | payer MEDICARE, SELFPAY ==
[2022-10-15 18:17] LABS: Absolute Lymphocyte Count 1.28 X10^3/uL (0.83-4.51); Absolute Neutrophil Count 2.6 X10^3/uL (2.0-7.7); Basophil# 0.08 X10^3/uL; Basophil% 1.7 % (0-1); Eosinophil# 0.46 X10^3/uL; Eosinophils% 9.6 % (0-5); Hematocrit 38.7 % (37-47); Hemoglobin 12.3 g/dL (12.0-15.0); Lymphocyte # 1.28 X10^3/ul (0.83-4.51); Lymphocyte % 26.7 % (19-41); Mean Corp Hgb Conc 31.8 g/dL (32-36); Mean Corpuscular Hgb 32.9 pg (27.0-32.0); Mean Corpuscular Volume 103.5 fL (81-99); Mean Platelet Vol. 10.4 fl (6.2-12.0); Monocyte# 0.41 X10^3/uL; Monocyte% 8.6 % (0-10); NRBC Flagged by Analyzer 0 % (0-5); Neutrophil # 2.55 X10^3/uL (2.7-7.7); Neutrophil % 53.2 % (47-70); Platelet Count 157 K/mm3 (150-450); RBC Distribution Width CV 13.8 % (11.6-14.6); RBC Distribution Width SD 52.7 fl (35.1-43.9); Red Blood Count 3.74 M/mm3 (4.2-5.4); White Blood Count 4.8 K/mm3 (4.4-11.0)
[2022-10-15 18:51] LABS: ALB/GLOB Ratio 1.2 RATIO (0.9-2.4); AST(SGOT) 33 U/L (15-37); Alanine Aminotransfer ALT/SGPT 40 U/L (13-56); Albumin, Serum 3.7 g/dL (3.2-5.0); Alkaline Phosphatase 72 U/L (45-117); Anion Gap 5 (5-15); BUN 17 mg/dL (7-18); BUN/Creat Ratio 14.7 RATIO (10-20); Calcium,Total 8.8 mg/dL (8.5-10.1); Chloride 104 mmol/L (98-107); Cholesterol 138 mg/dL (200); Creatinine, Serum 1.16 mg/dL (0.55-1.02); EST Glomerular Filtration Rate 47 mL/min (>60); Est Glom Filt Rate - Afr Amer 57 mL/min (>60); Globulin 3.1 g/dL (2.2-4.2); Glucose 108 mg/dL (74-106); High Density Lipoprotein 65 mg/dL; Magnesium 2.5 mg/dL (1.6-2.6); Phosphorus 3.6 mg/dL (2.5-4.9); Potassium 3.9 mmol/L (3.5-5.1); Protein, Total 6.8 g/dL (6.4-8.2); Sodium Level 139 mmol/L (136-145); T4 Free Direct 1.25 ng/dL (0.76-1.46); Thyroid Stim Hormone (TSH) 0.64 uIU/mL (0.358-3.74); Triglycerides 55 mg/dL; Very Low Density Lipoprotein 11 mg/dL (5-40)
[2022-10-15 18:59] LABS: Vitamin D,25 Hydroxy 40.4 ng/mL
[2022-10-15 19:36] LABS: Hemoglobin A1c 5.7 % (3.8-5.6)
[2022-10-16 07:56] LABS: PTHIN 67.2 pg/mL (18.4-80.1)
== END | disposition home or self-care (01) ==
LOC: MFPLAB 16:02
PROVIDERS: PCP Family Medicine; Referring Provider Family Medicine; Visit Provider Family Medicine
DX: I10 Essential (primary) hypertension (principal); I48.0 Paroxysmal atrial fibrillation; E78.00 Pure hypercholesterolemia, unspecified; E55.9 Vitamin D deficiency, unspecified; R73.02 Impaired glucose tolerance (oral)
CPT/HCPCS: 36415; 80053; 80061; 82306; 83036; 83735; 83970; 84100; 84439; 84443; 85025

== ENCOUNTER → 2022-11-17 | Outpatient (CLI) | payer MEDICARE, SELFPAY ==
[2022-11-17 18:15] LABS: Anion Gap 8 (5-15); BUN 21 mg/dL (7-18); BUN/Creat Ratio 14.6 RATIO (10-20); Calcium,Total 8.9 mg/dL (8.5-10.1); Chloride 104 mmol/L (98-107); Creatinine, Serum 1.44 mg/dL (0.55-1.02); EST Glomerular Filtration Rate 37 mL/min (>60); Est Glom Filt Rate - Afr Amer 44 mL/min (>60); Glucose 185 mg/dL (74-106); Sodium Level 140 mmol/L (136-145)
== END | disposition home or self-care (01) ==
PROVIDERS: PCP Family Medicine; Referring Provider Nurse Practitioner Gerontology; Visit Provider Nurse Practitioner Gerontology
DX: I10 Essential (primary) hypertension (principal)
CPT/HCPCS: 36415; 80048

== ENCOUNTER 2022-12-19 09:17 | Emergency (ER) | payer MEDICARE, SELFPAY ==
[2022-12-19 09:18] VITALS: BP 202/96; PULSE 68; RESP 16; TEMP 37.2; O2SAT 96; BMI 18.1
--- NOTE | 2022-12-19 09:29 | EKG12_ITS ---
Test Reason : SHOULDER PAIN Blood Pressure : / mmHG Vent. Rate : 065 BPM Atrial Rate : 065 BPM P-R Int : 310 ms QRS Dur : 124 ms QT Int : 460 ms P-R-T Axes : 117 028 109 degrees QTc Int : 478 ms Sinus rhythm with 1st degree A-V block Left ventricular hypertrophy with QRS widening and repolarization abnormality ( [place] product ) Cannot rule out Septal infarct , age undetermined Abnormal ECG Confirmed by JAVAD RIVAS, DANIEL ([id number]), editor farm journal GEOVANNY WOOD ([id number]) on 12/23/2022 8:42:49 AM Referred By: TESS Confirmed By:DANIEL FARNSWORTH MD
[2022-12-19 09:33] VITALS: O2SAT 95
[2022-12-19 09:40] LABS: Absolute Lymphocyte Count 1.25 X10^3/uL (0.83-4.51); Absolute Neutrophil Count 3.7 X10^3/uL (2.0-7.7); Basophil# 0.09 X10^3/uL; Basophil% 1.5 % (0-1); Eosinophil# 0.64 X10^3/uL; Eosinophils% 10.7 % (0-5); Hematocrit 36.7 % (37-47); Lymphocyte # 1.25 X10^3/ul (0.83-4.51); Lymphocyte % 20.8 % (19-41); Mean Corp Hgb Conc 32.7 g/dL (32-36); Mean Corpuscular Hgb 33.1 pg (27.0-32.0); Mean Corpuscular Volume 101.1 fL (81-99); Mean Platelet Vol. 9.8 fl (6.2-12.0); NRBC Flagged by Analyzer 0 % (0-5); Neutrophil % 61.7 % (47-70); Platelet Count 107 K/mm3 (150-450); RBC Distribution Width CV 13.3 % (11.6-14.6); RBC Distribution Width SD 49.7 fl (35.1-43.9); Red Blood Count 3.63 M/mm3 (4.2-5.4)
--- NOTE | 2022-12-19 09:40 | RAD_ITS ---
STUDY: X-RAY CHEST REASON FOR EXAM: Female, 87 years old. Chest pain TECHNIQUE: Single AP portable view of the chest. COMPARISON: Comparison is made with prior study of March 21, 2015. FINDINGS: EKG electrodes are seen. Hyperinflation. Patchy left lower lobe pulmonary infiltrate. Increased interstitial markings are seen in the peripheral lateral aspect of the right lower lobe. Radiographic follow-up is recommended. Normal size heart. A right-sided dual-chamber pacemaker seen. Normal mediastinum and lakisha. Normal visualized pulmonary arteries. There is atherosclerotic calcification of the aortic arch with tortuosity. There is a dextroscoliosis of the thoracic spine. Normal visualized ribs, clavicles, and shoulders. There is no demonstrated abnormality of the visualized soft tissue structures of the upper abdomen. RAD/Chest 1 View (Portable) IMPRESSION: Patchy infiltrate in the left lower lobe as well as increased markings at the right lung base. Radiographic follow-up is recommended. Electronically Signed: Clinton Alejandro MD at 9:59 EDT ,
--- NOTE | 2022-12-19 09:41 | ED.VIS.CHEST ---
HPI History of Present Illness Chief Complaint: Upper Extremity Injury Detail of Chief Complaint: Left neck and shoulder pain with dyspnea and orthopnea Informant: patient and family Onset/Context/Timing Onset: Days Activity at onset: sudden Timing: Intermittent Quality: Positive for Pain (Unable to qualitate or quantitate other than pain) Location: - (Left shoulder and left side of anteriorly) Current Severity: Mild Maximum Severity: Moderate Worsened By: Nothing Relieved By: Nothing Associated Symptoms: Positive for Dyspnea; Negative for Nausea, Vomiting, Diaphoresis, Cough, Fever, Lightheadedness, Acid Reflux or Palpitations Narrative Narrative: Patient is a 88-year-old woman with history 3 of paroxysmal atrial fibrillation, sick sinus syndrome with placement of pacemaker, nonobstructive atherosclerotic coronary disease, essential hypertension hyperlipidemia who presents for the past several days with left shoulder and anterior left neck pain that is intermittent with associated dyspnea and dyspnea on exertion. She has stable two-pillow orthopnea that may have been worse last evening. She is not a good informant. She denies fever, chills night sweats. Denies headache, visual, ocular auditory symptoms. She denies sore throat. She denies chest pain. Presently she denies shortness of breath. She denies diaphoresis. She denies nausea or vomiting. She denies history of hiatal hernia, reflux or peptic ulcer disease. She denies black or maroon-colored stool. She has a remote history of DVT. She denies history of PE. She is presently not on an anticoagulant. She denies leg pain, swelling discoloration. Patient denies recent upper respiratory tract infectious symptoms. Patient denies back pain of any type. Patient denies paresthesia, anesthesia or motor weakness upper lower extremity. Prior Similar Symptoms: No Recent Illness/Hospitalization: No CVD Risk Factors: Positive for Hypertension and Hypercholesterolemia; Negative for Diabetes, Family History 1' </=55 or Smoking PE Risk Factors: Positive for Prior DVT or PE; Negative for Recent Travel/Surgery, Recent Immobilization, Cancer or OCP + Smoking + >/=35 TAD Risk Factors: Positive for Hypertension; Negative for Marfan's Syndrome or Family History [facility] Medical History Borderline hypothyroidism Essential (primary) hypertension GERD (gastroesophageal reflux disease) History of hypothyroidism HLD (hyperlipidemia) Ischemic colitis Nonobstructive atherosclerosis of coronary artery Nonrheumatic mitral (valve) prolapse Old myocardial infarction Other secondary pulmonary hypertension Paroxysmal atrial fibrillation Sick sinus syndrome TIA (transient ischemic attack) Transient cerebral ischemic attack, unspecified Troponin I above reference range Home Medications gabapentin 300 mg capsule 300 mg PO QHS 03/21/15 [History Last Taken 03/20/15] omeprazole 40 mg capsule,delayed release 40 mg PO DAILY 07/05/19 [History Last Taken 05/02/20] rosuvastatin 10 mg tablet 10 mg PO DAILY 07/05/19 [History Last Taken Unknown] aspirin 81 mg chewable tablet 81 mg PO DAILY 03/26/21 [History Last Taken Unknown] tramadol 50 mg tablet 50 mg PO BID PRN 09/23/21 [History Last Taken Unknown] acetaminophen 500 mg tablet 1,000 mg PO Q8 PRN 12/10/21 [History Last Taken Unknown] cholecalciferol (vitamin D3) 50 mcg (2,000 unit) tablet 2,000 unit PO DAILY 12/10/21 [History Last Taken Unknown] hyoscyamine sulfate 0.125 mg tablet 0.125 mg PO DAILY PRN 12/10/21 [History Last Taken Unknown] propafenone 300 mg tablet See Rx Instructions .Route .COMPLEX #180 tabs 01/29/22 [Rx Last Taken Unknown] dapagliflozin propanediol 10 mg tablet (Farxiga) 10 mg PO DAILY 04/01/22 [History Last Taken Unknown] ropinirole 2 mg tablet 2 mg PO QHS 04/01/22 [History Last Taken Unknown] benazepril 20 mg tablet 20 mg PO DAILY 09/23/22 [History Last Taken Unknown] levothyroxine 175 mcg tablet 125 mcg PO DAILY 09/23/22 [History Last Taken Unknown] meclizine 25 mg tablet 25 mg PO TID 09/23/22 [History Last Taken Unknown] potassium chloride 10 mEq capsule,extended release 10 meq PO .QOD 09/23/22 [History Last Taken Unknown] ondansetron HCl 4 mg tablet 4 mg PO Q6H PRN 11/14/22 [History Last Taken Unknown] metoprolol succinate 50 mg tablet,extended release 24 hr See Rx Instructions .Route .COMPLEX #180 tabs 12/01/22 [Rx Last Taken Unknown] furosemide 20 mg tablet 20 mg PO DAILY #45 tabs 12/17/22 [Rx Last Taken Unknown] isosorbide mononitrate 60 mg tablet,extended release 24 hr 60 mg PO BID #90 tabs 12/17/22 [Rx Last Taken Unknown] levofloxacin 500 mg tablet 500 mg PO DAILY #6 tabs 12/19/22 [Rx Last Taken Unknown] Allergy/AdvReac Type Severity Reaction Status Date / Time amiodarone Allergy Rash Verified 12/19/22 09:18 clarithromycin Allergy sore throat Verified 12/19/22 09:18 dicyclomine [From Bentyl] Allergy Unknown Verified 12/19/22 09:18 doxycycline Allergy Unknown Verified 12/19/22 09:18 erythromycin base Allergy Unknown Verified 12/19/22 09:18 nitrofurantoin Allergy Rash Verified 12/19/22 09:18 Penicillins Allergy Unknown Verified 12/19/22 09:18 prochlorperazine Allergy Unknown Verified 12/19/22 09:18 [From Compazine] promethazine HCl Allergy Unknown Verified 12/19/22 09:18 [From Phenergan] quinidine Allergy ineffective Verified 12/19/22 09:18 simvastatin Allergy myalgias Verified 12/19/22 09:18 sotalol Allergy GI upset Verified 12/19/22 09:18 Sulfa (Sulfonamide Allergy Unknown Verified 12/19/22 09:18 Antibiotics) valsartan [From Diovan] Allergy Nausea Verified 12/19/22 09:18 amlodipine AdvReac Intermediate swelling Verified 12/19/22 09:18 of face, hands, feet and legs ciprofloxacin HCl AdvReac Nausea/Vom/ Verified 12/19/22 09:18 [From Cipro] Diarrhea flecainide AdvReac ineffective Verified 12/19/22 09:18 morphine AdvReac Nausea/Vom/ Verified 12/19/22 09:18 Diarrhea Family History Mother Hypertension Atrial fibrillation Brother , age 50 Myocardial infarction, Onset Age: 50 Heart disease Surgical History History of left heart catheterization (LHC) (07/01/12) History of left hip replacement (04/2020) History of permanent cardiac pacemaker placement (06/2012) Status post partial colectomy Social History Smoking Status: Never smoker alcohol intake: never substance use type: does not use what type of physical activity do you participate in: none ROS ROS ED Constitutional Constitutional ED: Denies chills, fever(s), subjective, sweats or weight loss Eyes Eyes: Reports none; Denies blurry vision, change in vision or diplopia ENT ENT ED: Denies ear pain, rhinorrhea or sore throat Cardiovascular Cardiovascular: Reports as per HPI and orthopnea; Denies paroxysmal nocturnal dyspnea Respiratory/Chest Respiratory/Chest: Reports dyspnea on exertion and orthopnea; Denies cough, dyspnea, paroxysmal nocturnal dyspnea or sputum Gastrointestinal Gastrointestinal: Denies abdominal pain, constipation, diarrhea, melena, nausea or vomiting Genitourinary Genitourinary ED: Denies dysuria, hematuria or urinary frequency Musculoskeletal Musculoskeletal: Reports neck pain; Denies arthralgias, back pain or myalgias Integumentary Denies rash Neurologic Neurologic: Denies headache(s), paresthesias or weakness Endocrine Endocrinology: Denies cold intolerance or heat intolerance Hematologic/Lymphatic Hematologic/Lymphatic: Denies easy bleeding or easy bruising EXAM Physical Exam Const Vital Signs: 12/19/22 09:18 12/19/22 09:33 Temperature 99 F Temperature Source Temporal Pulse Rate 68 Respiratory Rate 16 Blood Pressure 202/96 H Blood Pressure Mean 131 Pulse Ox 96 95 Oxygen Delivery Method Room Air Room Air Positive well nourished, well developed and cachectic General Appearance ED: well developed, cachectic and NAD; Negative for pallor Nutritional Appearance: cachectic HEENT Reports moist mucous membranes normocephalic and atraumatic Eyes PERRL and EOMs intact bilaterally General Eye ED: Negative for pale conjunctiva or scleral icterus Neck no lymphadenopathy, supple and no JVD Neck Narrative: Trachea is midline. There is no stridor. There are no carotid is noted. Chest Wall inspection of chest normal and palpation of chest normal Resp normal respiratory effort Cardio regular rate, regular rhythm, S1 normal heart sound, S2 normal heart sound and no murmurs Peripheral Pulses: pulses 2+ throughout GI normal to inspection, nondistended, normoactive bowel sounds, soft to palpation, non-tender, non-distended and no masses; Negative for hepatosplenomegaly GI Narrative: Negative clinical Marinelli sign. Back/Spine no CVA tenderness Cervical Spine: Negative for cervical spine tenderness Extremity normal to inspection Extremity Narrative: There is no asymmetry, discoloration, leg vein distention, palpable cords or tenderness along the distal venous system. General Extremety ED: Negative for pulses abnormal or tenderness General Extremity: Negative for pulses abnormal Neuro oriented x3, CN's II-XII intact bilaterally and no sensory deficits noted Sensorium / Orientation: awake and alert Skin no rashes or lesions noted and no wounds General Skin Exam: Negative for jaundice or pallor Heart Score History: Slightly/Non-Suspicious ECG: Nonspecific Repolarization Age: >/= 65 years Risk Factors: >/= 3 Risk Factors or History of CAD Score: 5 MDM MDM MDM Narrative Medical decision making narrative: Patient presents with atypical pain. This may represent cardiac. This may represent cardiac ischemia versus pericarditis versus other cause. Also need to consider pulmonary and GI. Will review prior records. Most recent cardiac catheterization was 2011. To evaluate patient's chest pain chest pain order set was initiated which includes EKG, chest x-ray appropriate blood work including 2-hour troponin. Patient's symptoms are not consistent with pulmonary embolus. Since she reported increased orthopnea need to evaluate for exacerbation of possible CHF. Of note patient's blood pressure is elevated. She states that had difficulty controlling her blood pressure. This may be due to high afterload. Lab Data Attestation: I reviewed the patient's lab results. Lab results narrative: CBC is remarkable for MCV of 101 otherwise unremarkable. Basic metabolic panel is remarkable for a creatinine of 1.19 with a GFR 45. Glucose is 176 with normal CO2 anion gap. Troponin is normal with days of symptoms. Patient's curb 65 score is 1. Patient is low risk and candidate for outpatient therapy. 6 several of listed complaints are adverse reactions and not IgE or IgM mediated allergic responses therefore will treat with levofloxacin. Labs: Laboratory Results - last 24 hr 12/19/22 12/19/22 09:25 09:25 WBC 6.0 RBC 3.63 L Hgb 12.0 Hct 36.7 L MCV 101.1 H MCH 33.1 H MCHC 32.7 RDW Std Deviation 49.7 H RDW Coeff of Raul 13.3 Plt Count 107 L MPV 9.8 Immature Gran % (Auto) 0.300 Neut % (Auto) 61.7 Lymph % (Auto) 20.8 Irion % (Auto) 5.0 Eos % (Auto) 10.7 H Baso % (Auto) 1.5 H Absolute Neuts (auto) 3.7 Absolute Lymphs (auto) 1.25 Nucleated RBC % 0 Sodium 142 Potassium 4.3 Chloride 108 H Carbon Dioxide 29.0 Anion Gap 5 BUN 14 Creatinine 1.19 H Estim Creat Clear Calc 24.04 Est GFR (MDRD) Af Amer 55 L Est GFR (MDRD) Non-Af 45 L BUN/Creatinine Ratio 11.8 Glucose 176 H Calcium 8.8 Troponin I High Sens 38 Radiography Chest X-Ray - ED: 1 View and Read by ED Physician (Single view chest x-ray reveals dual-chamber pacemaker noted on the right. There is chronic changes. Slight hyperaeration. Cardiac silhouette size unremarkable. Perihilar regions unremarkable. There is a small pleural effusion on the left. There is increased interstitial markings left lower lo) Diagnostic Testing: Clinical Impression(s) from Imaging Studies Chest X-Ray 12/19/22 09:40 IMPRESSION: Patchy infiltrate in the left lower lobe as well as increased markings at the right lung base. Radiographic follow-up is recommended. Electronically Signed: Clinton Alejandro MD at 9:59 EDT , Rhythm Strip Rhythm Strip: Sinus Rhythm (66 and wide-complex without ectopy) EKG Initial EKG: Attestation: I personally reviewed and interpreted this EKG as follows: Interpretation: Sinus Rhythm (Rate is 65. UT interval is prolonged at 310 ms. QRS duration prolonged at 124 ms and represents nonsignificant intraventricular conduction delay. QT duration 460 ms. [place] is normal. There is evidence of decreased anterior force and evidence of LVH and suspect the ST-T wave changes are due to LV) Differential Diagnosis Chest pain/SOB: pneumothorax Reason(s) pneumothorax less likely: Positive for bilateral breath sounds and [employer] withhout PTX, pneumonia Reason(s) pneumonia less likely: Positive for no infiltrate on CXR (There is a small pleural effusion and increased interstitial markings left lower lobe. Comparison films from 2015.), no noted fever and symptoms not consistent with acute infection and aortic dissection Reason(s) Aortic dissection less likely:: Positive for normal vascular exam, normal neurological exam, no widened mediastinum on CXR, pain not sudden onset, no ripping/tearing pain and no pain to back Treatment and Re-Evaluation :: Was informed of her test results and treatment plan. She was accepting of this. Blood pressure is elevated. Patient states she has had problems with her blood pressure recently and her doctor has been adjusting her meds. Since she is asymptomatic from a neurologic cardiovascular standpoint no treatment was initiated in the emergency department. Discharge Plan Triage Chief Complaint: Upper Extremity Injury ED Provider: Ryan Girard Dx/Rx/DC Orders Clinical Impression: Left lower lobe pneumonia, HLD (hyperlipidemia), Essential (primary) hypertension, Nonobstructive atherosclerosis of coronary artery, Pleural effusion on left, Left shoulder pain Instructions: ED Pneumonia (Adult) Prescriptions: New levofloxacin [levofloxacin] 500 mg tablet 500 mg PO DAILY Qty: 6 0RF No Action rosuvastatin 10 mg tablet 10 mg PO DAILY omeprazole 40 mg capsule,delayed release(DR/EC) 40 mg PO DAILY aspirin 81 mg tablet,chewable 81 mg PO DAILY tramadol 50 mg tablet 50 mg PO BID PRN Farxiga 10 mg tablet 10 mg PO DAILY ropinirole 2 mg tablet 2 mg PO QHS cholecalciferol (vitamin D3) 50 mcg (2,000 unit) tablet 2,000 unit PO DAILY acetaminophen 500 mg tablet 1,000 mg PO Q8 PRN Rx Instructions: Do not take more than 3000 mg Tylenol in a 24-hour period. hyoscyamine sulfate 0.125 mg tablet 0.125 mg PO DAILY PRN levothyroxine 175 mcg tablet 125 mcg PO DAILY benazepril 20 mg tablet 20 mg PO DAILY potassium chloride 10 mEq capsule, extended release 10 meq PO .QOD meclizine 25 mg tablet 25 mg PO TID ondansetron HCl 4 mg tablet 4 mg PO Q6H PRN gabapentin 300 MG capsule 300 mg PO QHS Label Comments: NERVE PAIN propafenone 300 mg tablet See Rx Instructions .ROUTE .COMPLEX Qty: 180 3RF Dose Instruction: TAKE 1 TABLET TWICE A DAY FOR HEART Rx Instructions: TAKE 1 TABLET TWICE A DAY FOR HEART metoprolol succinate 50 mg tablet extended release 24 hr See Rx Instructions .ROUTE .COMPLEX Qty: 180 3RF Dose Instruction: TAKE 1 TABLET TWICE A DAY Rx Instructions: TAKE 1 TABLET TWICE A DAY isosorbide mononitrate 60 mg tablet extended release 24 hr 60 mg PO BID Qty: 90 3RF furosemide 20 mg tablet 20 mg PO DAILY Qty: 45 3RF Primary Care Provider: Suresh Coles Referrals: Suresh Coles MD [Primary Care Provider] - 3-5 Days Disposition Disposition: Home, Self Care
[2022-12-19] MEDS: Aspirin 81 MG TAB.CHEW 324 MG PO (09:46)
[2022-12-19 10:09] LABS: Anion Gap 5 (5-15); BUN 14 mg/dL (7-18); BUN/Creat Ratio 11.8 RATIO (10-20); Calcium,Total 8.8 mg/dL (8.5-10.1); Chloride 108 mmol/L (98-107); Creatinine, Serum 1.19 mg/dL (0.55-1.02); EST Glomerular Filtration Rate 45 mL/min (>60); Est Glom Filt Rate - Afr Amer 55 mL/min (>60); Estimated Creatinine Clearance 24.04 ml/min; Glucose 176 mg/dL (74-106); Potassium 4.3 mmol/L (3.5-5.1); Sodium Level 142 mmol/L (136-145); Troponin-I HS (w/2H Reflex) 38 pg/mL (3.0-54.0)
[2022-12-19 10:37] VITALS: BP 137/84; PULSE 80; RESP 23; O2SAT 93
[2022-12-19] MEDS: levoFLOXacin 750 MG Tablet PO (10:47)
[2022-12-19 11:35] LABS: Reflex Troponin-HS? (from REC) Y
== END 2022-12-19 10:53 | disposition home or self-care (01) ==
PROVIDERS: Emergency Provider Emergency Medicine; PCP Family Medicine; Visit Provider Emergency Medicine
DX: J18.9 Pneumonia, unspecified organism (principal); I48.0 Paroxysmal atrial fibrillation; Z95.0 Presence of cardiac pacemaker; M25.512 Pain in left shoulder; J90 Pleural effusion, not elsewhere classified; E78.00 Pure hypercholesterolemia, unspecified; I10 Essential (primary) hypertension; I25.10 Atherosclerotic heart disease of native coronary artery without angina pectoris; Z86.718 Personal history of other venous thrombosis and embolism; M54.2 Cervicalgia
CPT/HCPCS: 71045; 80048; 84484; 85025; 93005; 99285; A4216

== ENCOUNTER → 2023-01-06 | Outpatient (CLI) | payer MEDICARE, SELFPAY ==
[2023-01-06 13:58] LABS: Anion Gap 4 (5-15); BUN 15 mg/dL (7-18); BUN/Creat Ratio 14.3 RATIO (10-20); Calcium,Total 8.9 mg/dL (8.5-10.1); Chloride 105 mmol/L (98-107); Creatinine, Serum 1.05 mg/dL (0.55-1.02); EST Glomerular Filtration Rate 53 mL/min (>60); Est Glom Filt Rate - Afr Amer 64 mL/min (>60); Glucose 106 mg/dL (74-106); Potassium 4.2 mmol/L (3.5-5.1); Sodium Level 142 mmol/L (136-145)
== END | disposition home or self-care (01) ==
LOC: MTLAB 11:01
PROVIDERS: PCP Family Medicine; Referring Provider Nurse Practitioner Gerontology; Visit Provider Nurse Practitioner Gerontology
DX: I10 Essential (primary) hypertension (principal); Z51.81 Encounter for therapeutic drug level monitoring; Z79.899 Other long term (current) drug therapy
CPT/HCPCS: 36415; 80048

== ENCOUNTER 2023-02-06 14:30 | Emergency (ER) | payer MEDICARE, SELFPAY ==
[2023-02-06 14:30] VITALS: BP 178/78; PULSE 59; RESP 14; TEMP 36.2; O2SAT 100
--- NOTE | 2023-02-06 16:41 | ED.VIS.CHEST ---
HPI History of Present Illness Chief Complaint: Chest Pain Informant: patient Onset/Context/Timing Onset: Days Activity at onset: gradual Timing: Intermittent Quality: Positive for Pressure Location: Substernal Current Severity: Mild Maximum Severity: Mild Worsened By: Nothing Relieved By: Nothing Associated Symptoms: Positive for Nausea; Negative for Vomiting, Diaphoresis, Cough, Fever, Lightheadedness or Acid Reflux Narrative Narrative: 87-year-old female history of hypertension recent her blood pressure medication a third medication added. She is under the care of Dr. Dung Cerda from cardiology. Said that last couple days she has had a posterior headache. Elevated blood pressure 200/89. And also chest discomfort. Not exertional. Does not radiate to her neck or arms. No her jaw. No shortness of breath. She is currently on no blood thinners. She denies any falls or head trauma. Prior Similar Symptoms: Yes Recent Illness/Hospitalization: No CVD Risk Factors: Positive for Hypertension; Negative for Diabetes, Family History 1' </=55 or Smoking PE Risk Factors: Negative for Recent Travel/Surgery, Recent Immobilization, Prior DVT or PE, Cancer or OCP + Smoking + >/=35 TAD Risk Factors: Negative for Marfan's Syndrome [facility] Medical History Borderline hypothyroidism Essential (primary) hypertension GERD (gastroesophageal reflux disease) History of hypothyroidism HLD (hyperlipidemia) Ischemic colitis Nonobstructive atherosclerosis of coronary artery Nonrheumatic mitral (valve) prolapse Old myocardial infarction Other secondary pulmonary hypertension Paroxysmal atrial fibrillation Sick sinus syndrome TIA (transient ischemic attack) Transient cerebral ischemic attack, unspecified Troponin I above reference range Home Medications gabapentin 300 mg capsule 300 mg PO QHS 03/21/15 [History Last Taken 03/20/15] omeprazole 40 mg capsule,delayed release 40 mg PO DAILY 07/05/19 [History Last Taken 05/02/20] rosuvastatin 10 mg tablet 10 mg PO DAILY 07/05/19 [History Last Taken Unknown] aspirin 81 mg chewable tablet 81 mg PO DAILY 03/26/21 [History Last Taken Unknown] tramadol 50 mg tablet 50 mg PO BID PRN 09/23/21 [History Last Taken Unknown] acetaminophen 500 mg tablet 1,000 mg PO Q8 PRN 12/10/21 [History Last Taken Unknown] cholecalciferol (vitamin D3) 50 mcg (2,000 unit) tablet 2,000 unit PO DAILY 12/10/21 [History Last Taken Unknown] hyoscyamine sulfate 0.125 mg tablet 0.125 mg PO DAILY PRN 12/10/21 [History Last Taken Unknown] dapagliflozin propanediol 10 mg tablet (Farxiga) 10 mg PO DAILY 04/01/22 [History Last Taken Unknown] ropinirole 2 mg tablet 2 mg PO QHS 04/01/22 [History Last Taken Unknown] levothyroxine 175 mcg tablet 125 mcg PO DAILY 09/23/22 [History Last Taken Unknown] meclizine 25 mg tablet 25 mg PO TID 09/23/22 [History Last Taken Unknown] potassium chloride 10 mEq capsule,extended release 10 meq PO .QOD 09/23/22 [History Last Taken Unknown] ondansetron HCl 4 mg tablet 4 mg PO Q6H PRN 11/14/22 [History Last Taken Unknown] metoprolol succinate 50 mg tablet,extended release 24 hr See Rx Instructions .Route .COMPLEX #180 tabs 12/01/22 [Rx Last Taken Unknown] isosorbide mononitrate 60 mg tablet,extended release 24 hr 60 mg PO BID #90 tabs 12/17/22 [Rx Last Taken Unknown] furosemide 20 mg tablet 20 mg PO DAILY #90 tabs 12/19/22 [Rx Last Taken Unknown] levofloxacin 500 mg tablet 500 mg PO DAILY #6 tabs 12/19/22 [Rx Last Taken Unknown] propafenone 300 mg tablet See Rx Instructions .Route .COMPLEX #180 tabs 01/26/23 [Rx Last Taken Unknown] benazepril 40 mg tablet 40 mg PO BID this is a dose increase #180 tabs 01/27/23 [Rx Last Taken Unknown] Allergy/AdvReac Type Severity Reaction Status Date / Time amiodarone Allergy Rash Verified 12/19/22 09:18 clarithromycin Allergy sore throat Verified 12/19/22 09:18 dicyclomine [From Bentyl] Allergy Unknown Verified 12/19/22 09:18 doxycycline Allergy Unknown Verified 12/19/22 09:18 erythromycin base Allergy Unknown Verified 12/19/22 09:18 nitrofurantoin Allergy Rash Verified 12/19/22 09:18 Penicillins Allergy Unknown Verified 12/19/22 09:18 prochlorperazine Allergy Unknown Verified 12/19/22 09:18 [From Compazine] promethazine HCl Allergy Unknown Verified 12/19/22 09:18 [From Phenergan] quinidine Allergy ineffective Verified 12/19/22 09:18 simvastatin Allergy myalgias Verified 12/19/22 09:18 sotalol Allergy GI upset Verified 12/19/22 09:18 Sulfa (Sulfonamide Allergy Unknown Verified 12/19/22 09:18 Antibiotics) valsartan [From Diovan] Allergy Nausea Verified 12/19/22 09:18 amlodipine AdvReac Intermediate swelling Verified 12/19/22 09:18 of face, hands, feet and legs ciprofloxacin HCl AdvReac Nausea/Vom/ Verified 12/19/22 09:18 [From Cipro] Diarrhea flecainide AdvReac ineffective Verified 12/19/22 09:18 morphine AdvReac Nausea/Vom/ Verified 12/19/22 09:18 Diarrhea Family History Mother Hypertension Atrial fibrillation Brother , age 50 Myocardial infarction, Onset Age: 50 Heart disease Surgical History History of left heart catheterization (LHC) (07/01/12) History of left hip replacement (04/2020) 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 Headache. Review of Systems ROS Unobtainable: Denies due to encephalopathy Constitutional Constitutional ED: Denies chills or fever(s) Eyes Eyes: Reports none ENT ENT ED: Denies ear pain Cardiovascular Cardiovascular: Reports as per HPI and chest pain; Denies palpitations or racing heartbeat Respiratory/Chest Respiratory/Chest: Reports dyspnea; Denies cough Gastrointestinal Gastrointestinal: Denies abdominal pain Genitourinary Genitourinary ED: Denies dysuria Musculoskeletal Musculoskeletal: Denies arthralgias Integumentary Denies abscess Neurologic Neurologic: Reports headache(s) Psychiatric Psychiatric: Denies anxiety Endocrine Endocrinology: Denies cold intolerance Hematologic/Lymphatic Hematologic/Lymphatic: Denies easy bleeding Allergic/Immunologic Allergic/Immunologic ED: Denies mouth swelling EXAM Physical Exam Narrative Exam Narrative: An 7-year-old female initial blood pressure 178/78. She does not look septic toxic in any distress. Pulse ox 100% on room air no signs of hypoxia. No family present in room. HEENT exam unremarkable atraumatic. Pupils round reactive light. No facial droop. Normal speech. Neck nontender. No lymphadenopathy. No meningismus. Back nontender. Lungs are clear. Heart regular rhythm no murmur rate about 60. Chest wall nontender. Abdomen soft nontender. Moving all 4 extremities. 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 Dorsi plantarflexion intact. Equal symmetrical radial pulses. Calves are nontender without edema or cords. Neurologically she is awake and alert with no focal motor deficits. Const Vital Signs: 02/06/23 14:30 02/06/23 16:40 02/06/23 16:38 Temperature 97.1 F L Temperature Source Oral Pulse Rate 59 L Respiratory Rate 14 Respiratory Effort Normal Non-Labored Blood Pressure 178/78 H Blood Pressure Mean 111 Pulse Ox 100 Oxygen Delivery Method Room Air Room Air Positive well nourished and well developed; Negative for cachectic, contractures or unkempt General Appearance ED: well developed and NAD; Negative for unkempt, cachectic, contractures or pallor Nutritional Appearance: Negative for cachectic HEENT Reports moist mucous membranes normocephalic and atraumatic; Negative for trauma or tenderness Eyes PERRL and EOMs intact bilaterally General Eye ED: Negative for pale conjunctiva or scleral icterus Neck no lymphadenopathy, supple and no JVD General: Negative for tenderness Chest Wall inspection of chest normal and palpation of chest normal Chest: Negative for tenderness Resp normal respiratory effort and clear to auscultation bilaterally Effort and Inspection: Negative for respiratory distress Auscultation: Negative for rales, rhonchi or wheezes Cardio regular rate, regular rhythm, S1 normal heart sound, S2 normal heart sound and no murmurs Peripheral Pulses: pulses 2+ throughout GI normal to inspection, nondistended, normoactive bowel sounds, soft to palpation, non-tender, non-distended and no masses Palpation: Negative for mass Back/Spine no CVA tenderness and no thoracic nor lumbar tenderness General Back: Negative for CVA tenderness Cervical Spine: Negative for cervical spine tenderness Extremity normal to inspection General Extremety ED: Negative for edema, pulses abnormal or tenderness General Extremity: Negative for edema or pulses abnormal Neuro oriented x3 and CN's II-XII intact bilaterally Sensorium / Orientation: awake, alert, oriented to person, oriented to place and oriented to time; Negative for confused, lethargic or stuporous Motor Exam: strength 5/5 throughout Psych mental status grossly normal Appearance: Negative for unkempt Attitude: No agitated Mood & Affect: Negative for depressed, anxious or tearful Skin no rashes or lesions noted and no wounds General Skin Exam: Negative for jaundice or pallor Rashes: No rashes noted Trauma: Negative for abrasion or laceration Heart Score History: Slightly/Non-Suspicious ECG: Normal Age: >/= 65 years Risk Factors: 1 or 2 Risk Factors Troponin: </= Normal Limit Score: 3 MDM MDM MDM Narrative Medical decision making narrative: 87-year-old with acute on chronic hypertension. Chest pain and headache. She undergo cardiac work-up. The pain is not reproducible. She has no risk factors or history of prior DVT or PE. CT of the brain to be obtained due to the headache and elevated blood pressure also. Repeat exam at 7:03 PM patient doing well. Will be getting some Tylenol for headache. Exam is unchanged. There is family present in room. We went over all of her test. 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 She has appointment to see them this coming Thursday a week from now. She can log her blood pressures at home. She will return if feeling worse. Otherwise follow-up. She will continue her current medications as prescribed. Her current blood pressure is 176/80. History & Record Review Discussion w/independent historian: Patient Lab Data Attestation: I reviewed the patient's lab results. Lab results narrative: CBC shows a white count of 5. H&H of 12 and 37. Platelets are slightly low at 129. Chronic thrombocytopenia. Electrolytes show a gap of 4. BUN and creatinine is 17 and 1.1. Glucose 99. Troponin 48. Labs: Laboratory Results - last 24 hr 02/06/23 17:01 WBC 5.7 RBC 3.71 L Hgb 12.1 Hct 37.3 MCV 100.5 H MCH 32.6 H MCHC 32.4 RDW Std Deviation 52.1 H RDW Coeff of Raul 14.2 Plt Count 129 L MPV 10.1 Immature Gran % (Auto) 0.200 Neut % (Auto) 57.0 Lymph % (Auto) 27.8 Atlantic % (Auto) 5.6 Eos % (Auto) 7.6 H Baso % (Auto) 1.8 H Absolute Neuts (auto) 3.2 Absolute Lymphs (auto) 1.58 Nucleated RBC % 0 Sodium 143 Potassium 3.6 Chloride 108 H Carbon Dioxide 31.0 Anion Gap 4 L BUN 17 Creatinine 1.18 H Est GFR (MDRD) Af Amer 56 L Est GFR (MDRD) Non-Af 46 L BUN/Creatinine Ratio 14.4 Glucose 99 Calcium 8.9 Troponin I High Sens 48 Radiography Chest X-Ray - ED: 1 View, Read by ED Physician, Read by Radiologist, Mediastinum, Bony Structures, No Acute Disease and Chronic Changes Diagnostic Testing: Clinical Impression(s) from Imaging Studies Chest X-Ray 02/06/23 16:45 IMPRESSION: There are no acute findings. Electronically Signed: Crow Hess MD at 17:06 EDT , Brain CT 02/06/23 17:42 IMPRESSION: There are no acute findings. Chronic involutional changes of the brain. Electronically Signed: Crow Hess MD at 18:01 EDT , Chest x-ray, portable, single view, interpreted by myself and radiologist as no acute abnormality. Pacemaker on the right. Normal cardiac silhouette And mediastinum unremarkable . Rhythm Strip Rhythm Strip: paced Rate: 61 Ectopy: None EKG Initial EKG: Attestation: I personally reviewed and interpreted this EKG as follows: Interpretation: Paced Comments: Paced rhythm rate of 61 no acute signs of TX or ischemia. Discharge Plan Triage Chief Complaint: Chest Pain ED Provider: Rishi Austin Dx/Rx/DC Orders Clinical Impression: Headache, Chest pain, Hypertension Instructions: ED Chest Pain, Uncertain Cause, ED Hypertension, Established Prescriptions: No Action rosuvastatin 10 mg tablet 10 mg PO DAILY omeprazole 40 mg capsule,delayed release(DR/EC) 40 mg PO DAILY aspirin 81 mg tablet,chewable 81 mg PO DAILY tramadol 50 mg tablet 50 mg PO BID PRN Farxiga 10 mg tablet 10 mg PO DAILY ropinirole 2 mg tablet 2 mg PO QHS cholecalciferol (vitamin D3) 50 mcg (2,000 unit) tablet 2,000 unit PO DAILY acetaminophen 500 mg tablet 1,000 mg PO Q8 PRN Rx Instructions: Do not take more than 3000 mg Tylenol in a 24-hour period. hyoscyamine sulfate 0.125 mg tablet 0.125 mg PO DAILY PRN levothyroxine 175 mcg tablet 125 mcg PO DAILY potassium chloride 10 mEq capsule, extended release 10 meq PO .QOD meclizine 25 mg tablet 25 mg PO TID ondansetron HCl 4 mg tablet 4 mg PO Q6H PRN gabapentin 300 MG capsule 300 mg PO QHS Patient Comments: NERVE PAIN levofloxacin [levofloxacin] 500 mg tablet 500 mg PO DAILY Qty: 6 0RF metoprolol succinate 50 mg tablet extended release 24 hr See Rx Instructions .ROUTE .COMPLEX Qty: 180 3RF Dose Instruction: TAKE 1 TABLET TWICE A DAY Rx Instructions: TAKE 1 TABLET TWICE A DAY isosorbide mononitrate 60 mg tablet extended release 24 hr 60 mg PO BID Qty: 90 3RF furosemide 20 mg tablet 20 mg PO DAILY Qty: 90 3RF propafenone 300 mg tablet See Rx Instructions .ROUTE .COMPLEX Qty: 180 3RF Dose Instruction: TAKE 1 TABLET TWICE A DAY FOR HEART Rx Instructions: TAKE 1 TABLET TWICE A DAY FOR HEART benazepril 40 mg tablet 40 mg PO BID Qty: 180 3RF Primary Care Provider: Suresh Coles Referrals: Dung Cerda MD [Med Staff - Active Staff] - Keep Edyta appointment Suresh Coles MD [Primary Care Provider] - Activity Restrictions/Additional Instructions: The test today look good. Log your blood pressures twice daily. Follow-up with your information assurance manager appointment next week. Return to the emergency department if you are feeling worse. Worse chest pain or severe headache and vomiting. If your blood pressures are consistently running over 200 you need to be evaluated. Disposition Disposition: Home, Self Care
--- NOTE | 2023-02-06 16:45 | RAD_ITS ---
STUDY: XR Chest 1 View 02/06/2023 4:45 PM REASON FOR EXAM: Female, 87 years old. CHEST PAIN chest pain COMPARISON: 6.2.23 TECHNIQUE: XR Chest 1 View FINDINGS: There is no demonstrated pleural abnormality. There is a left sided pacemaker batterypack. Normal heart size. Normal mediastinum. Normal lakisha. Prominent appearing increased interstitial lung markings. Normal visualized pulmonary arteries. There is atherosclerotic calcification of the aortic arch with tortuosity. There are diffuse degenerative changes of the visualized thoracic spine. There is degenerative osteoarthritis of the bilateral shoulders. There is a hiatal hernia. RAD/Chest 1 View (Portable) IMPRESSION: There are no acute findings. Electronically Signed: Crow Hess MD at 17:06 EDT ,
[2023-02-06 17:09] LABS: Absolute Lymphocyte Count 1.58 X10^3/uL (0.83-4.51); Absolute Neutrophil Count 3.2 X10^3/uL (2.0-7.7); Basophil% 1.8 % (0-1); Eosinophil# 0.43 X10^3/uL; Eosinophils% 7.6 % (0-5); Hematocrit 37.3 % (37-47); Hemoglobin 12.1 g/dL (12.0-15.0); Lymphocyte # 1.58 X10^3/ul (0.83-4.51); Lymphocyte % 27.8 % (19-41); Mean Corp Hgb Conc 32.4 g/dL (32-36); Mean Corpuscular Hgb 32.6 pg (27.0-32.0); Mean Corpuscular Volume 100.5 fL (81-99); Mean Platelet Vol. 10.1 fl (6.2-12.0); Monocyte# 0.32 X10^3/uL; Monocyte% 5.6 % (0-10); NRBC Flagged by Analyzer 0 % (0-5); Neutrophil # 3.24 X10^3/uL (2.7-7.7); Platelet Count 129 K/mm3 (150-450); RBC Distribution Width CV 14.2 % (11.6-14.6); RBC Distribution Width SD 52.1 fl (35.1-43.9); Red Blood Count 3.71 M/mm3 (4.2-5.4); White Blood Count 5.7 K/mm3 (4.4-11.0)
[2023-02-06 17:34] LABS: Anion Gap 4 (5-15); BUN 17 mg/dL (7-18); BUN/Creat Ratio 14.4 RATIO (10-20); Calcium,Total 8.9 mg/dL (8.5-10.1); Chloride 108 mmol/L (98-107); Creatinine, Serum 1.18 mg/dL (0.55-1.02); EST Glomerular Filtration Rate 46 mL/min (>60); Est Glom Filt Rate - Afr Amer 56 mL/min (>60); Glucose 99 mg/dL (74-106); Potassium 3.6 mmol/L (3.5-5.1); Sodium Level 143 mmol/L (136-145); Troponin-I HS 48 pg/mL (3.0-54.0)
--- NOTE | 2023-02-06 17:42 | CT_ITS ---
STUDY: CT BRAIN WITHOUT CONTRAST REASON FOR EXAM: Female, 87 years old. headache Individualized dose optimization techniques were used for this CT. TECHNIQUE: Transaxial CT imaging of the brain was performed without administration of intravenous contrast material. COMPARISON: 03/16/23 FINDINGS: There are calcifications noted in the distal vertebral arteries. There are calcifications noted in the cavernous carotid arteries. This is consistent for atherosclerotic disease. Normal calvarium. Normal soft tissues. There is mild cerebral atrophy with widening of the extra-axial spaces and ventricular dilatation. There are areas of decreased attenuation within the white matter tracts of the supratentorial brain, consistent with microvascular disease changes. Normal basal ganglia and thalami. Normal brainstem. There is mild cerebellar atrophy. There is no intracranial hemorrhage. There are no findings of an acute ischemic infarction. Degenerative changes of the mandibular condyles. ASPECTS Score for Acute Strokes: 04/28 CT/Brain/Head without Contrast IMPRESSION: There are no acute findings. Chronic involutional changes of the brain. Electronically Signed: Crow Hess MD at 18:01 EDT ,
[2023-02-06 18:34] VITALS: BP 186/79
[2023-02-06] MEDS: Acetaminophen 500 MG Tablet 1000 MG PO (19:23)
== END 2023-02-06 19:24 | disposition home or self-care (01) ==
PROVIDERS: Emergency Provider Emergency Medicine; PCP Family Medicine; Visit Provider Emergency Medicine
DX: R07.9 Chest pain, unspecified (principal); I10 Essential (primary) hypertension; R51.9 Headache, unspecified; I25.10 Atherosclerotic heart disease of native coronary artery without angina pectoris; E78.5 Hyperlipidemia, unspecified; Z79.899 Other long term (current) drug therapy
CPT/HCPCS: 70450; 71045; 80048; 84484; 85025; 93005; 99285; A4216

== ENCOUNTER → 2023-02-25 | Outpatient (CLI) | payer MEDICARE, SELFPAY ==
--- NOTE | 2023-02-25 09:51 | ECHOD_ITS ---
Reason For Study: PAF, HTN Procedure This was a 2D Doppler, Color Flow transthoracic echocardiogram. Exam performed in department. Left Ventricle Normal LV size. The estimated ejection fraction is 55 %. No regional wall motion abnormalities noted. Right Ventricle Normal RV size. ICD or pacer leads identified within the right ventricle. Normal systolic function. Atria Normal left atrium. ICD or pacer leads identified within the right atrium. Filamentous structure noted on the right atrial pacemaker lead. Mitral Valve Bileaflet diffuse mitral valve thickening. Mild-Moderate (1-2+) eccentric mitral valve insufficiency. Tricuspid Valve Normal tricuspid valve. Mild to moderate (1-2+) tricuspid valve insufficiency. Aortic Valve Trisinus/trileaflet aortic valve. Mild (1+) aortic valve insufficiency. Pulmonic Valve Normal pulmonic valve. Great Vessels Normal aortic root. The pulmonary artery is normal size. Normal inferior vena cava. Pericardium/Pleural No pericardial effusion. MMode/2D Measurements & Calculations LVIDd: 3.8 cm IVSd: 0.97 cm Ao root diam: 3.1 cm LVIDs: 2.6 cm LVPWd: 0.94 cm RVDd: 3.7 cm FS: 32.0 % LAV(MOD-bp): 58.8 ml LVAd ap4: 20.9 cm2 LVAd ap2: 22.2 cm2 LAV(MOD-bp) Indexed: 39.5 ml/m2 LVLd ap4: 6.8 cm LVLd ap2: 6.8 cm LAV(MOD-sp2): 62.7 ml EDV(MOD-sp4): 53.7 ml EDV(MOD-sp2): 61.9 ml LAV(MOD-sp4): 55.2 ml EDV(sp4-el): 54.7 ml EDV(sp2-el): 61.3 ml LVAs ap4: 13.0 cm2 LVAs ap2: 13.2 cm2 LVLs ap4: 6.1 cm LVLs ap2: 6.0 cm ESV(MOD-sp4): 23.0 ml ESV(MOD-sp2): 24.6 ml ESV(sp4-el): 23.4 ml ESV(sp2-el): 24.4 ml EF(MOD-sp4): 57.1 % EF(MOD-sp2): 60.3 % EF(sp4-el): 57.2 % SV(MOD-sp4): 30.7 ml SV(MOD-sp2): 37.3 ml SV(sp4-el): 31.3 ml LA dimension(2D): 4.0 cm LA A4 area: 18.4 cm2 RA A4 area: 16.4 cm2 TAPSE: 2.0 cm Time Measurements MV dec time: 0.16 sec Doppler Measurements & Calculations MV E max grant: 100.8 cm/sec Lat Peak E' Grant: 8.2 cm/sec Med Peak E' Grant: 5.2 cm/sec MV A max grant: 43.6 cm/sec E/E' lat: 12.4 E/E' med: 19.5 MV E/A: 2.3 MV dec slope: 628.7 cm/sec2 Ao V2 max: 124.3 cm/sec AI max grant: 433.6 cm/sec Ao max P.2 mmHg AI max P.2 mmHg AI dec slope: 240.7 cm/sec2 AI P1/2t: 527.6 msec LV V1 max: 86.6 cm/sec PA V2 max: 69.4 cm/sec TR max grant: 384.9 cm/sec LV V1 max P.0 mmHg TR max P.3 mmHg ECHO/Echo Complete Interpretation Summary Normal LV size. The estimated ejection fraction is 55 %. ICD or pacer leads identified within the right atrium Mild-Moderate (1-2+) eccentric mitral valve insufficiency. Filamentous structure noted on the right atrial pacemaker lead. The global longitudinal strain is borderline abnormal. Ordering Physician: Bruna Hernandez Referring Physician: Suresh Coles Performed By: Radha Grayson RDCS
== END | disposition home or self-care (01) ==
PROVIDERS: PCP Family Medicine; Referring Provider Nurse Practitioner Gerontology; Visit Provider Nurse Practitioner Gerontology
DX: R03.0 Elevated blood-pressure reading, without diagnosis of hypertension (principal); I48.0 Paroxysmal atrial fibrillation
CPT/HCPCS: 93306; 93788

== ENCOUNTER → 2023-03-18 | Outpatient (CLI) | payer MEDICARE, SELFPAY ==
[2023-03-18 09:59] LABS: Bacteria 0 SEEN /hpf (None Seen); Mucous, Urine 0 SEEN /hpf (<or=2+); Red Blood Cells-Urine 0 SEEN /hpf (0-5)
[2023-03-18 12:25] LABS: Absolute Lymphocyte Count 1.09 X10^3/uL (0.83-4.51); Absolute Neutrophil Count 4.3 X10^3/uL (2.0-7.7); Basophil# 0.08 X10^3/uL; Basophil% 1.3 % (0-1); Eosinophil# 0.27 X10^3/uL; Eosinophils% 4.4 % (0-5); Hematocrit 36.9 % (37-47); Hemoglobin 11.6 g/dL (12.0-15.0); Lymphocyte # 1.09 X10^3/ul (0.83-4.51); Lymphocyte % 17.8 % (19-41); Mean Corp Hgb Conc 31.4 g/dL (32-36); Mean Corpuscular Hgb 32.8 pg (27.0-32.0); Mean Corpuscular Volume 104.2 fL (81-99); Mean Platelet Vol. 10.3 fl (6.2-12.0); Monocyte# 0.35 X10^3/uL; Monocyte% 5.7 % (0-10); NRBC Flagged by Analyzer 0 % (0-5); Neutrophil % 70.5 % (47-70); Platelet Count 152 K/mm3 (150-450); RBC Distribution Width CV 14.6 % (11.6-14.6); RBC Distribution Width SD 55.7 fl (35.1-43.9); Red Blood Count 3.54 M/mm3 (4.2-5.4); White Blood Count 6.1 K/mm3 (4.4-11.0)
[2023-03-18 12:46] LABS: Color, Urine Yellow (Yellow); Glucose, Dipstick 1000 mg/dl (Normal); Ketone-Dipstick Negative (Negative); Leukocyte Esterase-Dipstick 100 /ul (Negative); Nitrite-Dipstick Negative (Negative); Occult Blood-Urine Negative /ul (Negative); Protein-Dipstick 30 mg/dl (Negative); Urine Clarity Clear (Clear); Urine Urobilinogen 1 mg/dl (Normal)
[2023-03-18 12:47] LABS: Vitamin D,25 Hydroxy 51.6 ng/mL
[2023-03-18 12:48] LABS: Hemoglobin A1c 5.8 % (3.8-5.6); PTHIN 99.7 pg/mL (18.4-80.1)
[2023-03-18 12:59] LABS: Urine Bilirubin Dipstick 1 mg/dL (Negative)
[2023-03-18 13:06] LABS: ALB/GLOB Ratio 1.2 RATIO (0.9-2.4); AST(SGOT) 38 U/L (15-37); Alanine Aminotransfer ALT/SGPT 40 U/L (13-56); Albumin, Serum 3.6 g/dL (3.2-5.0); Alkaline Phosphatase 63 U/L (45-117); Anion Gap 7 (5-15); BUN 15 mg/dL (7-18); BUN/Creat Ratio 11.3 RATIO (10-20); Calcium,Total 8.7 mg/dL (8.5-10.1); Chloride 104 mmol/L (98-107); Cholesterol 116 mg/dL (200); Creatinine, Serum 1.33 mg/dL (0.55-1.02); EST Glomerular Filtration Rate 40 mL/min (>60); Est Glom Filt Rate - Afr Amer 48 mL/min (>60); Glucose 123 mg/dL (74-106); High Density Lipoprotein 65 mg/dL; Magnesium 2.2 mg/dL (1.6-2.6); Phosphorus 3.5 mg/dL (2.5-4.9); Potassium 3.2 mmol/L (3.5-5.1); Protein, Total 6.6 g/dL (6.4-8.2); Sodium Level 141 mmol/L (136-145); Squamous Epithelial Cells - UA 0-5 SEEN /hpf (5-10); Thyroid Stim Hormone (TSH) 6.38 uIU/mL (0.358-3.74); Triglycerides 84 mg/dL; Very Low Density Lipoprotein 17 mg/dL (5-40); White Blood Cells 0-5 SEEN /hpf (0-5)
[2023-03-18 13:09] LABS: Protein, Urine (Random) 85.2 mg/dL (<11.9); Protein:Creat Ratio 852 mg/g CRE (0-200)
== END | disposition home or self-care (01) ==
LOC: MFPLAB 09:51
PROVIDERS: PCP Family Medicine; Visit Provider Family Medicine
DX: I48.0 Paroxysmal atrial fibrillation (principal); N18.30 Chronic kidney disease, stage 3 unspecified; R73.02 Impaired glucose tolerance (oral); E03.9 Hypothyroidism, unspecified
CPT/HCPCS: 80053; 80061; 81001; 82306; 82570; 83036; 83735; 83970; 84100; 84156; 84439; 84443; 85025

== ENCOUNTER → 2023-03-27 | Outpatient (CLI) | payer MEDICARE, SELFPAY ==
[2023-03-27 12:51] LABS: Anion Gap 5 (5-15); BUN 19 mg/dL (7-18); BUN/Creat Ratio 12.2 RATIO (10-20); Calcium,Total 8.6 mg/dL (8.5-10.1); Chloride 101 mmol/L (98-107); Creatinine, Serum 1.56 mg/dL (0.55-1.02); EST Glomerular Filtration Rate 33 mL/min (>60); Est Glom Filt Rate - Afr Amer 40 mL/min (>60); Glucose 120 mg/dL (74-106); Potassium 3.2 mmol/L (3.5-5.1); Sodium Level 141 mmol/L (136-145)
== END | disposition home or self-care (01) ==
LOC: MTLAB 09:36
PROVIDERS: PCP Family Medicine; Referring Provider Family Medicine; Visit Provider Family Medicine
DX: I10 Essential (primary) hypertension (principal)
CPT/HCPCS: 36415; 80048

== ENCOUNTER 2023-04-18 11:35 | Emergency (ER) | payer MEDICARE, SELFPAY ==
[2023-04-18 11:36] VITALS: BP 179/72; PULSE 64; RESP 16; TEMP 35.9; O2SAT 98
[2023-04-18 11:53] VITALS: O2SAT 96
--- NOTE | 2023-04-18 12:16 | ED.VIS.DYS ---
HPI History of Present Illness Chief Complaint: Cough Informant: patient and spouse/S.O. Narrative Narrative: The patient presents with cough. This patient has been coughing for a few days but is gotten worse in the last 12 to 24 hours. She states she was feeling fine. On Thursday she accidentally aspirated some vinaigrette salad dressing. This caused a lot of coughing at the time but then it calm down a little bit. But then Thursday and now today it is worsened. It is dry. Is nonproductive. She does not think she has had a fever but has not checked. She has soreness on her chest with coughing but no real pain. She is on a send better but is evidently been on this for about about 2-1/2 months with no coughing. Patient is also on Eliquis for history of atrial fibrillation. She does have a pacer. [facility] Medical History Borderline hypothyroidism Essential (primary) hypertension GERD (gastroesophageal reflux disease) History of hypothyroidism HLD (hyperlipidemia) Ischemic colitis Nonobstructive atherosclerosis of coronary artery Nonrheumatic mitral (valve) prolapse Old myocardial infarction Other secondary pulmonary hypertension Paroxysmal atrial fibrillation Sick sinus syndrome TIA (transient ischemic attack) Transient cerebral ischemic attack, unspecified Troponin I above reference range Home Medications gabapentin 300 mg capsule 300 mg PO QHS 03/21/15 [History Last Taken 03/20/15] omeprazole 40 mg capsule,delayed release 40 mg PO DAILY 07/05/19 [History Last Taken 05/02/20] rosuvastatin 10 mg tablet 10 mg PO DAILY 07/05/19 [History Last Taken Unknown] tramadol 50 mg tablet 50 mg PO BID PRN 09/23/21 [History Last Taken Unknown] acetaminophen 500 mg tablet 1,000 mg PO Q8 PRN 12/10/21 [History Last Taken Unknown] cholecalciferol (vitamin D3) 50 mcg (2,000 unit) tablet 2,000 unit PO DAILY 12/10/21 [History Last Taken Unknown] hyoscyamine sulfate 0.125 mg tablet 0.125 mg PO DAILY PRN 12/10/21 [History Last Taken Unknown] dapagliflozin propanediol 10 mg tablet (Farxiga) 10 mg PO DAILY 04/01/22 [History Last Taken Unknown] ropinirole 2 mg tablet 2 mg PO QHS 04/01/22 [History Last Taken Unknown] levothyroxine 175 mcg tablet 125 mcg PO DAILY 09/23/22 [History Last Taken Unknown] meclizine 25 mg tablet 25 mg PO TID 09/23/22 [History Last Taken Unknown] potassium chloride 10 mEq capsule,extended release 10 meq PO .QOD 09/23/22 [History Last Taken Unknown] ondansetron HCl 4 mg tablet 4 mg PO Q6H PRN 11/14/22 [History Last Taken Unknown] furosemide 20 mg tablet 20 mg PO DAILY #90 tabs 12/19/22 [Rx Last Taken Unknown] isosorbide mononitrate 60 mg tablet,extended release 24 hr 60 mg PO BID #180 tabs 02/23/23 [Rx Last Taken Unknown] apixaban 2.5 mg tablet (Eliquis) 2.5 mg PO BID #60 tabs 02/25/23 [Rx Last Taken Unknown] benazepril 40 mg tablet 20 mg (1/2 x 40 mg) PO BID this is a dose increase #180 tabs 03/16/23 [Rx Last Taken Unknown] hydralazine 25 mg tablet 25 mg PO BID 03/30/23 [History Last Taken Unknown] metoprolol succinate 50 mg tablet,extended release 24 hr 50 mg PO BID 04/10/23 [History Last Taken Unknown] propafenone 300 mg tablet 300 mg PO BID 04/10/23 [History Last Taken Unknown] amoxicillin 875 mg-potassium clavulanate 125 mg tablet 875 mg (0.875 x 875-125 mg) PO Q12H #20 TABLETS 04/18/23 [Rx Last Taken Unknown] benzonatate 100 mg capsule 200 mg (2 x 100 mg) PO TID PRN PRN Cough #20 CAPSULES 04/18/23 [Rx Last Taken Unknown] Allergy/AdvReac Type Severity Reaction Status Date / Time amiodarone Allergy Rash Verified 04/18/23 11:05 clarithromycin Allergy sore throat Verified 04/18/23 11:05 dicyclomine [From Bentyl] Allergy Unknown Verified 04/18/23 11:05 doxycycline Allergy Unknown Verified 04/18/23 11:05 erythromycin base Allergy Unknown Verified 04/18/23 11:05 nitrofurantoin Allergy Rash Verified 04/18/23 11:05 Penicillins Allergy Unknown Verified 04/18/23 11:05 prochlorperazine Allergy Unknown Verified 04/18/23 11:05 [From Compazine] promethazine HCl Allergy Unknown Verified 04/18/23 11:05 [From Phenergan] quinidine Allergy ineffective Verified 04/18/23 11:05 simvastatin Allergy myalgias Verified 04/18/23 11:05 sotalol Allergy GI upset Verified 04/18/23 11:05 Sulfa (Sulfonamide Allergy Unknown Verified 04/18/23 11:05 Antibiotics) valsartan [From Diovan] Allergy Nausea Verified 04/18/23 11:05 amlodipine AdvReac Intermediate swelling Verified 04/18/23 11:05 of face, hands, feet and legs ciprofloxacin HCl AdvReac Nausea/Vom/ Verified 04/18/23 11:05 [From Cipro] Diarrhea flecainide AdvReac ineffective Verified 04/18/23 11:05 morphine AdvReac Nausea/Vom/ Verified 04/18/23 11:05 Diarrhea Family History Mother Hypertension Atrial fibrillation Brother , age 50 Myocardial infarction, Onset Age: 50 Heart disease Surgical History History of left heart catheterization (LHC) (07/01/12) History of left hip replacement (04/2020) History of permanent cardiac pacemaker placement (06/2012) Status post partial colectomy Social History Smoking Status: Never smoker alcohol intake: never substance use type: does not use what type of physical activity do you participate in: none ROS ROS ED ROS Narrative A complete review of systems was performed and is negative except as documented in the history of present illness. Some specific details below. Constitutional: No recent fevers or chills. No malaise EYE: No discharge, visual complaints, or pain. ENT: No difficulty swallowing. No swelling. No pain. No reflux symptoms. Despite the cough, she does not have a sore throat. CV: Mild soreness of her anterior chest with coughing. No palpitations. Respiratory: See history of present illness. GI: No abdominal pain. No nausea vomiting diarrhea. No blood in stool. : No frequency dysuria or hematuria. Musculoskeletal: No recent trauma. No pains. No swelling. Skin: No rash. Nondiaphoretic. Neuro: No weakness or numbness. Endocrine: No polyuria or polydipsia. EXAM Physical Exam Narrative Exam Narrative: CONSTITUTIONAL: Patient is nontoxic in appearance. The patient looks comfortable. Work of breathing looks normal. The patient does keep having a dry cough. HEENT: No notable trauma. Mucous membranes moist. No sinus tenderness. No indication of pain with swallowing. EYES: No conjunctival injection. No proptosis. NECK:No JVD. No stridor. CARDIOVASCULAR: Regular rate. Regular rhythm. No notable murmur. No JVD. Have a pacemaker in the right upper chest. She does have some anterior chest wall tenderness. RESPIRATORY: No respiratory distress. Breathing is unlabored. But the patient continually has a dry cough. She does not look short of breath. Her saturations are normal at 98% on room air. She is not producing any sputum. There is no hemoptysis. GASTROINTESTINAL: Not distended. Bowel sounds are normal. No tenderness. No guarding. No rebound. No palpable mass. No bruit is heard. GENITOURINARY: No tenderness over the bladder. No CVA tenderness. MUSCULOSKELETAL: Atraumatic. No peripheral edema. No cord. No tenderness along the deep venous system. No asymmetry. No distended veins. NEUROLOGICAL: Patient is alert and appropriate. No focal deficit noted. SKIN: No noted rashes. No diaphoresis. PSYCHIATRIC: Patient is calm. Mood is appropriate. Const Vital Signs: 04/18/23 11:36 04/18/23 11:53 04/18/23 12:18 Temperature 96.7 F L Temperature Source Oral Pulse Rate 64 Respiratory Rate 16 Respiratory Effort Normal Non-Labored Respiratory Depth Normal Respiratory Pattern Normal Blood Pressure 179/72 H Blood Pressure Mean 107 Pulse Ox 98 Oxygen Delivery Method Room Air Room Air Room Air 04/18/23 12:22 Temperature Temperature Source Pulse Rate 70 Respiratory Rate 16 Respiratory Effort Respiratory Depth Respiratory Pattern Normal Blood Pressure Blood Pressure Mean Pulse Ox Oxygen Delivery Method MDM MDM MDM Narrative Medical decision making narrative: My independent interpretation of the patient's x-ray does show some increased markings. Final reading is similar but not sure if this is a pneumonitis or some congestion. She does take Lasix at 20 twice a day. But she denies actual CHF. Patient CBC shows mild anemia but no elevated white count. Patient's electrolytes show no marked abnormalities. Mild creatinine elevation at 1.27. Patient's troponin is negative. Patient's BNP is slightly up at 566. Patient's symptoms all started after she aspirated some of her salad and salad dressing. I think aspiration is the most likely cause of her symptoms. Her biggest complaint is actually cough and not so much dyspnea. She is not having fevers. But we will treat her as aspiration pneumonia because she is having progressive symptoms after 4 days. I will give her a dose of Lasix here but I do not think her primary cause of symptoms is congestive heart failure. She has never had the symptoms before except after aspirating part of the salad and dressing. Patient has multiple allergies to many antibiotics. Penicillin is 1 of those. But she states she can take amoxicillin. She has been on amoxicillin and no problems. So we will use Augmentin. We discussed reasons to return. I was going to walk her at the end but I talked with the nurse and they have gotten her up and walked around and she has had no problems and has not desaturated. Also, she is on an JORY inhibitor but she has been on this for a while and has never had this cough before. I think that is less likely the source of her symptoms Lab Data Attestation: I reviewed the patient's lab results. Labs: Laboratory Results - last 24 hr 04/18/23 12:30 WBC 6.2 RBC 3.10 L Hgb 10.5 L Hct 31.2 L MCV 100.6 H MCH 33.9 H MCHC 33.7 RDW Std Deviation 53.7 H RDW Coeff of Raul 14.7 H Plt Count 182 MPV 9.5 Immature Gran % (Auto) 0.300 Neut % (Auto) 63.0 Lymph % (Auto) 25.6 [place] % (Auto) 6.1 Eos % (Auto) 3.7 Baso % (Auto) 1.3 H Absolute Neuts (auto) 3.9 Absolute Lymphs (auto) 1.59 Nucleated RBC % 0 Sodium 140 Potassium 3.6 Chloride 108 H Carbon Dioxide 25.0 Anion Gap 7 BUN 15 Creatinine 1.27 H Est GFR (MDRD) Af Amer 51 L Est GFR (MDRD) Non-Af 42 L BUN/Creatinine Ratio 11.8 Glucose 115 H Calcium 8.6 Troponin I High Sens 46 B-Natriuretic Peptide 566.0 H Radiography Diagnostic Testing: Clinical Impression(s) from Imaging Studies Chest X-Ray 04/18/23 12:50 IMPRESSION: Mild pleural effusions with interstitial opacities from pulmonary edema or interstitial pneumonia. Electronically Signed: Blessing Pearce MD at 13:17 EDT , EKG Initial EKG: Comments: Pen interpretation the patient's EKG shows likely junctional rhythm. Overall rate is controlled at 63. There are diffuse ST and T wave changes. No ventricular ectopy. QRS duration is normal. QTc is a little long at 480 ms. There are some nonspecific ST and T wave changes but this looks similar to 06 February 2023. Discharge Plan Triage Chief Complaint: Cough ED Provider: Isauro Garcia Dx/Rx/DC Orders Clinical Impression: Aspiration pneumonia, Cough, Congestive heart failure Instructions: ED Pneumonia (Adult) Prescriptions: New benzonatate [benzonatate] 100 mg capsule 200 mg PO TID PRN PRN (Reason: Cough) Qty: 20 0RF amoxicillin-pot clavulanate [amoxicillin-pot clavulanate] 875-125 mg tablet 875 mg PO Q12H Qty: 20 0RF No Action rosuvastatin 10 mg tablet 10 mg PO DAILY omeprazole 40 mg capsule,delayed release(DR/EC) 40 mg PO DAILY tramadol 50 mg tablet 50 mg PO BID PRN Farxiga 10 mg tablet 10 mg PO DAILY ropinirole 2 mg tablet 2 mg PO QHS cholecalciferol (vitamin D3) 50 mcg (2,000 unit) tablet 2,000 unit PO DAILY acetaminophen 500 mg tablet 1,000 mg PO Q8 PRN Rx Instructions: Do not take more than 3000 mg Tylenol in a 24-hour period. hyoscyamine sulfate 0.125 mg tablet 0.125 mg PO DAILY PRN levothyroxine 175 mcg tablet 125 mcg PO DAILY potassium chloride 10 mEq capsule, extended release 10 meq PO .QOD meclizine 25 mg tablet 25 mg PO TID ondansetron HCl 4 mg tablet 4 mg PO Q6H PRN metoprolol succinate 50 mg tablet extended release 24 hr 50 mg PO BID propafenone 300 mg tablet 300 mg PO BID gabapentin 300 MG capsule 300 mg PO QHS Patient Comments: NERVE PAIN furosemide 20 mg tablet 20 mg PO DAILY Qty: 90 3RF isosorbide mononitrate 60 mg tablet extended release 24 hr 60 mg PO BID Qty: 180 3RF Eliquis 2.5 mg tablet 2.5 mg PO BID Qty: 60 3RF benazepril 40 mg tablet 20 mg PO BID Qty: 180 3RF hydralazine 25 mg tablet 25 mg PO BID Primary Care Provider: Suresh Coles Referrals: Suresh Coles MD [Primary Care Provider] - 3-5 Days if not improving Disposition Disposition: Home, Self Care
[2023-04-18 12:22] VITALS: PULSE 70; RESP 16
[2023-04-18] MEDS: Albuterol 2.5 MG/3 ML VIAL.NEB. INHALATION (12:22)
[2023-04-18 12:37] LABS: Absolute Lymphocyte Count 1.59 X10^3/uL (0.83-4.51); Absolute Neutrophil Count 3.9 X10^3/uL (2.0-7.7); Basophil# 0.08 X10^3/uL; Basophil% 1.3 % (0-1); Eosinophil# 0.23 X10^3/uL; Eosinophils% 3.7 % (0-5); Hematocrit 31.2 % (37-47); Hemoglobin 10.5 g/dL (12.0-15.0); Lymphocyte # 1.59 X10^3/ul (0.83-4.51); Lymphocyte % 25.6 % (19-41); Mean Corp Hgb Conc 33.7 g/dL (32-36); Mean Corpuscular Hgb 33.9 pg (27.0-32.0); Mean Corpuscular Volume 100.6 fL (81-99); Mean Platelet Vol. 9.5 fl (6.2-12.0); Monocyte# 0.38 X10^3/uL; Monocyte% 6.1 % (0-10); NRBC Flagged by Analyzer 0 % (0-5); Platelet Count 182 K/mm3 (150-450); RBC Distribution Width CV 14.7 % (11.6-14.6); RBC Distribution Width SD 53.7 fl (35.1-43.9); White Blood Count 6.2 K/mm3 (4.4-11.0)
--- NOTE | 2023-04-18 12:50 | RAD_ITS ---
HISTORY: cough. TECHNIQUE: XR Chest 2 Views. COMPARISON: 02/06/2023. FINDINGS: CARDIOMEDIASTINAL BORDERS: Cardiac silhouette within normal limits in size with similar appearance of pacemaker. Mediastinal contour unremarkable with calcification of the aorta. LUNGS: Chronic biapical scarring. Interstitial opacities in the lung bases, right greater than left. PLEURA: Mild pleural effusions. OSSEOUS STRUCTURES: Degenerative change and scoliosis. RAD/Chest PA and Lateral IMPRESSION: Mild pleural effusions with interstitial opacities from pulmonary edema or interstitial pneumonia. Electronically Signed: Blessing Pearce MD at 13:17 EDT ,
[2023-04-18 12:54] LABS: Anion Gap 7 (5-15); BUN 15 mg/dL (7-18); BUN/Creat Ratio 11.8 RATIO (10-20); Calcium,Total 8.6 mg/dL (8.5-10.1); Chloride 108 mmol/L (98-107); Creatinine, Serum 1.27 mg/dL (0.55-1.02); EST Glomerular Filtration Rate 42 mL/min (>60); Est Glom Filt Rate - Afr Amer 51 mL/min (>60); Glucose 115 mg/dL (74-106); Potassium 3.6 mmol/L (3.5-5.1); Sodium Level 140 mmol/L (136-145); Troponin-I HS 46 pg/mL (3.0-54.0)
[2023-04-18] MEDS: Furosemide 20 MG/2 ML VIAL IV (15:12)
[2023-04-18] MEDS: Benzonatate 100 MG Capsule 200 MG PO (15:12)
[2023-04-18 15:18] VITALS: BP 132/88; PULSE 68; RESP 12; O2SAT 98
== END 2023-04-18 15:23 | disposition home or self-care (01) ==
PROVIDERS: Emergency Provider Emergency Medicine; PCP Family Medicine; Visit Provider Emergency Medicine
DX: J69.0 Pneumonitis due to inhalation of food and vomit (principal); I11.0 Hypertensive heart disease with heart failure; I50.9 Heart failure, unspecified; I48.91 Unspecified atrial fibrillation; E78.5 Hyperlipidemia, unspecified; Z95.0 Presence of cardiac pacemaker; I25.10 Atherosclerotic heart disease of native coronary artery without angina pectoris; D64.9 Anemia, unspecified; Z79.01 Long term (current) use of anticoagulants
CPT/HCPCS: 71046; 80048; 83880; 84484; 85025; 93005; 94640; 96374; 99285; A4216; J1940

== ENCOUNTER → 2023-04-23 | Outpatient (CLI) | payer MEDICARE, SELFPAY ==
--- NOTE | 2023-04-23 15:57 | RAD_ITS ---
INDICATION: ASPIRATION PNEUMONIA EXAMINATION/TECHNIQUE: X-RAY - XR Chest 2 Views COMPARISON: Prior study dated: 04/18/2023. FINDINGS: LINES/DEVICES: Right-sided dual-chamber cardiac pacer device in stable position. LUNGS: The lungs remain hyperinflated with COPD changes. Improved bilateral lower lungs infiltrates/edema. Persistent small right pleural effusion. MEDIASTINUM AND CARDIOVASCULAR STRUCTURES: Cardiac silhouette not enlarged. Central airways and mediastinal contour are unremarkable. BONES AND SOFT TISSUES: Stable soft tissues and osseous structures. RAD/Chest PA and Lateral IMPRESSION: 1. Improved bilateral lower lungs infiltrates/edema. 2. Small right pleural effusion. Electronically Signed: Sharad Albrecht MD at 15:57 EDT ,
== END | disposition home or self-care (01) ==
LOC: MTRAD 15:52
PROVIDERS: PCP Family Medicine; Referring Provider Family Medicine; Visit Provider Family Medicine
DX: J69.0 Pneumonitis due to inhalation of food and vomit (principal)
CPT/HCPCS: 71046

== ENCOUNTER → 2023-05-01 | Outpatient (CLI) | payer MEDICARE, SELFPAY ==
--- NOTE | 2023-05-01 10:18 | RAD_ITS ---
STUDY: X-RAY CHEST REASON FOR EXAM: Female, 87 years old. aspiration TECHNIQUE: Single AP portable view of the chest. COMPARISON: April 23, 2023 FINDINGS: Stable right chest cardiac device and leads. No visualized consolidation. There is hyperinflation of the lungs consistent with chronic obstructive lung disease (COPD). There is no demonstrated pleural abnormality. Normal size heart. Normal mediastinum and lakisha. Normal visualized pulmonary arteries. There is atherosclerotic calcification of the aortic arch with tortuosity. There are diffuse degenerative changes of the visualized thoracic spine. Normal visualized ribs, clavicles, and shoulders. There is no demonstrated abnormality of the visualized soft tissue structures of the upper abdomen. RAD/Chest PA and Lateral IMPRESSION: COPD Electronically Signed: Felipe Ramos MD at 11:42 EDT ,
== END | disposition home or self-care (01) ==
LOC: MTRAD 10:17
PROVIDERS: PCP Family Medicine; Referring Provider Family Medicine; Visit Provider Family Medicine
DX: T17.928A Food in respiratory tract, part unspecified causing other injury, initial encounter (principal); X58.XXXA Exposure to other specified factors, initial encounter
CPT/HCPCS: 71046

== ENCOUNTER 2023-05-21 11:17 | Emergency (ER) | payer MEDICARE, SELFPAY ==
[2023-05-21] VITALS (7 sets, daily range): BP systolic 145–175; BP diastolic 68–82; PULSE 58–66; RESP 16–26; TEMP 36.5; O2SAT 89–96; BMI 23.8
--- NOTE | 2023-05-21 11:26 | EKG12_ITS ---
Test Reason : CHEST PAIN Blood Pressure : / mmHG Vent. Rate : 060 BPM Atrial Rate : 060 BPM P-R Int : 000 ms QRS Dur : 168 ms QT Int : 540 ms P-R-T Axes : 098 -78 100 degrees QTc Int : 540 ms Ventricular-paced rhythm Abnormal ECG Confirmed by SHAVONNE RIVAS, FREDERICK ([id number]), newspaper editor JANET GIBBONS ([id number]) on 06/01/2023 7:37:06 AM Referred By: Confirmed By:CORTNEY MARVIN MD
--- NOTE | 2023-05-21 11:33 | EX.ED.DYSGE1 ---
HPI History of Present Illness Chief Complaint: Syncope Informant: patient and family (Son's jelly?) Onset/Context/Timing Onset: Today Context: Sudden Onset Current Severity: Mild Maximum Severity: Moderate Narrative Narrative: 88-year-old female history of right-sided pacemaker, hypertension and UT, sick sinus syndrome, TIA, chronic kidney disease, PE for which she is on Eliquis. Patient recently been treated for aspiration pneumonia and is currently off antibiotics. Today she came out of the restroom sat down and had a syncopal event that lasted 1 to 2 minutes. No fall or injury. When they lowered her to the ground she started coming to without complaints. Has had some nausea today no vomiting or diarrhea. No melena. No chest pain. Patient currently does not have complaints. Prior similar symptoms: No Recent Illness/Hospitalization: Yes [facility] Medical History Borderline hypothyroidism Essential (primary) hypertension GERD (gastroesophageal reflux disease) History of hypothyroidism HLD (hyperlipidemia) Ischemic colitis Nonobstructive atherosclerosis of coronary artery Nonrheumatic mitral (valve) prolapse Old myocardial infarction Other secondary pulmonary hypertension Paroxysmal atrial fibrillation Sick sinus syndrome TIA (transient ischemic attack) Transient cerebral ischemic attack, unspecified Troponin I above reference range Home Medications gabapentin 300 mg capsule 300 mg PO QHS 03/21/15 [History Last Taken 03/20/15] omeprazole 40 mg capsule,delayed release 40 mg PO DAILY 07/05/19 [History Last Taken 05/02/20] rosuvastatin 10 mg tablet 10 mg PO DAILY 07/05/19 [History Last Taken Unknown] tramadol 50 mg tablet 50 mg PO BID PRN 09/23/21 [History Last Taken Unknown] acetaminophen 500 mg tablet 1,000 mg PO Q8 PRN 12/10/21 [History Last Taken Unknown] cholecalciferol (vitamin D3) 50 mcg (2,000 unit) tablet 2,000 unit PO DAILY 12/10/21 [History Last Taken Unknown] hyoscyamine sulfate 0.125 mg tablet 0.125 mg PO DAILY PRN 12/10/21 [History Last Taken Unknown] dapagliflozin propanediol 10 mg tablet (Farxiga) 10 mg PO DAILY 04/01/22 [History Last Taken Unknown] ropinirole 2 mg tablet 2 mg PO QHS 04/01/22 [History Last Taken Unknown] levothyroxine 175 mcg tablet 125 mcg PO DAILY 09/23/22 [History Last Taken Unknown] meclizine 25 mg tablet 25 mg PO TID 09/23/22 [History Last Taken Unknown] potassium chloride 10 mEq capsule,extended release 10 meq PO .QOD 09/23/22 [History Last Taken Unknown] ondansetron HCl 4 mg tablet 4 mg PO Q6H PRN 11/14/22 [History Last Taken Unknown] furosemide 20 mg tablet 20 mg PO DAILY #90 tabs 12/19/22 [Rx Last Taken Unknown] isosorbide mononitrate 60 mg tablet,extended release 24 hr 60 mg PO BID #180 tabs 02/23/23 [Rx Last Taken Unknown] apixaban 2.5 mg tablet (Eliquis) 2.5 mg PO BID #60 tabs 02/25/23 [Rx Last Taken Unknown] benazepril 40 mg tablet 20 mg (1/2 x 40 mg) PO BID this is a dose increase #180 tabs 03/16/23 [Rx Last Taken Unknown] hydralazine 25 mg tablet 25 mg PO BID 03/30/23 [History Last Taken Unknown] metoprolol succinate 50 mg tablet,extended release 24 hr 50 mg PO BID 04/10/23 [History Last Taken Unknown] propafenone 300 mg tablet 300 mg PO BID 04/10/23 [History Last Taken Unknown] amoxicillin 875 mg-potassium clavulanate 125 mg tablet 875 mg (0.875 x 875-125 mg) PO Q12H #20 TABLETS 04/18/23 [Rx Last Taken Unknown] benzonatate 100 mg capsule 200 mg (2 x 100 mg) PO TID PRN PRN Cough #20 CAPSULES 04/18/23 [Rx Last Taken Unknown] albuterol sulfate 90 mcg/actuation aerosol inhaler inhalation 05/21/23 [History Last Taken 05/21/23] Allergy/AdvReac Type Severity Reaction Status Date / Time amiodarone Allergy Rash Verified 04/18/23 11:05 clarithromycin Allergy sore throat Verified 04/18/23 11:05 dicyclomine [From Bentyl] Allergy Unknown Verified 04/18/23 11:05 doxycycline Allergy Unknown Verified 04/18/23 11:05 erythromycin base Allergy Unknown Verified 04/18/23 11:05 nitrofurantoin Allergy Rash Verified 04/18/23 11:05 Penicillins Allergy Unknown Verified 04/18/23 11:05 prochlorperazine Allergy Unknown Verified 04/18/23 11:05 [From Compazine] promethazine HCl Allergy Unknown Verified 04/18/23 11:05 [From Phenergan] quinidine Allergy ineffective Verified 04/18/23 11:05 simvastatin Allergy myalgias Verified 04/18/23 11:05 sotalol Allergy GI upset Verified 04/18/23 11:05 Sulfa (Sulfonamide Allergy Unknown Verified 04/18/23 11:05 Antibiotics) valsartan [From Diovan] Allergy Nausea Verified 04/18/23 11:05 amlodipine AdvReac Intermediate swelling Verified 04/18/23 11:05 of face, hands, feet and legs ciprofloxacin HCl AdvReac Nausea/Vom/ Verified 04/18/23 11:05 [From Cipro] Diarrhea flecainide AdvReac ineffective Verified 04/18/23 11:05 morphine AdvReac Nausea/Vom/ Verified 04/18/23 11:05 Diarrhea Family History Mother Hypertension Atrial fibrillation Brother , age 50 Myocardial infarction, Onset Age: 50 Heart disease Surgical History History of left heart catheterization (LHC) (07/01/12) History of left hip replacement (04/2020) History of permanent cardiac pacemaker placement (06/2012) Status post partial colectomy Social History Smoking Status: Never smoker alcohol intake: never substance use type: does not use what type of physical activity do you participate in: none ROS ROS ED ROS Narrative Recent cough. Review of Systems ROS Unobtainable: Denies due to encephalopathy Constitutional Constitutional ED: Denies chills or fever(s) Eyes Eyes: Denies blurry vision ENT ENT ED: Denies ear pain Cardiovascular Cardiovascular: Denies chest pain Respiratory/Chest Respiratory/Chest: Reports cough Gastrointestinal Gastrointestinal: Denies abdominal pain Genitourinary Genitourinary ED: Denies dysuria or hematuria Musculoskeletal Musculoskeletal: Denies arthralgias Integumentary Denies abscess Neurologic Neurologic: Denies headache(s) Psychiatric Psychiatric: Denies anxiety or depression Endocrine Endocrinology: Denies cold intolerance Hematologic/Lymphatic Hematologic/Lymphatic: Reports none Allergic/Immunologic Allergic/Immunologic ED: Denies mouth swelling, tongue swelling or urticaria EXAM Physical Exam Narrative Exam Narrative: 88-year-old female vital signs are stable. She is afebrile. Her initial pulse ox on room air is 89%. On 2 L she is 96%. She is hypoxic on room air. She is typically not on oxygen. H EENT exam moist with membranes. Pupils are reactive light. Terminations are intact. No trauma. No facial droop. Lungs clear to auscultation bilaterally. Heart regular rhythm rate about 65 no murmur. Chest wall and ribs nontender. Abdomen soft nontender. No peritoneal signs. No distention. Moves all 4 extremities. Nontender no edema. Neurologically she is awake and alert. Answering questions and following commands. No focal motor weakness. Const Vital Signs: 05/21/23 11:19 05/21/23 11:25 05/21/23 11:25 Temperature 97.7 F L Temperature Source Oral Pulse Rate 66 Pulse Rate [Lying] Pulse Rate [Sitting (for 1 minute prior to obtaining)] Pulse Rate [Standing (for 1 minute prior to obtaining)] Respiratory Rate 26 H Respiratory Effort Normal Non-Labored Blood Pressure 158/81 H Blood Pressure [Lying] Blood Pressure [Sitting (for 1 minute prior to obtaining)] Blood Pressure [Standing (for 1 minute prior to obtaining)] Blood Pressure Mean 106 Blood Pressure Mean [Lying] Blood Pressure Mean [Sitting (for 1 minute prior to obtaining)] Blood Pressure Mean [Standing (for 1 minute prior to obtaining)] Pulse Ox 92 89 Oxygen Delivery Method Room Air Room Air Oxygen Flow Rate (L/min) 05/21/23 11:27 05/21/23 12:11 05/21/23 13:09 Temperature Temperature Source Pulse Rate 61 Pulse Rate [Lying] 61 Pulse Rate [Sitting (for 1 minute prior to obtaining)] 60 Pulse Rate [Standing (for 1 minute prior to obtaining)] 58 L Respiratory Rate Respiratory Effort Blood Pressure 165/82 H Blood Pressure [Lying] 164/80 H Blood Pressure [Sitting (for 1 minute prior to obtaining)] 175/81 H Blood Pressure [Standing (for 1 minute prior to obtaining)] 145/68 H Blood Pressure Mean 109 Blood Pressure Mean [Lying] 108 Blood Pressure Mean [Sitting (for 1 minute prior to obtaining)] 112 Blood Pressure Mean [Standing (for 1 minute prior to obtaining)] 93 Pulse Ox 96 96 Oxygen Delivery Method Nasal Cannula Oxygen Flow Rate (L/min) 2 05/21/23 14:00 05/21/23 15:02 Temperature Temperature Source Pulse Rate 60 62 Pulse Rate [Lying] Pulse Rate [Sitting (for 1 minute prior to obtaining)] Pulse Rate [Standing (for 1 minute prior to obtaining)] Respiratory Rate 16 22 H Respiratory Effort Blood Pressure 159/80 H 161/74 H Blood Pressure [Lying] Blood Pressure [Sitting (for 1 minute prior to obtaining)] Blood Pressure [Standing (for 1 minute prior to obtaining)] Blood Pressure Mean 106 103 Blood Pressure Mean [Lying] Blood Pressure Mean [Sitting (for 1 minute prior to obtaining)] Blood Pressure Mean [Standing (for 1 minute prior to obtaining)] Pulse Ox 95 92 Oxygen Delivery Method Room Air Room Air Oxygen Flow Rate (L/min) Positive well nourished and well developed; Negative for obese, cachectic, contractures or unkempt General Appearance ED: well developed and NAD; Negative for unkempt, cachectic, contractures, cyanotic, diaphoretic or pallor Nutritional Appearance: Negative for cachectic or obese HEENT Reports moist mucous membranes; Denies dry mucous membranes Negative for trauma or tenderness Mouth ED: No dry mucous membranes Mouth: No dry mucous membranes Eyes PERRL and EOMs intact bilaterally General Eye ED: Negative for pale conjunctiva or scleral icterus Neck no lymphadenopathy, supple and no JVD General: Negative for tenderness Lymph Lymphatic: Negative for other Chest Wall inspection of chest normal and palpation of chest normal Chest: Negative for other Resp normal respiratory effort and clear to auscultation bilaterally Effort and Inspection: Negative for retractions Auscultation: Negative for rales, rhonchi or wheezes Cardio regular rate, regular rhythm, S1 normal heart sound, S2 normal heart sound and no murmurs Palpation: Negative for palpable S3 or palpable S4 Rate: Negative for bradycardia or tachycardic Rhythm: Negative for abnormal rhythm GI normal to inspection, nondistended, normoactive bowel sounds, non-tender, non-distended and no masses Inspection: Negative for abdominal distention Auscultation: normoactive bowel sounds Palpation: soft; Negative for tender or guarding Bladder / Kidney Exam: No other Back/Spine no CVA tenderness General Back: Negative for CVA tenderness Cervical Spine: Negative for cervical spine tenderness Thoracic Spine / Upper Back: Negative for thoracic spinal tenderness Lumbar Spine / Lower Back: Negative for lumbar spinal tenderness Extremity normal to inspection General Extremety ED: Negative for edema or tenderness General Extremity: Negative for edema Neuro oriented x3 and CN's II-XII intact bilaterally Sensorium / Orientation: alert; Negative for orientation impaired, lethargic or stuporous Motor Exam: strength 5/5 throughout Psych mental status grossly normal Appearance: Negative for unkempt Attitude: No agitated Mood & Affect: Negative for depressed, anxious or tearful Skin no rashes or lesions noted and no wounds General Skin Exam: Negative for jaundice or pallor Lesions: No lesion noted Rashes: No rashes noted Trauma: Negative for abrasion Wounds: Negative for wounds noted MDM MDM MDM Narrative Medical decision making narrative: 88-year-old female with a pacemaker and recent aspiration pneumonia on blood thinner for a pulmonary emboli and had a syncopal event at home. No trauma. She undergo evaluation for syncope. Repeat exam patient doing well at 2:50 PM. We went over lab results, EKG and chest x-ray they are basically her baseline. She is doing well here. I am awaiting to speak with the pacemaker rep to see what their interrogation of the pacemaker shows. Patient will be ambulated to see if she can walk okay and she is strong enough to walk. Difficulty. Her pulse ox was 92% on room air or higher the entire time. I spoke with the pacemaker rep and the interrogation of her pacemaker showed no significant abnormality causing a syncopal episode. She had no significant dysrhythmia. History & Record Review Discussion w/independent historian: Patient Additional record(s) reviewed:: Prior inpatient record, Prior outpatient record, Prior ED visit and Prior labs Lab Data Attestation: I reviewed the patient's lab results. Lab results narrative: CBC shows a white count of 6.5. H&H 10.2 and 33.1. Platelets 152. Patient has a known history of anemia this is her baseline. Chemistries show a gap of 7. BUN and creatinine of 15 and 1.34. Glucose 171. Consistent with prior labs. Initial troponin 40. 2-hour troponin 48. EKG paced rhythm. Labs: Laboratory Results - last 24 hr 05/21/23 05/21/23 11:30 13:55 WBC 6.5 RBC 3.13 L Hgb 10.2 L Hct 33.1 L MCV 105.8 H MCH 32.6 H MCHC 30.8 L RDW Std Deviation 60.1 H RDW Coeff of Raul 15.3 H Plt Count 152 MPV 10.2 Immature Gran % (Auto) 0.500 Neut % (Auto) 81.2 H Lymph % (Auto) 12.8 L [place] % (Auto) 3.4 Eos % (Auto) 0.9 Baso % (Auto) 1.2 H Absolute Neuts (auto) 5.3 Absolute Lymphs (auto) 0.84 Nucleated RBC % 0 Sodium 141 Potassium 3.5 Chloride 107 Carbon Dioxide 27.0 Anion Gap 7 BUN 15 Creatinine 1.34 H Estim Creat Clear Calc 21.48 Est GFR (MDRD) Af Amer 48 L Est GFR (MDRD) Non-Af 40 L BUN/Creatinine Ratio 11.2 Glucose 171 H Calcium 8.4 L Troponin I High Sens 40 48 Radiography Chest X-Ray - ED: 1 View, Read by ED Physician, Heart, Mediastinum, Bony Structures and Chronic Changes Diagnostic Testing: Clinical Impression(s) from Imaging Studies Chest X-Ray 05/21/23 11:45 IMPRESSION: Mild degree of CHF with superimposed small bilateral effusions and bibasilar atelectasis. Electronically Signed: Clinton Alejandro MD at 12:24 EDT Reading Location ID and State: [address] [place] [address] , Service support , Straight, portable, single view shows right sided pacemaker. Increased markings right lower lobe consistent with an infiltrate. She is recently been treated for pneumonia. Small left pleural effusion versus blunting of the angle secondary to chronic scarring. Interpreted by myself. Rhythm Strip Rhythm Strip: Paced Rate: 60 Ectopy: None EKG Initial EKG: Attestation: I personally reviewed and interpreted this EKG as follows: Interpretation: Paced Comments: Paced rhythm rate is 60. Discharge Plan Triage Chief Complaint: Syncope ED Provider: Rishi Austin Dx/Rx/DC Orders Clinical Impression: History of pacemaker, History of sick sinus syndrome, Chronic anticoagulation, Syncope Instructions: ED Fainting, Uncertain Cause Prescriptions: No Action rosuvastatin 10 mg tablet 10 mg PO DAILY omeprazole 40 mg capsule,delayed release(DR/EC) 40 mg PO DAILY tramadol 50 mg tablet 50 mg PO BID PRN Farxiga 10 mg tablet 10 mg PO DAILY ropinirole 2 mg tablet 2 mg PO QHS cholecalciferol (vitamin D3) 50 mcg (2,000 unit) tablet 2,000 unit PO DAILY acetaminophen 500 mg tablet 1,000 mg PO Q8 PRN Rx Instructions: Do not take more than 3000 mg Tylenol in a 24-hour period. hyoscyamine sulfate 0.125 mg tablet 0.125 mg PO DAILY PRN levothyroxine 175 mcg tablet 125 mcg PO DAILY potassium chloride 10 mEq capsule, extended release 10 meq PO .QOD meclizine 25 mg tablet 25 mg PO TID ondansetron HCl 4 mg tablet 4 mg PO Q6H PRN metoprolol succinate 50 mg tablet extended release 24 hr 50 mg PO BID propafenone 300 mg tablet 300 mg PO BID gabapentin 300 MG capsule 300 mg PO QHS Patient Comments: NERVE PAIN benzonatate [benzonatate] 100 mg capsule 200 mg PO TID PRN PRN (Reason: Cough) Qty: 20 0RF amoxicillin-pot clavulanate [amoxicillin-pot clavulanate] 875-125 mg tablet 875 mg PO Q12H Qty: 20 0RF albuterol sulfate 90 mcg/actuation HFA aerosol inhaler INHALATION Patient Comments: inhale 2 puffs by mouth and INTO THE LUNGS every 4 hours if needed for cough furosemide 20 mg tablet 20 mg PO DAILY Qty: 90 3RF isosorbide mononitrate 60 mg tablet extended release 24 hr 60 mg PO BID Qty: 180 3RF Eliquis 2.5 mg tablet 2.5 mg PO BID Qty: 60 3RF benazepril 40 mg tablet 20 mg PO BID Qty: 180 3RF hydralazine 25 mg tablet 25 mg PO BID Primary Care Provider: Suresh Coles Referrals: Suresh Coles MD [Primary Care Provider] - 3-5 Days Activity Restrictions/Additional Instructions: Follow-up with your doctor. Your labs today, EKG and chest x-ray showed chronic changes nothing acute and will need to pass out. I spoke to the [employer] pacemaker rep and they did not see anything concerning on your pacemaker interrogation. Disposition Disposition: Home, Self Care
--- NOTE | 2023-05-21 11:45 | RAD_ITS ---
STUDY: X-RAY CHEST REASON FOR EXAM: Female, 88 years old. Chest pain. Syncopal episodes. TECHNIQUE: Single AP portable view of the chest. COMPARISON: Comparison is made with prior study May 01, 2023. FINDINGS: EKG electrodes are seen. There is evidence of vascular congestion with small bilateral pleural effusions and bibasilar atelectasis. Normal size heart. A right-sided dual-chamber pacemaker is seen. Normal mediastinum and lakisha. Normal visualized pulmonary arteries. There is atherosclerotic calcification of the aortic arch with tortuosity. There are degenerative changes of the visualized thoracic spine. Normal visualized ribs, clavicles, and shoulders. There is no demonstrated abnormality of the visualized soft tissue structures of the upper abdomen. RAD/Chest 1 View (Portable) IMPRESSION: Mild degree of CHF with superimposed small bilateral effusions and bibasilar atelectasis. Electronically Signed: Clinton Alejandro MD at 12:24 EDT ,
[2023-05-21 11:47] LABS: Absolute Lymphocyte Count 0.84 X10^3/uL (0.83-4.51); Absolute Neutrophil Count 5.3 X10^3/uL (2.0-7.7); Basophil# 0.08 X10^3/uL; Basophil% 1.2 % (0-1); Eosinophil# 0.06 X10^3/uL; Eosinophils% 0.9 % (0-5); Hematocrit 33.1 % (37-47); Hemoglobin 10.2 g/dL (12.0-15.0); Lymphocyte # 0.84 X10^3/ul (0.83-4.51); Lymphocyte % 12.8 % (19-41); Mean Corp Hgb Conc 30.8 g/dL (32-36); Mean Corpuscular Hgb 32.6 pg (27.0-32.0); Mean Corpuscular Volume 105.8 fL (81-99); Mean Platelet Vol. 10.2 fl (6.2-12.0); Monocyte# 0.22 X10^3/uL; Monocyte% 3.4 % (0-10); NRBC Flagged by Analyzer 0 % (0-5); Neutrophil # 5.31 X10^3/uL (2.7-7.7); Neutrophil % 81.2 % (47-70); Platelet Count 152 K/mm3 (150-450); RBC Distribution Width CV 15.3 % (11.6-14.6); RBC Distribution Width SD 60.1 fl (35.1-43.9); Red Blood Count 3.13 M/mm3 (4.2-5.4); White Blood Count 6.5 K/mm3 (4.4-11.0)
[2023-05-21 12:03] LABS: Anion Gap 7 (5-15); BUN 15 mg/dL (7-18); BUN/Creat Ratio 11.2 RATIO (10-20); Calcium,Total 8.4 mg/dL (8.5-10.1); Chloride 107 mmol/L (98-107); Creatinine, Serum 1.34 mg/dL (0.55-1.02); EST Glomerular Filtration Rate 40 mL/min (>60); Est Glom Filt Rate - Afr Amer 48 mL/min (>60); Estimated Creatinine Clearance 21.48 ml/min; Glucose 171 mg/dL (74-106); Potassium 3.5 mmol/L (3.5-5.1); Sodium Level 141 mmol/L (136-145); Troponin-I HS (w/2H Reflex) 40 pg/mL (3.0-54.0)
[2023-05-21 13:43] LABS: Reflex Troponin-HS? (from REC) Y
[2023-05-21 14:24] LABS: Troponin-I HS 48 pg/mL (3.0-54.0)
== END 2023-05-21 15:35 | disposition home or self-care (01) ==
PROVIDERS: Emergency Provider Emergency Medicine; PCP Family Medicine; Visit Provider Emergency Medicine
DX: R55 Syncope and collapse (principal); I13.0 Hypertensive heart and chronic kidney disease with heart failure and stage 1 through stage 4 chronic kidney disease, or unspecified chronic kidney disease; I48.0 Paroxysmal atrial fibrillation; I49.5 Sick sinus syndrome; N18.9 Chronic kidney disease, unspecified; Z95.0 Presence of cardiac pacemaker; E78.5 Hyperlipidemia, unspecified; I25.10 Atherosclerotic heart disease of native coronary artery without angina pectoris; Z86.73 Personal history of transient ischemic attack (TIA), and cerebral infarction without residual deficits; Z79.01 Long term (current) use of anticoagulants; Z86.711 Personal history of pulmonary embolism; I25.2 Old myocardial infarction
CPT/HCPCS: 36415; 71045; 80048; 84484; 85025; 93005; 99285

== ENCOUNTER → 2023-06-01 | Outpatient (CLI) | payer MEDICARE, SELFPAY ==
--- NOTE | 2023-06-01 14:35 | CDU_ITS ---
Reason For Study: Syncope Rt. Velocities/BP Lt. Velocities/BP Prox CCA 56.3/12.8 cm/sec. Prox CCA 45.9/15.4 cm/sec. Mid CCA 51.7/12.5 cm/sec. Mid CCA 50.2/16.1 cm/sec. Dist CCA 44.6/11.1 cm/sec. Dist CCA 44.6/13.9 cm/sec. Prox ICA 39.6/10.4 cm/sec. Prox ICA 65.8/19.5 cm/sec. Mid ICA 52.4/17.5 cm/sec. Mid ICA 70.5/17.6 cm/sec. Dist ICA 55.9/16.8 cm/sec. Dist ICA 91.3/30.8 cm/sec. Rt. ICA/CCA = 1.1. Lt. ICA/CCA = 1.8. Prox ECA 41.0/4.0 cm/sec. Prox ECA 55.9/4.7 cm/sec. Rt. Vert. 30.2/4.6 cm/sec. Lt. Vert. 48.7/13.8 cm/sec. Right Extracranial There is homogeneous, smooth atherosclerotic plaque noted in the right common carotid artery. There is heterogeneous, irregular atherosclerotic plaque noted in the right internal carotid artery. There is heterogeneous, irregular atherosclerotic plaque noted in the right external carotid artery. Antegrade flow is noted in the right vertebral artery. Left Extracranial There is homogeneous, smooth atherosclerotic plaque noted in the left common carotid artery. There is heterogeneous, irregular atherosclerotic plaque noted in the left internal carotid artery. There is homogeneous, smooth atherosclerotic plaque noted in the left external carotid artery. Antegrade flow is noted in the left vertebral artery. Procedure Carotid Duplex 30023. This is a Carotid Duplex examination using B-mode, color flow and specral Doppler. The exam was diagnostic. Exam performed in department. VL/Carotid Duplex Ultrasound Interpretation Summary Mild (<50%) stenosis right extracranial internal carotid. Mild (<50%) stenosis left extracranial internal carotid. Patent and antegrade vertebrals bilaterally. Ordering Physician: Bruna Hernandez Referring Physician: Suresh Coles Performed By: Shahnaz Fong RDCS, RVT
== END | disposition home or self-care (01) ==
LOC: CVS 14:34
PROVIDERS: PCP Family Medicine; Referring Provider Nurse Practitioner Gerontology; Visit Provider Nurse Practitioner Gerontology
DX: R55 Syncope and collapse (principal); I25.10 Atherosclerotic heart disease of native coronary artery without angina pectoris; E78.00 Pure hypercholesterolemia, unspecified; I10 Essential (primary) hypertension
CPT/HCPCS: 93880

== ENCOUNTER → 2023-06-05 | Outpatient (CLI) | payer MEDICARE, SELFPAY ==
--- NOTE | 2023-06-05 12:59 | SP.MBSS_ITS ---
Modified Barium Swallow Patient Information Study Date: 06/05/23 Study Time: 12:55 Direct Billable Minutes: 84 Total Minutes procedure & reportin Diagnosis: Aspiration PNA J69.0 Referring Physician: Suresh Coles Reason for Referral: Objectively assess swallow function, assess risk for aspiration, and determine recommendations for least restrictive diet textures and compensatory strategies to improve safety of swallow. 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 The patient had recent ED visit 04/18/2023 two days following an aspiration event consuming vinaigrette salad dressing. She was diagnosed with aspiration PNA and discharged home with medication to treat and plans for OP MBSS to assess aspiration risk and swallow function. Per patient, she has had no other concerns for swallowing other than occ sensation of foods becoming caught in her throat, which she attributes to her hiatal hernia. She has regurgitated foods in the p ast. Current Diet Ordered: Regular textures / Thin liquids Dentition: Upper Dentures and Lower Dentures Mental Status: WNL Respiratory Status: Oxygenating on Room Air Penetration-Aspiration Scale Penetration-Aspiration Scale: OBJECTIVE ASSESSMENT OF SWALLOW FUNCTION (QUANTITATIVE ? PER TRIAL): PENETRATION / ASPIRATION SCALE (MCDONALD): 1 = does not enter airway 2 = enters airway/above vocal folds/ejected 3 = enters airway/above vocal folds/not ejected 4 = enters airway/contacts vocal folds/ejected 5 = enters airway/contacts vocal folds/not ejected 6 = enters airway/below vocal folds/ejected 7 = enters airway/below vocal folds/not ejected despite effort 8 = enters airway/below vocal folds/no effort VIDEOFLOROSCOPIC SCALE SCORE (MCDONALD): Grade I = aspiration of material that has penetrated into the laryngeal vestibule, intact cough reflex Grade II = aspiration < 10 % of the bolus, intact cough reflex Grade III = aspiration of < 10 % of the bolus, reduced cough reflex or aspiration of > 10 % of the bolus, intact cough reflex Grade IV = aspiration of > 10 % of the bolus, reduced cough reflex Penetration-Aspiration Scale Score Thin Liquid via teaspoon: Result: 1= does not enter airway Thin Liquid via teaspoon Trial 2: Result: 2= enter airway/above vocal folds/ejected Thin Liquid via small single sip: cup: Result: 2= enter airway/above vocal folds/ejected Thin Liquid via sequential sips: cup: Result: 2= enter airway/above vocal folds/ejected Stedman Thick Liquid via small single sip: cup: Result: 2= enter airway/above vocal folds/ejected Pudding via teaspoon: Result: 1= does not enter airway Comment: Esophageal screen - mild retention in lower esophagus Thin Liquid via single sip: straw: Result: 8= enters airway/below vocal folds/no effort Comment: Esophageal screen - complete clearance of thin and previous trial. Thin Liquid via small single sip: cup Trial 2: Result: 2= enter airway/above vocal folds/ejected 1/2 Cookie: Result: 1= does not enter airway Thin Liquid via small single sip: cup Effortful swallow: Result: 1= does not enter airway Oral Phase Labial Seal: No Labial Escape Tongue Control During Bolus Hold: Posterior escape of greater than half of bolus Bolus Preparation/Mastication: Slow prolonged chewing/mashing with complete recollection (Small pieces unchewed) Bolus Transport/Lingual Motion: Slowed tongue motion Pharyngeal Phase Initiation of Pharyngeal Swallow: Bolus head in pyriforms Soft Palate Elevation: Trace column of contrast/air between soft palate and pharyngeal wall Laryngeal Elevation: Partial superior movement thyroid cart/partial apprx aryt- epig petiole Anterior Hyoid Excursion: Partial anterior movement Epiglottic Movement: Complete inversion Laryngeal Vestibule Closure at Height of Swallow: Incomplete; narrow column of air/contrast in laryngeal vestibule Pharyngeal Stripping Wave: Present - diminished Pharyngoesophageal Segment Opening: Parital distension and partial duration; parital obstruction of flow Tongue Base Retraction: Narrow column of contrast between tongue base & post. pharyngeal wall Pharyngeal Residue: Collection of residue within or on pharyngeal structures Esophageal Phase Esophageal Clearance: Esophageal retention Diagnosis/Impression Diagnosis: Mild oropharyngeal phase dysphagia R13.12 Impression: The oral phase is primarily marked by... -Decreased bolus control with >1/2 of the bolus spilling posteriorly to the pyriforms prior to swallow onset observed with thin and nectar thick liquids especially. -Slowed tongue motion for A-P transport. -Small pieces of cookie appeared un-chewed and remained in the pharynx after the first swallow. They cleared with independent use of a second swallow - [employer] educated recommendation to chew thoroughly to decrease risk for choking. The pharyngeal phase is primarily marked by... -Mildly decreased airway closure during the swallow due to partial anterior hyoid excursion, laryngeal elevation, and epiglottic inversion. -Mildly decreased tongue base retraction, UES opening/duration, pharyngeal stripping wave, resulting in mild pharyngeal residues after the swallow. She independently swallowed cookie residue to effectively clear. -Delayed swallow onset. -SILENT aspiration of thin liquids via straw before the swallow. Trace post prandial penetration likely of pharyngeal residues of barium contrast reaching the VF seen at the end of the study, which did not fully eject during the swallow or elicit a cough reflex. Recommendations Diet: Regular Textures (Easy to Chew meats (IDDSI Level 7)) and Thin Liquids Comment: Oral care 4-5X daily to decrease risk for respiratory infection due to the patient developing PNA from a single, large aspiration episode at home. Consider 4-5 smaller meals daily vs. 3 larger meals due to hiatal hernia. Compensatory Strategies: Small Bites (Chew thoroughly), Small Sips (Effortful swallow, Intermittent cough and re-swallow), No Straws, Slow Rate, Alternate bites/solids and sips/liquids, Sitting upright and Remain sitting upright for 30 minutes after PO intake Recommend Repeat Modified Barium Swallow: No (No need for repeat MBSS unless worsening s/s of aspiration.) Need for Skilled Speech Therapy Services: Yes Comment: Will recommend the patient for outpatient dysphagia therapy to address deficits in oropharyngeal swallow function. Will recommend the patient for oropharyngeal strengthening to improve lingual control, hyolaryngeal elevation/excursion, and tongue base retraction (lingual resistance exercises, Terra, Mario, Effortful breath hold and swallow). The patient would benefit from thorough education regarding recommended diet textures and compensatory strategies. Education Completed: 1. Described result of evaluation. Status Active ST Patient: Active Contact Information [facility] Speech Therapy:: Eli Carlos M.A. [facility]-[employer]PER[employer] Speech-Language Pathologist [facility] [address] [place] [address] [email or web address] [phone]
== END | disposition home or self-care (01) ==
LOC: RAD 12:39
PROVIDERS: PCP Family Medicine; Referring Provider Family Medicine; Visit Provider Family Medicine
DX: J69.0 Pneumonitis due to inhalation of food and vomit (principal)
CPT/HCPCS: 74230; 92611

== ENCOUNTER → 2023-06-24 | Outpatient (CLI) | payer MEDICARE, SELFPAY ==
--- NOTE | 2023-06-24 14:10 | CT_ITS ---
EXAMINATION: CT BRAIN WITH AND WITHOUT CONTRAST HISTORY : loss of balance COMPARISON : 02/06/2023. TECHNIQUE: Multiple axial images were obtained of the brain with and without IV contrast. A radiation dose optimization technique was used for this scan. IV Contrast dosage and agent: 50 cc of Isovue 370 FINDINGS : There is no evidence for acute intracranial hemorrhage, mass effect, or midline shift. There is no extra-axial fluid collection. No abnormal enhancement. There are periventricular white matter changes consistent with chronic microvascular ischemic disease. There is sulcal widening and ventricular enlargement consistent with cerebral atrophy. There is normal sanchez-white differentiation, without CT evidence of acute ischemia or infarct. The skull base and calvarium are unremarkable. The orbits are unremarkable. The paranasal sinuses are clear. The mastoid air cells are well-aerated. The soft tissues are unremarkable. CT/Brain/Head W/WO Contrast IMPRESSION: No acute intracranial abnormality. Chronic involutional and ischemic changes of the brain. Electronically Signed: Silas Rowland MD at 20:55 EST ,
[2023-06-24 14:51] LABS: CREATININE FINGERSTICK 1.2 mg/dL (0.55-1.02)
== END | disposition home or self-care (01) ==
LOC: CT 14:10
PROVIDERS: PCP Family Medicine; Referring Provider Family Medicine; Visit Provider Family Medicine
DX: R26.89 Other abnormalities of gait and mobility (principal)
CPT/HCPCS: 70470; Q9967

== ENCOUNTER 2023-06-26 04:51 | Emergency (ER) | payer MEDICARE, SELFPAY ==
[2023-06-26 04:52] VITALS: BP 178/106; PULSE 78; RESP 16; TEMP 36.9; O2SAT 92; BMI 20.7
--- NOTE | 2023-06-26 04:58 | CT_ITS ---
EXAM: CT HEAD WITHOUT INTRAVENOUS CONTRAST CLINICAL INDICATION: [place]clap headache TECHNIQUE: Multiple axial images were obtained of the head without intravenous contrast. This CT exam was performed using one or more of the following dose reduction techniques: automated exposure control, adjustment of the mA and/or kV according to patient size, and/or use of iterative reconstruction technique. RADIATION DOSE: CTDIvol = 44.99 mGy, DLP = 745.49 mGy-cm COMPARISON: Head CT 06/24/2023 FINDINGS: BRAIN AND EXTRA-AXIAL SPACES: Diffuse cerebral volume loss. Periventricular small vessel ischemic changes. No intra- or extra-axial hemorrhage. No intracranial mass or mass effect. Posterior fossa structures are unremarkable. No hydrocephalus. Basal cisterns are patent. BONES/JOINTS: Unremarkable. No discrete lytic or blastic abnormalities. VASCULATURE: Vascular calcifications. SINUSES: Unremarkable as visualized. Clear. MASTOID AIR CELLS: Unremarkable. Clear. ORBITS: Visualized globes, extraocular muscles, optic nerves and retrobulbar fat appear unremarkable. CT/Brain/Head without Contrast IMPRESSION: 1. No acute intracranial abnormalities. 2. Age-related changes. Electronically Signed: Crow Lewis MD at 6:02 EST ,
--- NOTE | 2023-06-26 05:03 | EDS_ITS ---
[facility] <Dr. Ryan Girard MD - Last Filed: 06/27/23 15:45> History of Present Illness Chief Complaint: Headache Detail of Chief Complaint: Abrupt headache and chest discomfort Informant: patient Onset/Context/Timing Onset: Hours (Awaken from sleep at 0300 because of abrupt headache followed by chest discomfort) Context: Sudden Onset Timing: Continuous Quality: Pain Location: Entire head and anterior chest Current Severity: Moderate Maximum Severity: Severe Worsened by: Nothing specific Relieved by: Nothing Associated Symptoms Associated Symptoms: Photophobia Narrative Narrative: Patient is an 88-year-old woman with history of hypertension, hyperlipidemia, nonobstructing atherosclerotic coronary artery disease, sick sinus syndrome with placement of pacemaker June 2012 who presents by ambulance because she was awakened from sleep with abrupt headache that is global with a blood pressure of 190/125. Sister had history of cerebral hemorrhage. She denies family history of subarachnoid hemorrhage or aneurysm of the brain. She does endorse light sensitivity. She also reports anterior mid chest discomfort. She does have nausea. There is no dyspnea or radiation of the pain to her back or left shoulder. She does report pain up to the right side of her jaw. She is on an anticoagulant. She denies ringing or ears decreased hearing. Denies trouble with speech or swallowing. She denies paresthesia, anesthesia or motor weakness. She does report problems with her balance. She denies abdominal pain, vomiting, diarrhea. She denies dysuria, frequency, urgency or hematuria. Patient has rash lower extremities status post contrast study a couple of days ago. Rash is not pruritic. Prior similar symptoms: No Recent Illness/Hospitalization: Yes PFS <Dr. Ryan Girard MD - Last Filed: 06/27/23 15:45> [facility] Medical History Anemia Atrial fibrillation Borderline hypothyroidism DVT (deep venous thrombosis) Essential (primary) hypertension GERD (gastroesophageal reflux disease) History of hypothyroidism HLD (hyperlipidemia) Irregular heart beat Ischemic colitis Kidney disease Migraines Nonobstructive atherosclerosis of coronary artery Nonrheumatic mitral (valve) prolapse Old myocardial infarction Other secondary pulmonary hypertension Paroxysmal atrial fibrillation Sick sinus syndrome TIA (transient ischemic attack) Transient cerebral ischemic attack, unspecified Troponin I above reference range Home Medications gabapentin 300 mg capsule 300 mg PO QHS NERVE PAIN 03/21/15 [History Last Taken 06/25/23] omeprazole 40 mg capsule,delayed release 40 mg PO DAILY ACID REFLUX 07/05/19 [History Last Taken 06/26/23] rosuvastatin 10 mg tablet 10 mg PO QHS CHOLESTEROL 07/05/19 [History Last Taken 06/25/23] tramadol 50 mg tablet 50 mg PO BID PRN PAIN 09/23/21 [History Last Taken Unknown] cholecalciferol (vitamin D3) 50 mcg (2,000 unit) tablet 2,000 unit PO DAILY SUPPLEMENT 12/10/21 [History Last Taken 06/26/23] hyoscyamine sulfate 0.125 mg tablet 0.125 - 0.25 mg PO TID PRN IBS/SPASMS 12/10/21 [History Last Taken Unknown] dapagliflozin propanediol 10 mg tablet ([facility]) 10 mg PO DAILY BLOOD SUGARS 04/01/22 [History Last Taken 06/26/23] ropinirole 2 mg tablet 2 mg PO QHS RESTLESS LEG SYNDROME 04/01/22 [History Last Taken 06/25/23] levothyroxine 175 mcg tablet 175 mcg PO DAILY THYROID 09/23/22 [History Last Taken Unknown] meclizine 25 mg tablet 25 mg PO TID PRN DIZZINESS 09/23/22 [History Last Taken Unknown] potassium chloride 10 mEq capsule,extended release 10 meq PO QODAY SUPPLEMENT 09/23/22 [History Last Taken 06/26/23] apixaban 2.5 mg tablet (Eliquis) 2.5 mg PO BID BLOOD THINNER #60 tabs 02/25/23 [Rx Last Taken 06/26/23] metoprolol succinate 50 mg tablet,extended release 24 hr 50 mg PO BID BLOOD PRESSURE 04/10/23 [History Last Taken 06/26/23] propafenone 300 mg tablet 300 mg PO BID AFIB 04/10/23 [History Last Taken 06/26/23] albuterol sulfate 90 mcg/actuation aerosol inhaler 2 puff inhalation Q4H PRN SHORTNESS OF BREATH/WHEEZING 05/21/23 [History Last Taken 05/21/23] hydralazine 50 mg tablet 50 mg PO TID BLOOD PRESSURE #270 tabs 06/25/23 [Rx Last Taken 06/26/23] aspirin 81 mg tablet,delayed release (Leandro Low Dose Aspirin) 81 mg PO DAILY HEART HEALTH 06/26/23 [History Last Taken 06/26/23] benazepril 40 mg tablet 50 mg PO TID BLOOD PRESSURE 06/26/23 [History Last Taken 06/26/23] mppyhdenbm-mtwmgfqvimlgc-vxdudwzj 50 mg-325 mg-40 mg tablet 1 tab PO BID PRN MIGRAINES 06/26/23 [History Last Taken Unknown] furosemide 20 mg tablet 20 mg PO QODAY EDEMA 06/26/23 [History Last Taken 06/26/23] isosorbide mononitrate 120 mg tablet,extended release 24 hr 240 mg PO QAM CHEST PAIN 06/26/23 [History Last Taken 06/26/23] levothyroxine 137 mcg tablet 137 mcg PO DAILY THYROID 06/26/23 [History Last Taken 06/26/23] Allergy/AdvReac Type Severity Reaction Status Date / Time amiodarone Allergy Rash Verified 06/26/23 12:05 clarithromycin Allergy sore throat Verified 06/26/23 12:05 dicyclomine [From Bentyl] Allergy Unknown Verified 06/26/23 12:05 doxycycline Allergy Unknown Verified 06/26/23 12:05 erythromycin base Allergy Unknown Verified 06/26/23 12:05 nitrofurantoin Allergy Rash Verified 06/26/23 12:05 Penicillins Allergy Unknown Verified 06/26/23 12:05 prochlorperazine Allergy Unknown Verified 06/26/23 12:05 [From Compazine] promethazine HCl Allergy Unknown Verified 06/26/23 12:05 [From Phenergan] quinidine Allergy ineffective Verified 06/26/23 12:05 simvastatin Allergy myalgias Verified 06/26/23 12:05 sotalol Allergy GI upset Verified 06/26/23 12:05 Sulfa (Sulfonamide Allergy Unknown Verified 06/26/23 12:05 Antibiotics) valsartan [From Diovan] Allergy Nausea Verified 06/26/23 12:05 amlodipine AdvReac Intermediate swelling Verified 06/26/23 12:05 of face, hands, feet and legs ciprofloxacin HCl AdvReac Nausea/Vom/ Verified 06/26/23 12:05 [From Cipro] Diarrhea flecainide AdvReac ineffective Verified 06/26/23 12:05 morphine AdvReac Nausea/Vom/ Verified 06/26/23 12:05 Diarrhea Family History Mother Hypertension Atrial fibrillation Brother , age 50 Myocardial infarction, Onset Age: 50 Heart disease Surgical History History of appendectomy History of left heart catheterization (LHC) (07/01/12) History of left hip replacement (04/2020) History of permanent cardiac pacemaker placement (06/2012) Status post partial colectomy Social History household members: none Smoking Status: Never smoker alcohol intake: never substance use type: does not use what type of physical activity do you participate in: none ROS <Dr. Ryan Girard MD - Last Filed: 06/27/23 15:45> ROS ED Constitutional Constitutional ED: Denies chills, fever(s), subjective or sweats Eyes Eyes: Reports other Details: Reports light sensitivity. ; Denies blurry vision, change in vision or diplopia ENT ENT ED: Reports other Details: Denies sonophobia. ; Denies ear pain, rhinorrhea or sore throat Cardiovascular Cardiovascular: Reports chest pain; Denies orthopnea, palpitations, paroxysmal nocturnal dyspnea or racing heartbeat Respiratory/Chest Respiratory/Chest: Denies cough, dyspnea, dyspnea on exertion, orthopnea or paroxysmal nocturnal dyspnea Gastrointestinal Gastrointestinal: Reports nausea; Denies abdominal pain, constipation, diarrhea, melena or vomiting Genitourinary Genitourinary ED: Denies dysuria or hematuria Musculoskeletal Musculoskeletal: Reports neck pain; Denies arthralgias, back pain or myalgias Integumentary Denies rash Neurologic Neurologic: Reports headache(s); Denies paresthesias or weakness Endocrine Endocrinology: Denies cold intolerance or heat intolerance Hematologic/Lymphatic Hematologic/Lymphatic: Reports systems reviewed and no addt'l complaints, except as documented and other Details: Patient is on an anticoagulant. EXAM <Dr. Ryan Girard MD - Last Filed: 06/27/23 15:45> Physical Exam Const Vital Signs: 06/26/23 04:52 06/26/23 05:11 06/26/23 07:00 Temperature 98.4 F Temperature Source Oral Pulse Rate 78 78 83 Respiratory Rate 16 19 H 16 Blood Pressure 178/106 H 175/110 H 155/107 H Blood Pressure Mean 130 131 123 Pulse Ox 92 100 98 Oxygen Delivery Method Room Air Nasal Cannula Room Air Oxygen Flow Rate (L/min) 2 Positive well nourished and well developed General Appearance ED: well developed; Negative for cyanotic, diaphoretic or pallor HEENT Reports moist mucous membranes HEENT Narrative: Head is atraumatic and normocephalic. Ears are normal. Nares are patent. Posterior pharynx without erythema or exudate. Negative for trauma or tenderness Eyes PERRL and EOMs intact bilaterally Eyes Narrative: Patient does not have photophobia to light. General Eye ED: Negative for pale conjunctiva or scleral icterus Neck no lymphadenopathy, supple and no JVD Chest Wall palpation of chest normal; Negative for inspection of chest normal Chest Narrative: Pacemaker generator box palpable on the left side. Resp normal respiratory effort and clear to auscultation bilaterally Cardio regular rate, regular rhythm, S1 normal heart sound, S2 normal heart sound and no murmurs GI normal to inspection, nondistended, normoactive bowel sounds, non-tender, non- distended and no masses; Negative for hepatosplenomegaly Back/Spine no CVA tenderness General Back: Negative for CVA tenderness Thoracic Spine / Upper Back: Negative for thoracic spinal tenderness Lumbar Spine / Lower Back: Negative for lumbar spinal tenderness Extremity normal to inspection Extremity Narrative: Patient has cluster of nonblanching erythematous rash. It has the appearance of clusters of petechiae. General Extremety ED: Negative for edema or tenderness General Extremity: Negative for edema Neuro oriented x3, CN's II-XII intact bilaterally and no sensory deficits noted Neuro Narrative: There is no clonus or Babinski sign. There is no dysmetria. Gait was not tested. Sensorium / Orientation: alert Motor Exam: strength 5/5 throughout Psych mental status grossly normal Skin no rashes or lesions noted, no wounds and No skin turgor normal General Skin Exam: Negative for elasticity normal, jaundice or pallor <Dr. Saul Richardson MD - Last Filed: 06/26/23 07:45> Physical Exam Const Vital Signs: 06/26/23 04:52 06/26/23 05:11 06/26/23 07:00 Temperature 98.4 F Temperature Source Oral Pulse Rate 78 78 83 Respiratory Rate 16 19 H 16 Blood Pressure 178/106 H 175/110 H 155/107 H Blood Pressure Mean 130 131 123 Pulse Ox 92 100 98 Oxygen Delivery Method Room Air Nasal Cannula Room Air Oxygen Flow Rate (L/min) 2 MDM <Dr. Ryan Girard MD - Last Filed: 06/27/23 15:45> [facility] Narrative Medical decision making narrative: With complaint of severe headache that awoke her from sleep with low blood blood pressure need to obtain CT of the head to evaluate for intercranial bleed and specifically subarachnoid hemorrhage. Also need to rule out hypertensive bleed. Patient was medicated with Zofran for nausea and 2 mg of morphine for her head and chest pain. Because patient has known atherosclerotic heart disease and is complaining of chest pain troponin with 2-hour troponin was obtained. Because there is concern for intracranial bleed patient did not receive aspirin. Furthermore she is on anticoagulant. CBC was obtained to assess H&H and platelet count. BMP was obtained to assess electrolytes and renal function. History & Record Review Additional record(s) reviewed:: Prior inpatient record (Admission May 21 for syncope), Prior outpatient record (Now clinic for aspiration), Prior ED visit (Seen for hypertension) and Prior labs Lab Data Attestation: I reviewed the patient's lab results. Lab results narrative: CBC is remarkable for medicine for macrocytic anemia. Patient has history of macrocytic anemia. Values are unchanged from prior. Basic metabolic panel is remarked for creatinine of 1.61 with a GFR of 32. Glucose is 118 with normal CO2 and anion gap. First troponin is normal at 37. This is lower than prior. Labs: Laboratory Results - last 24 hr 06/26/23 06/26/23 05:02 07:00 WBC 5.8 RBC 3.49 L Hgb 11.1 L Hct 35.8 L MCV 102.6 H MCH 31.8 MCHC 31.0 L RDW Std Deviation 58.3 H RDW Coeff of Raul 15.8 H Plt Count 136 L MPV 9.5 Immature Gran % (Auto) 0.300 Neut % (Auto) 63.0 Lymph % (Auto) 25.5 Kings % (Auto) 6.9 Eos % (Auto) 3.1 Baso % (Auto) 1.2 H Absolute Neuts (auto) 3.7 Absolute Lymphs (auto) 1.48 Nucleated RBC % 0 Sodium 140 Potassium 3.7 Chloride 108 H Carbon Dioxide 27.0 Anion Gap 5 BUN 19 H Creatinine 1.61 H Estim Creat Clear Calc 17.88 Est GFR (MDRD) Af Amer 39 L Est GFR (MDRD) Non-Af 32 L BUN/Creatinine Ratio 11.8 Glucose 118 H Calcium 8.4 L Troponin I High Sens 37 35 Radiography Diagnostic Testing: Clinical Impression(s) from Imaging Studies Brain CT 06/26/23 04:58 IMPRESSION: 1. No acute intracranial abnormalities. 2. Age-related changes. Electronically Signed: Crow Lewis MD at 6:02 EST , CT of the head reveals chronic changes. There is no evidence of subarachnoid hemorrhage or intraparenchymal bleed. Awaiting formal read by radiologist, 0540. Rhythm Strip Rhythm Strip: Paced rhythm on the monitor with a rate of 60. EKG Initial EKG: Attestation: I personally reviewed and interpreted this EKG as follows: Interpretation: Sinus Rhythm (Rate is 79. There is evidence of first- degree heart block. There is decreased anterior force. There is flipped T waves in inferolateral leads. This is unchanged from prior. IN interval is 288 ms. QRS duration 124 ms. QT duration 418 ms. [place] is normal.) Comments: Prehospital EKG reveals a sinus rhythm rate of 78 with artifact as well as flipped T waves in the inferolateral leads. [place] was to the right but this may be because of the artifact. There is also evidence of LVH. Prior: Changed (Prior EKG revealed a paced rhythm with a rate of 60.) Treatment and Re-Evaluation :: Patient and family were in the room when I informed her of her CT findings per my review and laboratory studies. Patient's blood pressure had improved to 158/97 without treatment. She states her lower number has been high recently. Apparently, Dr. Dung Cerda is managing her blood pressure. I was informed at 0659 the patient is complaining of headache again. Will order additional dose of morphine since the initial dose was helpful. Comments:: Patient care was transferred to the morning physician. Plan is discharge to home if second troponin is normal and delta is less than threshold. <Dr. Saul Richardson MD - Last Filed: 06/26/23 07:45> MDM Lab Data Labs: Laboratory Results - last 24 hr 06/26/23 06/26/23 05:02 07:00 WBC 5.8 RBC 3.49 L Hgb 11.1 L Hct 35.8 L MCV 102.6 H MCH 31.8 MCHC 31.0 L RDW Std Deviation 58.3 H RDW Coeff of Raul 15.8 H Plt Count 136 L MPV 9.5 Immature Gran % (Auto) 0.300 Neut % (Auto) 63.0 Lymph % (Auto) 25.5 Kings % (Auto) 6.9 Eos % (Auto) 3.1 Baso % (Auto) 1.2 H Absolute Neuts (auto) 3.7 Absolute Lymphs (auto) 1.48 Nucleated RBC % 0 Sodium 140 Potassium 3.7 Chloride 108 H Carbon Dioxide 27.0 Anion Gap 5 BUN 19 H Creatinine 1.61 H Estim Creat Clear Calc 17.88 Est GFR (MDRD) Af Amer 39 L Est GFR (MDRD) Non-Af 32 L BUN/Creatinine Ratio 11.8 Glucose 118 H Calcium 8.4 L Troponin I High Sens 37 35 Radiography Diagnostic Testing: Clinical Impression(s) from Imaging Studies Brain CT 06/26/23 04:58 IMPRESSION: 1. No acute intracranial abnormalities. 2. Age-related changes. Electronically Signed: Crow Lewis MD at 6:02 EST , Treatment and Re-Evaluation Vital Sign Attestation:: Debra: Patient turned over to me. Her blood pressure is down to 155/107. She asked for a tramadol, or Dilaudid. Although tramadol is on the beers list, I am more comfortable giving that then Dilaudid to this 88-year-old, and she has tolerated tramadol in the past. She realizes that tramadol could reverse the effects of the morphine since she was given it several hours ago, but she would like it anyway which is fine. She has multiple family members here with her to watch her and take her home. Her second troponin came back lower than the initial measurement. She is having no new symptoms and is comfortable being discharged to follow-up with her doctor who has been altering her blood pressure medications. Discharge Plan Triage Chief Complaint: Headache ED Provider: Ryan Girard Dx/Rx/DC Orders Clinical Impression: Acute headache, Sick sinus syndrome, Other secondary pulmonary hypertension, HLD (hyperlipidemia), History of permanent cardiac pacemaker placement, Accelerated essential hypertension, Pressure in chest Instructions: ED Chest Pain, Uncertain Cause, ED Hypertension, Established Prescriptions: No Action rosuvastatin 10 mg tablet 10 mg PO QHS omeprazole 40 mg capsule,delayed release(DR/EC) 40 mg PO DAILY tramadol 50 mg tablet 50 mg PO BID PRN (Reason: PAIN ) Farxiga 10 mg tablet 10 mg PO DAILY ropinirole 2 mg tablet 2 mg PO QHS cholecalciferol (vitamin D3) 50 mcg (2,000 unit) tablet 2,000 unit PO DAILY hyoscyamine sulfate 0.125 mg tablet 0.125 - 0.25 mg PO TID PRN (Reason: IBS/SPASMS) levothyroxine 175 mcg tablet 175 mcg PO DAILY potassium chloride 10 mEq capsule, extended release 10 meq PO QODAY meclizine 25 mg tablet 25 mg PO TID PRN (Reason: DIZZINESS ) metoprolol succinate 50 mg tablet extended release 24 hr 50 mg PO BID propafenone 300 mg tablet 300 mg PO BID gabapentin 300 MG capsule 300 mg PO QHS levothyroxine 137 mcg tablet 137 mcg PO DAILY aspirin [Leandro Low Dose Aspirin] 81 mg tablet,delayed release (DR/EC) 81 mg PO DAILY albuterol sulfate 90 mcg/actuation HFA aerosol inhaler 2 puff INHALATION Q4H PRN (Reason: SHORTNESS OF BREATH/WHEEZING ) bcvjnolsns-hpwvwgvwgquks-wivl 50-325-40 mg tablet 1 tab PO BID PRN (Reason: MIGRAINES) isosorbide mononitrate 120 mg tablet extended release 24 hr 240 mg PO QAM furosemide 20 mg tablet 20 mg PO QODAY benazepril 40 mg tablet 50 mg PO TID Eliquis 2.5 mg tablet 2.5 mg PO BID Qty: 60 3RF hydralazine 50 mg tablet 50 mg PO TID Qty: 270 3RF Primary Care Provider: Suresh Coles Referrals: Dung Cerda MD [Med Staff - Active Staff] - 5-7 Days Suresh Coles MD [Primary Care Provider] - 1 Week Disposition Disposition: Home, Self Care Discharge Date/Time: 06/26/23 08:00
[2023-06-26 05:08] LABS: Absolute Lymphocyte Count 1.48 X10^3/uL (0.83-4.51); Absolute Neutrophil Count 3.7 X10^3/uL (2.0-7.7); Basophil# 0.07 X10^3/uL; Basophil% 1.2 % (0-1); Eosinophil# 0.18 X10^3/uL; Eosinophils% 3.1 % (0-5); Hematocrit 35.8 % (37-47); Hemoglobin 11.1 g/dL (12.0-15.0); Lymphocyte # 1.48 X10^3/ul (0.83-4.51); Lymphocyte % 25.5 % (19-41); Mean Corpuscular Hgb 31.8 pg (27.0-32.0); Mean Corpuscular Volume 102.6 fL (81-99); Mean Platelet Vol. 9.5 fl (6.2-12.0); Monocyte% 6.9 % (0-10); NRBC Flagged by Analyzer 0 % (0-5); Neutrophil # 3.66 X10^3/uL (2.7-7.7); Platelet Count 136 K/mm3 (150-450); RBC Distribution Width CV 15.8 % (11.6-14.6); RBC Distribution Width SD 58.3 fl (35.1-43.9); Red Blood Count 3.49 M/mm3 (4.2-5.4); White Blood Count 5.8 K/mm3 (4.4-11.0)
[2023-06-26 05:11] VITALS: BP 175/110; PULSE 78; RESP 19; O2SAT 100
[2023-06-26] MEDS: Ondansetron 4 MG/2 ML Vial IV (05:16)
[2023-06-26] MEDS: Morphine 2 MG/ML Syringe IV (05:16)
[2023-06-26 05:36] LABS: Anion Gap 5 (5-15); BUN 19 mg/dL (7-18); BUN/Creat Ratio 11.8 RATIO (10-20); Calcium,Total 8.4 mg/dL (8.5-10.1); Chloride 108 mmol/L (98-107); Creatinine, Serum 1.61 mg/dL (0.55-1.02); EST Glomerular Filtration Rate 32 mL/min (>60); Est Glom Filt Rate - Afr Amer 39 mL/min (>60); Estimated Creatinine Clearance 17.88 ml/min; Glucose 118 mg/dL (74-106); Potassium 3.7 mmol/L (3.5-5.1); Sodium Level 140 mmol/L (136-145); Troponin-I HS (w/2H Reflex) 37 pg/mL (3.0-54.0)
[2023-06-26 07:00] VITALS: BP 155/107; PULSE 83; RESP 16; O2SAT 98
[2023-06-26 07:05] LABS: Reflex Troponin-HS? (from REC) Y
[2023-06-26 07:25] LABS: Troponin-I HS 35 pg/mL (3.0-54.0)
[2023-06-26] MEDS: traMADol 50 MG Tablet PO (07:28)
== END 2023-06-26 08:00 | disposition home or self-care (01) ==
PROVIDERS: Emergency Provider Emergency Medicine; PCP Family Medicine; Visit Provider Emergency Medicine
DX: R51.9 Headache, unspecified (principal); I27.29 Other secondary pulmonary hypertension; I49.5 Sick sinus syndrome; R07.89 Other chest pain; E78.5 Hyperlipidemia, unspecified; I10 Essential (primary) hypertension; I25.10 Atherosclerotic heart disease of native coronary artery without angina pectoris; R26.89 Other abnormalities of gait and mobility; I25.2 Old myocardial infarction; Z79.899 Other long term (current) drug therapy; Z79.82 Long term (current) use of aspirin; Z86.73 Personal history of transient ischemic attack (TIA), and cerebral infarction without residual deficits; Z95.0 Presence of cardiac pacemaker
CPT/HCPCS: 70450; 80048; 84484; 85025; 93005; 96372; 96374; 96375; 99285; A4216; J2405

== ENCOUNTER 2023-06-26 11:41 | Inpatient (IN) | payer MEDICARE, SELFPAY ==
[2023-06-26] VITALS (51 sets, daily range): BP systolic 77–209; BP diastolic 39–127; PULSE 55–71; RESP 12–31; TEMP 36.3–38.8; O2SAT 84–100; BMI 18.8; BMI 21.4; BMI 19.6
--- NOTE | 2023-06-26 12:04 | RAD_ITS ---
STUDY: X-RAY CHEST REASON FOR EXAM: Female, 88 years old. Dyspnea . Possible aspiration. TECHNIQUE: Single AP portable view of the chest. COMPARISON: Comparison is made with prior study dated May 21, 2023. FINDINGS: EKG electrodes are seen. Small bilateral pleural effusions with bibasilar atelectasis and/or infiltrates. There is no demonstrated pleural abnormality. Normal size heart. Right-sided dual-chamber pacemaker. Normal mediastinum and lakisha. Normal visualized pulmonary arteries. There is atherosclerotic calcification of the aortic arch with tortuosity. Normal visualized thoracic spine. Normal visualized ribs, clavicles, and shoulders. There is no demonstrated abnormality of the visualized soft tissue structures of the upper abdomen. RAD/Chest 1 View (Portable) IMPRESSION: Small bilateral pleural effusions with bibasilar atelectasis and/or infiltrates worse on the right side. Electronically Signed: Clinton Alejandro MD at 12:44 EST ,
--- NOTE | 2023-06-26 12:05 | ED.VIS.DYS ---
HPI History of Present Illness Chief Complaint: Shortness of Breath Informant: patient, family and EMS Narrative Narrative: 88-year-old female presenting to the emergency room with respiratory distress. She is accompanied by her family who provides the history. About 1 month ago was treated for an aspiration pneumonia. She did well and recovered. She had a follow-up swallow study which she passed but was told not to use straws. She has continued to have a cough. She was seen in the emergency department last night for hypertension and headache. She was discharged home and arrived home around 0830 hrs. this morning. Family states that she took a drink and began to cough more. She had some Tessalon leftover from the aspiration pneumonia and try to take that but made her cough even more. EMS was called and they noted that she was 80%. They placed her on BiPAP and brought her to emergency. Patient has a living will that states no extraordinary measures. In discussion with her 2 children this would mean CPR and long-term ventilation. He states that she would be open to short-term ventilation if need to be but would not want to live that way. Patient has a history of atrial fibrillation and sick sinus syndrome and has a cardiac pacemaker. She has history of pulmonary hypertension as well as essential hypertension. She takes apixaban 2.5 mg twice a day. [facility] Medical History Anemia Atrial fibrillation Borderline hypothyroidism DVT (deep venous thrombosis) Essential (primary) hypertension GERD (gastroesophageal reflux disease) History of hypothyroidism HLD (hyperlipidemia) Irregular heart beat Ischemic colitis Kidney disease Migraines Nonobstructive atherosclerosis of coronary artery Nonrheumatic mitral (valve) prolapse Old myocardial infarction Other secondary pulmonary hypertension Paroxysmal atrial fibrillation Sick sinus syndrome TIA (transient ischemic attack) Transient cerebral ischemic attack, unspecified Troponin I above reference range Home Medications gabapentin 300 mg capsule 300 mg PO QHS NERVE PAIN 03/21/15 [History Last Taken 06/25/23] omeprazole 40 mg capsule,delayed release 40 mg PO DAILY ACID REFLUX 07/05/19 [History Last Taken 06/26/23] rosuvastatin 10 mg tablet 10 mg PO QHS CHOLESTEROL 07/05/19 [History Last Taken 06/25/23] tramadol 50 mg tablet 50 mg PO BID PRN PAIN 09/23/21 [History Last Taken Unknown] cholecalciferol (vitamin D3) 50 mcg (2,000 unit) tablet 2,000 unit PO DAILY SUPPLEMENT 12/10/21 [History Last Taken 06/26/23] hyoscyamine sulfate 0.125 mg tablet 0.125 - 0.25 mg PO TID PRN IBS/SPASMS 12/10/21 [History Last Taken Unknown] dapagliflozin propanediol 10 mg tablet (Farxiga) 10 mg PO DAILY BLOOD SUGARS 04/01/22 [History Last Taken 06/26/23] ropinirole 2 mg tablet 2 mg PO QHS RESTLESS LEG SYNDROME 04/01/22 [History Last Taken 06/25/23] levothyroxine 175 mcg tablet 175 mcg PO DAILY THYROID 09/23/22 [History Last Taken Unknown] meclizine 25 mg tablet 25 mg PO TID PRN DIZZINESS 09/23/22 [History Last Taken Unknown] potassium chloride 10 mEq capsule,extended release 10 meq PO QODAY SUPPLEMENT 09/23/22 [History Last Taken 06/26/23] apixaban 2.5 mg tablet (Eliquis) 2.5 mg PO BID BLOOD THINNER #60 tabs 02/25/23 [Rx Last Taken 06/26/23] metoprolol succinate 50 mg tablet,extended release 24 hr 50 mg PO BID BLOOD PRESSURE 04/10/23 [History Last Taken 06/26/23] propafenone 300 mg tablet 300 mg PO BID AFIB 04/10/23 [History Last Taken 06/26/23] albuterol sulfate 90 mcg/actuation aerosol inhaler 2 puff inhalation Q4H PRN SHORTNESS OF BREATH/WHEEZING 05/21/23 [History Last Taken 05/21/23] hydralazine 50 mg tablet 50 mg PO TID BLOOD PRESSURE #270 tabs 06/25/23 [Rx Last Taken 06/26/23] aspirin 81 mg tablet,delayed release (Leandro Low Dose Aspirin) 81 mg PO DAILY HEART HEALTH 06/26/23 [History Last Taken 06/26/23] benazepril 40 mg tablet 50 mg PO TID BLOOD PRESSURE 06/26/23 [History Last Taken 06/26/23] miczjgpxbd-blgwqfkaemowa-chabpbqv 50 mg-325 mg-40 mg tablet 1 tab PO BID PRN MIGRAINES 06/26/23 [History Last Taken Unknown] furosemide 20 mg tablet 20 mg PO QODAY EDEMA 06/26/23 [History Last Taken 06/26/23] isosorbide mononitrate 120 mg tablet,extended release 24 hr 240 mg PO QAM CHEST PAIN 06/26/23 [History Last Taken 06/26/23] levothyroxine 137 mcg tablet 137 mcg PO DAILY THYROID 06/26/23 [History Last Taken 06/26/23] Allergy/AdvReac Type Severity Reaction Status Date / Time amiodarone Allergy Rash Verified 06/26/23 12:05 clarithromycin Allergy sore throat Verified 06/26/23 12:05 dicyclomine [From Bentyl] Allergy Unknown Verified 06/26/23 12:05 doxycycline Allergy Unknown Verified 06/26/23 12:05 erythromycin base Allergy Unknown Verified 06/26/23 12:05 nitrofurantoin Allergy Rash Verified 06/26/23 12:05 Penicillins Allergy Unknown Verified 06/26/23 12:05 prochlorperazine Allergy Unknown Verified 06/26/23 12:05 [From Compazine] promethazine HCl Allergy Unknown Verified 06/26/23 12:05 [From Phenergan] quinidine Allergy ineffective Verified 06/26/23 12:05 simvastatin Allergy myalgias Verified 06/26/23 12:05 sotalol Allergy GI upset Verified 06/26/23 12:05 Sulfa (Sulfonamide Allergy Unknown Verified 06/26/23 12:05 Antibiotics) valsartan [From Diovan] Allergy Nausea Verified 06/26/23 12:05 amlodipine AdvReac Intermediate swelling Verified 06/26/23 12:05 of face, hands, feet and legs ciprofloxacin HCl AdvReac Nausea/Vom/ Verified 06/26/23 12:05 [From Cipro] Diarrhea flecainide AdvReac ineffective Verified 06/26/23 12:05 morphine AdvReac Nausea/Vom/ Verified 06/26/23 12:05 Diarrhea Family History Mother Hypertension Atrial fibrillation Brother , age 50 Myocardial infarction, Onset Age: 50 Heart disease Surgical History History of appendectomy History of left heart catheterization (LHC) (07/01/12) History of left hip replacement (04/2020) History of permanent cardiac pacemaker placement (06/2012) Status post partial colectomy Social History household members: none Smoking Status: Never smoker alcohol intake: never substance use type: does not use what type of physical activity do you participate in: none ROS ROS ED ROS Narrative Review of systems and history obtained from family Constitutional Constitutional ED: Denies chills, fever(s) or weight loss Eyes Eyes: Denies change in vision or diplopia ENT ENT ED: Denies ear pain, rhinorrhea or sore throat Cardiovascular Cardiovascular: Denies chest pain, orthopnea, palpitations or racing heartbeat Respiratory/Chest Respiratory/Chest: Reports cough and dyspnea; Denies orthopnea Gastrointestinal Gastrointestinal: Denies abdominal pain, diarrhea, nausea or vomiting Genitourinary Genitourinary ED: Denies dysuria, hematuria or urinary frequency Musculoskeletal Musculoskeletal: Denies arthralgias or myalgias Integumentary Denies abscess or rash Neurologic Neurologic: Reports headache(s); Denies weakness Psychiatric Psychiatric: Denies anxiety, depression, suicidal ideation or suicidal thoughts Endocrine Endocrinology: Denies polydipsia, polyphagia or polyuria Allergic/Immunologic Allergic/Immunologic ED: Denies mouth swelling, tongue swelling or urticaria EXAM Physical Exam Narrative Exam Narrative: Patient is coughing. She appears significantly dyspneic using accessory muscles. Const Vital Signs: 06/26/23 11:44 06/26/23 11:59 06/26/23 11:59 Temperature 97.6 F L Temperature Source Temporal Pulse Rate 64 61 Respiratory Rate 22 H 18 Respiratory Effort Short of Breath Labored Accessory Muscle Use Retracting Respiratory Pattern Irregular Blood Pressure 179/97 H 179/97 H Blood Pressure Mean 124 124 Pulse Ox 84 91 Oxygen Delivery Method Room Air Bi-pap Bi-pap Fraction of Inspired Oxygen (FIO2) 06/26/23 12:03 06/26/23 12:06 06/26/23 13:10 Temperature 97.6 F L Temperature Source Temporal Pulse Rate 60 60 60 Respiratory Rate 20 H 31 H Respiratory Effort Respiratory Pattern Tachypnea Blood Pressure 179/79 H 200/78 H Blood Pressure Mean 112 118 Pulse Ox 96 97 Oxygen Delivery Method Bi-pap Fraction of Inspired Oxygen (FIO2) 50 06/26/23 12:41 06/26/23 13:00 06/26/23 13:17 Temperature 97.3 F L Temperature Source Temporal Pulse Rate 60 60 60 Respiratory Rate 15 15 15 Respiratory Effort Respiratory Pattern Blood Pressure 200/78 H 169/98 H 169/98 H Blood Pressure Mean 118 121 121 Pulse Ox 99 99 99 Oxygen Delivery Method Bi-pap Bi-pap Bi-pap Fraction of Inspired Oxygen (FIO2) 06/26/23 13:37 06/26/23 14:09 06/26/23 14:17 Temperature Temperature Source Pulse Rate 60 60 Respiratory Rate 18 Respiratory Effort Respiratory Pattern Blood Pressure 176/97 H 209/114 H 195/96 H Blood Pressure Mean 123 145 129 Pulse Ox 100 Oxygen Delivery Method Mechanical Ventilator Fraction of Inspired Oxygen (FIO2) 06/26/23 14:24 06/26/23 14:40 06/26/23 14:45 Temperature Temperature Source Pulse Rate 60 60 55 L Respiratory Rate Respiratory Effort Respiratory Pattern Blood Pressure 172/91 H 164/101 H 161/85 H Blood Pressure Mean 118 122 110 Pulse Ox Oxygen Delivery Method Fraction of Inspired Oxygen (FIO2) 06/26/23 14:12 06/26/23 14:17 06/26/23 14:49 Temperature Temperature Source Pulse Rate 60 55 L Respiratory Rate 20 H 16 Respiratory Effort Respiratory Pattern Normal Blood Pressure 182/85 H Blood Pressure Mean 117 Pulse Ox 95 94 Oxygen Delivery Method Fraction of Inspired Oxygen (FIO2) 30 50 Positive well nourished and well developed General Appearance ED: well developed HEENT Reports normocephalic, head/scalp atraumatic and moist mucous membranes Eyes PERRL and EOMs intact bilaterally Neck no lymphadenopathy, supple and no JVD Resp Resp Narrative: Patient is tachypneic with accessory muscles use. Auscultation: rales and diminished lung sounds Cardio regular rate, regular rhythm and no murmurs GI normal to inspection, nondistended, normoactive bowel sounds and non-tender Palpation: soft Back/Spine no CVA tenderness and normal ROM Extremity normal to inspection General Extremety ED: Negative for edema General Extremity: Negative for edema Neuro oriented x3 and CN's II-XII intact bilaterally Sensorium / Orientation: alert Motor Exam: strength 5/5 throughout Psych mental status grossly normal Mood & Affect: Negative for depressed or tearful Skin no rashes or lesions noted and no wounds MDM MDM MDM Narrative Medical decision making narrative: Patient was placed on BiPAP. White count returns at 7 hemoglobin 11.3. Lactic acid elevated 3.9 with a glucose of 190. Creatinine 1.6. INR 1.4. Troponin was 44. Beta natruretic peptide at 1583. My independent interpretation of the chest x-ray is bilateral small pleural effusions with pulmonary edema. The patient was placed on BiPAP. Patient was unable to stop coughing and catch her breath. Blood pressures continue to remain high. Nitroglycerin was ordered to help reduce preload. This was not successful. The patient became increasingly tired. I spoke with the family several times regarding possible intubation. Decision was mutually agreed upon for intubation. She received etomidate succinylcholine and a 7.5 endotracheal tube was passed in the first attempt without any difficulty. Secured at 22 cm. OG tube was placed and Leal catheter placed. Postintubation films show the endotracheal tube now at the nellie and is were pulled back. She received 80 mg of Lasix. Propofol and fentanyl drip placed for sedation. The elevated lactic acid I believe is due to the increased work of breathing and hypoxia rather than some overt sepsis at this time. Given the fact that she is in pulmonary edema and already on the ventilator I do not think we should necessarily be aggressive with fluid hydration. Patient is anticoagulated with Eliquis. I doubt that this is pulmonary embolism. Repeat troponin will be ordered. So far no evidence of ACS. I think this is most likely acute pulmonary edema possibly secondary to hypertensive urgency. History & Record Review Discussion w/independent historian: EMS personnel, Patient and Family Additional record(s) reviewed:: Prior ED visit and Prior labs Lab Data Attestation: I reviewed the patient's lab results. Labs: Laboratory Results - last 24 hr 06/26/23 06/26/23 12:00 12:12 WBC 7.0 RBC 3.52 L Hgb 11.3 L Hct 37.0 MCV 105.1 H MCH 32.1 H MCHC 30.5 L RDW Std Deviation 60.8 H RDW Coeff of Raul 15.9 H Plt Count 170 MPV 10.0 Immature Gran % (Auto) 0.400 Neut % (Auto) 60.8 Lymph % (Auto) 30.0 [place] % (Auto) 5.4 Eos % (Auto) 2.1 Baso % (Auto) 1.3 H Absolute Neuts (auto) 4.2 Absolute Lymphs (auto) 2.10 Nucleated RBC % 0 PT 16.8 H INR 1.4 APTT 32.4 Sodium 139 Potassium 4.3 Chloride 106 Carbon Dioxide 25.0 Anion Gap 8 BUN 18 Creatinine 1.60 H Estim Creat Clear Calc 17.99 Est GFR (MDRD) Af Amer 39 L Est GFR (MDRD) Non-Af 32 L BUN/Creatinine Ratio 11.2 Glucose 190 H Lactic Acid 3.9 H* Calcium 8.4 L Total Bilirubin 0.90 AST 58 H ALT 48 Alkaline Phosphatase 56 Troponin I High Sens 44 B-Natriuretic Peptide 1536.3 H Total Protein 6.7 Albumin 3.6 Globulin 3.1 Albumin/Globulin Ratio 1.2 Radiography Diagnostic Testing: Clinical Impression(s) from Imaging Studies Chest X-Ray 06/26/23 12:04 IMPRESSION: Small bilateral pleural effusions with bibasilar atelectasis and/or infiltrates worse on the right side. Electronically Signed: Clinton Alejandro MD at 12:44 EST , Chest X-Ray 06/26/23 14:18 IMPRESSION: The tip of the endotracheal tube is at the origin of the right mainstem bronchus. It should be pulled back approximately 3.7 cm. Bilateral pleural effusions with bibasilar atelectasis and/or infiltrate worsened left lung base with superimposed CHF. 2.7 cm nodular density in the left upper lobe. Electronically Signed: Clinton Alejandro MD at 14:35 EST , EKG Initial EKG: Attestation: I personally reviewed and interpreted this EKG as follows: Comments: Atrial Paced Ventricular rate of 61 bpm Differential Diagnosis Chest pain/SOB: pulmonary embolism, ACS, pneumothorax, pneumonia, aortic dissection and CHF Management Discussion w/another healthcare provider: Hospitalist Critical Care Time Critical Care Time: Yes Critical care time (excluding procedures): 30-74 minutes (34 min), Including time spent:, Discussing w/Patient &/or Family/Bpo Specialist, Discussing w/Consultants, Arranging Admission or Transfer and Performing Direct Patient Care at Bedside Discharge Plan Triage Chief Complaint: Shortness of Breath ED Provider: Clayton Hernandez Dx/Rx/DC Orders Prescriptions: No Action rosuvastatin 10 mg tablet 10 mg PO QHS omeprazole 40 mg capsule,delayed release(DR/EC) 40 mg PO DAILY tramadol 50 mg tablet 50 mg PO BID PRN (Reason: PAIN ) Farxiga 10 mg tablet 10 mg PO DAILY ropinirole 2 mg tablet 2 mg PO QHS cholecalciferol (vitamin D3) 50 mcg (2,000 unit) tablet 2,000 unit PO DAILY hyoscyamine sulfate 0.125 mg tablet 0.125 - 0.25 mg PO TID PRN (Reason: IBS/SPASMS) levothyroxine 175 mcg tablet 175 mcg PO DAILY potassium chloride 10 mEq capsule, extended release 10 meq PO QODAY meclizine 25 mg tablet 25 mg PO TID PRN (Reason: DIZZINESS ) metoprolol succinate 50 mg tablet extended release 24 hr 50 mg PO BID propafenone 300 mg tablet 300 mg PO BID gabapentin 300 MG capsule 300 mg PO QHS levothyroxine 137 mcg tablet 137 mcg PO DAILY aspirin [Leandro Low Dose Aspirin] 81 mg tablet,delayed release (DR/EC) 81 mg PO DAILY albuterol sulfate 90 mcg/actuation HFA aerosol inhaler 2 puff INHALATION Q4H PRN (Reason: SHORTNESS OF BREATH/WHEEZING ) xraphzfcgn-pqxgagibjpigl-xfme 50-325-40 mg tablet 1 tab PO BID PRN (Reason: MIGRAINES) isosorbide mononitrate 120 mg tablet extended release 24 hr 240 mg PO QAM furosemide 20 mg tablet 20 mg PO QODAY benazepril 40 mg tablet 50 mg PO TID Eliquis 2.5 mg tablet 2.5 mg PO BID Qty: 60 3RF hydralazine 50 mg tablet 50 mg PO TID Qty: 270 3RF Primary Care Provider: Suresh Coles Referrals: Suresh Coles MD [Primary Care Provider] -
[2023-06-26 12:26] LABS: International Normalized Ratio 1.4; Prothrombin Time (Protime)PT. 16.8 SECONDS (11.7-14.9)
[2023-06-26 12:27] LABS: Partial Thromboplast Time 32.4 Seconds (24.1-36.2)
[2023-06-26 12:31] LABS: Absolute Neutrophil Count 4.2 X10^3/uL (2.0-7.7); Basophil# 0.09 X10^3/uL; Basophil% 1.3 % (0-1); Eosinophil# 0.15 X10^3/uL; Eosinophils% 2.1 % (0-5); Hemoglobin 11.3 g/dL (12.0-15.0); Mean Corp Hgb Conc 30.5 g/dL (32-36); Mean Corpuscular Hgb 32.1 pg (27.0-32.0); Mean Corpuscular Volume 105.1 fL (81-99); Monocyte# 0.38 X10^3/uL; Monocyte% 5.4 % (0-10); NRBC Flagged by Analyzer 0 % (0-5); Neutrophil # 4.24 X10^3/uL (2.7-7.7); Neutrophil % 60.8 % (47-70); Platelet Count 170 K/mm3 (150-450); RBC Distribution Width CV 15.9 % (11.6-14.6); RBC Distribution Width SD 60.8 fl (35.1-43.9); Red Blood Count 3.52 M/mm3 (4.2-5.4)
[2023-06-26 12:37] LABS: ALB/GLOB Ratio 1.2 RATIO (0.9-2.4); AST(SGOT) 58 U/L (15-37); Alanine Aminotransfer ALT/SGPT 48 U/L (13-56); Albumin, Serum 3.6 g/dL (3.2-5.0); Alkaline Phosphatase 56 U/L (45-117); Anion Gap 8 (5-15); BUN 18 mg/dL (7-18); BUN/Creat Ratio 11.2 RATIO (10-20); Calcium,Total 8.4 mg/dL (8.5-10.1); Chloride 106 mmol/L (98-107); EST Glomerular Filtration Rate 32 mL/min (>60); Est Glom Filt Rate - Afr Amer 39 mL/min (>60); Estimated Creatinine Clearance 17.99 ml/min; Globulin 3.1 g/dL (2.2-4.2); Glucose 190 mg/dL (74-106); Potassium 4.3 mmol/L (3.5-5.1); Protein, Total 6.7 g/dL (6.4-8.2); Sodium Level 139 mmol/L (136-145); Troponin-I HS 44 pg/mL (3.0-54.0)
[2023-06-26 12:55] LABS: BNP,B-Type NATRIURETIC PEPTIDE 1536.3 pg/mL (0-100)
[2023-06-26 12:59] LABS: Lactic Acid 3.9 mmol/L (0.4-1.9)
[2023-06-26] MEDS: Nitroglycerin Infusion 250 ML 3 MG CONT INF (13:10)
[2023-06-26] MEDS: Etomidate 20 MG/10 ML Vial 15 MG IV (14:02)
[2023-06-26] MEDS: Propofol 10MG/Ml 1,000 MG/100 ML Bottle 3.1 MG CONT INF (14:05)
--- NOTE | 2023-06-26 14:18 | RAD_ITS ---
STUDY: X-RAY CHEST REASON FOR EXAM: Female, 88 years old. TUBE PLACEMENT TECHNIQUE: Single AP portable view of the chest. COMPARISON: Comparison is made with prior study done earlier today. FINDINGS: The tip of the endotracheal tube is at the origin of the right mainstem bronchus. It should be withdrawn 3.7 cm. An orogastric tube is seen with the tip in the body of the stomach. EKG electrodes are seen. Bilateral pleural effusions right greater than left with bibasilar atelectasis worse on the left side. Superimposed CHF. Findings suggestive of a 2.7 cm density in the left lung apex. Normal size heart. Normal mediastinum and lakisha. Normal visualized pulmonary arteries. There is atherosclerotic calcification of the aortic arch with tortuosity. Normal visualized thoracic spine. Normal visualized ribs, clavicles, and shoulders. There is no demonstrated abnormality of the visualized soft tissue structures of the upper abdomen. RAD/Chest 1 View IMPRESSION: The tip of the endotracheal tube is at the origin of the right mainstem bronchus. It should be pulled back approximately 3.7 cm. Bilateral pleural effusions with bibasilar atelectasis and/or infiltrate worsened left lung base with superimposed CHF. 2.7 cm nodular density in the left upper lobe. Electronically Signed: Clinton Alejandro MD at 14:35 EST ,
[2023-06-26] MEDS: Succinylcholine Chloride 200 MG/10 ML Vial 50 MG IV (14:30)
[2023-06-26] MEDS: fentaNYL drip 100 ML 2.5 MCG CONT INF (14:40)
[2023-06-26 14:55] LABS: Allen Test Positive; Base Excess -1 mmol/L (-2 to +2); Bicarbonate 23.9 mmol/L (22-26); Blood Gas Specimen Type ART; Mode AC; O2 Delivery Device Adult Vent; PEEP 8; PO2 59 mmHG (75-100); RR 18; SITE L Radial; SO2 90 % (95-99); Total Carbon Dioxide 25 mmol/L; pCO2 39.2 mmHg (35-45); pH 7.39 (7.35-7.45)
--- NOTE | 2023-06-26 14:55 | NURSING ---
ICU [facility] PULMONARY EDEMA, RESP FAILURE
--- NOTE | 2023-06-26 15:07 | PCM.HP.STD ---
HPI - General General Date of Admission: 06/26/23 HPI Narrative LAVINIA FRENCH, is a 88 F who presents to the hospital shortness of breath respiratory distress. She was recently in the ER early this morning around 5 AM secondary to hypertensive urgency and headaches. She was discharged home and when she got home she was breathing fine until she tried to drink some water where she aspirated and then she was having a coughing fit so she was given some cough syrup which she also aspirated at which point she developed labored breathing and family brought her back to the ER. During my evaluation she was intubated so history was obtained from discussion with the ED physician and family. Her biggest medical issue currently is her uncontrolled hypertension that is highly variable she will be 200 systolic some part of the day and then she will be 70 systolic on other parts of the day. She is also developed kidney disease that they have not seen anyone for yet. No fevers, or leukocytosis at the moment but she has had issues in the past with aspiration and she had a swallowing evaluation that indicated she should not drink liquids through a straw. She is currently intubated with an OG in place and a Leal. [facility] Medical History Anemia Atrial fibrillation Borderline hypothyroidism DVT (deep venous thrombosis) Essential (primary) hypertension GERD (gastroesophageal reflux disease) History of hypothyroidism HLD (hyperlipidemia) Irregular heart beat Ischemic colitis Kidney disease Migraines Nonobstructive atherosclerosis of coronary artery Nonrheumatic mitral (valve) prolapse Old myocardial infarction Other secondary pulmonary hypertension Paroxysmal atrial fibrillation Sick sinus syndrome TIA (transient ischemic attack) Transient cerebral ischemic attack, unspecified Troponin I above reference range Home Medications gabapentin 300 mg capsule 300 mg PO QHS NERVE PAIN 03/21/15 [History Last Taken 06/25/23] omeprazole 40 mg capsule,delayed release 40 mg PO DAILY ACID REFLUX 07/05/19 [History Last Taken 06/26/23] rosuvastatin 10 mg tablet 10 mg PO QHS CHOLESTEROL 07/05/19 [History Last Taken 06/25/23] tramadol 50 mg tablet 50 mg PO BID PRN PAIN 09/23/21 [History Last Taken Unknown] cholecalciferol (vitamin D3) 50 mcg (2,000 unit) tablet 2,000 unit PO DAILY SUPPLEMENT 12/10/21 [History Last Taken 06/26/23] hyoscyamine sulfate 0.125 mg tablet 0.125 - 0.25 mg PO TID PRN IBS/SPASMS 12/10/21 [History Last Taken Unknown] dapagliflozin propanediol 10 mg tablet (Maureenga) 10 mg PO DAILY BLOOD SUGARS 04/01/22 [History Last Taken 06/26/23] ropinirole 2 mg tablet 2 mg PO QHS RESTLESS LEG SYNDROME 04/01/22 [History Last Taken 06/25/23] levothyroxine 175 mcg tablet 175 mcg PO DAILY THYROID 09/23/22 [History Last Taken Unknown] meclizine 25 mg tablet 25 mg PO TID PRN DIZZINESS 09/23/22 [History Last Taken Unknown] potassium chloride 10 mEq capsule,extended release 10 meq PO QODAY SUPPLEMENT 09/23/22 [History Last Taken 06/26/23] apixaban 2.5 mg tablet (Eliquis) 2.5 mg PO BID BLOOD THINNER #60 tabs 02/25/23 [Rx Last Taken 06/26/23] metoprolol succinate 50 mg tablet,extended release 24 hr 50 mg PO BID BLOOD PRESSURE 04/10/23 [History Last Taken 06/26/23] propafenone 300 mg tablet 300 mg PO BID AFIB 04/10/23 [History Last Taken 06/26/23] albuterol sulfate 90 mcg/actuation aerosol inhaler 2 puff inhalation Q4H PRN SHORTNESS OF BREATH/WHEEZING 05/21/23 [History Last Taken 05/21/23] hydralazine 50 mg tablet 50 mg PO TID BLOOD PRESSURE #270 tabs 06/25/23 [Rx Last Taken 06/26/23] aspirin 81 mg tablet,delayed release (Leandro Low Dose Aspirin) 81 mg PO DAILY HEART HEALTH 06/26/23 [History Last Taken 06/26/23] benazepril 40 mg tablet 50 mg PO TID BLOOD PRESSURE 06/26/23 [History Last Taken 06/26/23] eqhjegomuc-dkdmkvylzodgp-bsiqqhiu 50 mg-325 mg-40 mg tablet 1 tab PO BID PRN MIGRAINES 06/26/23 [History Last Taken Unknown] furosemide 20 mg tablet 20 mg PO QODAY EDEMA 06/26/23 [History Last Taken 06/26/23] isosorbide mononitrate 120 mg tablet,extended release 24 hr 240 mg PO QAM CHEST PAIN 06/26/23 [History Last Taken 06/26/23] levothyroxine 137 mcg tablet 137 mcg PO DAILY THYROID 06/26/23 [History Last Taken 06/26/23] Allergy/AdvReac Type Severity Reaction Status Date / Time amiodarone Allergy Rash Verified 06/26/23 12:05 clarithromycin Allergy sore throat Verified 06/26/23 12:05 dicyclomine [From Bentyl] Allergy Unknown Verified 06/26/23 12:05 doxycycline Allergy Unknown Verified 06/26/23 12:05 erythromycin base Allergy Unknown Verified 06/26/23 12:05 nitrofurantoin Allergy Rash Verified 06/26/23 12:05 Penicillins Allergy Unknown Verified 06/26/23 12:05 prochlorperazine Allergy Unknown Verified 06/26/23 12:05 [From Compazine] promethazine HCl Allergy Unknown Verified 06/26/23 12:05 [From Phenergan] quinidine Allergy ineffective Verified 06/26/23 12:05 simvastatin Allergy myalgias Verified 06/26/23 12:05 sotalol Allergy GI upset Verified 06/26/23 12:05 Sulfa (Sulfonamide Allergy Unknown Verified 06/26/23 12:05 Antibiotics) valsartan [From Diovan] Allergy Nausea Verified 06/26/23 12:05 amlodipine AdvReac Intermediate swelling Verified 06/26/23 12:05 of face, hands, feet and legs ciprofloxacin HCl AdvReac Nausea/Vom/ Verified 06/26/23 12:05 [From Cipro] Diarrhea flecainide AdvReac ineffective Verified 06/26/23 12:05 morphine AdvReac Nausea/Vom/ Verified 06/26/23 12:05 Diarrhea Family History Mother Hypertension Atrial fibrillation Brother , age 50 Myocardial infarction, Onset Age: 50 Heart disease Surgical History History of appendectomy History of left heart catheterization (LHC) (07/01/12) History of left hip replacement (04/2020) History of permanent cardiac pacemaker placement (06/2012) Status post partial colectomy Social History household members: none Smoking Status: Never smoker alcohol intake: never substance use type: does not use what type of physical activity do you participate in: none ROS Review of Systems ROS Unobtainable: due to endotracheal tube Vital Signs Vital Signs Vital Signs: 06/26/23 11:44 06/26/23 11:59 06/26/23 11:59 Temperature 97.6 F L Temperature Source Temporal Pulse Rate 64 61 Respiratory Rate 22 H 18 Respiratory Effort Short of Breath Labored Accessory Muscle Use Retracting Respiratory Pattern Irregular Blood Pressure 179/97 H 179/97 H Blood Pressure Mean 124 124 Pulse Ox 84 91 Oxygen Delivery Method Room Air Bi-pap Bi-pap Fraction of Inspired Oxygen (FIO2) 06/26/23 12:03 06/26/23 12:06 06/26/23 13:10 Temperature 97.6 F L Temperature Source Temporal Pulse Rate 60 60 60 Respiratory Rate 20 H 31 H Respiratory Effort Respiratory Pattern Tachypnea Blood Pressure 179/79 H 200/78 H Blood Pressure Mean 112 118 Pulse Ox 96 97 Oxygen Delivery Method Bi-pap Fraction of Inspired Oxygen (FIO2) 50 06/26/23 12:41 06/26/23 13:00 06/26/23 13:17 Temperature 97.3 F L Temperature Source Temporal Pulse Rate 60 60 60 Respiratory Rate 15 15 15 Respiratory Effort Respiratory Pattern Blood Pressure 200/78 H 169/98 H 169/98 H Blood Pressure Mean 118 121 121 Pulse Ox 99 99 99 Oxygen Delivery Method Bi-pap Bi-pap Bi-pap Fraction of Inspired Oxygen (FIO2) 06/26/23 13:37 06/26/23 14:09 06/26/23 14:17 Temperature Temperature Source Pulse Rate 60 60 Respiratory Rate 18 Respiratory Effort Respiratory Pattern Blood Pressure 176/97 H 209/114 H 195/96 H Blood Pressure Mean 123 145 129 Pulse Ox 100 Oxygen Delivery Method Mechanical Ventilator Fraction of Inspired Oxygen (FIO2) 06/26/23 14:24 06/26/23 14:40 06/26/23 14:45 Temperature Temperature Source Pulse Rate 60 60 55 L Respiratory Rate Respiratory Effort Respiratory Pattern Blood Pressure 172/91 H 164/101 H 161/85 H Blood Pressure Mean 118 122 110 Pulse Ox Oxygen Delivery Method Fraction of Inspired Oxygen (FIO2) 06/26/23 14:12 06/26/23 14:17 06/26/23 14:49 Temperature Temperature Source Pulse Rate 60 55 L Respiratory Rate 20 H 16 Respiratory Effort Respiratory Pattern Normal Blood Pressure 182/85 H Blood Pressure Mean 117 Pulse Ox 95 94 Oxygen Delivery Method Fraction of Inspired Oxygen (FIO2) 30 50 06/26/23 14:59 06/26/23 15:00 Temperature Temperature Source Pulse Rate 60 Respiratory Rate 18 Respiratory Effort Respiratory Pattern Blood Pressure 178/83 H 174/82 H Blood Pressure Mean 114 112 Pulse Ox 98 Oxygen Delivery Method Mechanical Ventilator Fraction of Inspired Oxygen (FIO2) 60 Weight Weight: 113 lb 12.136 oz Body Mass Index (BMI) 21.4 Physical Exam Const General Appearance: intubated and patient mechanically ventilated HEENT normocephalic Eyes PERRL and conjunctivae normal Neck supple and no JVD Resp normal respiratory effort, no retractions and no use of accessory muscles Auscultation: Negative for crackles, rales, rhonchi or wheezes Cardio regular rate, regular rhythm, S1 normal heart sound, S2 normal heart sound and no murmurs GI soft to palpation and non-distended; Negative for hepatosplenomegaly Extremity no clubbing, cyanosis or edema Skin no rashes or lesions noted Skin Narrative: Chronic venous stasis changes Neuro Sensorium / Orientation: sedated on vent Psych Appearance: intubated Results Lab / Micro Data 06/26/23 12:00 06/26/23 12:00 Labs: Laboratory Results - last 24 hr 06/26/23 12:00: WBC 7.0, RBC 3.52 L, Hgb 11.3 L, Hct 37.0, MCV 105.1 H, MCH 32.1 H, MCHC 30.5 L, RDW Std Deviation 60.8 H, RDW Coeff of Raul 15.9 H, Plt Count 170, MPV 10.0, Immature Gran % (Auto) 0.400, Neut % (Auto) 60.8, Lymph % (Auto) 30.0, Dubois % (Auto) 5.4, Eos % (Auto) 2.1, Baso % (Auto) 1.3 H, Absolute Neuts (auto) 4.2, Absolute Lymphs (auto) 2.10, Nucleated RBC % 0, PT 16.8 H, INR 1.4, APTT 32.4, Sodium 139, Potassium 4.3, Chloride 106, Carbon Dioxide 25.0, Anion Gap 8, BUN 18, Creatinine 1.60 H, Estim Creat Clear Calc 17.99, Est GFR (MDRD) Af Amer 39 L, Est GFR (MDRD) Non-Af 32 L, BUN/Creatinine Ratio 11.2, Glucose 190 H, Calcium 8.4 L, Total Bilirubin 0.90, AST 58 H, ALT 48, Alkaline Phosphatase 56, Troponin I High Sens 44, B-Natriuretic Peptide 1536.3 H, Total Protein 6.7, Albumin 3.6, Globulin 3.1, Albumin/Globulin Ratio 1.2 06/26/23 12:12: Lactic Acid 3.9 H* ABG Data ABG results: ABG 06/26/23 14:51 Specimen Type ART Sample Site L Radial pH 7.39 Bicarbonate Actual 23.9 Total CO2 25 Base Excess -1 O2 Saturation 90 L O2 % 50.0 ABG pCO2 39.2 ABG pO2 59 L Michael Test Positive Respiration Rate 18 O2 Delivery Device Adult Vent Vent Mode AC Tidal Volume 380.0 POC PEEP 8 Imagaing Radiology Impression Chest X-Ray 06/26/23 12:04 IMPRESSION: Small bilateral pleural effusions with bibasilar atelectasis and/or infiltrates worse on the right side. Electronically Signed: Clinton Alejandro MD at 12:44 EST , Chest X-Ray 06/26/23 14:18 IMPRESSION: The tip of the endotracheal tube is at the origin of the right mainstem bronchus. It should be pulled back approximately 3.7 cm. Bilateral pleural effusions with bibasilar atelectasis and/or infiltrate worsened left lung base with superimposed CHF. 2.7 cm nodular density in the left upper lobe. Electronically Signed: Clinton Alejandro MD at 14:35 EST , Assessment & Plan Assessment/Plan (1) Acute respiratory failure: (2) Hypertensive emergency: (3) Acute cardiac pulmonary edema: PLAN: Plan 1. Acute hypoxic respiratory failure secondary to aspiration pneumonitis and possible pneumonia/hypertensive emergency ? We will place her on Unasyn ? Continue with intubation consult laborer vineyard ? She was struggling on BiPAP when she first presented to the ER, when she presented she was 84% on room air with respiratory rate in the 20s to low 30s ? She was not ventilating well even while on BiPAP and so the ED physician elected to intubate her. Will plan for admission to the ICU ? Will consult nephrology as well to evaluate for her chronic kidney disease and her elevated creatinine as well as her hypertensive emergency she has been having headaches with blood pressures over 200 with renal disease ? Will obtain a renal ultrasound and continue with Leal ? We will place her on gentle IV fluids which can be discontinued if she starts tube feeds with flushes in the ICU ? Will resume her home blood pressure medications ? I did have a 20-minute conversation advance care planning with family in terms of prognosis and CODE STATUS. She does not want to be maintained long-term on machines however they would like to be notified prior to making any decision about starting CPR for possible so in the meantime we will make her full code and they will look for her living well to give a definitive answer on CODE STATUS. 2. HTN/HLD/A-fib ? Will resume her home blood pressure medications and consult nephrology to evaluate for possible renal source of her accelerated hypertension ? Will continue with her Eliquis for her A-fib ? Continue with her Crestor ? We will monitor make adjustments to her medications as necessary ? We will hold off of Lasix as we will be giving her some IV fluids ? She did have an echo in February with an EF of 55% no diastolic dysfunction, no need to repeat echo 3. GERD ? Stable ? Continue with PPI DVT: Sheba Charges/Coding Visit Charges Inpatient E&M: 05795 Init Hosp L3 Procedures Hospitalists Procedures: 25225 Advncd Care Plan 30 Min
--- NOTE | 2023-06-26 16:05 | US_ITS ---
STUDY: RENAL ULTRASOUND - COMPLETE REASON FOR EXAM: Female, 88 years old. CKD with hypertenzive emergency TECHNIQUE: Ultrasound evaluation of the kidneys was performed with real-time and static sanchez-scale imaging. COMPARISON: None. FINDINGS: RIGHT KIDNEY: Normal location of the right kidney, which is normal in size. The right kidney measures 8.3 cm. There is a normal cortex of the right kidney. The renal cortex measures 1.0 cm. 1.5 cm cyst in the upper pole right kidney. There are no right renal calculi. There is no right hydronephrosis. DISTAL RIGHT URETER: There is non-visualization of the distal right ureter. There is no demonstrated right ureterovesical junction calculus. There is a visualized right ureteral jet. LEFT KIDNEY: Normal location of the left kidney, which is normal in size. The left kidney measures 8.1 cm. There is a normal cortex of the left kidney. The renal cortex measures 1.0 cm. 1.4 cm cyst midsection left kidney. There are no left renal calculi. There is no left hydronephrosis. DISTAL LEFT URETER: There is non-visualization of the distal left ureter. There is no demonstrated left ureterovesical junction calculus. There is a visualized left ureteral jet. BLADDER: Nondistended with Leal catheter. Suspect large right pleural effusion. US/Kidney and Bladder IMPRESSION: No hydronephrosis to suggest obstruction. Suspect large right pleural effusion. Electronically Signed: Joe Palma MD at 0:05 EST ,
[2023-06-26 16:14] LABS: Reflex Lactate? Y
[2023-06-26] MEDS: 0.9% Normal Saline (1000mL) 1,000 ML 75 ML IV (18:01)
[2023-06-26 18:05] LABS: Lactic Acid 1.7 mmol/L (0.4-1.9)
[2023-06-26] MEDS: Propofol 10MG/Ml 1,000 MG/100 ML Bottle 15.5 MG CONT INF (20:03)
[2023-06-26] MEDS: Ampicillin/Sulbactam 3 GM in 0.9% Normal Saline (100mL MB+) 100 ML IV (20:16)
[2023-06-26] MEDS: Propafenone 150 MG Tablet 300 MG GT (20:57)
[2023-06-26] MEDS: Atorvastatin Calcium 20 MG Tablet GT (20:58)
[2023-06-26] MEDS: APIXABAN 2.5 MG TABLET (WCH) GT (20:58)
[2023-06-26] MEDS: hydrALAZINE 50 MG Tablet GT (20:58)
[2023-06-26] MEDS: Chlorhexidine 15 ML PO (21:46)
[2023-06-26] MEDS: 0.9% Saline Lock 10 ML Syringe IV ×3 (21:46→23:05)
[2023-06-26] MEDS: Acetaminophen 650 MG/20 ML UDC GT (21:58)
[2023-06-26 22:03] LABS: CPK Total, Creatine Kinase 103 U/L (26-192); Triglycerides 134 mg/dL
[2023-06-26 22:15] LABS: Troponin-I HS 33 pg/mL (3.0-54.0)
[2023-06-27] VITALS (38 sets, daily range): BP systolic 51–128; BP diastolic 21–79; PULSE 60–66; RESP 16–24; TEMP 36.7–38.6; O2SAT 84–99; BMI 20.2
[2023-06-27 00:51] LABS: Bedside Glucose 82 mg/dL (74-106)
[2023-06-27] MEDS: CHLORHEXIDINE GLUC 2% CLOTH 1 EACH TOWELETTE TOPICAL (02:55)
[2023-06-27] MEDS: Acetaminophen 650 MG/20 ML UDC GT (02:55)
[2023-06-27] MEDS: 0.9% Saline Lock 10 ML Syringe IV ×5 (03:04→22:43)
[2023-06-27 03:12] LABS: Absolute Lymphocyte Count 1.15 X10^3/uL (0.83-4.51); Absolute Neutrophil Count 8.5 X10^3/uL (2.0-7.7); Basophil# 0.04 X10^3/uL; Basophil% 0.4 % (0-1); Eosinophil# 0.06 X10^3/uL; Eosinophils% 0.6 % (0-5); Hematocrit 29.5 % (37-47); Hemoglobin 9.4 g/dL (12.0-15.0); Lymphocyte # 1.15 X10^3/ul (0.83-4.51); Lymphocyte % 11.4 % (19-41); Mean Corp Hgb Conc 31.9 g/dL (32-36); Mean Corpuscular Hgb 32.2 pg (27.0-32.0); Mean Platelet Vol. 9.9 fl (6.2-12.0); Monocyte# 0.28 X10^3/uL; Monocyte% 2.8 % (0-10); NRBC Flagged by Analyzer 0 % (0-5); Neutrophil # 8.53 X10^3/uL (2.7-7.7); Neutrophil % 84.4 % (47-70); POSITIVE COUNT YES; Platelet Count 99 K/mm3 (150-450); RBC Distribution Width CV 15.9 % (11.6-14.6); RBC Distribution Width SD 58.4 fl (35.1-43.9); Red Blood Count 2.92 M/mm3 (4.2-5.4); White Blood Count 10.1 K/mm3 (4.4-11.0)
[2023-06-27 03:18] LABS: Differential Indicated SCAN CRITERIA MET
[2023-06-27 03:25] LABS: Anion Gap 6 (5-15); BUN 17 mg/dL (7-18); BUN/Creat Ratio 12.6 RATIO (10-20); Calcium,Total 7.3 mg/dL (8.5-10.1); Chloride 110 mmol/L (98-107); Creatinine, Serum 1.35 mg/dL (0.55-1.02); EST Glomerular Filtration Rate 39 mL/min (>60); Est Glom Filt Rate - Afr Amer 48 mL/min (>60); Estimated Creatinine Clearance 21.06 ml/min; Glucose 72 mg/dL (74-106); Potassium 3.4 mmol/L (3.5-5.1); Sodium Level 142 mmol/L (136-145)
[2023-06-27 03:45] LABS: Platelet Estimate MOD DEC (ADEQ)
[2023-06-27 05:54] LABS: Allen Test Positive; Base Excess 1 mmol/L (-2 to +2); Bicarbonate 23.6 mmol/L (22-26); Blood Gas Specimen Type ART; Mode CPAP/PS; O2 Delivery Device ET Tube; PEEP 5; PO2 72 mmHG (75-100); SITE R Radial; SO2 96 % (95-99); Total Carbon Dioxide 25 mmol/L; pCO2 27.7 mmHg (35-45); pH 7.54 (7.35-7.45)
--- NOTE | 2023-06-27 06:10 | RAD_ITS ---
STUDY: X-RAY CHEST REASON FOR EXAM: Female, 88 years old. Fever and cough TECHNIQUE: Single AP portable view of the chest. COMPARISON: 06/26/2023 FINDINGS: Since the previous study, the patient has been extubated and the NG tube removed. Stable appearance of the right subclavian pacemaker and EKG leads. Lungs are underexpanded with persistent opacifications in both lower lung seaman more pronounced in the right lung than the left. Small bilateral pleural effusions have decreased. Follow-up recommended to ensure resolution Normal size heart. Normal mediastinum and lakisha. Normal visualized pulmonary arteries. There is atherosclerotic calcification of the aortic arch with tortuosity. There are diffuse degenerative changes of the visualized thoracic spine. There is degenerative osteoarthritis of the bilateral shoulders. There is no demonstrated abnormality of the visualized soft tissue structures of the upper abdomen. RAD/Chest 1 View (Portable) IMPRESSION: Status post extubation and NG tube removal Persistent bibasilar opacifications with small pleural effusions continued follow-up recommended to ensure resolution Electronically Signed: Tim Causey MD at 8:24 EST ,
[2023-06-27] MEDS: 0.9% Normal Saline (1000mL) 1,000 ML 75 ML IV (06:14)
--- NOTE | 2023-06-27 06:19 | NURSING ---
Addendum entered by Ramon Briones 06/27/23 06:22: Above note supposed to be timed for 0600. Original Note: Order received per Dr. Finn to extubate pt. Pt extubated by Mary HOANG with this RN at bedside. Pt tolerated well and placed on 2L NC, respirations even and nonlabored, strong productive cough.
[2023-06-27] MEDS: Ondansetron 4 MG/2 ML Vial IV (08:05)
--- NOTE | 2023-06-27 08:05 | CON.PCM.CC_ITS ---
Assessment & Plan Assessment/Plan (1) Acute respiratory failure: QUALIFIERS: Respiratory failure complication: hypoxia Qualified Code(s): J96.01 - Acute respiratory failure with hypoxia (2) Acute cardiac pulmonary edema: (3) Hypertensive emergency: (4) Sick sinus syndrome: PLAN: Plan RECOMMENDATIONS: 1. Await response to Zofran therapy 2. Recheck H&H this afternoon and Hemoccult stool 3. Possible consult to GI/surgery for upper GI bleed 4. Consult speech therapy for swallow recommendations 5. Continue Unasyn for aspiration pneumonia 6. Potentially transition to IV Lopressor and hydralazine pending swallow eval IMPRESSIONS: 1. Acute hypoxic respiratory failure secondary to flash pulmonary edema secondary to hypertensive emergency Patient with rapid response to therapy with Lasix overnight. Patient able to be extubated this morning. Patient is having some mild hemoptysis versus hematemesis this morning. Unclear if this is related to right mainstem intubation on anticoagulation. Patient has had a significant drop in hemoglobin. Patient only on 2 L nasal cannula at this time, but blood pressure is controlled. Patient will be evaluated by speech therapy. Will continue with home regimen if possible. The patient is unable to tolerate this, may need to transition to IV alternatives. 2. Possible upper GI bleed Patient is on anticoagulation at baseline. Patient having retching versus hemoptysis producing bright red blood. Patient was given some Zofran. Will assume GI source if patient is responsive. Patient does have a right lower lobe infiltrate with aspiration, so cannot rule out airway trauma secondary to coughing. Will recheck H&H this afternoon. If there is still significant drop, patient may require evaluation. Will continue with PPI daily for now, but this will be transitioned to twice daily if patient has a significant drop in H&H or is found to be Hemoccult positive. 3. Hypertension/hyperlipidemia/A-fib/advanced age/GERD/repeated aspiration/debility Complicates care, management, recovery and prognosis. Patient on baseline medications at this time. May need to hold anticoagulation pending workup of problem #2. Patient did recently have an echocardiogram, so this likely does not need to be repeated. Will attempt to address CODE STATUS with family. TIME: 40 minutes critical care time spent addressing patient's respiratory failure, aspiration pneumonia possible upper GI bleed, review of all data and collaboration with care team HPI Consult Data Date of Consult: 06/27/23 HPI Narrative Reason for Consultation: Respiratory failure HPI Narrative: LAVINIA FRENCH is an 88 F, with past medical history listed below, who presents to [facility] on 06/26/2023 secondary to respiratory distress. Patient reportedly had an aspiration pneumonia 1 month ago and had recovered. Patient did have a swallow study at that time and was told not to use straws, but continued to have a cough. Patient had been seen on the day previous for hypertension and headache, but was treated medically and discharged home. Patient reportedly subsequently had an aspiration event overnight and EMS was tato parra. Patient was noted to have a saturation of 80% and was placed on BiPAP and transferred to the ER for evaluation. Patient is on anticoagulation at baseline. In the ER, patient was afebrile, but tachypneic at 22 breaths/min. Patient was hypertensive at 179/97 with an initial saturation of 84% on room air. Patient did improve with BiPAP, but continued to become hypertensive with a peak blood pressure of 209/114. Patient reportedly continued to cough and was unable to tolerate BiPAP. Family had decided to intubate the patient the patient was intubated without issue. Patient did receive 80 mg of Lasix along with propofol and fentanyl with improvement in blood pressure. There was concern for flash pulmonary edema secondary to hypertensive emergency. Laboratory data showed a white blood cell count of 7, hematocrit of 37 and platelets of 170. INR was within normal limits. Chemistry showed an elevated creatinine of 1.6 with a bicarbonate of 25 and a glucose of 190. Lactate was elevated at 3.9 and BNP was elevated at 1536. Liver enzymes were relatively unremarkable. Chest x-ray showed bilateral small pleural effusions and postintubation x-ray showed endotracheal tube at the nellie. This was subsequently moved back. On my evaluation this morning, patient was able to pass a spontaneous breathing and awakening trials. Patient was following commands. Patient did have a significant fever overnight, but hemodynamically was doing well. Patient was subsequently extubated without issue. After extubation, patient did start to have some coughing episodes. Patient sta dae this is her retching and states it was similar to what she came into the ER for. Patient is not having any abdominal pain. Patient denied any hemoptysis, hematemesis or melena previously. Patient is on anticoagulation at baseline and states that she has been compliant with therapy. Patient does report that she had a history of pneumothorax on the left following a pacemaker placement. Patient does have an extensive cardiac history and recently had an echocardiogram showing an EF of 55% with diastolic dysfunction. Given patient's ongoing hemoptysis/mild hematemesis a chest x-ray was completed showing a right lower lobe infiltrate. Patient was given Zofran and we are awaiting response [facility] Medical History Anemia Atrial fibrillation Borderline hypothyroidism DVT (deep venous thrombosis) Essential (primary) hypertension GERD (gastroesophageal reflux disease) History of hypothyroidism HLD (hyperlipidemia) Irregular heart beat Ischemic colitis Kidney disease Migraines Nonobstructive atherosclerosis of coronary artery Nonrheumatic mitral (valve) prolapse Old myocardial infarction Other secondary pulmonary hypertension Paroxysmal atrial fibrillation Sick sinus syndrome TIA (transient ischemic attack) Transient cerebral ischemic attack, unspecified Troponin I above reference range Home Medications gabapentin 300 mg capsule 300 mg PO QHS NERVE PAIN 03/21/15 [History Last Taken 06/25/23] omeprazole 40 mg capsule,delayed release 40 mg PO DAILY ACID REFLUX 07/05/19 [History Last Taken 06/26/23] rosuvastatin 10 mg tablet 10 mg PO QHS CHOLESTEROL 07/05/19 [History Last Taken 06/25/23] tramadol 50 mg tablet 50 mg PO BID PRN PAIN 09/23/21 [History Last Taken Unknown] cholecalciferol (vitamin D3) 50 mcg (2,000 unit) tablet 2,000 unit PO DAILY SUPPLEMENT 12/10/21 [History Last Taken 06/26/23] hyoscyamine sulfate 0.125 mg tablet 0.125 - 0.25 mg PO TID PRN IBS/SPASMS 12/10/21 [History Last Taken Unknown] dapagliflozin propanediol 10 mg tablet (Farxiga) 10 mg PO DAILY BLOOD SUGARS 04/01/22 [History Last Taken 06/26/23] ropinirole 2 mg tablet 2 mg PO QHS RESTLESS LEG SYNDROME 04/01/22 [History Last Taken 06/25/23] levothyroxine 175 mcg tablet 175 mcg PO DAILY THYROID 09/23/22 [History Last Taken Unknown] meclizine 25 mg tablet 25 mg PO TID PRN DIZZINESS 09/23/22 [History Last Taken Unknown] potassium chloride 10 mEq capsule,extended release 10 meq PO QODAY SUPPLEMENT 09/23/22 [History Last Taken 06/26/23] apixaban 2.5 mg tablet (Eliquis) 2.5 mg PO BID BLOOD THINNER #60 tabs 02/25/23 [Rx Last Taken 06/26/23] metoprolol succinate 50 mg tablet,extended release 24 hr 50 mg PO BID BLOOD PRESSURE 04/10/23 [History Last Taken 06/26/23] propafenone 300 mg tablet 300 mg PO BID AFIB 04/10/23 [History Last Taken 1 08/27/22] albuterol sulfate 90 mcg/actuation aerosol inhaler 2 puff inhalation Q4H PRN SHORTNESS OF BREATH/WHEEZING 05/21/23 [History Last Taken 05/21/23] hydralazine 50 mg tablet 50 mg PO TID BLOOD PRESSURE #270 tabs 06/25/23 [Rx Last Taken 06/26/23] aspirin 81 mg tablet,delayed release (Leandro Low Dose Aspirin) 81 mg PO DAILY HEART HEALTH 06/26/23 [History Last Taken 06/26/23] benazepril 40 mg tablet 50 mg PO TID BLOOD PRESSURE 06/26/23 [History Last Taken 06/26/23] sfmcultmsv-lnzvolpabrmmk-bxellycr 50 mg-325 mg-40 mg tablet 1 tab PO BID PRN MIGRAINES 06/26/23 [History Last Taken Unknown] furosemide 20 mg tablet 20 mg PO QODAY EDEMA 06/26/23 [History Last Taken 06/26/23] isosorbide mononitrate 120 mg tablet,extended release 24 hr 240 mg PO QAM CHEST PAIN 06/26/23 [History Last Taken 06/26/23] levothyroxine 137 mcg tablet 137 mcg PO DAILY THYROID 06/26/23 [History Last Taken 06/26/23] Allergy/AdvReac Type Severity Reaction Status Date / Time amiodarone Allergy Rash Verified 06/26/23 12:05 clarithromycin Allergy sore throat Verified 06/26/23 12:05 dicyclomine [From Bentyl] Allergy Unknown Verified 06/26/23 12:05 doxycycline Allergy Unknown Verified 06/26/23 12:05 erythromycin base Allergy Unknown Verified 06/26/23 12:05 nitrofurantoin Allergy Rash Verified 06/26/23 12:05 Penicillins Allergy Unknown Verified 06/26/23 12:05 prochlorperazine Allergy Unknown Verified 06/26/23 12:05 [From Compazine] promethazine HCl Allergy Unknown Verified 06/26/23 12:05 [From Phenergan] quinidine Allergy ineffective Verified 06/26/23 12:05 simvastatin Allergy myalgias Verified 06/26/23 12:05 sotalol Allergy GI upset Verified 06/26/23 12:05 Sulfa (Sulfonamide Allergy Unknown Verified 06/26/23 12:05 Antibiotics) valsartan [From Diovan] Allergy Nausea Verified 06/26/23 12:05 amlodipine AdvReac Intermediate swelling Verified 06/26/23 12:05 of face, hands, feet and legs ciprofloxacin HCl AdvReac Nausea/Vom/ Verified 06/26/23 12:05 [From Cipro] Diarrhea flecainide AdvReac ineffective Verified 06/26/23 12:05 morphine AdvReac Nausea/Vom/ Verified 06/26/23 12:05 Diarrhea Family History Mother Hypertension Atrial fibrillation Brother , age 50 Myocardial infarction, Onset Age: 50 Heart disease Surgical History History of appendectomy History of left heart catheterization (LHC) (07/01/12) History of left hip replacement (04/2020) History of permanent cardiac pacemaker placement (06/2012) Status post partial colectomy Social History household members: none Smoking Status: Never smoker alcohol intake: never substance use type: does not use what type of physical activity do you participate in: none ROS ROS Narrative Unable to obtain due to acute medical issues and coughing Physical Exam Const Constitutional Narrative: Patient alert and oriented following extubation. Appears frail General Appearance: intubated and patient mechanically ventilated HEENT normocephalic HEENT Narrative: Temporal wasting noted Eyes PERRL, EOMs intact bilaterally and conjunctivae normal Neck supple and no JVD Resp normal respiratory effort, no retractions and no use of accessory muscles Auscultation: rhonchi right lower; Negative for crackles, rales or wheezes Cardio regular rate, regular rhythm, S1 normal heart sound, S2 normal heart sound and no murmurs Cardio Narrative: Paced rhythm noted on telemetry GI soft to palpation and non-distended; Negative for hepatosplenomegaly Inspection: Negative for abdominal distention Extremity no clubbing, cyanosis or edema Skin no rashes or lesions noted Skin Narrative: Chronic venous stasis changes Neuro CN's II-XII intact bilaterally and moves all extremities Psych Mood & Affect: anxious Medical Records Data Attestation: I reviewed the patient's medical records Lab / Micro Data Attestation: I reviewed the patient's lab results. 06/27/23 03:05 06/27/23 03:05 Labs: Laboratory Results - last 24 hr 06/26/23 12:00: WBC 7.0, RBC 3.52 L, Hgb 11.3 L, Hct 37.0, MCV 105.1 H, MCH 32.1 H, MCHC 30.5 L, RDW Std Deviation 60.8 H, RDW Coeff of Raul 15.9 H, Plt Count 170, MPV 10.0, Immature Gran % (Auto) 0.400, Neut % (Auto) 60.8, Lymph % (Auto) 30.0, Henry % (Auto) 5.4, Eos % (Auto) 2.1, Baso % (Auto) 1.3 H, Absolute Neuts (auto) 4.2, Absolute Lymphs (auto) 2.10, Nucleated RBC % 0, PT 16.8 H, INR 1.4, APTT 32.4, Sodium 139, Potassium 4.3, Chloride 106, Carbon Dioxide 25.0, Anion Gap 8, BUN 18, Creatinine 1.60 H, Estim Creat Clear Calc 17.99, Est GFR (MDRD) Af Amer 39 L, Est GFR (MDRD) Non-Af 32 L, BUN/Creatinine Ratio 11.2, Glucose 190 H, Calcium 8.4 L, Total Bilirubin 0.90, AST 58 H, ALT 48, Alkaline Phosphatase 56, Troponin I High Sens 44, B-Natriuretic Peptide 1536.3 H, Total Protein 6.7, Albumin 3.6, Globulin 3.1, Albumin/Globulin Ratio 1.2 06/26/23 12:12: Lactic Acid 3.9 H* 06/26/23 17:30: Lactic Acid 1.7 06/26/23 21:15: Total Creatine Kinase 103, Troponin I High Sens 33, Triglycerides 134 06/27/23 00:32: POC Glucose 82 06/27/23 03:05: WBC 10.1, RBC 2.92 L, Hgb 9.4 L, Hct 29.5 L, MCV 101.0 H, MCH 32.2 H, MCHC 31.9 L, RDW Std Deviation 58.4 H, RDW Coeff of Raul 15.9 H, Plt Count 99 L, MPV 9.9, Immature Gran % (Auto) 0.400, Neut % (Auto) 84.4 H, Lymph % (Auto) 11.4 L, Henry % (Auto) 2.8, Eos % (Auto) 0.6, Baso % (Auto) 0.4, Absolute Neuts (auto) 8.5 H, Absolute Lymphs (auto) 1.15, Nucleated RBC % 0, Platelet Estimate MOD DEC, Sodium 142, Potassium 3.4 L, Chloride 110 H, Carbon Dioxide 26.0, Anion Gap 6, BUN 17, Creatinine 1.35 H, Estim Creat Clear Calc 21.06, Est GFR (MDRD) Af Amer 48 L, Est GFR (MDRD) Non-Af 39 L, BUN/Creatinine Ratio 12.6, Glucose 72 L, Calcium 7.3 L ABG Data ABG results: ABG 06/26/23 06/27/23 14:51 05:50 Specimen Type ART ART Sample Site L Radial R Radial pH 7.39 7.54 H Bicarbonate Actual 23.9 23.6 Total CO2 25 25 Base Excess -1 1 O2 Saturation 90 L 96 O2 % 50.0 30.0 ABG pCO2 39.2 27.7 L ABG pO2 59 L 72 L Michael Test Positive Positive Respiration Rate 18 O2 Delivery Device Adult Vent ET Tube Vent Mode AC CPAP/PS Tidal Volume 380.0 POC PEEP 8 5 Attestation: I personally reviewed and interpreted this ABG as follows: (Acute respiratory alkalosis with increased AA gradient) Imagaing Radiology Impression Chest X-Ray 06/26/23 12:04 IMPRESSION: Small bilateral pleural effusions with bibasilar atelectasis and/or infiltrates worse on the right side. Electronically Signed: Clinton Alejandro MD at 12:44 EST , Chest X-Ray 06/26/23 14:18 IMPRESSION: The tip of the endotracheal tube is at the origin of the right mainstem bronchus. It should be pulled back approximately 3.7 cm. Bilateral pleural effusions with bibasilar atelectasis and/or infiltrate worsened left lung base with superimposed CHF. 2.7 cm nodular density in the left upper lobe. Electronically Signed: Clinton Alejandro MD at 14:35 EST , Renal Ultrasound 06/26/23 16:05 IMPRESSION: No hydronephrosis to suggest obstruction. Suspect large right pleural effusion. Electronically Signed: Joe Palma MD at 0:05 EST , Chest x-ray this morning shows right lower lobe infiltrate with no significant effusion Charges/Coding Procedures Hospitalists Procedures: [id number] [facility]
[2023-06-27] MEDS: Acetaminophen 650 MG Suppository RC (09:53)
[2023-06-27] MEDS: 0.9% Normal Saline (500mL Bag) 500 ML IV (10:00)
--- NOTE | 2023-06-27 11:58 | PN.HOSP_ITS ---
Reason for Visit Reason for Visit: Diagnoses Hypertensive emergency (06/26/23) Sick sinus syndrome (06/26/23) Left ventricular failure, unspecified (06/26/23) Acute respiratory failure, unspecified whether with hypoxia or hypercapnia (06/26/23) Acute respiratory failure with hypoxia (06/26/23) Subjective Subjective Seen and examined today, she does not appear safe for any oral intake at this time, she was extubated earlier this morning-I talked briefly with pulmonary medicine about her care. Patient appeared to have had an aspiration episode at home, she has had a previous history of dysphagia, she was intubated in the emergency room. I talked with her nurse today who discussed the care plan with the family and the patient, at this time they would like a hospice consultation- I contacted them and they also requested the CODE STATUS be changed to a DNR comfort care. Objective Data Objective Data Vital Signs: Vital Signs Temp Pulse Resp BP Pulse Ox O2 Del Method O2 Flow Rate 100.9 F H 60 18 92/50 L 96 Nasal Cannula 2 06/27/23 06:00 06/27/23 06:00 06/27/23 06:00 06/27/23 06:00 06/27/23 07:28 06/27/23 08:00 06/27/23 08:00 FiO2 30 06/27/23 05:00 Oxygen Flow Rate (L/min) 2 Oxygen Delivery Method Nasal Cannula Weight: 48.489 kg Body Mass Index (BMI) 20.2 Intake & Output: Intake and Output for Last 24 Hours 06/25/23 06/26/23 06/27/23 23:59 23:59 23:59 Intake Total 714.38 / 719.28 779.51 / 779.51 Output Total 950 / 950 325 / 325 Balance -235.62 / -230.72 454.51 / 454.51 Lab / Micro Data 06/27/23 03:05 06/27/23 03:05 Labs: Laboratory Results - last 24 hr 06/26/23 12:00: WBC 7.0, RBC 3.52 L, Hgb 11.3 L, Hct 37.0, MCV 105.1 H, MCH 32.1 H, MCHC 30.5 L, RDW Std Deviation 60.8 H, RDW Coeff of Raul 15.9 H, Plt Count 170, MPV 10.0, Immature Gran % (Auto) 0.400, Neut % (Auto) 60.8, Lymph % (Auto) 30.0, Snyder % (Auto) 5.4, Eos % (Auto) 2.1, Baso % (Auto) 1.3 H, Absolute Neuts (auto) 4.2, Absolute Lymphs (auto) 2.10, Nucleated RBC % 0, PT 16.8 H, INR 1.4, APTT 32.4, Sodium 139, Potassium 4.3, Chloride 106, Carbon Dioxide 25.0, Anion Gap 8, BUN 18, Creatinine 1.60 H, Estim Creat Clear Calc 17.99, Est GFR (MDRD) Af Amer 39 L, Est GFR (MDRD) Non-Af 32 L, BUN/Creatinine Ratio 11.2, Glucose 190 H, Calcium 8.4 L, Total Bilirubin 0.90, AST 58 H, ALT 48, Alkaline Phosphatase 56, Troponin I High Sens 44, B-Natriuretic Peptide 1536.3 H, Total Protein 6.7, Albumin 3.6, Globulin 3.1, Albumin/Globulin Ratio 1.2 06/26/23 12:12: Lactic Acid 3.9 H* 06/26/23 17:30: Lactic Acid 1.7 06/26/23 21:15: Total Creatine Kinase 103, Troponin I High Sens 33, Triglycerides 134 06/27/23 00:32: POC Glucose 82 06/27/23 03:05: WBC 10.1, RBC 2.92 L, Hgb 9.4 L, Hct 29.5 L, MCV 101.0 H, MCH 32.2 H, MCHC 31.9 L, RDW Std Deviation 58.4 H, RDW Coeff of Raul 15.9 H, Plt Count 99 L, MPV 9.9, Immature Gran % (Auto) 0.400, Neut % (Auto) 84.4 H, Lymph % (Auto) 11.4 L, Snyder % (Auto) 2.8, Eos % (Auto) 0.6, Baso % (Auto) 0.4, Absolute Neuts (auto) 8.5 H, Absolute Lymphs (auto) 1.15, Nucleated RBC % 0, Platelet Estimate MOD DEC, Sodium 142, Potassium 3.4 L, Chloride 110 H, Carbon Dioxide 26.0, Anion Gap 6, BUN 17, Creatinine 1.35 H, Estim Creat Clear Calc 21.06, Est GFR (MDRD) Af Amer 48 L, Est GFR (MDRD) Non-Af 39 L, BUN/Creatinine Ratio 12.6, Glucose 72 L, Calcium 7.3 L ABG Data ABG results: ABG 06/26/23 06/27/23 14:51 05:50 Specimen Type ART ART Sample Site L Radial R Radial pH 7.39 7.54 H Bicarbonate Actual 23.9 23.6 Total CO2 25 25 Base Excess -1 1 O2 Saturation 90 L 96 O2 % 50.0 30.0 ABG pCO2 39.2 27.7 L ABG pO2 59 L 72 L Michael Test Positive Positive Respiration Rate 18 O2 Delivery Device Adult Vent ET Tube Vent Mode AC CPAP/PS Tidal Volume 380.0 POC PEEP 8 5 Radiography Diagnostic Testing: Radiology Impression Chest X-Ray 06/26/23 12:04 IMPRESSION: Small bilateral pleural effusions with bibasilar atelectasis and/or infiltrates worse on the right side. Electronically Signed: Clinton Aljeandro MD at 12:44 EST , Chest X-Ray 06/26/23 14:18 IMPRESSION: The tip of the endotracheal tube is at the origin of the right mainstem bronchus. It should be pulled back approximately 3.7 cm. Bilateral pleural effusions with bibasilar atelectasis and/or infiltrate worsened left lung base with superimposed CHF. 2.7 cm nodular density in the left upper lobe. Electronically Signed: Clinton Alejandro MD at 14:35 EST , Renal Ultrasound 06/26/23 16:05 IMPRESSION: No hydronephrosis to suggest obstruction. Suspect large right pleural effusion. Electronically Signed: Joe Palma MD at 0:05 EST , Chest X-Ray 06/27/23 06:10 IMPRESSION: Status post extubation and NG tube removal Persistent bibasilar opacifications with small pleural effusions continued follow-up recommended to ensure resolution Electronically Signed: Tim Causey MD at 8:24 EST Reading Location ID and State: [facility] / [place] , Service support , Physical Exam Const alert Constitutional Narrative: Patient appears frail and elderly General Appearance: cooperative, well kempt and well developed Orientation / Consciousness: awake, oriented to person and oriented to place HEENT normocephalic, head/scalp atraumatic and moist oral mucous membranes Eyes PERRL, EOMs intact bilaterally and conjunctivae normal Neck supple, no JVD, thyroid normal and no carotid bruits General: trachea midline Resp normal respiratory effort, no retractions and no use of accessory muscles Resp Narrative: Expiratory rhonchi are noted over all lung seaman Auscultation: Negative for rales, rhonchi or wheezes Cardio regular rate, regular rhythm, S1 normal heart sound, S2 normal heart sound, no murmurs, no rub and no gallops GI normal to inspection, nondistended, normoactive bowel sounds, soft to palpation, non-tender and non-distended Extremity no clubbing, cyanosis or edema Skin no rashes or lesions noted General Skin Exam: no breakdown Neuro CN's II-XII intact bilaterally, moves all extremities, no focal motor deficits and no sensory deficits noted Sensorium / Orientation: awake, alert, oriented to person and oriented to place Speech: speech normal Psych affect normal Assessment & Plan Assessment/Plan (1) Acute respiratory failure: QUALIFIERS: Respiratory failure complication: hypoxia Qualified Code(s): J96.01 - Acute respiratory failure with hypoxia PLAN: Plan 1. Acute hypoxic respiratory failure secondary to suspected aspiration-again patient was extubated this morning, she is currently on 2 L of oxygen via nasal cannula, I have consulted hospice. #2 chronic oropharyngeal dysphagia-patient is currently n.p.o. Patient will be seen by speech therapy #3 hypertensive emergency-patient's blood pressure at this time is slightly low, pulmonary medicine gave the patient some fluids today #4 chronic kidney disease stage IIIb-since the patient will ultimately be a hospice patient, I will cancel the nephrology consultation. Total clinical time spent by myself addressing the patient's medical issues, reviewing all of her data, and collaborating with patient's care team: 35 minutes Charges/Coding Visit Charges Inpatient E&M: 46814 Subs Hosp L2
--- NOTE | 2023-06-27 13:35 | CASEMGMT ---
Pt nurse updated this RN CM that pt is having a hospice c/s at 4pm today. RN CM assessment deferred.
[2023-06-27] MEDS: LORazepam 2 MG/ML Syringe 0.25 MG IV (19:53)
[2023-06-27] MEDS: morphine (oral solution) 10MG/0.5ML Syringe 5 MG SL (20:09)
[2023-06-27] MEDS: 0.9% Normal Saline (1000mL) 1,000 ML 100 ML IV (20:22)
[2023-06-27] MEDS: Ampicillin/Sulbactam 3 GM in 0.9% Normal Saline (100mL MB+) 100 ML IV (22:43)
[2023-06-28] MEDS: 0.9% Normal Saline (1000mL) 1,000 ML 100 ML IV (05:36)
[2023-06-28 05:40] VITALS: BP 73/48; PULSE 59; RESP 28; TEMP 37; O2SAT 96
--- NOTE | 2023-06-28 07:33 | NURSING ---
family requesting pt go home. already in to see pt. states she can go home. talked to ab at [facility]. requesting to be called when transport is set up.
--- NOTE | 2023-06-28 07:56 | DS.PCM_ITS ---
Providers Date of Admission: 06/26/23 Date of Discharge: 06/28/23 Primary Care Physician: Dr. Suresh Coles MD Consultations 06/26/23 16:05 Consult: Aircraft Communicator / Pulmonary Medicine Routine Consulting Provider: Pulmonary Medicine scott Wen Reason for Consult: Vent management EMERGENT Consult: No Notified: Yes Date Notified: 06/26/23 Time Notified: 16:25 Method of Notification: Text 06/27/23 12:03 Consult: Hospice / Palliative Care Routine Consulting Provider: [facility] Reason for Consult: end of life care EMERGENT Consult: No Notified: Yes Date Notified: 06/27/23 Time Notified: 12:04 Method of Notification: Verbal Reason For Visit: PULMONARY EDEMA RESPIRATORY FAILURE Diagnosis Discharge Diagnosis (1) Acute respiratory failure: Status: Acute Code(s): J96.00 - Acute respiratory failure, unspecified whether with hypoxia or hypercapnia Qualifiers: Respiratory failure complication: hypoxia Qualified Code(s): J96.01 - Acute respiratory failure with hypoxia Plan 1. Acute hypoxic respiratory failure secondary to suspected aspiration and acute pulmonary edema due to hypertensive emergency #2 chronic oropharyngeal dysphagia with aspiration-patient is currently n.p.o. Patient will be seen by speech therapy #3 hypertensive emergency-patient's blood pressure at this time is slightly low, pulmonary medicine gave the patient some fluids today #4 chronic kidney disease stage IIIb-since the patient will ultimately be a hospice patient, I will cancel the nephrology consultation. Total clinical time spent by myself addressing the patient's medical issues, reviewing all of her data, and collaborating with patient's care team: 35 minutes Medications at Discharge Home Medications gabapentin 300 mg capsule 300 mg PO QHS NERVE PAIN 03/21/15 omeprazole 40 mg capsule,delayed release 40 mg PO DAILY ACID REFLUX 07/05/19 rosuvastatin 10 mg tablet 10 mg PO QHS CHOLESTEROL 07/05/19 tramadol 50 mg tablet 50 mg PO BID PRN PAIN 09/23/21 cholecalciferol (vitamin D3) 50 mcg (2,000 unit) tablet 2,000 unit PO DAILY SUPPLEMENT 12/10/21 hyoscyamine sulfate 0.125 mg tablet 0.125 - 0.25 mg PO TID PRN IBS/SPASMS 12/10/21 dapagliflozin propanediol 10 mg tablet (Farxiga) 10 mg PO DAILY BLOOD SUGARS 04/01/22 ropinirole 2 mg tablet 2 mg PO QHS RESTLESS LEG SYNDROME 04/01/22 levothyroxine 175 mcg tablet 175 mcg PO DAILY THYROID 09/23/22 meclizine 25 mg tablet 25 mg PO TID PRN DIZZINESS 09/23/22 potassium chloride 10 mEq capsule,extended release 10 meq PO QODAY SUPPLEMENT 09/23/22 apixaban 2.5 mg tablet (Eliquis) 2.5 mg PO BID BLOOD THINNER #60 tabs 02/25/23 metoprolol succinate 50 mg tablet,extended release 24 hr 50 mg PO BID BLOOD PRESSURE 04/10/23 propafenone 300 mg tablet 300 mg PO BID AFIB 04/10/23 albuterol sulfate 90 mcg/actuation aerosol inhaler 2 puff inhalation Q4H PRN SHORTNESS OF BREATH/WHEEZING 05/21/23 hydralazine 50 mg tablet 50 mg PO TID BLOOD PRESSURE #270 tabs 06/25/23 aspirin 81 mg tablet,delayed release (Leandro Low Dose Aspirin) 81 mg PO DAILY HEART HEALTH 06/26/23 benazepril 40 mg tablet 50 mg PO TID BLOOD PRESSURE 06/26/23 puzlxkhfxg-vaosmeyyxeins-unmuiiuy 50 mg-325 mg-40 mg tablet 1 tab PO BID PRN MIGRAINES 06/26/23 furosemide 20 mg tablet 20 mg PO QODAY EDEMA 06/26/23 isosorbide mononitrate 120 mg tablet,extended release 24 hr 240 mg PO QAM CHEST PAIN 06/26/23 levothyroxine 137 mcg tablet 137 mcg PO DAILY THYROID 06/26/23 Hospital Course Operations None Procedures None Summary of Care Provided Minutes Spent on Discharge: 31 Hospital Course: -year-old white female was seen in the emergency room at [facility] after presenting via ambulance with respiratory distress, patient's family stated that the patient has been treated in the past for aspiration pneumonia, she was seen earlier in the morning for complaints of headache and sent home, after she was at home the family states she took a drink and had an episode of coughing, she then tried to take some Tessalon Perles and was coughing even more, EMS was called and her pulse ox on room air was noted to be 80%, she was placed on BiPAP and brought to the ER for evaluation, discussions were carried out with the family concerning how aggressive to get with treatment, he was placed on BiPAP but appeared to be unable to stop coughing and catch her breath, her blood pressures remained high and patient became fatigued in the emergency room. Intubation was discussed with family and they agreed for intubation. Labs were obtained which showed a normal white blood cell count, chest x-ray showed bilateral small pleural effusions with evidence of pulmonary edema. Patient's beta natruretic peptide was 1583. Patient was felt to have acute pulmonary edema secondary to hypertensive urgency, she was admitted to ICU and seen in consultation by the pulmonary service, she was able to be extubated the following day, unfortunately she was unable to eat due to concerns of aspiration. Discussions were carried out with the family and the patient, they requested input from hospice and agreed to sign up with hospice on discharge from the hospital. Patient was moved to [place] [id number] and she was made comfort care. Family desired her to be discharged home rather than go to the hospice care facility. On 06/28/2023, patient was seen and examined: On examination she appeared unresponsive to verbal stimuli, she does not appear to be in any distress. Vital signs as documented. Skin warm and dry and without overt rashes. Neck without JVD, thyroid appears normal, trachea is midline, neck is supple. Lungs clear anteriorly, respirations were shallow and rapid. Heart exam notable for regular rhythm, normal sounds and absence of murmurs, rubs or gallops. Abdomen unremarkable and without evidence of organomegaly, masses, or abdominal aortic enlargement, bowel sounds are present in all 4 quadrants, no abdominal tenderness was noted. Extremities nonedematous, no cyanosis was noted, no clubbing was noted. Neuro: Cranial nerves II through XII are grossly intact. Psych: Patient is comatose and does not respond to verbal or tactile stimulation Family desired the patient to be transferred home for terminal care on 06/28/2023, patient was discharged home on that date in stable but terminal condition. Weight / BMI Weight Weight: 48.489 kg Body Mass Index (BMI) 20.2 ABG / Lab / Microbiology Data 06/27/23 03:05 06/27/23 03:05 Microbiology: Microbiology 06/26/23 16:05 Sputum, Induced/Lukens Gram Stain - Final Radiography Diagnostic Testing: Radiology Impression Chest X-Ray 06/27/23 06:10 IMPRESSION: Status post extubation and NG tube removal Persistent bibasilar opacifications with small pleural effusions continued follow-up recommended to ensure resolution Electronically Signed: Tim Causey MD at 8:24 EST , Meaningful Use Info Meaningful Use Diagnoses (Choose all that apply): None applicable Discharge Plan Admission Admit Date/Time: 06/26/23 15:01 Attending Provider: Antoine Garay Primary Care Provider: Suresh Coles Consulting Providers: Scott Logan; Jose Newsome; Alessandra Hurtado; Merle Randolph; Dominique Macias NP Discharge Orders/Prescriptions Prescriptions: No Action rosuvastatin 10 mg tablet 10 mg PO QHS omeprazole 40 mg capsule,delayed release(DR/EC) 40 mg PO DAILY tramadol 50 mg tablet 50 mg PO BID PRN (Reason: PAIN ) Farxiga 10 mg tablet 10 mg PO DAILY ropinirole 2 mg tablet 2 mg PO QHS cholecalciferol (vitamin D3) 50 mcg (2,000 unit) tablet 2,000 unit PO DAILY hyoscyamine sulfate 0.125 mg tablet 0.125 - 0.25 mg PO TID PRN (Reason: IBS/SPASMS) levothyroxine 175 mcg tablet 175 mcg PO DAILY potassium chloride 10 mEq capsule, extended release 10 meq PO QODAY meclizine 25 mg tablet 25 mg PO TID PRN (Reason: DIZZINESS ) metoprolol succinate 50 mg tablet extended release 24 hr 50 mg PO BID propafenone 300 mg tablet 300 mg PO BID gabapentin 300 MG capsule 300 mg PO QHS levothyroxine 137 mcg tablet 137 mcg PO DAILY aspirin [Leandro Low Dose Aspirin] 81 mg tablet,delayed release (DR/EC) 81 mg PO DAILY albuterol sulfate 90 mcg/actuation HFA aerosol inhaler 2 puff INHALATION Q4H PRN (Reason: SHORTNESS OF BREATH/WHEEZING ) sbamgpgznj-kibuuydovhawz-yqak 50-325-40 mg tablet 1 tab PO BID PRN (Reason: MIGRAINES) isosorbide mononitrate 120 mg tablet extended release 24 hr 240 mg PO QAM furosemide 20 mg tablet 20 mg PO QODAY benazepril 40 mg tablet 50 mg PO TID Eliquis 2.5 mg tablet 2.5 mg PO BID Qty: 60 3RF hydralazine 50 mg tablet 50 mg PO TID Qty: 270 3RF Referrals / Follow Up: Suresh Coles MD [Primary Care Provider] - Disposition Disposition (needs filled in before D/C Order can be placed): Hospice in Home Charges/Coding Visit Charges Inpatient E&M: 89598 Disch Hosp >30min
--- NOTE | 2023-06-28 08:35 | NURSING ---
Pt unresponsive. Several family members are at her bedside. Transport coming around 10am this morning. Hospice aware of transport time and discharge order.
[2023-06-28] MEDS: morphine (oral solution) 10MG/0.5ML Syringe 5 MG SL (10:00)
== END 2023-06-28 10:16 | disposition hospice, home (50) | DRG 208 ==
LOC: ED 14:54 → ICU 15:02 → MS3 06-27 18:15
PROVIDERS: Admitting Provider Family Medicine; Emergency Provider Emergency Medicine; PCP Family Medicine; Visit Provider Internal Medicine
DX: J69.0 Pneumonitis due to inhalation of food and vomit (principal); J96.01 Acute respiratory failure with hypoxia; J81.0 Acute pulmonary edema; K92.0 Hematemesis; I16.1 Hypertensive emergency; R04.2 Hemoptysis; N18.32 Chronic kidney disease, stage 3b; I27.20 Pulmonary hypertension, unspecified; I49.5 Sick sinus syndrome; I48.91 Unspecified atrial fibrillation; I12.9 Hypertensive chronic kidney disease with stage 1 through stage 4 chronic kidney disease, or unspecified chronic kidney disease; I25.10 Atherosclerotic heart disease of native coronary artery without angina pectoris; E78.5 Hyperlipidemia, unspecified; K21.9 Gastro-esophageal reflux disease without esophagitis; R26.89 Other abnormalities of gait and mobility; R53.81 Other malaise; R13.12 Dysphagia, oropharyngeal phase; Z79.01 Long term (current) use of anticoagulants; Z95.0 Presence of cardiac pacemaker
CPT/HCPCS: 31500; 31720; 36600; 51702; 70450; 70470; 71045; 76770; 80048; 80053; 82550; 82803; 82962; 83605; 83880; 84478; 84484; 85025; 85610; 85730; 87070; 87077; 87186; 87205; 93005; 94002; 94003; 97802; 99252; 99285; J7030; J7040; Q9967; A4216; G0463; J0295; J0330; J2405